=== PATIENT | female | born 1950 | race Hispanic/Latino ===

== ENCOUNTER 2016-05-30 16:15 | Inpatient (IN) | payer MEDICARE, OTHER, BC ==
[2016-05-30] MEDS ORDERED: Albuterol-Ipratrop 3 mg / 0.5 (3 ml) UD ONE (16:58)
[2016-05-30] MEDS: Albuterol-Ipratrop 3 mg / 0.5 (3 ml) UD INH SCH ×3 (17:15→17:49)
[2016-05-30 17:22] LABS: ABG ALLEN TEST YES; ARTERIAL BLOOD GAS HCO3 32.7 mmol/L (21-28); ARTERIAL BLOOD GAS O2 CAPACITY 17.5 mL/dL (16-24); ARTERIAL BLOOD GAS PH 7.32 (7.35-7.45); ARTERIAL BLOOD GAS PO2 57 mm/Hg (80-100); ARTERIAL BLOOD HGB O2 SAT 85.7 % (95.0-98.0); CARBOXYHEMOGLOBIN 3.5 % (0.5-1.5); METHEMOGLOBIN 2.8 % (0.0-3.0)
--- NOTE | 2016-05-30 17:22 | ED PDOC ---
HPI: SOB/CHF/COPD Time Seen by Provider: 05/30/16 16:35 Chief Complaint (Nursing): Shortness Of Breath Chief Complaint (Provider): SOB History Per: Patient, Family (father and son at bedside ) Additional Complaint(s): patient by ambulance with hx of COPD on home O2, presents for SOB. Duoneb x 1, albuterol x 1 and solumedrol 125mg in route to the hospital according to the patient has not wanted to use oxygen at home and son reports he does think she is taking her COPD medicines as prescribed. for the past week her cough has been getting worse and she has not been feeling well. patient can speak almost a full sentence, currently getting nebs tx. she denies chest pain, headaches or dizziness. Past Medical History Reviewed: Historical Data, Nursing Documentation, Vital Signs Vital Signs: Last Vital Signs Temp 99.8 F H 05/31/16 04:00 Pulse 97 H 05/31/16 10:07 Resp 18 05/31/16 06:00 BP 111/69 05/31/16 06:00 Pulse Ox 95 05/31/16 10:40 - Medical History PMH: Asthma, COPD, Emphysema, Hypothyroidism, Pneumonia (1991) Denies: Depression, Chronic Kidney Disease, Schizophrenia - Surgical History Other surgeries: thyroid removed- CA - Family History Family History: States: Unknown Family Hx - Living Arrangements Living Arrangements: With Family - Immunization History Hx Tetanus Toxoid Vaccination: No Hx Influenza Vaccination: No Hx Pneumococcal Vaccination: No - Home Medications Home Medications: Ambulatory Orders Medication Instructions Recorded Albuterol Sulfate [Proair Hfa] 1 puff INH BID #0 inh 01/11/15 Albuterol/Ipratropium [Duoneb 3 3 ml INH RQ4 #0 neb 01/11/15 mg/0.5 mg (3 ml) UD] Tiotropium [place] [Spiriva] 1 puff INH DAILY #0 cap 01/11/15 Fluticasone/Salmeterol 500/50 1 puff INH DAILY 05/30/16 [Advair Diskus 500/50] Levothyroxine [Synthroid] 88 mcg PO DAILY 05/30/16 - Allergies Allergies/Adverse Reactions: Allergies Allergy/AdvReac Type Severity Reaction Status Date / Time No Known Drug Allergies Allergy Verified 05/31/16 00:42 corn AdvReac CONGESTION Verified 05/30/16 21:48 beef AdvReac CONGESTION Uncoded 05/30/16 21:48 Review of Systems ROS Statement: Except As Marked, All Systems Reviewed And Found Negative Constitutional: Negative for: Fever Cardiovascular: Negative for: Chest Pain Gastrointestinal: Negative for: Abdominal Pain Musculoskeletal: Negative for: Neck Pain Neurological: Negative for: Headache, Dizziness Physical Exam - Reviewed Nursing Documentation Reviewed: Yes Vital Signs Reviewed: Yes - Physical Exam Appears: Positive for: In Acute Distress (moderate respiratory) Head Exam: Positive for: NORMAL INSPECTION Skin: Positive for: Normal Color, Warm, Dry Eye Exam: Positive for: Normal appearance, EOMI, PERRL ENT: Positive for: Normal ENT Inspection Neck: Positive for: Normal, Painless ROM Cardiovascular/Chest: Positive for: Tachycardia. Negative for: Murmur, Irregularly Irregular Respiratory: Positive for: Decreased Breath Sounds (at bases ), Accessory Muscle Use, Crackles, Rales, Rhonchi, Wheezing, Respiratory Distress (moderate ) Pulses-Dorsalis Pedis (L): 2+ Pulses-Dorsalis Pedis (R): 2+ Pulses-Radial (L): 2+ Pulses-Radial (R): 2+ Gastrointestinal/Abdominal: Positive for: Normal Exam, Soft. Negative for: Tenderness Back: Negative for: L CVA Tenderness, R CVA Tenderness Extremity: Positive for: Capillary Refill (normal ). Negative for: Pedal Edema , Calf Tenderness, Swelling Lymphatic: Positive for: Normal Exam Neurologic/Psych: Positive for: Alert, Oriented. Negative for: Motor/Sensory Deficits - Laboratory Results Result Diagrams: 05/31/16 04:45 05/31/16 04:45 - ECG ECG Rhythm: Positive for: Normal QRS, Normal ST Segment, Sinus Tachycardia (115) , Premature Ventricular Contraction, Nonspecific Changes O2 Sat by Pulse Oximetry: 95 Pulse Ox Interpretation: Normal - Radiology X-Ray: Interpreted by Me, Read By Radiologist X-Ray Interpretation: Infiltrates - Critical Care Total Time (In Min): 30 Medical Decision Making Medical Decision Makin66 y/o female with COPD, on home O2 with respiratory distress with rales/ rhonchi on exam - r/o pneumonia, chf - labs - CXR - EKG - nebs for now, consider Bipap after ABG Labs with elevated white count high BNP LA 2.4 CXR with bilateral pneumonia- Rocephin and Azithro started BIPAP ordered Patient meeting sepsis criteria (+) wbc count, tachy, source. given very high BNP fluids cautiously second LA ordered. Call placed to Dr. Ferreira; discussed case agrees with ICU. patient with no hx of heart failure Call placed to Dr. Guzman ICU- discussed case and accepts patient to the unit. Call placed to Dr. Vanegas hospitalist. accepts patient to his service and will be down for evaluation. She is tolerating BIPAP maintaining 90-92% O2; she is drowsy but alert and able to talk through the bipap mask. Chart completed after patient was admitted; aware of finding of hip fracture. at time of arrival patient was in respiratory distress, family and patient denied any falls or trauma, patient appeared in no painful distress, denied any pain and was moving around her bed. initial examination of the leg showed muscle wasting; no obvious deformities, pedal pulses to be normal and no pedal edema. Disposition - Clinical Impression Clinical Impression: Congestive heart failure, Sepsis, Fracture of hip, Obstructive chronic bronchitis with exacerbation, Pneumonia - Patient ED Disposition Is Patient to be Admitted: Yes - Disposition Disposition Time: 19:25 Condition: CRITICAL - POA Present On Arrival: None
[2016-05-30 18:21] LABS: BASO % 0.2 % (0.0-2.0); HEMATOCRIT 41.2 % (34.0-47.0); LYMPH # 0.5 K/uL (1.0-4.3); LYMPH % 2.1 % (20.0-40.0); MEAN CELL VOLUME 100.1 fl (81.0-99.0); MEAN CORPUSCULAR HEMOGLOBIN 31.7 pg (27.0-31.0); MEAN CORPUSCULAR HGB CONC 31.7 g/dL (33.0-37.0); MEAN PLATELET VOLUME 8.6 fl (7.2-11.7); MONO # 1.3 K/uL (0.0-0.8); NEUT # 23.3 K/uL (1.8-7.0); NEUT % 92.7 % (50.0-75.0); NRBC % 0.3 % (0.0-0.0); PLATELET COUNT 467 K/uL (130-400); RED CELL DISTRIBUTION WIDTH 14.5 % (11.5-14.5); WHITE BLOOD COUNT 25.1 K/uL (4.8-10.8)
--- NOTE | 2016-05-30 18:25 | RAD ---
HISTORY: cough, wheezing COMPARISON: 02/16/2016. TECHNIQUE: Chest PA and lateral FINDINGS: LUNGS: The lungs are hyperinflated. There is bilateral lower lobe airspace disease, more confluent on the right. PLEURA: No significant pleural effusion identified. No pneumothorax apparent. CARDIOVASCULAR: Normal. OSSEOUS STRUCTURES: There is diffuse bone demineralization and multilevel degenerative changes in the spine. VISUALIZED UPPER ABDOMEN: Normal. OTHER FINDINGS: Again seen are bilateral calcified breast implants. IMPRESSION: Findings are concerning for bilateral lower lobe pneumonia, worse on the right.
[2016-05-30 18:27] LABS: ALB/GLOB RATIO 0.9 (1.0-2.1); ALKALINE PHOSPHATASE 161 U/L (38-126); ALT/SGPT 36 U/L (9-52); AST/SGOT 45 U/L (14-36); BILIRUBIN,TOTAL 0.6 mg/dl (0.2-1.3); BLOOD UREA NITROGEN 60 mg/dl (7-17); CALCIUM 9.1 mg/dL (8.4-10.2); CARBON DIOXIDE 36 mmol/L (22-30); CHLORIDE 94 mmol/L (98-107); GFR AFRICAN-AMERICAN > 60; GLUCOSE,RANDOM 183 mg/dL (65-105); MAGNESIUM 2.9 MG/DL (1.6-2.3); POTASSIUM 4.3 MMOL/L (3.6-5.0); SODIUM 141 mmol/l (132-148); TOTAL PROTEIN 7.5 G/DL (6.3-8.2)
[2016-05-30] MEDS ORDERED: Azithromycin 500 MG in Sodium Chloride 0.9% 250 ML IVPB STA (18:35)
[2016-05-30] MEDS ORDERED: cefTRIAXone (Rocephin) 1 gm Inj ONE (19:00)
[2016-05-30 19:09] LABS: NEUTROPHIL 89 % (42-75); TOTAL CELLS COUNTED 100
[2016-05-30 19:16] LABS: VENOUS BLOOD GAS BASE EXCESS 9.6 mmol/L (0.0-2.0); VENOUS BLOOD GAS PCO2 90 mmHg (40-60); VENOUS BLOOD PH 7.26 (7.32-7.43)
--- NOTE | 2016-05-30 20:04 | CP.PCM.HP ---
History of Present Illness - History of Present Illness History of Present Illness: PCP: Not on Staff Pulmonogist: Dr Ferreira Chief complaint: SOB/Coughing HPI: The Hx is obtained from the patient's family and the medical records as patient is in severe SOB and on a BIPAP. She is a 66 years old female with hx of Hypothyroidism, pneumonia, Asthma with COPD on home Oxygen and, who smokes > than 10 cigarettes daily, is brought to the ED with 2 weeks of worsening SOB, Coughing , always feeling cold, poor memory , not eating nor drinking liquids, referring some dizziness on the day of admission. The referred that the patient was so sick that she has not smoked for 2 days. No fever, vomits, diarrhea nor complaints of chest pain. PMH: Asthma with COPD; Hypothyroid due to ThyroidCA s/p Iodine ablation with radiation in 2008, PMH: lap Cholecystectomy, Breast implant, Chin implant, cervical spine surgery at [facility], Thyroid Iodine ablation with radiation with LN involvement -2008 in [facility] SH: Tobacco - currently smokes 1ppd since she was 13 years old; Alcohol - denies; Drugs - denies FH: Mother - Heart Disease Father - Alzheimer's Dementia Allergies: NKDA: Allergic to [place]. Present on Admission - Present on Admission Any Indicators Present on Admission: No History of DVT/PE: No History of Uncontrolled Diabetes: No Urinary Catheter: No Decubitus Ulcer Present: No Review of Systems - Review of Systems Systems not reviewed;Unavailable: Respiratory Distress Review of Systems: Review of systems is limited because of the SOB and Patient on BIPAP - Constitutional Constitutional: Weakness - EENT Ears: absent: Decreased Hearing Nose/Mouth/Throat: absent: Epistaxis, Nasal Congestion, Nasal Discharge - Breasts Additional comments: bilateral Breast Implant - Respiratory Respiratory: Cough, Dyspnea - Gastrointestinal Gastrointestinal: absent: Diarrhea, Vomiting - Musculoskeletal Musculoskeletal: Back Pain Additional comments: Unsteady gait. - Hematologic/Lymphatic Hematologic: absent: Easy Bleeding, Easy Bruising Past Patient History - Tetanus Immunizations Tetanus Immunization: Unknown - Past Medical History & Family History Past Medical History?: Yes - Past Social History Smoking Status: Heavy Smoker > 10 Cigarettes Daily Chewing Tobacco Use: No Cigar Use: No Alcohol: None Drugs: Denies Home Situation {Lives}: With Family - CARDIAC Hx Cardiac Disorders: No - PULMONARY Hx Asthma: Yes Hx Chronic Obstructive Pulmonary Disease (COPD): Yes Hx Emphysema: Yes Hx Pneumonia: Yes (1991) - NEUROLOGICAL Hx Neurological Disorder: No - HEENT Hx HEENT Problems: No - RENAL Hx Chronic Kidney Disease: No - ENDOCRINE/METABOLIC Hx Hypothyroidism: Yes - HEMATOLOGICAL/ONCOLOGICAL Hx Blood Disorders: No - INTEGUMENTARY Hx Dermatological Problems: No - MUSCULOSKELETAL/RHEUMATOLOGICAL Hx Back Pain: Yes Hx Falls: No Hx Spinal Stenosis: Yes (cervical with radiculopathy) Hx Unsteady Gait: Yes - GASTROINTESTINAL Hx Gastrointestinal Disorders: No Other/Comment: hepatic cysts - GENITOURINARY/GYNECOLOGICAL Hx Genitourinary Disorders: No - PSYCHIATRIC Hx Depression: No Hx Schizophrenia: No Hx Substance Use: No - SURGICAL HISTORY Hx Surgeries: Yes Hx Orthopedic Surgery: Yes Hx Thyroidectomy: Yes (with ALANIZ) Other/Comment: Breast implants. Cervical spinal decompression/fusion. Laparoscopic hepatic cystectomy - ANESTHESIA Hx Anesthesia: Yes Hx Anesthesia Reactions: Yes (BP drops) Hx Malignant Hyperthermia: No Meds Allergies/Adverse Reactions: Allergies Allergy/AdvReac Type Severity Reaction Status Date / Time No Known Drug Allergies Allergy Verified 05/31/16 00:42 corn AdvReac CONGESTION Verified 05/30/16 21:48 beef AdvReac CONGESTION Uncoded 05/30/16 21:48 Physical Exam - Constitutional Appears: In Acute Distress, Cachectic - Head Exam Head Exam: ATRAUMATIC, NORMAL INSPECTION, NORMOCEPHALIC - Eye Exam Eye Exam: EOMI, Normal appearance Pupil Exam: NORMAL ACCOMODATION, PERRL - ENT Exam ENT Exam: Mucous Membranes Dry, Normal External Ear Exam, Normal Oropharynx - Neck Exam Neck exam: Positive for: Full Rom, Normal Inspection. Negative for: Lymphadenopathy, Tenderness - Respiratory Exam Respiratory Exam: Decreased Breath Sounds. absent: Rales, Rhonchi, Wheezes - Cardiovascular Exam Cardiovascular Exam: REGULAR RHYTHM, +S1, +S2. absent: Gallop, JVD - GI/Abdominal Exam GI & Abdominal Exam: Normal Bowel Sounds, Soft. absent: Distended, Organomegaly , Tenderness - Rectal Exam Rectal Exam: Deferred - Extremities Exam Extremities exam: Positive for: normal inspection. Negative for: pedal edema Additional comments: Pain to the left hip on flexion or rotation of the left hip. No edemas nor erythema. - Back Exam Back exam: NORMAL INSPECTION. absent: CVA tenderness (L), CVA tenderness (R) - Neurological Exam Neurological exam: CN II-XII Intact, Reflexes Normal Additional comments: Seepy but arousable. Shakes the head in answering to questioning. Moves both upper extremities. and the right lower extremity. - Psychiatric Exam Psychiatric exam: Flat Affect - Skin Skin Exam: Dry, Intact, Normal Color, Warm Results - Vital Signs Recent Vital Signs: Last Vital Signs Temp 98.1 F 05/30/16 16:19 Pulse 113 H 05/30/16 19:24 Resp 20 05/30/16 19:24 BP 123/66 05/30/16 19:24 Pulse Ox 88 L 05/30/16 19:24 - Labs Result Diagrams: 05/30/16 17:30 05/30/16 17:30 - Imaging and Cardiology Chest X Ray Status: Image reviewed by me, Report reviewed by me Additional comment: Bibasal interstitial infiltrate with bilateral breast implant. Left hip X ray Status: Image reviewed by me Additional comment: Closed Left femoral trochanteric fracture Assessment & Plan - Assessment and Plan (Free Text) Assessment: #. Respiratory Failure with Hypercarbia #. Bibasal Pneumonia #. COPD exacerbation #. Sepsis #. Left Femur trochanteric Fx #. Elevated Pro BNP #. Dehydration #. Hyperglycemia #. Nicotine Addiction Plan: 66 years old female with hx of Hypothyroidism, pneumonia, Asthma with COPD on home Oxygen and, who smokes > than 10 cigarettes daily, is brought to the ED with 2 weeks of worsening SOB, Coughing , always feeling cold, poor memory , not eating nor drinking liquids, referring some dizziness on the day of admission. #. Respiratory Failure with Hypercarbia - BIPAP was started 12/5 rate of 14 and fiO2 of 60%: This was changed to IPAP/ EPAP of 14/5 rate of 20 and FiO2 of 60% after no change in elevated PaCO2 - Follow ABG #. Bibasal Pneumonia - Consult Pulmonary Dr Gonzalez - Azithromycin 500mg IV daily - Rocephin 1gm IVPB daily #. COPD exacerbation - Pulmonary on consult - BIPAP with Oxygen/ Duoneb q 4hrs/ Advair q12/ Antibiotics #. Sepsis - consult Dr Mcmillan ID - Follow blood culture - follow urine culture - IV Fluids - follow lactic acid - Rocephin / Azithromycin #. Traumatic Left Femur trochanteric Fx - Consult Dr Boiardo orthopedic - IV fluid - Pain management with Toradol #. Elevated Pro BNP r/o CHF - Consult Dr Amaro cardiology - ECHO to evaluate wall motion and Ejection Fraction - lasix IV - Monitor Patient for Pulmonary congestion - Follow repeated CXR #. Dehydration secondary to poor intake - IV Fluid 0.9 NS 1 liter bolus given followed by 2 liters at 500ml/hr - follow renal labs #. Hyperglycemia - follow HbA1c #. Nicotine Addiction - Nicotine patch daily #.DVT Prophylaxis with SCD #. Code Status: Full - Date & Time Date: 05/30/16 Time: 20:04
[2016-05-30] MEDS: Sodium Chloride 0.9% 1,000 ML IV SCH ×2 (21:45→23:33)
[2016-05-30 21:46] VITALS: BMI 15.6
[2016-05-31] MEDS: Sodium Chloride 0.9% 1,000 ML IV SCH ×2 (00:14→02:07)
[2016-05-31] MEDS: Albuterol-Ipratrop 3 mg / 0.5 (3 ml) UD INH SCH ×6 (00:33→19:53)
[2016-05-31 00:52] LABS: RBC URINE 6 /hpf (0-3); URINE BACTERIA RARE (<OCC); URINE BILIRUBIN NEGATIVE (NEGATIVE); URINE BLOOD SMALL (NEGATIVE); URINE COLOR AMBER (YELLOW); URINE GLUCOSE (UA) NEG (Normal); URINE KETONE TRACE mg/dL (NEGATIVE); URINE LEUKOCYTE ESTERASE NEG Leu/uL (Negative); URINE PROTEIN 100 mg/dL (NEGATIVE); URINE UROBILINOGEN 0.2-1.0 mg/dL (0.2-1.0); WBC URINE 3 /hpf (0-5)
[2016-05-31 05:07] LABS: ABG ALLEN TEST YES; ABG MECHANICAL RATE 20; ARTERIAL BLOOD GAS HCO3 32.7 mmol/L (21-28); ARTERIAL BLOOD GAS MODE BiPAP; ARTERIAL BLOOD GAS O2 CAPACITY 14.9 mL/dL (16-24); ARTERIAL BLOOD GAS O2 CONTENT 14.1 ML/dL (15-23); ARTERIAL BLOOD GAS PH 7.32 (7.35-7.45); ARTERIAL BLOOD GAS PO2 66 mm/Hg (80-100); HHB 5.4 % (0.0-5.0); METHEMOGLOBIN 1.6 % (0.0-3.0)
--- NOTE | 2016-05-31 05:33 | RAD ---
EXAM: XR Left Hip With Pelvis When Performed, 2 or 3 Views. CLINICAL HISTORY: 66 years old, female; Injury or trauma; Fall; Initial encounter; Blunt trauma (contusions or hematomas); Left; Hip; Additional info: Painful left hip post fall TECHNIQUE: Two or three views of the left hip, with pelvis when performed. EXAM DATE/TIME: 05/30/2016 8:25 PM COMPARISON: No relevant prior studies available. FINDINGS: There is an intertrochanteric fracture of the left femur. There is approximately 2 cm of overlap with the femoral neck. The femoral head is well contained within the acetabulum and is not dislocated. The right hip is intact. Numerous pelvic phleboliths. IMPRESSION: Left intertrochanteric fracture.
--- NOTE | 2016-05-31 05:37 | RAD ---
EXAM: XR Left Hip With Pelvis When Performed, 2 or 3 Views. CLINICAL HISTORY: 66 years old, female; Injury or trauma; Fall; Initial encounter; Blunt trauma (contusions or hematomas); Left; Hip; Additional info: Post fall pain left femur/hip TECHNIQUE: Two or three views of the left hip, with pelvis when performed. EXAM DATE/TIME: 05/30/2016 8:27 PM COMPARISON: No relevant prior studies available. FINDINGS: There is an intertrochanteric fracture of the left femur. The femoral shaft is displaced superiorly with respect to its normal position. The femoral head is well contained within the acetabulum without dislocation. Pelvic phleboliths. IMPRESSION: Intertrochanteric fracture.
[2016-05-31 05:49] LABS: BASO # 0.1 K/uL (0.0-0.2); BASO % 0.4 % (0.0-2.0); HEMATOCRIT 34.5 % (34.0-47.0); LYMPH # 0.4 K/uL (1.0-4.3); LYMPH % 1.8 % (20.0-40.0); MEAN CELL VOLUME 99.8 fl (81.0-99.0); MEAN CORPUSCULAR HEMOGLOBIN 31.8 pg (27.0-31.0); MEAN CORPUSCULAR HGB CONC 31.8 g/dL (33.0-37.0); MEAN PLATELET VOLUME 8.3 fl (7.2-11.7); MONO # 1.1 K/uL (0.0-0.8); MONO % 4.6 % (0.0-10.0); NEUT # 22.4 K/uL (1.8-7.0); NEUT % 93.2 % (50.0-75.0); NRBC % 0.1 % (0.0-0.0); PLATELET COUNT 382 K/uL (130-400); RED CELL DISTRIBUTION WIDTH 14.6 % (11.5-14.5); WHITE BLOOD COUNT 24.1 K/uL (4.8-10.8)
[2016-05-31 05:51] LABS: BLOOD UREA NITROGEN 43 mg/dl (7-17); CALCIUM 7.4 mg/dL (8.4-10.2); CARBON DIOXIDE 34 mmol/L (22-30); CHLORIDE 103 mmol/L (98-107); GFR AFRICAN-AMERICAN > 60; GLUCOSE,RANDOM 158 mg/dL (65-105); POTASSIUM 3.9 MMOL/L (3.6-5.0); SODIUM 150 mmol/l (132-148)
--- NOTE | 2016-05-31 08:00 | CARD ---
APPROVED REPORT EKG Measurement Heart [id number] <Conclusion> Sinus tachycardia with short NE with occasional premature ventricular complexes Possible Left atrial enlargement T wave abnormality, consider anterolateral ischemia Abnormal ECG
--- NOTE | 2016-05-31 08:13 | CP.PCM.CON ---
History of Present Illness - History of Present Illness History of Present Illness: ID: 66 yo female CC> primary complant at this encounter SOB/ pt with pain and restricted L hip ROM HPI_ pt presents to ER with svere SOB. the pt has multiple comorbiciites includiong thyroid disease. the pt has signicant prior Ortho hx with hx of CVervbical spine fusion. Pt has been treated for thyroid ca. pt cannot recall what happened with her huip states that the event probably occurred "here". When asked, she stated she has been in hospital for lasrt several months. Pt currently maintaine on BIPAP, as managed by DR Ferreira Past Patient History - Tetanus Immunizations Tetanus Immunization: Unknown - Past Medical History & Family History Past Medical History?: Yes - Past Social History Smoking Status: Heavy Smoker > 10 Cigarettes Daily Chewing Tobacco Use: No Cigar Use: No Alcohol: None Drugs: Denies Home Situation {Lives}: With Family - CARDIAC Hx Cardiac Disorders: No - PULMONARY Hx Asthma: Yes Hx Chronic Obstructive Pulmonary Disease (COPD): Yes Hx Emphysema: Yes Hx Pneumonia: Yes (1991) - NEUROLOGICAL Hx Neurological Disorder: No - HEENT Hx HEENT Problems: No - RENAL Hx Chronic Kidney Disease: No - ENDOCRINE/METABOLIC Hx Hypothyroidism: Yes - HEMATOLOGICAL/ONCOLOGICAL Hx Blood Disorders: No - INTEGUMENTARY Hx Dermatological Problems: No - MUSCULOSKELETAL/RHEUMATOLOGICAL Hx Back Pain: Yes Hx Falls: No Hx Spinal Stenosis: Yes (cervical with radiculopathy) Hx Unsteady Gait: Yes - GASTROINTESTINAL Hx Gastrointestinal Disorders: No Other/Comment: hepatic cysts - GENITOURINARY/GYNECOLOGICAL Hx Genitourinary Disorders: No - PSYCHIATRIC Hx Depression: No Hx Schizophrenia: No Hx Substance Use: No - SURGICAL HISTORY Hx Surgeries: Yes Hx Orthopedic Surgery: Yes Hx Thyroidectomy: Yes (with ALANIZ) Other/Comment: Breast implants. Cervical spinal decompression/fusion. Laparoscopic hepatic cystectomy - ANESTHESIA Hx Anesthesia: Yes Hx Anesthesia Reactions: Yes (BP drops) Hx Malignant Hyperthermia: No Meds Allergies/Adverse Reactions: Allergies Allergy/AdvReac Type Severity Reaction Status Date / Time No Known Drug Allergies Allergy Verified 05/31/16 00:42 corn AdvReac CONGESTION Verified 05/30/16 21:48 beef AdvReac CONGESTION Uncoded 05/30/16 21:48 - Medications Medications: Current Medications Acetaminophen (Tylenol 325mg Tab) 650 mg PO Q6 PRN PRN Reason: Pain, Mild (1-3) Albuterol/Ipratropium (Duoneb 3 Mg/0.5 Mg (3 Ml) Ud) 3 ml INH RQ4 BLAYNE Last Admin: 05/31/16 07:16 Dose: 3 ml Ceftriaxone Sodium 1 gm/ (Sodium Chloride) 100 mls @ 100 mls/hr IVPB DAILY BLAYNE Azithromycin 500 mg/ Sodium (Chloride) 250 mls @ 250 mls/hr IVPB DAILY BLAYNE Influenza Virus Vaccine (Afluria (Pf)(5yr & Older)) 0.5 ml IM .ONCE ONE Stop: 05/31/16 09:01 Ketorolac Tromethamine (Toradol) 30 mg IVP Q6 PRN PRN Reason: Pain, severe (8-10) Ketorolac Tromethamine (Toradol) 15 mg IVP Q6 PRN PRN Reason: Pain, moderate (4-7) Nicotine (Nicoderm Cq) 1 patch TD DAILY BLAYNE Fluticasone/Salmeterol (Advair Diskus 500/50) 1 puff INH DAILY BLAYNE Physical Exam - Additional Findings Additional findings: Objective exAM pT IN SVERE DISCOMFORT AT time of encounter. Pt present swith marked discomfort and shortness og breath pt currentl maintained on bipap remaiknder of systemic exam- please refer to Dr Ferreira and hospitalist notes Musculoskekeltyal stance./ gait defrred pt with shortening and external roation L hip N/V intact no gross/progressive deficits Results - Vital Signs Recent Vital Signs: Last Vital Signs Temp 99.8 F H 05/31/16 04:00 Pulse 95 H 05/31/16 06:00 Resp 18 05/31/16 06:00 BP 111/69 05/31/16 06:00 Pulse Ox 93 L 05/31/16 06:00 - Labs Result Diagrams: 05/31/16 04:45 05/31/16 04:45 Labs: Laboratory Results - last 24 hr 05/30/16 05/31/16 05/31/16 20:40 00:30 04:45 WBC 24.1 H RBC 3.46 L Hgb 11.0 L D Hct 34.5 MCV 99.8 H MCH 31.8 H MCHC 31.8 L RDW 14.6 H Plt Count 382 MPV 8.3 Neut % (Auto) 93.2 H Lymph % (Auto) 1.8 L [place] % (Auto) 4.6 Eos % (Auto) 0.0 Baso % (Auto) 0.4 Neut # 22.4 H Lymph # 0.4 L [place] # 1.1 H Eos # 0.0 Baso # 0.1 pCO2 pO2 HCO3 ABG pH ABG Total CO2 ABG O2 Saturation ABG O2 Content ABG Base Excess ABG Hemoglobin ABG Carboxyhemoglobin POC ABG HHb (Measured) ABG Methemoglobin ABG O2 Capacity Lino Test A-a O2 Difference Hgb O2 Saturation Vent Mode Mechanical Rate FiO2 Inspiratory BiPAP Expiratory BiPAP Crit Value Called To Crit Value Called By Crit Value Read Back Blood Gas Notified Time Sodium 150 H Potassium 3.9 Chloride 103 Carbon Dioxide 34 H Anion Gap 17 BUN 43 H Creatinine 0.7 Est GFR ( Amer) > 60 Est GFR (Non-Af Amer) > 60 Random Glucose 158 H Lactic Acid 2.6 H 1.3 Calcium 7.4 L Urine Color Clarissa Urine Clarity Slighty-cloudy Urine pH 6.0 Ur Specific [place] 1.025 Urine Protein 100 Urine Glucose (UA) Neg Urine Ketones Trace Urine Blood Small Urine Nitrate Negative Urine Bilirubin Negative Urine Urobilinogen 0.2-1.0 Ur Leukocyte Esterase Neg Urine RBC (Auto) 6 H Urine Microscopic WBC 3 Ur Squamous Epith Cells < 1 Urine Bacteria Rare Hyaline Casts 0-2 05/31/16 04:51 WBC RBC Hgb Hct MCV MCH MCHC RDW Plt Count MPV Neut % (Auto) Lymph % (Auto) [place] % (Auto) Eos % (Auto) Baso % (Auto) Neut # Lymph # [place] # Eos # Baso # pCO2 75 H* pO2 66 L HCO3 32.7 H ABG pH 7.32 L ABG Total CO2 40.9 H ABG O2 Saturation 94.4 L ABG O2 Content 14.1 L ABG Base Excess 10.1 H ABG Hemoglobin 11.0 L ABG Carboxyhemoglobin 2.0 H POC ABG HHb (Measured) 5.4 H ABG Methemoglobin 1.6 ABG O2 Capacity 14.9 L Lino Test Yes A-a O2 Difference 268.0 Hgb O2 Saturation 91.0 L Vent Mode Bipap Mechanical Rate 20 FiO2 60.0 Inspiratory BiPAP 14 Expiratory BiPAP 5 Crit Value Called To Deisi igleisas Crit Value Called By [id number] Crit Value Read Back Y Blood Gas Notified Time 507 Sodium Potassium Chloride Carbon Dioxide Anion Gap BUN Creatinine Est GFR ( Amer) Est GFR (Non-Af Amer) Random Glucose Lactic Acid Calcium Urine Color Urine Clarity Urine pH Ur Specific [place] Urine Protein Urine Glucose (UA) Urine Ketones Urine Blood Urine Nitrate Urine Bilirubin Urine Urobilinogen Ur Leukocyte Esterase Urine RBC (Auto) Urine Microscopic WBC Ur Squamous Epith Cells Urine Bacteria Hyaline Casts - EKG Data Interpretation: Acute Conduction Defect Assessment & Plan - Assessment and Plan (Free Text) Assessment: A- basicervical/intertrochasnteric L hip fx(pathologic in the sense that the pt is markedly osteopenic) P- to OR for definitive fixation when pt is medically stable and stable from a pulmonary perspective
[2016-05-31] MEDS ORDERED: Fluticasone-Salmeterol 500-50mcg Diskus INH SCH (09:00)
[2016-05-31] MEDS ORDERED: Enoxaparin 40 mg Syringe SC SCH (09:00)
[2016-05-31] MEDS ORDERED: Influenza Vaccine(5yr & older) 0.5 ML/45 MCG IM ONE (09:00)
[2016-05-31 10:06] LABS: TOTAL CELLS COUNTED 100
[2016-05-31] MEDS: Azithromycin 500 MG in Sodium Chloride 0.9% 250 ML IVPB SCH (10:06)
[2016-05-31 10:08] LABS: NEUTROPHIL 86 % (42-75)
--- NOTE | 2016-05-31 10:18 | RAD ---
HISTORY: Evaluate for Congestion COMPARISON: Comparison chest 05/30/2016. FINDINGS: LUNGS: Lung bases are partially obscured by calcified breast implants. Hyperinflation. Mild bibasilar atelectasis and/or infiltrates. . PLEURA: No significant pleural effusion identified, no pneumothorax apparent. CARDIOVASCULAR: Normal. OSSEOUS STRUCTURES: Again noted is inferior margin ACDF plate overlying the lower cervical region. VISUALIZED UPPER ABDOMEN: Normal. OTHER FINDINGS: None. IMPRESSION: Bibasilar atelectasis and or infiltrates. Note that the lung bases are partially obscured by partially calcified breast implants.
--- NOTE | 2016-05-31 11:41 | CP.PCM.CON ---
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 She refused to come to the hospital initially and apparently had fallen when attempting to get up from the couch. She was brought to the emergency room and found to have bronchopneumonia with sepsis, ventilatory failure and a fracture of the left femur. She has had repeated episodes of pneumonia resulting in multiple hospitalizations over the last two years. As per her son she has also been more confused and forgetful at home over the past few months causing concern for dementia which was diagnosed in her father and ultimately was the cause of his demise. Despite the advanced state of her lung disease and the repeated episodes of pneumonia, she continues to smoke at least a pack of cigarettes daily. There was no complaint of chest pain or hemoptysis with the current illness. She is unable to say if she had been having fevers at home, but did deny chills. On presentation she had a white cell count of 25.1 with 3% immature forms, PaCO2 77 , PaO2 57, pH 7.32, BUN 60 and creatinine 0.9. Past Patient History - Tetanus Immunizations Tetanus Immunization: Unknown - Past Medical History & Family History Past Medical History?: Yes - Past Social History Smoking Status: Heavy Smoker > 10 Cigarettes Daily Chewing Tobacco Use: No Cigar Use: No Alcohol: None Drugs: Denies Home Situation {Lives}: With Family - CARDIAC Hx Cardiac Disorders: No - PULMONARY Hx Respiratory Disorders: Yes Hx Asthma: Yes Hx Chronic Obstructive Pulmonary Disease (COPD): Yes Hx Emphysema: Yes Hx Pneumonia: Yes (multiple episodes) - NEUROLOGICAL Hx Neurological Disorder: No - HEENT Hx HEENT Problems: No - RENAL Hx Chronic Kidney Disease: No - ENDOCRINE/METABOLIC Hx Endocrine Disorders: Yes Hx Hypothyroidism: Yes - HEMATOLOGICAL/ONCOLOGICAL Hx Blood Disorders: Yes Hx Cancer: Yes (thyroid) - INTEGUMENTARY Hx Dermatological Problems: No - MUSCULOSKELETAL/RHEUMATOLOGICAL Hx Musculoskeletal Disorders: Yes Hx Back Pain: Yes Hx Falls: No Hx Spinal Stenosis: Yes (cervical with radiculopathy) Hx Unsteady Gait: Yes - GASTROINTESTINAL Hx Gastrointestinal Disorders: Yes Other/Comment: hepatic cysts - GENITOURINARY/GYNECOLOGICAL Hx Genitourinary Disorders: No - PSYCHIATRIC Hx Psychophysiologic Disorder: No Hx Depression: No - SURGICAL HISTORY Hx Surgeries: Yes Hx Orthopedic Surgery: Yes (cervical fusion) Hx Thyroidectomy: Yes (with ALANIZ) Other/Comment: Breast implants. Cervical spinal decompression/fusion. Laparoscopic hepatic cystectomy - ANESTHESIA Hx Anesthesia: Yes Hx Anesthesia Reactions: Yes (BP drops) Hx Malignant Hyperthermia: No Meds Allergies/Adverse Reactions: Allergies Allergy/AdvReac Type Severity Reaction Status Date / Time No Known Drug Allergies Allergy Verified 05/31/16 00:42 corn AdvReac CONGESTION Verified 05/30/16 21:48 beef AdvReac CONGESTION Uncoded 05/30/16 21:48 - Medications Medications: Current Medications Acetaminophen (Tylenol 325mg Tab) 650 mg PO Q6 PRN PRN Reason: Pain, Mild (1-3) Albuterol/Ipratropium (Duoneb 3 Mg/0.5 Mg (3 Ml) Ud) 3 ml INH RQ4 [facility] Last Admin: 05/31/16 07:16 Dose: 3 ml Ceftriaxone Sodium 1 gm/ (Sodium Chloride) 100 mls @ 100 mls/hr IVPB DAILY [facility] Azithromycin 500 mg/ Sodium (Chloride) 250 mls @ 250 mls/hr IVPB DAILY [facility] Last Admin: 05/31/16 10:06 Dose: 250 mls/hr Ketorolac Tromethamine (Toradol) 30 mg IVP Q6 PRN PRN Reason: Pain, severe (8-10) Ketorolac Tromethamine (Toradol) 15 mg IVP Q6 PRN PRN Reason: Pain, moderate (4-7) Nicotine (Nicoderm Cq) 1 patch TD DAILY [facility] Fluticasone/Salmeterol (Advair Diskus 500/50) 1 puff INH DAILY [facility] Last Admin: 05/31/16 10:02 Dose: 1 puff Physical Exam - Additional Findings Additional findings: Thin female who is in no acute distress. Presently on oxygen via nasal canula. Appears confused at times during the exam. No dependant edema, no cyanosis. LLE externally rotated, painful hip area on motion. No ecchymosis or swelling, pulses intact. Pharynx is pink and MM are dry. Neck is supple and trachea midline. No JVD or carotid bruit. No dullness on percussion of anterior chest wall. Breast implants intact. Breath sounds are very diminished bilaterally with scattered sonorous rhonchi in lower lobes. Medium rales are heard in the lower lobes bilaterally. No bronchial breathing, but + egophony in bases bilaterally. Heart sounds are distant, mildly tachycardic, no murmur heard. Abdomen is soft and non-tender with + bowel sounds. Results - Vital Signs Recent Vital Signs: Last Vital Signs Temp 99.8 F H 05/31/16 04:00 Pulse 97 H 05/31/16 10:07 Resp 18 05/31/16 06:00 BP 111/69 05/31/16 06:00 Pulse Ox 95 05/31/16 10:42 - Labs Result Diagrams: 05/31/16 04:45 05/31/16 04:45 Labs: Laboratory Results - last 24 hr 05/30/16 05/31/16 05/31/16 20:40 00:30 04:45 WBC 24.1 H RBC 3.46 L Hgb 11.0 L D Hct 34.5 MCV 99.8 H MCH 31.8 H MCHC 31.8 L RDW 14.6 H Plt Count 382 MPV 8.3 Neut % (Auto) 93.2 H Lymph % (Auto) 1.8 L [place] % (Auto) 4.6 Eos % (Auto) 0.0 Baso % (Auto) 0.4 Neut # 22.4 H Lymph # 0.4 L [place] # 1.1 H Eos # 0.0 Baso # 0.1 Neutrophils % (Manual) 86 H Band Neutrophils % 6 H Lymphocytes % (Manual) 2 L Monocytes % (Manual) 6 Platelet Estimate Normal Anisocytosis (manual) Slight pCO2 pO2 HCO3 ABG pH ABG Total CO2 ABG O2 Saturation ABG O2 Content ABG Base Excess ABG Hemoglobin ABG Carboxyhemoglobin POC ABG HHb (Measured) ABG Methemoglobin ABG O2 Capacity Lino Test A-a O2 Difference Hgb O2 Saturation Vent Mode Mechanical Rate FiO2 Inspiratory BiPAP Expiratory BiPAP Crit Value Called To Crit Value Called By Crit Value Read Back Blood Gas Notified Time Sodium 150 H Potassium 3.9 Chloride 103 Carbon Dioxide 34 H Anion Gap 17 BUN 43 H Creatinine 0.7 Est GFR ( Amer) > 60 Est GFR (Non-Af Amer) > 60 Random Glucose 158 H Lactic Acid 2.6 H 1.3 Calcium 7.4 L Urine Color Clarissa Urine Clarity Slighty-cloudy Urine pH 6.0 Ur Specific [place] 1.025 Urine Protein 100 Urine Glucose (UA) Neg Urine Ketones Trace Urine Blood Small Urine Nitrate Negative Urine Bilirubin Negative Urine Urobilinogen 0.2-1.0 Ur Leukocyte Esterase Neg Urine RBC (Auto) 6 H Urine Microscopic WBC 3 Ur Squamous Epith Cells < 1 Urine Bacteria Rare Hyaline Casts 0-2 05/31/16 04:51 WBC RBC Hgb Hct MCV MCH MCHC RDW Plt Count MPV Neut % (Auto) Lymph % (Auto) [place] % (Auto) Eos % (Auto) Baso % (Auto) Neut # Lymph # [place] # Eos # Baso # Neutrophils % (Manual) Band Neutrophils % Lymphocytes % (Manual) Monocytes % (Manual) Platelet Estimate Anisocytosis (manual) pCO2 75 H* pO2 66 L HCO3 32.7 H ABG pH 7.32 L ABG Total CO2 40.9 H ABG O2 Saturation 94.4 L ABG O2 Content 14.1 L ABG Base Excess 10.1 H ABG Hemoglobin 11.0 L ABG Carboxyhemoglobin 2.0 H POC ABG HHb (Measured) 5.4 H ABG Methemoglobin 1.6 ABG O2 Capacity 14.9 L Lino Test Yes A-a O2 Difference 268.0 Hgb O2 Saturation 91.0 L Vent Mode Bipap Mechanical Rate 20 FiO2 60.0 Inspiratory BiPAP 14 Expiratory BiPAP 5 Crit Value Called To Deisi galvez r Crit Value Called By 6075 Crit Value Read Back Y Blood Gas Notified Time 507 Sodium Potassium Chloride Carbon Dioxide Anion Gap BUN Creatinine Est GFR ( Amer) Est GFR (Non-Af Amer) Random Glucose Lactic Acid Calcium Urine Color Urine Clarity Urine pH Ur Specific [place] Urine Protein Urine Glucose (UA) Urine Ketones Urine Blood Urine Nitrate Urine Bilirubin Urine Urobilinogen Ur Leukocyte Esterase Urine RBC (Auto) Urine Microscopic WBC Ur Squamous Epith Cells Urine Bacteria Hyaline Casts Assessment & Plan (1) Bronchopneumonia Status: Acute Priority: High (2) Decompensated chronic obstructive pulmonary disease Status: Acute Priority: High (3) Sepsis Status: Acute Priority: High (4) Dehydration Status: Acute Priority: High (5) Respiratory failure with hypercapnia Status: Acute Priority: High (6) Hip fracture Status: Acute Priority: High - Assessment and Plan (Free Text) Plan: Seen by orthopedics, will need surgical repair when medically improved. Cardiology eval pending for markedly increased BNP. Neurology eval requested for cognitive decline/?developing dementia/ encephalopathy. Continue present antibiotic regimen. Presentyly off NIPPV, will monitor. Nicotine replacement has been ordered, needs more counselling to DC tobacco. Continue aerosol therapies. Avoid corticosteroids (H/O hallucinations when given steroids in the past.). - Date & Time Date: 05/31/16 Time: 11:59
--- NOTE | 2016-05-31 11:53 | CP.PCM.PN ---
Subjective - Date & Time of Evaluation Date of Evaluation: 05/31/16 Time of Evaluation: 11:00 - Subjective Subjective: Patient was seen and evaluated bedside. At present on NC and tolerating well, Bipap discontinued . Denies any pain . Feeling better. Noticed patient to have poor memory with confusion at times. Does not remember any falls at home and states that her would know. She is chronically ill looking femlae , cachetic Bp 105/64 HR 105 o2 Sat 93 % ,Tmax 99.8 WBC 24 k Hgb 11 Na 150 BUN/ Cr 43/0.7 Lactic acid 1.3 EF 60-65 % Objective - Vital Signs/Intake and Output Vital Signs (last 24 hours): Temp Pulse Resp BP Pulse Ox 99.8 F H 97 H 18 111/69 95 05/31/16 04:00 05/31/16 10:07 05/31/16 06:00 05/31/16 06:00 05/31/16 10:42 Intake and Output: 05/31/16 05/31/16 06:59 18:59 Intake Total 3250 Output Total 1600 Balance 1650 - Medications Medications: Current Medications Acetaminophen (Tylenol 325mg Tab) 650 mg PO Q6 PRN PRN Reason: Pain, Mild (1-3) Albuterol/Ipratropium (Duoneb 3 Mg/0.5 Mg (3 Ml) Ud) 3 ml INH RQ4 [facility] Last Admin: 05/31/16 11:34 Dose: 3 ml Ceftriaxone Sodium 1 gm/ (Sodium Chloride) 100 mls @ 100 mls/hr IVPB DAILY [facility] Azithromycin 500 mg/ Sodium (Chloride) 250 mls @ 250 mls/hr IVPB DAILY [facility] Last Admin: 05/31/16 10:06 Dose: 250 mls/hr Ketorolac Tromethamine (Toradol) 30 mg IVP Q6 PRN PRN Reason: Pain, severe (8-10) Ketorolac Tromethamine (Toradol) 15 mg IVP Q6 PRN PRN Reason: Pain, moderate (4-7) Nicotine (Nicoderm Cq) 1 patch TD DAILY [facility] Fluticasone/Salmeterol (Advair Diskus 500/50) 1 puff INH DAILY [facility] Last Admin: 05/31/16 10:02 Dose: 1 puff - Labs Labs: 05/31/16 04:45 05/31/16 04:45 PT 10.2 SECONDS (9.6-11.2) 05/30/16 17:30 INR 0.98 (0.92-1.08) 05/30/16 17:30 APTT 29.0 SECONDS (23.3-32.5) 05/30/16 17:30 - Constitutional Appears: Non-toxic, No Acute Distress, Confused, Cachectic, Chronically Ill - Head Exam Head Exam: ATRAUMATIC, NORMOCEPHALIC - Eye Exam Eye Exam: EOMI, Normal appearance, PERRL Pupil Exam: NORMAL ACCOMODATION - ENT Exam ENT Exam: Mucous Membranes Moist, Normal Exam - Neck Exam Neck Exam: Full ROM, Normal Inspection - Respiratory Exam Respiratory Exam: Clear to Ausculation Bilateral, NORMAL BREATHING PATTERN. absent: Rales, Rhonchi, Wheezes - Cardiovascular Exam Cardiovascular Exam: Tachycardia, +S1, +S2. absent: JVD - GI/Abdominal Exam GI & Abdominal Exam: Soft, Normal Bowel Sounds. absent: Guarding, Tenderness, Rebound - Rectal Exam Rectal Exam: Deferred - Extremities Exam Extremities Exam: Normal Capillary Refill, Normal Inspection. absent: Calf Tenderness, Pedal Edema - Back Exam Back Exam: NORMAL INSPECTION - Neurological Exam Neurological Exam: Alert, Awake, CN II-XII Intact Additional comments: confused poor memory - Psychiatric Exam Psychiatric exam: Agitated - Skin Skin Exam: Dry, Pallor, Warm Assessment and Plan - Assessment and Plan (Free Text) Assessment: 66 years old female with hx of Hypothyroidism, pneumonia, Asthma with COPD on home Oxygen and, who smokes > than 10 cigarettes daily, is brought to the ED with 2 weeks of worsening SOB, Coughing , always feeling cold, poor memory , not eating nor drinking liquids, referring some dizziness on the day of admission. Patient admitted with diagnosis of acute hypercapnic respiratory failure and placed on Bipap and sepsis 1.Respiratory Failure with Hypercarbia Tolerated well Bipap and improving Switched to 3 L O2 via NC Pulmonary consulted Continue IV CClindamycin, Zosyn and Zithromax as per ID Duonebs and Advair 2. Bibasilar Pneumonia Consult Pulmonary Dr Gonzalez Continue Clinda, ZZosuyn and Zithroma Follow up cultures 3. COPD exacerbation Pulmonary on consult BIPAP with Oxygen/ Duoneb q 4hrs/ Advair q12/ Antibiotics Avoid steroids since patient has history of hallucinations 4. Sepsis- most likely secondary to pneumonia Follow up cx Continue IVF, IV antibiotics 5. Traumatic Left Femur trochanteric Fx Ortho consult with Dr Jim appreciated ORIF once medically stable will need pulmonary and cardiac clearance 6. Elevated Pro BNP- most likely Right sided heart failure Dr Amaro cardiology consulted ECHO showed EF 60-65 % with dilated RV 7. Cognitive impairment - most likely dementia with delirium vs metabolic encephalopathy Neuro eval F/u CT head TSH on the lower levels . Will check T3 and T4, Vitamin B12 8.Dehydration with hypernatremia secondary to poor intake Given IV Fluid 0.9 NS 3 liter 9.Nicotine Addiction Nicotine patch daily 10.DVT Prophylaxis with SCD
--- NOTE | 2016-05-31 12:34 | CP.CCUPN ---
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 SPo2 96% , RR 18, BP 11/70, HR 97, No fever spikes. 12H I/Os = 3250/1600ml. ROS: as above, no other obtainable pertinent negs or positives on 10 system review. PMFSH: all nursing and historical notes reviewed, no new pertinent data relevant to current problems. No other distress noted: EXAM- HEENT: no icterus, pupils equal and reactive, no nystagmus NECK: no visible JVD, supple, carotids equal upstroke bilat/no bruits CHEST: decreased BS bases, no wheezes audible, bilat breast implants intact HEART: regular, distant, S1S2, no murmur audible, no rubs. ABD: soft, no increased distention, no focal tenderness, no HSM. BS hypoactive , EXT: no increase in leg edema, no peripheral/ digital cyanosis, no calf tenderness or palpable cords, distal pulses intact and symmetrical NEURO: oriented x3, exhibits short term memory loss; no gross focal motor deficits SKIN: no rashes LABS: 7.47/57/95 WBC= 24.1 HGB= 11.0 PLTs= 382K Na= 150 K= 3.9 HCO3= 34 BUN/Cr= 43/0.7 BS= 158 Lactates: 2.4 2.6 1.3 CXR: b/l Breast implants noted, mild increase in RLL / basilar interstitial changes (my interp). Assessment: 1. Acute Hypoxemic and Hypercapneic Resp Failure, 2 Pneumonitis and CHF 2. Mild confusional state; r/o metabolic Encephalopathy versus Fat Emboli Syndrome. 3. Mild Hypernatremia post-diuresis 4. s/p left Hip fracture 5. Azotemia, r/o Dehydration versus CKD PLAN: 1. Stable off BiPAP, continue with nasal cannula oxygen for now. 2. Discussed with Pulm; Neuro eval for cognitive decline versus metab encephalopathy / medication effect? 3. Serial Lytes, watch for excessive diuresis. 4. Empiric abx coverage 5. Orthopedic eval reviewed.
--- NOTE | 2016-05-31 12:50 | CON ---
DATE: 05/31/2016 REASON FOR CONSULTATION: Elevated proBNP and shortness of breath and the possibility of congestive h eart failure. The patient is a 66-year-old female who is a heavy smoker and has advanced chronic obstructive lung d isease, on nasal O2 at home, required multiple admissions for exacerbation of chronic obstructive jackson g disease, was never intubated in the past, but was about to be intubated in 1 recent admission, acco rding to the son. The patient presented because of the shortness of breath as well as productive cou gh of blood stained mucus, according to the son. The patient also did have vomiting of blood stained vomitus, according to the son. There was no history of heart attack in the past. SOCIAL HISTORY: The patient is a heavy smoker. She is an occasional drinker. REVIEW OF SYSTEMS: According to the Emergency Room evaluation, there was no history of a fall or rec ent trauma. MEDICATIONS: Advair 1 puff inhalation daily, Zithromax 500 mg intravenously daily, Rocephin 1 gram i ntravenously daily, nicotine patch, Toradol 30 mg intravenously q. 6 hours. PHYSICAL EXAMINATION: GENERAL: The patient is an elderly female who is tachypneic and at times confused, does not appear t o be in acute distress. VITAL SIGNS: Blood pressure 111/69, heart rate 95, temperature 99.8, respirations 20. HEENT: Normocephalic. NECK: No JVD. CHEST: Diffuse bilateral wheezing. HEART: S1, S2 regular and distant. ABDOMEN: Soft. EXTREMITIES: No edema. LABORATORIES: CBC: WBC 24.1, hemoglobin 11, hematocrit 34.5, platelet count 382,000. SMA-7: Sodiu m 150, potassium 3.8, chloride 103, CO2 34, glucose 158, BUN 43, creatinine 0.7. PT, PTT are within normal limits. TSH level 0.3, below normal. ProBNP is 16,100. Chest x-ray was consistent with COPD. However, the picture is obscured by calcified bilateral breast implants. X-ray of the pelvis, hip and femur were consistent with left displaced intertrochanteric fracture. ASSESSMENT: 1. Exacerbation of chronic obstructive lung disease. 2. Rule out right-sided failure. 3. Left intertrochanteric fracture. 4. Hypernatremia and prerenal azotemia. 5. Consider hypothyroidism versus sick euthyroid syndrome. RECOMMENDATIONS: Continue current IV Zithromax and IV Rocephin. Obtain a bedside echocardiograph [facility]. Optimize intravenous hydration. The patient was on normal saline at 100 mL an hour. That was discontinued yesterday. Case was discussed at length with Dr. Ferreira as well as the patient's son at the bedside. Teofilo Amaro MD cc: [id number] TT: 05/31/2016 12:50:36 Confirmation # [id number] Dictation # [id number]
--- NOTE | 2016-05-31 13:29 | CARD ---
APPROVED REPORT EXAM: Two-dimensional and M-mode echocardiogram with Doppler and color Doppler. Other Information Quality : GoodRhythm : Tachycardia Technically limited study due to Breast Implants INDICATION Congestive Heart Failure CHF 2D DIMENSIONS IVSd0.63 (0.7-1.1cm)LVDd3.70 (3.9-5.9cm) PWd0.58 (0.7-1.1cm)IVSs0.83 (0.8-1.2cm) LVDs2.62 (2.5-4.0cm)FS (%) 29.1 % PWs0.84 (0.8-1.2cm) M-Mode DIMENSIONS Left Atrium (MM)2.56 (2.5-4.0cm)IVSd0.72 (0.7-1.1cm) Aortic Root3.11 (2.2-3.7cm)LVDd4.76 (4.0-5.6cm) Aortic Cusp Exc.1.86 (1.5-2.0cm)PWd0.65 (0.7-1.1cm) IVSs0.93 cmFS (%) 40 % LVDs2.87 (2.0-3.8cm)PWs0.84 cm Mitral Valve E/A ratio0.0 TDI E/Lateral E'0.0E/Medial E'0.0 Tricuspid Valve TR Peak [id number] Peak Gr.37mmHg [id number] LEFT VENTRICLE The left ventricle is normal size. There is normal left ventricular wall thickness. Left ventricle systolic function is normal. The Ejection Fraction is 60-65%. Septum is flattened due toRV overload Other segments contract normally Transmitral Doppler flow pattern is Grade I-abnormal relaxation pattern. RIGHT VENTRICLE The right ventricle is severely dilated. There is normal right ventricular wall thickness. Systolic function is severely reduced. Right Ventricular septal motion is flattened. ATRIA The left atrium size is normal. The right atrium is moderately dilated. AORTIC VALVE The aortic valve is normal in structure and function. No aortic regurgitation is present. There is no aortic valvular stenosis. MITRAL VALVE The mitral valve is normal in structure and function. There is no evidence of mitral valve prolapse. There is no mitral valve stenosis. There is no mitral valve regurgitation noted. TRICUSPID VALVE The tricuspid valve is normal in structure. There is moderate to severe tricuspid regurgitation. Right ventricular systolic pressure is estimated at 47 mmHg. There is moderate-severe pulmonary hypertension. PULMONIC VALVE The pulmonary valve is normal in structure and function. There is no pulmonic valvular regurgitation. GREAT VESSELS The aortic root is normal in size. The IVC is dilated. The IVC collapses <50% with inspiration. PERICARDIAL EFFUSION The pericardium appears normal. <Conclusion> The right ventricle is severely dilated. Systolic function is severely reduced. Septum is flattened due toRV overload Other segments contract normally Left ventricle systolic function is normal. The Ejection Fraction is 60-65%. Transmitral Doppler flow pattern is Grade I-abnormal relaxation pattern. The right atrium is moderately dilated. There is moderate to severe tricuspid regurgitation. There is moderate-severe pulmonary hypertension. The IVC is dilated. The IVC collapses <50% with inspiration.
--- NOTE | 2016-05-31 18:12 | CP.PCM.PN ---
Subjective - Date & Time of Evaluation Date of Evaluation: 05/31/16 Time of Evaluation: 18:09 - Subjective Subjective: ID NOTE PATIENT EXAMINED ,CHART REVIEWED HAS WBC OF 24.1 CREATININE0.8,GFR>60 HAVE DISCONTINUED ROCEPHEN,STARTED ZOSYN FULL CONSULT DICTATED Objective - Vital Signs/Intake and Output Vital Signs (last 24 hours): Temp Pulse Resp BP Pulse Ox 99.1 F 113 H 18 104/57 L 100 05/31/16 16:00 05/31/16 16:00 05/31/16 16:00 05/31/16 16:00 05/31/16 16:00 Intake and Output: 05/31/16 05/31/16 06:59 18:59 Intake Total 3250 640 Output Total 1600 Balance 1650 640 - Medications Medications: Current Medications Acetaminophen (Tylenol 325mg Tab) 650 mg PO Q6 PRN PRN Reason: Pain, Mild (1-3) Albuterol/Ipratropium (Duoneb 3 Mg/0.5 Mg (3 Ml) Ud) 3 ml INH RQ4 [facility] Last Admin: 05/31/16 16:26 Dose: 3 ml Azithromycin 500 mg/ Sodium (Chloride) 250 mls @ 250 mls/hr IVPB DAILY [facility] Last Admin: 05/31/16 10:06 Dose: 250 mls/hr Ketorolac Tromethamine (Toradol) 30 mg IVP Q6 PRN PRN Reason: Pain, severe (8-10) Ketorolac Tromethamine (Toradol) 15 mg IVP Q6 PRN PRN Reason: Pain, moderate (4-7) Nicotine (Nicoderm Cq) 1 patch TD DAILY [facility] Last Admin: 05/31/16 14:40 Dose: 1 patch Fluticasone/Salmeterol (Advair Diskus 500/50) 1 puff INH DAILY [facility] Last Admin: 05/31/16 10:02 Dose: 1 puff - Labs Labs: 05/31/16 04:45 05/31/16 04:45 PT 10.2 SECONDS (9.6-11.2) 05/30/16 17:30 INR 0.98 (0.92-1.08) 05/30/16 17:30 APTT 29.0 SECONDS (23.3-32.5) 05/30/16 17:30
--- NOTE | 2016-05-31 19:17 | CON ---
DATE: 05/31/2016 The patient is a 66-year-old female who has a long history of severe COPD and has been basically homebound, and recently she became more inactive, confused, and has been obtunded for the few days prior to admission. She apparently had taken a fall when moving from the couch, and found when she came to the ER, to have fractured her hip. She has also been diagnosed while in the ER with bilateral bronchopneumonia and sepsis. She had ventilatory failure also, and the noted fracture of the left . The patient had been hospitalized multiple times over the past few years. Discussed smoking with the patient. She states she is still smoking. That is taken from Dr. Ferreira's note, and noted that she smokes a pack of cigarettes daily. She denies any history of chest pain. She also denies any history of fevers, but told me that she did have chills. On physical exam, the patient is awake, but quite confused. HENT: Facial wasting. Tongue is also dry, and her pharynx is injected. NECK: Supple, no lymphadenopathy. The patient is quite asthenic, and her chest wall is significant for her breast implants. She has essentially very diminished breath sounds and some scattered rhonchi in the lower lobes. HEART: Regular sinus rhythm which is distant, but she is also tachycardic, heart rate being 120. ABDOMEN: Soft, nontender. EXTREMITIES: Has a fractured left hip which has also been seen by Dr. Jim, who will have to take her to the OR when she becomes more stable. There are no cultures at the moment. They are all pending. Her white count is 24.1, hemoglobin 11 with a marked left shift, creatinine is 0.7. GFR is greater than 60. Her lactic acid is 2.6, and now, today, was 1.3. Influenza type A and B are negative. Toxicology was all negative. Chest x-ray shows bibasilar atelectasis and/or infiltrates, and it was noted that the lung bases are partially obscured by breast implants. IMPRESSION: Bilateral bronchopneumonia with underlying, chronic, chronic obstructive pulmonary disease which has also decompensated; sepsis, dehydration , respiratory failure, and a hip fracture. At the present time, I have changed the antibiotic therapy to include Zosyn and clindamycin, have discontinued Rocephin. For the moment will keep her on Zithromax. Rodrigo Mcmillan MD cc: [id number] TT: 05/31/2016 19:16:46 Confirmation # [id number] Dictation # [id number] jn DIANDRA
--- NOTE | 2016-06-01 00:03 | CT ---
EXAM: CT Head Without Intravenous Contrast. CLINICAL HISTORY: 66 years old, female; Signs and symptoms; Other: AMS TECHNIQUE: Axial computed tomography images of the head/brain without intravenous contrast. This CT exam was performed using one or more of the following dose reduction techniques: automated exposure control, adjustment of the mA and/or kV according to patient size, and/or use of iterative reconstruction technique. Coronal and sagittal reformatted images were created and reviewed. COMPARISON: No relevant prior studies available. FINDINGS: Brain: No hemorrhage. No edema. Bilateral white matter hypoattenuation most likely representing chronic ischemic small vessel changes. Vascular calcification. Ventricles: No hydrocephalus. Evidence of bilateral choroid plexus xanthogranulomas. Bones: Skull is intact. Sinuses: No acute sinusitis. Mastoid air cells: No mastoid effusion. IMPRESSION: Chronic changes as above. Correlate clinically. Followup as warranted.
[2016-06-01] MEDS: Albuterol-Ipratrop 3 mg / 0.5 (3 ml) UD INH SCH ×6 (00:04→19:23)
[2016-06-01] MEDS: Clindamycin 600 MG in Sodium Chloride 0.9% 100 ML IVPB SCH ×3 (00:05→17:52)
[2016-06-01 06:43] LABS: BASO % 0.1 % (0.0-2.0); HEMATOCRIT 31.4 % (34.0-47.0); LYMPH # 0.5 K/uL (1.0-4.3); LYMPH % 2.3 % (20.0-40.0); MEAN CELL VOLUME 99.2 fl (81.0-99.0); MEAN CORPUSCULAR HEMOGLOBIN 31.6 pg (27.0-31.0); MEAN CORPUSCULAR HGB CONC 31.9 g/dL (33.0-37.0); MEAN PLATELET VOLUME 8.6 fl (7.2-11.7); MONO # 1.7 K/uL (0.0-0.8); NEUT # 19.4 K/uL (1.8-7.0); NEUT % 89.6 % (50.0-75.0); NRBC % 0.2 % (0.0-0.0); RED CELL DISTRIBUTION WIDTH 14.6 % (11.5-14.5); WHITE BLOOD COUNT 21.7 K/uL (4.8-10.8)
[2016-06-01 06:48] LABS: ALB/GLOB RATIO 0.8 (1.0-2.1); ALKALINE PHOSPHATASE 157 U/L (38-126); ALT/SGPT 50 U/L (9-52); AST/SGOT 94 U/L (14-36); BILIRUBIN,TOTAL 0.2 mg/dl (0.2-1.3); BLOOD UREA NITROGEN 43 mg/dl (7-17); CALCIUM 7.7 mg/dL (8.4-10.2); CARBON DIOXIDE 37 mmol/L (22-30); CHLORIDE 102 mmol/L (98-107); GFR AFRICAN-AMERICAN > 60; GLUCOSE,RANDOM 123 mg/dL (65-105); POTASSIUM 4.5 MMOL/L (3.6-5.0); SODIUM 151 mmol/l (132-148)
[2016-06-01 07:02] LABS: T4 5.88 ug/dl (5.5-11.0)
--- NOTE | 2016-06-01 09:19 | CP.PCM.PN ---
Subjective - Date & Time of Evaluation Date of Evaluation: 06/01/16 Time of Evaluation: 09:30 - Subjective Subjective: Patient seen and examined bedside. Currently sitting in bed on 3 L O2 via NC saturating 88-93 % .Appears comfortable, denies any SOB, CP, cough , sputum production . Mental status appears awake, alert and oriented , still with poor memory but no episodes of delirium. Placed on Bipap overnight but refused it, becoming agitated. Hemodynamically stable, afebrile, BP 100/63 , afebrile HR 90 WBC 21 K Hgb 10 plt 376 K NA 151 [address] with concentrated urine output I/O 1160/550 Objective - Vital Signs/Intake and Output Vital Signs (last 24 hours): Temp Pulse Resp BP Pulse Ox 97.8 F 90 20 100/63 100 06/01/16 08:00 06/01/16 08:00 06/01/16 08:00 06/01/16 08:00 06/01/16 08:00 Intake and Output: 06/01/16 06/01/16 06:59 18:59 Intake Total 400 Output Total 250 Balance 150 - Medications Medications: Current Medications Acetaminophen (Tylenol 325mg Tab) 650 mg PO Q6 PRN PRN Reason: Pain, Mild (1-3) Albuterol/Ipratropium (Duoneb 3 Mg/0.5 Mg (3 Ml) Ud) 3 ml INH RQ4 [facility] Last Admin: 06/01/16 07:39 Dose: 3 ml Azithromycin 500 mg/ Sodium (Chloride) 250 mls @ 250 mls/hr IVPB DAILY [facility] Last Admin: 05/31/16 10:06 Dose: 250 mls/hr Clindamycin Phosphate 600 mg/ (Sodium Chloride) 104 mls @ 104 mls/hr IVPB Q8 [facility] Last Admin: 06/01/16 00:05 Dose: 104 mls/hr Piperacillin Sod/Tazobactam (Sod 2.25 gm/ Sodium Chloride) 100 mls @ 100 mls/ hr IVPB Q6 [facility] Last Admin: 06/01/16 05:33 Dose: 100 mls/hr Ketorolac Tromethamine (Toradol) 30 mg IVP Q6 PRN PRN Reason: Pain, severe (8-10) Ketorolac Tromethamine (Toradol) 15 mg IVP Q6 PRN PRN Reason: Pain, moderate (4-7) Last Admin: 05/31/16 22:50 Dose: 15 mg Nicotine (Nicoderm Cq) 1 patch TD DAILY [facility] Last Admin: 05/31/16 14:40 Dose: 1 patch Fluticasone/Salmeterol (Advair Diskus 500/50) 1 puff INH DAILY [facility] Last Admin: 05/31/16 10:02 Dose: 1 puff - Labs Labs: 06/01/16 05:30 06/01/16 05:30 PT 10.2 SECONDS (9.6-11.2) 05/30/16 17:30 INR 0.98 (0.92-1.08) 05/30/16 17:30 APTT 29.0 SECONDS (23.3-32.5) 05/30/16 17:30 - Constitutional Appears: Non-toxic, No Acute Distress, Cachectic, Chronically Ill - Head Exam Head Exam: ATRAUMATIC, NORMAL INSPECTION, NORMOCEPHALIC - Eye Exam Eye Exam: EOMI, Normal appearance Pupil Exam: NORMAL ACCOMODATION - ENT Exam ENT Exam: Mucous Membranes Moist, Normal Exam - Neck Exam Neck Exam: Full ROM, Normal Inspection - Respiratory Exam Respiratory Exam: Decreased Breath Sounds (bibasilar ), Rhonchi (scattered ). absent: Accessory Muscle Use, Wheezes, Respiratory Distress - Cardiovascular Exam Cardiovascular Exam: REGULAR RHYTHM, RRR, +S1, +S2. absent: JVD - GI/Abdominal Exam GI & Abdominal Exam: Soft, Normal Bowel Sounds. absent: Distended, Guarding, Rebound - Rectal Exam Rectal Exam: Deferred - Extremities Exam Extremities Exam: Full ROM, Normal Capillary Refill, Normal Inspection. absent : Calf Tenderness, Pedal Edema - Back Exam Back Exam: NORMAL INSPECTION - Neurological Exam Neurological Exam: Alert, Awake, CN II-XII Intact Additional comments: with poor memory and some confusion - Psychiatric Exam Psychiatric exam: Normal Affect - Skin Skin Exam: Dry, Normal Color, Pallor, Warm Assessment and Plan - Assessment and Plan (Free Text) Assessment: 66 years old female with hx of Hypothyroidism, pneumonia, Asthma with COPD on home Oxygen and, who smokes > than 10 cigarettes daily, is brought to the ED with 2 weeks of worsening SOB, Coughing , always feeling cold, poor memory , not eating nor drinking liquids, referring some dizziness on the day of admission. Patient admitted with diagnosis of acute hypercapnic/ hypoxemic respiratory failure and sepsis At present on 3 L O2 via NC with o2Sat 88-90 % , refusing Bipap overnight 1.Respiratory Failure with Hypercarbia and hypoxemia refusing Bipap overnight At present on 3 l O2 via NC and o2Sat 88 -90 % Changed to high flow O2 Vi aNVc on 40 % FIo2 Pulmonary consult with Dr. Ferreira appreciated Continue IV Clindamycin, Zosyn and Zithromax as per ID Duonebs . mucinex and Advair Acapella therapy 2. Bibasilar Pneumonia Pulmonary consult with Dr Gonzalez appreciated Continue Clinda, Zosyn and Zithromax Follow up cultures CXR today showed bibasilar infiltrates R> L 3. COPD exacerbation Pulmonary on consult Place on High flow O2 on FIO2 40 % Continue Duoneb q 4hrs/ Advair q12/ Antibiotics Avoid steroids since patient has history of hallucinations in the past 4. Sepsis- most likely secondary to pneumonia-- improving CXR with bibasilar infiltrates Follow up cultures IV antibiotics 5. Traumatic Left Femur trochanteric Fx Ortho consult with Dr Jim appreciated ORIF once medically stable will need pulmonary and cardiac clearance 6.Right sided heart failure Dr Amaro cardiology consulted ECHO showed EF 60-65 % with dilated RV d/c lasix due to hypernatremia monitor I/O 7. Cognitive impairment - most likely dementia with delirium vs metabolic encephalopathy Neuro eval CT head showed generalized volume loss Vitamin C68--rad TSH and T3 low. increase dose of Synthroid Place on 1;1 for safety since patient getting confused and had episode of fall in the unit 8. Hypothyroidism uncontrolled Resume Synthroid and increase dose from 88 to 100 mcg 9.Dehydration with hypernatremia secondary to poor intake and lasix d/c lasix Monitor I/O 10.Nicotine Addiction Nicotine patch daily 11.Slip and Fall in unit place on 1:1 for safety Repeat pelvis and Hip xray stat 12.DVT Prophylaxis SCD and lovenox
[2016-06-01] MEDS ORDERED: Albuterol 0.083% Inhal Sol (2.5 mg/3 mL) UD INH PRN (09:59)
[2016-06-01] MEDS: Azithromycin 500 MG in Sodium Chloride 0.9% 250 ML IVPB SCH (10:00)
[2016-06-01] MEDS ORDERED: Sodium Chloride 3% for Inhalation 4 ML VIAL.NEB IH PRN (10:01)
--- NOTE | 2016-06-01 10:09 | CP.PCM.PN ---
Subjective - Date & Time of Evaluation Date of Evaluation: 06/01/16 Time of Evaluation: 10:04 - Subjective Subjective: Interim events reviewed. Became agitated last night requiring haloperidol. Was placed on NIPPV using BiPAP mask overnight. Presently back on regular nasal canula at 3LPM, but SpO2 only 86-88%. Awake, cooperative, fair orientation, but memory is still poor. CT brain done showing chronic ischemic small vessel changes. Seen by ID last evening. Leukocytosis slowly decreasing on current antibiotic regimen. Echocardiogram done showing pulmonary hypertension and reduced RV function/ enlargement. No cyanosis presently. No tremors. No dependant edema. Extremities are warm to touch. Neck is supple and trachea midline. No JVD. Dullness on percussion in the lung bases posteriorly. Markedly diminished breath sounds bilaterally. Sonorous rhonchi and egophony in bases, L>R. Heart sounds are very distant, rhythm is regular. Abdomen is soft with + BS. Today's CXR show bilateral lower lobe patchy densities, L>R. Continue inhalation therapy, add mucolytic. Place on nasal high flow canula at 40% and 30LPM. CPT using flutter valve. Continue present antibiotic regimen. Refrain from parenteral corticosteroids (ADR). Hopeful for orthopedic repair of left hip fracture early next week. Objective - Vital Signs/Intake and Output Vital Signs (last 24 hours): Temp Pulse Resp BP Pulse Ox 97.8 F 90 20 100/63 100 06/01/16 08:00 06/01/16 08:00 06/01/16 08:00 06/01/16 08:00 06/01/16 08:00 Intake and Output: 05/31/16 06/01/16 23:59 11:59 Intake Total 460 200 Output Total 300 250 Balance 160 -50 - Medications Medications: Current Medications Acetaminophen (Tylenol 325mg Tab) 650 mg PO Q6 PRN PRN Reason: Pain, Mild (1-3) Acetylcysteine (Mucomyst 10% 4ml) 2 ml IH RBID [facility] Albuterol Sulfate (Albuterol 0.083% Inhal Joi (2.5 Mg/3 Ml) Ud) 2.5 mg INH RQ4 PRN PRN Reason: Shortness of Breath Albuterol/Ipratropium (Duoneb 3 Mg/0.5 Mg (3 Ml) Ud) 3 ml INH RQID [facility] Azithromycin 500 mg/ Sodium (Chloride) 250 mls @ 250 mls/hr IVPB DAILY [facility] Last Admin: 05/31/16 10:06 Dose: 250 mls/hr Clindamycin Phosphate 600 mg/ (Sodium Chloride) 104 mls @ 104 mls/hr IVPB Q8 [facility] Last Admin: 06/01/16 00:05 Dose: 104 mls/hr Piperacillin Sod/Tazobactam (Sod 2.25 gm/ Sodium Chloride) 100 mls @ 100 mls/ hr IVPB Q6 [facility] Last Admin: 06/01/16 05:33 Dose: 100 mls/hr Ketorolac Tromethamine (Toradol) 30 mg IVP Q6 PRN PRN Reason: Pain, severe (8-10) Ketorolac Tromethamine (Toradol) 15 mg IVP Q6 PRN PRN Reason: Pain, moderate (4-7) Last Admin: 05/31/16 22:50 Dose: 15 mg Nicotine (Nicoderm Cq) 1 patch TD DAILY [facility] Last Admin: 05/31/16 14:40 Dose: 1 patch - Labs Labs: 06/01/16 05:30 06/01/16 05:30 PT 10.2 SECONDS (9.6-11.2) 05/30/16 17:30 INR 0.98 (0.92-1.08) 05/30/16 17:30 APTT 29.0 SECONDS (23.3-32.5) 05/30/16 17:30 Assessment and Plan (1) Bronchopneumonia Status: Acute (2) Decompensated chronic obstructive pulmonary disease Status: Acute (3) Sepsis Status: Acute (4) Dehydration Status: Acute (5) Respiratory failure with hypercapnia Status: Acute (6) Hip fracture Status: Acute (7) Cor pulmonale (chronic) Assessment & Plan: With acute decompensation/worsening. Status: Acute
--- NOTE | 2016-06-01 13:16 | CP.CCUPN ---
CCU Subjective - Physician Review Subjective (Free Text): ANIMATION PRODUCER PROGRESS NOTE Patient examined, interim events reviewed: Awake and alert, more appropriate today with responses to questions. No distress , comfortable on nasal caanula now, was placed intermittently on BiPAP overnight , but only tolerant for a few hours before becoming agitated and removing BiPAP mask. SPo2 99% on NC, RR 18, BP 110/65, HR 88, No fever spikes. Discrepant measurements of I/O's noted. ROS: as above, no other obtainable pertinent negs or positives on 10 system review. PMFSH: all nursing and historical notes reviewed, no new pertinent data relevant to current problems. No other distress noted: EXAM- HEENT: no icterus, pupils equal and reactive, no nystagmus NECK: no visible JVD, supple, carotids equal upstroke bilat/no bruits CHEST: decreased BS bases, no wheezes audible, bilat breast implants intact HEART: regular, distant, S1S2, no murmur audible, no rubs. ABD: soft, no increased distention, no focal tenderness, no HSM. BS hypoactive , EXT: no increase in leg edema, no peripheral/ digital cyanosis, no calf tenderness or palpable cords, distal pulses intact and symmetrical NEURO: oriented x3, exhibits short term memory loss; no gross focal motor deficits SKIN: no rashes LABS: WBC= 21.7 HGB= 10.0 PLTs= 376K Na= 151 K= 4.5 HCO3= 37 BUN/Cr= 43/0.9 BS= 123 CXR: b/l Breast implants noted, mild increase in RLL / basilar interstitial changes (my interp). Assessment: 1. Acute Hypoxemic and Hypercapneic Resp Failure, 2 Pneumonitis and CHF 2. Mild confusional state; r/o metabolic Encephalopathy versus Fat Emboli Syndrome. 3. Mild Hypernatremia post-diuresis 4. s/p left Hip fracture 5. Azotemia, r/o Dehydration versus CKD PLAN: 1. Try off BiPAP for 24H. 2. Serial Lytes, diuresis prn for now, does not look to be fluid overloaded this AM. 3. Empiric abx coverage as per ID: Zosyn / Clinda / Azithro 4. Repeat ABG if patient allows.
--- NOTE | 2016-06-01 13:17 | RAD ---
HISTORY: pneumonia COMPARISON: 05/31/2016 FINDINGS: LUNGS: Suggestion of slight worsening of bibasilar infiltrates, right greater than left. PLEURA: No significant pleural effusion identified, no pneumothorax apparent. CARDIOVASCULAR: Normal. OSSEOUS STRUCTURES: No significant abnormalities. VISUALIZED UPPER ABDOMEN: Normal. OTHER FINDINGS: None. IMPRESSION: Bibasilar infiltrates, right greater than left slightly worsened.
--- NOTE | 2016-06-01 13:22 | PN ---
DATE: 06/01/2016 The patient is confused at times. She denies any chest pain. PHYSICAL EXAMINATION: VITAL SIGNS: Blood pressure 109/66, heart rate 109, temperature 98.4, respirations 21. HEENT: Pale conjunctivae. CHEST: Bilateral rhonchi. HEART: S1, S2 regular. EXTREMITIES: No edema. LABORATORIES: Hemoglobin and hematocrit 10 and 31.4, white count is 21.7, platelet count 376,000. S MA-7: Sodium 151, potassium 4.5, chloride 102, CO2 37, glucose 123, BUN 43, creatinine 0.9. Urine d rug screen is negative. Head CT scan without contrast, chronic changes. Echocardiographic study rep orted ejection fraction in the range of 60%-65%. The right ventricle is severely dilated with severe ly reduced systolic function due to RV overload. Moderate to severe pulmonary hypertens ion. ASSESSMENT: 1. Advanced chronic obstructive lung disease. 2. Right-sided failure. 3. Left intratrochanteric fracture. 4. Hypernatremia. 5. Prerenal azotemia. RECOMMENDATIONS: Continue current IV Zithromax and IV Zosyn. Continue current bronchodilators. Con tinue p.r.n. IV Toradol. Consider subcutaneous Lovenox in a prophylactic regimen for DVT. Teofilo Amaro MD cc: [id number] TT: 06/01/2016 13:21:25 Confirmation # [id number] Dictation # [id number] ion
[2016-06-01] MEDS: Enoxaparin 40 mg Syringe SC SCH (14:00)
--- NOTE | 2016-06-01 14:24 | CP.PCM.PN ---
Subjective - Date & Time of Evaluation Date of Evaluation: 06/01/16 Time of Evaluation: 02:20 - Subjective Subjective: S- pt comfortable at bedrest/ admits pain on movement Objective - Vital Signs/Intake and Output Vital Signs (last 24 hours): Temp Pulse Resp BP Pulse Ox 98.4 F 109 H 21 109/66 100 06/01/16 12:00 06/01/16 12:00 06/01/16 12:00 06/01/16 12:00 06/01/16 12:00 Intake and Output: 06/01/16 06/01/16 06:59 18:59 Intake Total 400 750 Output Total 250 Balance 150 750 - Medications Medications: Current Medications Acetaminophen (Tylenol 325mg Tab) 650 mg PO Q6 PRN PRN Reason: Pain, Mild (1-3) Acetylcysteine (Mucomyst 10% 4ml) 2 ml IH RBID [facility] Albuterol Sulfate (Albuterol 0.083% Inhal Joi (2.5 Mg/3 Ml) Ud) 2.5 mg INH RQ4 PRN PRN Reason: Shortness of Breath Albuterol/Ipratropium (Duoneb 3 Mg/0.5 Mg (3 Ml) Ud) 3 ml INH RQID [facility] Last Admin: 06/01/16 11:06 Dose: 3 ml Enoxaparin Sodium (Lovenox) 40 mg SC DAILY [facility] PRN Reason: Protocol Azithromycin 500 mg/ Sodium (Chloride) 250 mls @ 250 mls/hr IVPB DAILY [facility] Last Admin: 06/01/16 10:00 Dose: 250 mls/hr Clindamycin Phosphate 600 mg/ (Sodium Chloride) 104 mls @ 104 mls/hr IVPB Q8 [facility] Last Admin: 06/01/16 09:30 Dose: 104 mls/hr Piperacillin Sod/Tazobactam (Sod 2.25 gm/ Sodium Chloride) 100 mls @ 100 mls/ hr IVPB Q6 [facility] Last Admin: 06/01/16 11:15 Dose: 100 mls/hr Ketorolac Tromethamine (Toradol) 30 mg IVP Q6 PRN PRN Reason: Pain, severe (8-10) Ketorolac Tromethamine (Toradol) 15 mg IVP Q6 PRN PRN Reason: Pain, moderate (4-7) Last Admin: 05/31/16 22:50 Dose: 15 mg Nicotine (Nicoderm Cq) 1 patch TD DAILY [facility] Last Admin: 06/01/16 09:30 Dose: 1 patch - Labs Labs: 06/01/16 05:30 06/01/16 05:30 PT 10.2 SECONDS (9.6-11.2) 05/30/16 17:30 INR 0.98 (0.92-1.08) 05/30/16 17:30 APTT 29.0 SECONDS (23.3-32.5) 05/30/16 17:30 - Additional Findings Additional findings: Objective stance/gait- defrredL lower extremity shortened and externally rotated N/V intact no gross/progressive deficits n/v intact 'xrays- reveal basicervical /intertrochanteric fx Assessment and Plan - Assessment and Plan (Free Text) Assessment: A- basicervical/intertrochanteric hip fx P- to OR when cleared from a pulmonary and critical care point of view. The highly complex nature of this situatioin is discussed with pt and her and son/because of comorbifdities, possibility of mechanical failure/infection/ thromboembolic disease, 2nd or tertiary surgery discussed Awaing medical / pulmonary clearance and will then again discuss options in surgical caRE
--- NOTE | 2016-06-01 16:42 | CP.CCUPN ---
CCU Subjective - Physician Review Subjective (Free Text): BUSINESS ASST PROGRESS NOTE Patient examined, interim events reviewed: Patient lying on floor after trying to get OOB herself, stating she wanted to walk to the counter to be sent home. Brought back to bed by 2 nurses, c/o pain over left side and unable now to self-rotate over to the Right side lateral position. No other distress noted, does not appear dyspneic, denies any head trauma, dizziness, nausea, palpitations, CP nor any SOB now at bed rest. Bed side rails were noted to up and in place bilaterally, especially over the left side of the bed. On exam, Left leg is externally rotated, R leg appears intact in normal position. No edema noted in lower extremities and no bruising noted nor apparent at this time. Distal pulses intact bilaterally and symmetrical, sensory is intact. IMP: 1. S/p Fall OOB to floor as patient trying to get OOB herself. 2. Recent Left hip Fracture after fall at Home 3. r/o new fracture R hip and any new fracture compounding previous L hip fracture. 4. COPD exacerbation with Hypercapnic Resp Insufficiency. 5. Bilateral pneumonitis PLAN: 1. Fall Protocol with bilateral hip and pelvis Xrays. Will notify Ortho if any new changes. 2. 1:1 Supervision.
[2016-06-01] MEDS: Levothyroxine 100 MCG TAB PO SCH (17:53)
[2016-06-01] MEDS: Acetylcysteine 10% 4 ML IH SCH (19:23)
[2016-06-01] MEDS ORDERED: Fluticasone-Salmeterol 500-50mcg Diskus IH SCH (21:00)
[2016-06-02] MEDS: Clindamycin 600 MG in Sodium Chloride 0.9% 100 ML IVPB SCH ×3 (00:03→17:45)
[2016-06-02 05:28] LABS: ABG ALLEN TEST YES; ARTERIAL BLOOD FLOW 30; ARTERIAL BLOOD GAS HCO3 36.2 mmol/L (21-28); ARTERIAL BLOOD GAS MODE HIGH FLOW LPM; ARTERIAL BLOOD GAS O2 CAPACITY 12.1 mL/dL (16-24); ARTERIAL BLOOD GAS O2 CONTENT 10.8 ML/dL (15-23); ARTERIAL BLOOD GAS PH 7.44 (7.35-7.45); ARTERIAL BLOOD GAS PO2 47 mm/Hg (80-100); ARTERIAL BLOOD HGB O2 SAT 86.5 % (95.0-98.0); CARBOXYHEMOGLOBIN 2.4 % (0.5-1.5); HHB 10.1 % (0.0-5.0)
--- NOTE | 2016-06-02 06:39 | RAD ---
HISTORY: r/o rib fracture post Fall OOB COMPARISON: 05/31/2016 FINDINGS: LUNGS: Stable bilateral infiltrates, right greater than left. PLEURA: No significant pleural effusion identified, no pneumothorax apparent. CARDIOVASCULAR: Normal. OSSEOUS STRUCTURES: No significant abnormalities. VISUALIZED UPPER ABDOMEN: Normal. OTHER FINDINGS: Status post bilateral breast augmentation. IMPRESSION: No interval change.
--- NOTE | 2016-06-02 06:40 | RAD ---
HISTORY: s/p fall COMPARISON: No prior FINDINGS: BONES: Normal. No fracture. JOINTS: Normal. No osteoarthritis. SOFT TISSUE: Normal. OTHER FINDINGS: None . IMPRESSION: Normal Bone Xray.
--- NOTE | 2016-06-02 07:10 | CT ---
PROCEDURE: CT Pelvis without contrast HISTORY: s/p Fall OOB COMPARISON: None. TECHNIQUE: Contiguous axial images of the pelvis . No intravenous or oral contrast given. Coronal and sagittal reformats generated. Radiation dose: Total exam DLP = mGy-cm. FINDINGS: BLADDER: Flor catheter in place. REPRODUCTIVE ORGANS: Unremarkable. VISUALIZED BOWEL: Unremarkable. PERITONEUM: Unremarkable, as visualized. No free fluid. No free air. LYMPH NODES: Unremarkable. No enlarged lymph nodes. BONES: Mildly displaced left intertrochanteric fracture. VASCULATURE: Unremarkable. OTHER FINDINGS: None. IMPRESSION: Mildly displaced left hip intertrochanteric fracture.
[2016-06-02 07:14] LABS: BASO % 0.2 % (0.0-2.0); BLOOD UREA NITROGEN 39 mg/dl (7-17); CALCIUM 7.3 mg/dL (8.4-10.2); CARBON DIOXIDE 36 mmol/L (22-30); CHLORIDE 102 mmol/L (98-107); EOS # 0.1 K/uL (0.0-0.7); EOS % 0.4 % (0.0-4.0); GFR AFRICAN-AMERICAN > 60; GLUCOSE,RANDOM 93 mg/dL (65-105); HEMATOCRIT 31.5 % (34.0-47.0); LYMPH # 0.7 K/uL (1.0-4.3); MEAN CELL VOLUME 97.9 fl (81.0-99.0); MEAN CORPUSCULAR HEMOGLOBIN 31.3 pg (27.0-31.0); MEAN CORPUSCULAR HGB CONC 31.9 g/dL (33.0-37.0); MEAN PLATELET VOLUME 8.7 fl (7.2-11.7); MONO % 6.5 % (0.0-10.0); NEUT # 13.5 K/uL (1.8-7.0); NEUT % 88.1 % (50.0-75.0); NRBC % 0.3 % (0.0-0.0); POTASSIUM 4.6 MMOL/L (3.6-5.0); RED CELL DISTRIBUTION WIDTH 14.6 % (11.5-14.5); SODIUM 147 mmol/l (132-148); WHITE BLOOD COUNT 15.3 K/uL (4.8-10.8)
[2016-06-02] MEDS: Acetylcysteine 10% 4 ML IH SCH ×2 (07:19→20:07)
[2016-06-02] MEDS: Albuterol-Ipratrop 3 mg / 0.5 (3 ml) UD INH SCH ×4 (07:20→20:09)
--- NOTE | 2016-06-02 07:48 | CP.PCM.PN ---
Subjective - Date & Time of Evaluation Date of Evaluation: 06/02/16 Time of Evaluation: 08:00 - Subjective Subjective: Patient was seen and evaluated bedside. Lying in bed in no apparent distress. On high flow O2 via NC 30 LPM FIO2 50 % and o2 sat 97 % . With hypoxemia PO2 76 on ABG this AM while on FIO2 40 %. Increased FIO2 to 50 %. complains of chest congestion and able to cough and expectorate yellowish sputum With episodes of confusion at times , memory problems , trying to get out of bed overnight. On 1:1 for safety With pain to left hip with movement Hemodynamically stable, afebrile BP 114/72 HR 87 WBC 15 K Hgb 10 plt 379 k Na 147 k 4.6 BNP 5920 I/O 1548/650 Objective - Vital Signs/Intake and Output Vital Signs (last 24 hours): Temp Pulse Resp BP Pulse Ox 98.4 F 87 19 114/72 97 06/02/16 04:00 06/02/16 06:00 06/02/16 06:00 06/02/16 06:00 06/02/16 06:00 Intake and Output: 06/02/16 06/02/16 06:59 18:59 Intake Total 498 Output Total 250 Balance 248 - Medications Medications: Current Medications Acetaminophen (Tylenol 325mg Tab) 650 mg PO Q6 PRN PRN Reason: Pain, Mild (1-3) Acetylcysteine (Mucomyst 10% 4ml) 2 ml IH RBID [facility] Last Admin: 06/02/16 07:19 Dose: 2 ml Albuterol Sulfate (Albuterol 0.083% Inhal Joi (2.5 Mg/3 Ml) Ud) 2.5 mg INH RQ4 PRN PRN Reason: Shortness of Breath Albuterol/Ipratropium (Duoneb 3 Mg/0.5 Mg (3 Ml) Ud) 3 ml INH RQID [facility] Last Admin: 06/02/16 07:20 Dose: 3 ml Enoxaparin Sodium (Lovenox) 40 mg SC DAILY [facility] PRN Reason: Protocol Last Admin: 06/01/16 14:00 Dose: 40 mg Azithromycin 500 mg/ Sodium (Chloride) 250 mls @ 250 mls/hr IVPB DAILY [facility] Last Admin: 06/01/16 10:00 Dose: 250 mls/hr Clindamycin Phosphate 600 mg/ (Sodium Chloride) 104 mls @ 104 mls/hr IVPB Q8 [facility] Last Admin: 06/02/16 00:03 Dose: 104 mls/hr Piperacillin Sod/Tazobactam (Sod 2.25 gm/ Sodium Chloride) 100 mls @ 100 mls/ hr IVPB Q6 [facility] Last Admin: 06/02/16 04:00 Dose: 100 mls/hr Ketorolac Tromethamine (Toradol) 30 mg IVP Q6 PRN PRN Reason: Pain, severe (8-10) Ketorolac Tromethamine (Toradol) 15 mg IVP Q6 PRN PRN Reason: Pain, moderate (4-7) Last Admin: 06/01/16 23:33 Dose: 15 mg Levothyroxine Sodium (Synthroid) 100 mcg PO DAILY [facility] Last Admin: 06/01/16 17:53 Dose: 100 mcg Nicotine (Nicoderm Cq) 1 patch TD DAILY [facility] Last Admin: 06/01/16 09:30 Dose: 1 patch - Labs Labs: 06/02/16 06:15 06/02/16 06:15 PT 10.2 SECONDS (9.6-11.2) 05/30/16 17:30 INR 0.98 (0.92-1.08) 05/30/16 17:30 APTT 29.0 SECONDS (23.3-32.5) 05/30/16 17:30 - Constitutional Appears: No Acute Distress, Confused (at times ), Cachectic, Chronically Ill - Head Exam Head Exam: ATRAUMATIC, NORMAL INSPECTION, NORMOCEPHALIC - Eye Exam Eye Exam: EOMI, Normal appearance, PERRL Pupil Exam: NORMAL ACCOMODATION - ENT Exam ENT Exam: Mucous Membranes Moist, Normal Exam - Neck Exam Neck Exam: Full ROM, Normal Inspection - Respiratory Exam Respiratory Exam: Prolonged Expiratory Phase, Rhonchi. absent: Accessory Muscle Use, Wheezes, Respiratory Distress - Cardiovascular Exam Cardiovascular Exam: REGULAR RHYTHM, RRR, +S1, +S2. absent: JVD - GI/Abdominal Exam GI & Abdominal Exam: Soft, Normal Bowel Sounds. absent: Distended, Guarding, Tenderness, Rebound - Rectal Exam Rectal Exam: Deferred - Extremities Exam Extremities Exam: Normal Capillary Refill, Normal Inspection. absent: Calf Tenderness, Pedal Edema - Back Exam Back Exam: NORMAL INSPECTION - Neurological Exam Neurological Exam: Alert, Awake, CN II-XII Intact Additional comments: with poor memory - Psychiatric Exam Psychiatric exam: Anxious - Skin Skin Exam: Dry, Pallor, Warm Assessment and Plan - Assessment and Plan (Free Text) Assessment: 66 years old female with hx of Hypothyroidism, pneumonia, Asthma with COPD on home Oxygen and, who smokes > than 10 cigarettes daily, is brought to the ED with 2 weeks of worsening SOB, Coughing , always feeling cold, poor memory , not eating nor drinking liquids, referring some dizziness on the day of admission. Patient admitted with diagnosis of acute hypercapnic/ hypoxemic respiratory failure and sepsis At present on high flow O2 via NC 30 LPM with FIo2 50 % and episode of hypoxemia whil fior FIo2 40 %. Still with episodes of confusion at times and memory problems. 1.Respiratory Failure with Hypercarbia and hypoxemia --multifactorial Secondary to pneumonia , COPD and CHF exacerbation with hypoxemia today while on high flow O2 with 30 LPM FIO2 40 %. Increased FIO2 to 50 % and able to maintain O2Sat 97 % Continue Clindamycin , Zosyn and Zithromax IV Able to expectorate more sputum today. Follow up cultures Continue mucinex , Duonebs Pulmonary consult with Dr. Ferreira appreciated Acapella therapy 2. Bibasilar Pneumonia Pulmonary consult with Dr Gonzalez appreciated Continue Clinda, Zosyn and Zithromax Follow up cultures CXR with bibasilar infiltrates R> L 3. COPD exacerbation Pulmonary on consult on High flow O2 30 LPM FIO2 50 % Continue Duoneb q 4hrs/ Advair q12/ Antibiotics Avoid steroids since patient has history of hallucinations in the past 4. Sepsis- most likely secondary to pneumonia-- improving CXR with bibasilar infiltrates Follow up cultures IV antibiotics 5. Traumatic Left Femur trochanteric Fx Ortho consult with Dr Jim appreciated ORIF once medically stable will need pulmonary and cardiac clearance 6.Right sided heart failure Dr Amaro cardiology consulted ECHO showed EF 60-65 % with dilated RV discontinued lasix due to hypernatremia monitor I/O 7. Cognitive impairment - most likely dementia with delirium vs metabolic encephalopathy Neuro eval CT head showed generalized volume loss Vitamin N84--iwa TSH and T3 low. Increased dose of Synthroid Continue 1:1 for safety since patient with episodes of confusion and had episode of fall in the unit Repeat XRay-s post fall showed no new fractures 8. Hypothyroidism uncontrolled Resumed Synthroid and increased dose from 88 to 100 mcg 9.Dehydration with hypernatremia secondary to poor intake and lasix discontinued lasix Monitor I/O 10.Nicotine Addiction Nicotine patch daily 11.Slip and Fall in unit placed on 1:1 for safety Repeat pelvis and Hip xray s showed no acute fracture 12.DVT Prophylaxis SCD and lovenox
[2016-06-02 08:42] LABS: ABG ALLEN TEST YES; ARTERIAL BLOOD FLOW 30; ARTERIAL BLOOD GAS HCO3 34.6 mmol/L (21-28); ARTERIAL BLOOD GAS MODE HFNC; ARTERIAL BLOOD GAS O2 CAPACITY 13.8 mL/dL (16-24); ARTERIAL BLOOD GAS O2 CONTENT 13.5 ML/dL (15-23); ARTERIAL BLOOD GAS PH 7.42 (7.35-7.45); ARTERIAL BLOOD GAS PO2 76 mm/Hg (80-100); ARTERIAL BLOOD HGB O2 SAT 94.2 % (95.0-98.0); HHB 2.3 % (0.0-5.0); METHEMOGLOBIN 1.5 % (0.0-3.0)
[2016-06-02] MEDS: Levothyroxine 100 MCG TAB PO SCH (08:50)
[2016-06-02] MEDS: Enoxaparin 40 mg Syringe SC SCH (08:50)
[2016-06-02] MEDS: Azithromycin 500 MG in Sodium Chloride 0.9% 250 ML IVPB SCH (11:00)
--- NOTE | 2016-06-02 12:01 | CP.CCUPN ---
CCU Subjective - Physician Review Subjective (Free Text): BELT [employer]KER PROGRESS NOTE Patient examined, interim events reviewed: Awake and alert, still tried to get OOB herself overnight; 1:1 supervision maintained; on HFNC 50% oxygen at 30 LPM flow, SPo2 97% , RR 18, BP 100/65, HR 88, No fever spikes. 24H I/O's= +0.89 L. ROS: as above, no other pertinent negs or positives on 10 system review. PMFSH: all nursing and historical notes reviewed, no new pertinent data relevant to current problems. No other distress noted: EXAM- HEENT: no icterus, pupils equal and reactive, no nystagmus NECK: no visible JVD, supple, carotids equal upstroke bilat/no bruits CHEST: decreased BS bases, no wheezes audible, bilat breast implants intact HEART: regular, distant, S1S2, no murmur audible, no rubs. ABD: soft, no increased distention, no focal tenderness, no HSM. BS hypoactive , EXT: no increase in leg edema, no peripheral/ digital cyanosis, no calf tenderness or palpable cords, distal pulses intact and symmetrical, SCDs on bilat. NEURO: oriented x3, exhibits short term memory loss; no gross focal motor deficits SKIN: no rashes LABS: 7.42/60/76 WBC= 15.3 HGB= 10.1 PLTs= 379K Na= 147 K= 4.6 HCO3= 26 BUN/Cr= 14/0.7 BS=93 Assessment: 1. Acute Hypoxemic and Hypercapneic Resp Failure, 2 Pneumonitis and CHF 2. r/o metabolic Encephalopathy vs. Dementia 3. Mild Hypernatremia post-diuresis 4. s/p left Hip fracture 5. Azotemia, r/o Dehydration versus CKD PLAN: 1. Stable on HFNC for now. 2. No new frx over left Hip. 3. Hypernatremia improved. 4. Empiric abx coverage as per ID: Zosyn / Clinda / Azithro 5. 1:1 supervision.
--- NOTE | 2016-06-02 12:29 | CP.PCM.PN ---
Subjective - Date & Time of Evaluation Date of Evaluation: 06/02/16 Time of Evaluation: 12:20 - Subjective Subjective: S- pt upset and crying at the time of encounter/pt had sustained fall yesterday evening Objective - Vital Signs/Intake and Output Vital Signs (last 24 hours): Temp Pulse Resp BP Pulse Ox 97.9 F 87 16 99/63 L 96 06/02/16 08:00 06/02/16 10:00 06/02/16 11:21 06/02/16 10:00 06/02/16 10:00 Intake and Output: 06/02/16 06/02/16 06:59 18:59 Intake Total 498 100 Output Total 250 100 Balance 248 0 - Medications Medications: Current Medications Acetaminophen (Tylenol 325mg Tab) 650 mg PO Q6 PRN PRN Reason: Pain, Mild (1-3) Acetylcysteine (Mucomyst 10% 4ml) 2 ml IH RBID [facility] Last Admin: 06/02/16 07:19 Dose: 2 ml Albuterol Sulfate (Albuterol 0.083% Inhal Joi (2.5 Mg/3 Ml) Ud) 2.5 mg INH RQ4 PRN PRN Reason: Shortness of Breath Albuterol/Ipratropium (Duoneb 3 Mg/0.5 Mg (3 Ml) Ud) 3 ml INH RQID [facility] Last Admin: 06/02/16 11:21 Dose: 3 ml Enoxaparin Sodium (Lovenox) 40 mg SC DAILY [facility] PRN Reason: Protocol Last Admin: 06/02/16 08:50 Dose: 40 mg Azithromycin 500 mg/ Sodium (Chloride) 250 mls @ 250 mls/hr IVPB DAILY [facility] Last Admin: 06/01/16 10:00 Dose: 250 mls/hr Clindamycin Phosphate 600 mg/ (Sodium Chloride) 104 mls @ 104 mls/hr IVPB Q8 [facility] Last Admin: 06/02/16 08:49 Dose: 104 mls/hr Piperacillin Sod/Tazobactam (Sod 2.25 gm/ Sodium Chloride) 100 mls @ 100 mls/ hr IVPB Q6 [facility] Last Admin: 06/02/16 10:00 Dose: 100 mls/hr Ketorolac Tromethamine (Toradol) 30 mg IVP Q6 PRN PRN Reason: Pain, severe (8-10) Ketorolac Tromethamine (Toradol) 15 mg IVP Q6 PRN PRN Reason: Pain, moderate (4-7) Last Admin: 06/01/16 23:33 Dose: 15 mg Levothyroxine Sodium (Synthroid) 100 mcg PO DAILY [facility] Last Admin: 06/02/16 08:50 Dose: 100 mcg Nicotine (Nicoderm Cq) 1 patch TD DAILY [facility] Last Admin: 06/02/16 08:50 Dose: 1 patch - Labs Labs: 06/02/16 06:15 06/02/16 06:15 PT 10.2 SECONDS (9.6-11.2) 05/30/16 17:30 INR 0.98 (0.92-1.08) 05/30/16 17:30 APTT 29.0 SECONDS (23.3-32.5) 05/30/16 17:30 - Additional Findings Additional findings: Obj systemic exam as per hospita;ist and DR Ferreira pt withO2 by nasal cannula/ pt still bringing up productive sputum Musculoskeltal stance/gait- defrred pt with shortening and external rotation R lower ext N/V unchanged Xrays- reveal ? normal hip(??) previous Xrays- reveAL BASICERVICAL/ INTERTROCHANTERIC l HIP FX/ APPARENTLY NO NEW FXS Assessment and Plan - Assessment and Plan (Free Text) Assessment: A- basicervical/intertrochanteric L hip fx P- to OR when cleared from a pulmonary point of view and from a medical point of view
[2016-06-02 13:46] LABS: LYMPH % 4.8 % (20.0-40.0)
--- NOTE | 2016-06-02 15:09 | PN ---
DATE: 06/02/2016 The patient denies any chest pain at this time. She is comfortable on nasal O2. PHYSICAL EXAMINATION: VITAL SIGNS: Blood pressure 97/61, heart rate 93, temperature 99.5, respirations 15. HEENT: Normocephalic. NECK: No JVD. CHEST: Bilateral rhonchi. HEART: S1, S2 regular. EXTREMITIES: No edema. LABORATORIES: Hemoglobin and hematocrit 10.1 and 31.5, white count 15.3, platelet count 379,000. SM A-7 today is within normal limits except for carbon dioxide 36 and BUN of 39. Calcium is 7.3. ProBN P is 5920. ASSESSMENT: 1. Advanced chronic obstructive lung disease. 2. Cor pulmonale with right-sided failure. 3. Minimally displaced left intertrochanteric fracture. The patient did sustain a fall in the ICU y esterday and repeat x-ray revealed no interval change. RECOMMENDATIONS: Continue current IV Zithromax, IV clindamycin and IV Zosyn. Continue Synthroid 100 mcg once a day, Lovenox at 40 mg subcutaneously once a day. The case was discussed with the patient 's at the bedside who admitted to me that his had fallen at home a few days prior to adm ission, but she did not recall the event. Surgical clearance for hip fracture surgery will be discus sed with Dr. Ferreira. Teofilo Amaro MD cc: [phone] TT: 06/02/2016 15:09:05 Confirmation # [id number] Dictation # [id number] mn
--- NOTE | 2016-06-02 18:33 | CP.PCM.PN ---
Subjective - Date & Time of Evaluation Date of Evaluation: 06/02/16 Time of Evaluation: 18:32 - Subjective Subjective: ID NOTE PATIENT HAD FALL BUT C NO NEW FRACTURES WBC IS NOW 15.3 NO CHANGE IN ANTIBIOTIC COVERAGE Objective - Vital Signs/Intake and Output Vital Signs (last 24 hours): Temp Pulse Resp BP Pulse Ox 98.4 F 104 H 17 96/57 L 93 L 06/02/16 16:00 06/02/16 18:00 06/02/16 18:00 06/02/16 18:00 06/02/16 18:00 Intake and Output: 06/02/16 06/02/16 06:59 18:59 Intake Total 498 1260 Output Total 250 100 Balance 248 1160 - Medications Medications: Current Medications Acetaminophen (Tylenol 325mg Tab) 650 mg PO Q6 PRN PRN Reason: Pain, Mild (1-3) Acetylcysteine (Mucomyst 10% 4ml) 2 ml IH RBID [facility] Last Admin: 06/02/16 07:19 Dose: 2 ml Albuterol Sulfate (Albuterol 0.083% Inhal Joi (2.5 Mg/3 Ml) Ud) 2.5 mg INH RQ4 PRN PRN Reason: Shortness of Breath Albuterol/Ipratropium (Duoneb 3 Mg/0.5 Mg (3 Ml) Ud) 3 ml INH RQID [facility] Last Admin: 06/02/16 16:13 Dose: 3 ml Enoxaparin Sodium (Lovenox) 40 mg SC DAILY [facility] PRN Reason: Protocol Last Admin: 06/02/16 08:50 Dose: 40 mg Azithromycin 500 mg/ Sodium (Chloride) 250 mls @ 250 mls/hr IVPB DAILY [facility] Last Admin: 06/02/16 11:00 Dose: 250 mls/hr Clindamycin Phosphate 600 mg/ (Sodium Chloride) 104 mls @ 104 mls/hr IVPB Q8 [facility] Last Admin: 06/02/16 17:45 Dose: 104 mls/hr Piperacillin Sod/Tazobactam (Sod 2.25 gm/ Sodium Chloride) 100 mls @ 100 mls/ hr IVPB Q6 [facility] Last Admin: 06/02/16 16:22 Dose: 100 mls/hr Ketorolac Tromethamine (Toradol) 30 mg IVP Q6 PRN PRN Reason: Pain, severe (8-10) Ketorolac Tromethamine (Toradol) 15 mg IVP Q6 PRN PRN Reason: Pain, moderate (4-7) Last Admin: 06/02/16 17:06 Dose: 15 mg Levothyroxine Sodium (Synthroid) 100 mcg PO DAILY [facility] Last Admin: 06/02/16 08:50 Dose: 100 mcg Nicotine (Nicoderm Cq) 1 patch TD DAILY [facility] Last Admin: 06/02/16 08:50 Dose: 1 patch - Labs Labs: 06/02/16 06:15 06/02/16 06:15 PT 10.2 SECONDS (9.6-11.2) 05/30/16 17:30 INR 0.98 (0.92-1.08) 05/30/16 17:30 APTT 29.0 SECONDS (23.3-32.5) 05/30/16 17:30
[2016-06-03] MEDS: Clindamycin 600 MG in Sodium Chloride 0.9% 100 ML IVPB SCH ×3 (00:06→16:16)
[2016-06-03 05:43] LABS: ABG ALLEN TEST YES; ARTERIAL BLOOD GAS HCO3 31.9 mmol/L (21-28); ARTERIAL BLOOD GAS O2 CAPACITY 13.9 mL/dL (16-24); ARTERIAL BLOOD GAS O2 CONTENT 13.6 ML/dL (15-23); ARTERIAL BLOOD GAS PH 7.35 (7.35-7.45); ARTERIAL BLOOD GAS PO2 81 mm/Hg (80-100); CARBOXYHEMOGLOBIN 1.8 % (0.5-1.5); METHEMOGLOBIN 1.2 % (0.0-3.0)
[2016-06-03 05:50] LABS: BASO % 0.1 % (0.0-2.0); EOS # 0.1 K/uL (0.0-0.7); EOS % 0.9 % (0.0-4.0); HEMATOCRIT 28.7 % (34.0-47.0); LYMPH # 0.8 K/uL (1.0-4.3); LYMPH % 6.1 % (20.0-40.0); MEAN CORPUSCULAR HEMOGLOBIN 31.6 pg (27.0-31.0); MEAN CORPUSCULAR HGB CONC 31.9 g/dL (33.0-37.0); MEAN PLATELET VOLUME 8.3 fl (7.2-11.7); MONO # 0.9 K/uL (0.0-0.8); MONO % 6.3 % (0.0-10.0); NEUT # 11.7 K/uL (1.8-7.0); NEUT % 86.6 % (50.0-75.0); NRBC % 0.1 % (0.0-0.0); PLATELET COUNT 392 K/uL (130-400); WHITE BLOOD COUNT 13.5 K/uL (4.8-10.8)
[2016-06-03 05:57] LABS: ALB/GLOB RATIO 0.8 (1.0-2.1); ALKALINE PHOSPHATASE 124 U/L (38-126); ALT/SGPT 58 U/L (9-52); AST/SGOT 58 U/L (14-36); BILIRUBIN,TOTAL 0.3 mg/dl (0.2-1.3); BLOOD UREA NITROGEN 33 mg/dl (7-17); CALCIUM 6.8 mg/dL (8.4-10.2); CARBON DIOXIDE 32 mmol/L (22-30); CHLORIDE 104 mmol/L (98-107); GFR AFRICAN-AMERICAN > 60; GLUCOSE,RANDOM 98 mg/dL (65-105); POTASSIUM 4.4 MMOL/L (3.6-5.0); SODIUM 148 mmol/l (132-148); TOTAL PROTEIN 5.3 G/DL (6.3-8.2)
[2016-06-03] MEDS: Albuterol-Ipratrop 3 mg / 0.5 (3 ml) UD INH SCH ×4 (08:53→19:10)
[2016-06-03] MEDS: Acetylcysteine 10% 4 ML IH SCH ×2 (08:54→19:10)
--- NOTE | 2016-06-03 09:00 | CP.PCM.PN ---
Subjective - Date & Time of Evaluation Date of Evaluation: 06/03/16 Time of Evaluation: 08:58 - Subjective Subjective: Interim events reviewed. Chest x-ray and labs reviewed. Has had oxygen increased to 50% via high flow canula. ABG shows corresponding increase in PaCO2. Sputum gram stain shows many yeast, culture is pending. Remains on empiric antibiotic coverage with three drugs. Minimal sputum expectoration despite use of flutter valve. CXR shows shadowing of left hemidiaphragm and medial aspect on the right. She has been afebrile, and the leukocytosis continues to decrease steadily. Awake, a little slow responding. She remains unclear as to pre-admission circumstances. Neck is supple and trachea midline. No visible JVD, no palpable adenopathy. Breath sounds are very diminished bilaterally with early, dry rales in the RLL. No wheezes are heard, no bronchial breath sounds appreciated. Few rhonchi heard with coughing. No cyanosis or dependant edema. No ecchymosis. Clinically improving with regards to the pneumonia. The COPD is advanced and the CO2 retension/hypoxemia will be the main problem with regards to her hip surgery. I will speak with the surgeon and ask anesthesia for a plan of analgesia post- op with lower impact on hypercapnia. Current medical regimen will continue, but supplemental O2 decreased to 45% and 25LPM flow. Objective - Vital Signs/Intake and Output Vital Signs (last 24 hours): Temp Pulse Resp BP Pulse Ox 97.9 F 69 22 94/60 L 100 06/03/16 06:00 06/03/16 06:00 06/03/16 08:31 06/03/16 06:00 06/03/16 06:00 Intake and Output: 06/02/16 06/03/16 23:59 11:59 Intake Total 1320 208 Output Total 200 200 Balance 1120 8 - Medications Medications: Current Medications Acetaminophen (Tylenol 325mg Tab) 650 mg PO Q6 PRN PRN Reason: Pain, Mild (1-3) Last Admin: 06/02/16 20:51 Dose: 650 mg Acetylcysteine (Mucomyst 10% 4ml) 2 ml IH RBID [facility] Last Admin: 06/03/16 08:54 Dose: 2 ml Albuterol Sulfate (Albuterol 0.083% Inhal Joi (2.5 Mg/3 Ml) Ud) 2.5 mg INH RQ4 PRN PRN Reason: Shortness of Breath Albuterol/Ipratropium (Duoneb 3 Mg/0.5 Mg (3 Ml) Ud) 3 ml INH RQID [facility] Last Admin: 06/03/16 08:53 Dose: 3 ml Enoxaparin Sodium (Lovenox) 40 mg SC DAILY [facility] PRN Reason: Protocol Last Admin: 06/02/16 08:50 Dose: 40 mg Azithromycin 500 mg/ Sodium (Chloride) 250 mls @ 250 mls/hr IVPB DAILY [facility] Last Admin: 06/02/16 11:00 Dose: 250 mls/hr Clindamycin Phosphate 600 mg/ (Sodium Chloride) 104 mls @ 104 mls/hr IVPB Q8 [facility] Last Admin: 06/03/16 00:06 Dose: 104 mls/hr Piperacillin Sod/Tazobactam (Sod 2.25 gm/ Sodium Chloride) 100 mls @ 100 mls/ hr IVPB Q6 [facility] Last Admin: 06/03/16 03:46 Dose: 100 mls/hr Ketorolac Tromethamine (Toradol) 30 mg IVP Q6 PRN PRN Reason: Pain, severe (8-10) Ketorolac Tromethamine (Toradol) 15 mg IVP Q6 PRN PRN Reason: Pain, moderate (4-7) Last Admin: 06/03/16 00:41 Dose: 15 mg Levothyroxine Sodium (Synthroid) 100 mcg PO DAILY [facility] Last Admin: 06/02/16 08:50 Dose: 100 mcg Nicotine (Nicoderm Cq) 1 patch TD DAILY [facility] Last Admin: 06/02/16 08:50 Dose: 1 patch Saccharomyces Boulardii (Florastor) 250 mg PO BID [facility] - Labs Labs: 06/03/16 05:05 06/03/16 05:05 PT 10.2 SECONDS (9.6-11.2) 05/30/16 17:30 INR 0.98 (0.92-1.08) 05/30/16 17:30 APTT 29.0 SECONDS (23.3-32.5) 05/30/16 17:30 Assessment and Plan (1) Bronchopneumonia Status: Acute (2) Decompensated chronic obstructive pulmonary disease (3) Respiratory failure with hypercapnia Status: Acute (4) Hip fracture Status: Acute (5) Cor pulmonale (chronic) Status: Acute
--- NOTE | 2016-06-03 09:41 | RAD ---
HISTORY: pneumonia COMPARISON: 06/01/2016 FINDINGS: LUNGS: Evaluation of the right hand is limited due to patient rotation to the left and overlying calcified breast implant. There is airspace disease in the right lower lobe. The left lung is clear. PLEURA: No significant pleural effusion identified, no pneumothorax apparent. CARDIOVASCULAR: Normal. OSSEOUS STRUCTURES: No significant abnormalities. VISUALIZED UPPER ABDOMEN: Normal. OTHER FINDINGS: Again seen are bilateral calcified breast implants. IMPRESSION: Evaluation of the right lower lobe is limited due to overlaying calcified breast implant, allowing for this persistent airspace disease concerning for pneumonia.
[2016-06-03] MEDS: Enoxaparin 40 mg Syringe SC SCH (09:50)
[2016-06-03] MEDS: Levothyroxine 100 MCG TAB PO SCH (09:51)
[2016-06-03] MEDS: Azithromycin 500 MG in Sodium Chloride 0.9% 250 ML IVPB SCH (09:51)
--- NOTE | 2016-06-03 12:18 | CP.PCM.PN ---
Subjective - Date & Time of Evaluation Date of Evaluation: 06/03/16 Time of Evaluation: 12:00 - Subjective Subjective: Hospitalist Progress Note (Patient seen and examined at 12 PM 06/03/16 425-1 with Son Luis Armando present) 66 year old female who was admitted on 05/30/16 for treatment of Respiratory Failure with Hypercarbia, COPD Exacerbation, Bibasilar Pneumonia, Sepsis, Traumatic Left Femur Fracture. Extensive conversation with Son Luis Armando [phone] and then with Shawn (who is the primary decision maker for patient and lives with) and [phone]. Both Son and explain that the patient for the past 1 to 2 years has been having increasing signs of dementia and that her father of complications of dementia in his 70s. Over this time period, patient has been having less and less activity, not consistently taking her medications for her chronic medical issues, having memory issues/tending to forget things, attention span when talking has been decreasing, eating less and less, episodes of change in personality at times being nasty towards / son. Son Luis Armando explained that patient's Shawn is the primary care provider but that Shawn is also dealing with multiple medical issues (heart disease) and finding it increasingly difficult to care for patient. I discussed with Son and the possibility of LTAC once patient is more stable from her multiple acute medical issues. Purse Maker consult was placed and Son and have given permission for Purse Maker to contact them via phone if they are not present at bedside. Currently upon FULL ROS patient states NO chest pain, NO palpitations, SOB/ Cough present but improved, NO dysphagia/odynophagia, NO abdominal pain, NO n/v/ d/c, NO burning/pain with urination, NO lightheadedness/dizziness, NO new changes with vision/eye pain, NO new change with hearing/ear pain, NO paresthesias. HEENT: NCA, PERRLA, EOMI, NO cervical lymphadenopathy, NO thyromegaly, Oral Mucosa and Nasal Turbinates are dry Cardiology: NS1 and NS2, NO M/R/G Respiratory: CTA B/L, NO R/R/W GI: BSx4, Soft, NT, ND, NO HSM, NO guarding/rebound tenderness Ext: NO edema, Puses are strong and equal, Capillary Refill is 2 seconds Neuro: CN II through XII are grossly intact Assessment and Plan: 1).Respiratory Failure with Hypercarbia and Hypoxemia --multifactorial Secondary to pneumonia , COPD and CHF exacerbation Clindamycin 600 mg IV Q8H Zosyn 2.25 gm IV Q6H Zithromax 500 mg IV Daily Pulmonary Dr. Ferreira 2). Bibasilar Pneumonia Continue Clindamycin, Zosyn and Zithromax as above Sputum Culture 06/02/16 preliminary shows normal chris CXR with bibasilar infiltrates R> L and repeat 06/03/16 shows RLL concerning for Pneumonia however limited secondary to bilateral breast implants. F/U Legionella and Mycoplasma 3). COPD exacerbation On High flow O2 30 LPM FIO2 50 % Continue Duoneb Q4H Avoid steroids since patient has history of hallucinations in the past 4). Sepsis- most likely secondary to Pneumonia-- improving CXR with bibasilar infiltrates WBC is trending down Blood Culture 05/30/16 is Negative To Date Urine Culture 05/31/16 shows NO Growth Sputum Culture 06/02/16 preliminary shows normal chris ID Dr. Haile Mcmillan 5). Traumatic Left Femur Trochanteric Fx Orthopedics Dr. Jim ORIBridgette once medically stable Will need to be cleared by Pulmonary and Cardiology 6).Right Sided Heart Failure Cardiology Dr Amaro ECHO showed EF 60-65 % with dilated RV Lasix was discontinued secondary due to hypernatremia Monitor I/O 7). Cognitive impairment - most likely Dementia (Father with a history of Dementia at this age) Neurology Dr. Rere Garrido CT Head 05/31/16 showed generalized volume loss Vitamin B12: WNL TSH and T3 were low therefore dose of Synthroid was increased Continue 1:1 for safety since patient has episodes of confusion and had episode of fall in the unit Repeat XRays post fall showed no new fractures 8). Hypothyroidism Uncontrolled likely secondary to history of not taking home medications Synthroid was increased from 88 to 100 mcg PO 1x/day 9) .Dehydration with Hypernatremia Secondary to poor PO intake and Lasix (which was discontinued) Encouraged Ensure + Shakes 3x/day and this was discussed with dietary Monitor I/O Na is back to normal and BUN/Cr improving 10). Nicotine Addiction Nicotine patch daily 11). Hx Slip and Fall in unit on 06/01/16 Placed on 1:1 for safety Repeat Pelvis and Hip Xrays 06/01/16 showed no acute fracture 12). Prophylactic Measures Tylenol 650 mg PO Q6H PRN Mild Pain Toradol 15 mg IV Q6H PRN Moderate Pain Toradol 30 mg IV Q6H PRN Severe Pain Lovenox 40 mg SQ 1x/day Protonix 40 mg PO 1x/day Florastor 250 mg PO 2x/day Objective - Vital Signs/Intake and Output Vital Signs (last 24 hours): Temp Pulse Resp BP Pulse Ox 97.8 F 90 18 114/70 97 06/03/16 08:00 06/03/16 10:00 06/03/16 11:18 06/03/16 10:00 06/03/16 10:00 Intake and Output: 06/03/16 06/03/16 06:59 18:59 Intake Total 368 900 Output Total 200 65 Balance 168 835 - Medications Medications: Current Medications Acetaminophen (Tylenol 325mg Tab) 650 mg PO Q6 PRN PRN Reason: Pain, Mild (1-3) Last Admin: 06/02/16 20:51 Dose: 650 mg Acetylcysteine (Mucomyst 10% 4ml) 2 ml IH RBID [facility] Last Admin: 06/03/16 08:54 Dose: 2 ml Albuterol Sulfate (Albuterol 0.083% Inhal Joi (2.5 Mg/3 Ml) Ud) 2.5 mg INH RQ4 PRN PRN Reason: Shortness of Breath Albuterol/Ipratropium (Duoneb 3 Mg/0.5 Mg (3 Ml) Ud) 3 ml INH RQID [facility] Last Admin: 06/03/16 11:53 Dose: 3 ml Enoxaparin Sodium (Lovenox) 40 mg SC DAILY [facility] PRN Reason: Protocol Last Admin: 06/03/16 09:50 Dose: 40 mg Azithromycin 500 mg/ Sodium (Chloride) 250 mls @ 250 mls/hr IVPB DAILY [facility] Last Admin: 06/03/16 09:51 Dose: 250 mls/hr Clindamycin Phosphate 600 mg/ (Sodium Chloride) 104 mls @ 104 mls/hr IVPB Q8 [facility] Last Admin: 06/03/16 09:49 Dose: 104 mls/hr Piperacillin Sod/Tazobactam (Sod 2.25 gm/ Sodium Chloride) 100 mls @ 100 mls/ hr IVPB Q6 [facility] Last Admin: 06/03/16 09:51 Dose: 100 mls/hr Ketorolac Tromethamine (Toradol) 30 mg IVP Q6 PRN PRN Reason: Pain, severe (8-10) Ketorolac Tromethamine (Toradol) 15 mg IVP Q6 PRN PRN Reason: Pain, moderate (4-7) Last Admin: 06/03/16 00:41 Dose: 15 mg Levothyroxine Sodium (Synthroid) 100 mcg PO DAILY [facility] Last Admin: 06/03/16 09:51 Dose: 100 mcg Nicotine (Nicoderm Cq) 1 patch TD DAILY [facility] Last Admin: 06/03/16 09:50 Dose: 1 patch Saccharomyces Boulardii (Florastor) 250 mg PO BID [facility] - Labs Labs: 06/03/16 05:05 06/03/16 05:05 PT 10.2 SECONDS (9.6-11.2) 05/30/16 17:30 INR 0.98 (0.92-1.08) 05/30/16 17:30 APTT 29.0 SECONDS (23.3-32.5) 05/30/16 17:30
--- NOTE | 2016-06-03 12:30 | PN ---
DATE: 06/03/2016 The patient denies any chest pain. Shortness of breath has improved. She is comfortable on nasal O2 . No reported arrhythmia. The patient is on 1:1 watch. PHYSICAL EXAMINATION: VITAL SIGNS: Blood pressure ____/70, heart rate 90, temperature 97.8, respirations 24. HEENT: Pale conjunctivae. CHEST: Bilateral rhonchi. HEART: S1, S2 regular. EXTREMITIES: No edema. LABORATORIES: Hemoglobin and hematocrit 9.1 and 28.7, white count 13.5, platelet count 392,000. Jamar martinez's SMA-7: Sodium 148, potassium 4.4, chloride 104, CO2 32, glucose 98, BUN 33, creatinine 0.7. ASSESSMENT: 1. Right-sided heart failure. 2. Advanced chronic obstructive lung disease. 3. Status post fall and left intertrochanteric fracture. 4. Improved prerenal azotemia and hypernatremia. RECOMMENDATIONS: Continue current Zithromax at 500 mg intravenously daily, clindamycin at 600 mg int ravenously q. 8 hours, subcutaneous Lovenox at 40 mg once a day, Zosyn at 2.25 grams intravenously q. 6 hours, Synthroid 100 mcg once a day. The patient is awaiting clearance for orthopedic surgery for her intertrochanteric fracture. Teofilo Amaro MD cc: [id number] TT: 06/03/2016 12:29:41 Confirmation # [id number] Dictation # [id number] en
[2016-06-03] MEDS: Saccharomyces Boulardi 250 mg Cap PO SCH ×2 (12:32→16:17)
[2016-06-03 13:59] LABS: METAMYELOCYTE 1 % (0-0); MYELOCYTE 1 % (0-0); NEUTROPHIL 88 % (42-75); NUCLEATED RED BLOOD CELL 2 % (0-0); TOTAL CELLS COUNTED 100
[2016-06-03 14:03] LABS: GIANT PLATELETS PRESENT; LARGE PLATELETS PRESENT
--- NOTE | 2016-06-03 14:32 | CON ---
DATE: 06/03/2016 CHIEF COMPLAINT: Evaluate for cognition/dementia. HISTORY OF PRESENTING ILLNESS: This is a 66-year-old woman with past medical history of asthma, COPD , hypothyroidism due to thyroid cancer status post iodine ablation with radiation in 2008, history of cervical spine surgery at a hospital for surgery, history of fusion of C4-C7 and mild spinal s tenosis extending from C4-C6, who presented to the hospital initially with severe shortness of breath and cough and is being treated for underlying COPD exacerbation and pneumonia. She smoked more than 10 cigarettes per day and she had 2 weeks of worsening shortness of breath. Her CT head showed watch crystal cutter xiang microvascular ischemic changes. No acute intracranial abnormality. She has a left femur intratr ochanteric fracture for which she is seen by orthopedics. She is alert, oriented to person and place , knows the month, but does not know the season well. She has poor attention span and slow thought p rocess. Her thoughts are disorganized. She has a family history of her father having Alzheimer's ty pe dementia. She is following simple commands, has some bibasilar pneumonia and COPD exacerbation. She is on antibiotics per ID. She also is on Mucomyst and DuoNeb and albuterol sulfate. REVIEW FO SYSTEMS: A 14-point is negative except for in the HPI. PAST MEDICAL HISTORY: History of COPD, hypothyroidism due to thyroid cancer, status post iodine abla tion with radiation in 2008. She has history of cervical spine surgery with posterior/anterior fusio n C4-C7, still with some mild spinal stenosis from C4-C6, with a recent cervical, intertrochant zane left hip fracture, has history of chin implant. SOCIAL HISTORY: Smokes 1 pack of cigarettes per day since age 13. Denies any ETOH abuse. FAMILY HISTORY: Mother had heart disease. Father had Alzheimer's type dementia. ALLERGIES: ALLERGIC TO CORNED BEEF. PHYSICAL EXAMINATION: VITAL SIGNS: Temperature 97.5, pulse rate of 87, blood pressure 109/69, respiratory rate 23, oxygen saturation % via high flow oxygen. GENERAL: The patient is sitting up in bed, no acute distress. HEENT: Atraumatic, normocephalic. PERRLA. Extraocular muscles intact. NECK: Supple, no JVD, no adenopathy noted. LUNGS: Breath sounds are diminished bilaterally with some dry rales in right lower lobe, few scatter ed rhonchi. HEART: S1, S2, normal rate and rhythm. No murmurs, rubs, or gallops. ABDOMEN: Soft, nontender, nondistended, positive bowel sounds are present. EXTREMITIES: No clubbing, no cyanosis. Peripheral pulses 2+ felt bilaterally. NEUROLOGIC: The patient is alert, oriented to person, place and year. Recall after 5 minutes is 0/3 . Poor attention span, slow thought process, disorganized thoughts, flat affect. Cranial nerves II- XII are intact. MOTOR: Slight increased tone throughout. Moves all extremities equally. Toes downgoing bilaterally . SENSORY: Light touch, pinprick, proprioception, vibration intact. DEEP TENDON REFLEXES: 2+ throughout and toes are downgoing bilaterally. COORDINATION: Xllgjf-ju-moop intact. GAIT: Deferred for now. LABORATORIES: Sodium is 148, potassium 4.4, chloride 104, carbon dioxide 32, BUN of 33, creatinine 0 .7, random glucose of 98. ASSESSMENT AND PLAN: This is a 66-year-old woman with history of hypothyroidism from thyroid cancer status post iodine ablation in 2008, history of chronic obstructive pulmonary disease on home oxygen who smokes more than 10 cigarettes per day, history of cervical spine posterior fusion from C4-C7, ch ronic neck pain, was called to evaluate for her poor memory. Based on my neurological exam, I feel l eliana she has underlying mild to moderate cognitive impairment. Given that she has a positive family h istory in terms of her father having Alzheimer's type dementia and given that she could be at increas ed risk, she does have chronic obstructive pulmonary disease advanced with carbon dioxide retention a nd hypoxemia, which is her main problem and she has had a recent left hip fracture, where she will pr obably need surgery, which all her medical problems along with low systolic blood pressure can also m gloria her more confused and have poorer memory than usual. At this time, will recommend: 1. Continue with antibiotics in regards to her pneumonia and her advanced chronic obstructive pulmon trudy disease management. 2. Follow up with orthopedics in regards to her left hip intertrochanteric fracture. 3. Keep her systolic blood pressure at least between 120-130. Keep her a bit more perfused with mor e perfusion to the brain. 4. Will likely need an aspirin 81 mg p.o. daily for more blood flow to the brain. 5. She will benefit as an outpatient being on Namenda XR 14 mg p.o. daily, alpha lipoic acid 600 mg p.o. daily and coenzyme Q10 400 mg p.o. daily, which will help her with her cognition in addition to attention and concentration exercises. 6. Will follow up as an outpatient in my office for further evaluation for her cognitive impairment. 7. At this time, continue with current present medical management and likely needs physical therapy. Thank you for this consult. Eren Garrido MD cc: [id number] TT: 06/03/2016 14:32:02 Confirmation # [id number] Dictation # [id number] en
--- NOTE | 2016-06-03 22:34 | PN ---
DATE: 06/03/2016 LOCATION: The patient in ICU, bed 425. TIME SPENT: A total of 35 minutes. HISTORY OF PRESENT ILLNESS: Seen and evaluated at the bedside. Events since admission reviewed. Admitted with left hip fracture. Noted to have metabolic septic encephalopathy, hypoxic respiratory failure associated with pneumonia on high flow oxygen. Remains alert, awake, follows commands, appropriate, mild to moderate respiratory distress noted, desaturating on removing oxygen supplement. Alert, awake, responds to simple commands. PHYSICAL EXAMINATION: VITAL SIGNS: Temperature 97.6, heart rate 85, respiratory rate 16-21, blood pressure 104/56, pulse oximetry 97% on high flow oxygen. FIO2 of 45%. Intake 1400, output 150, positive 1250, weight 89 pounds. HEENT: Pupils reactive. Conjunctivae pale. Sclerae white. NECK: Supple, Trachea midline. No visible jugular venous distention. No palpable adenopathy. CHEST: Bilateral breath sounds diminished. Fine crepitations at the bases, more on the right than left. No audible wheeze. HEART: Rhythm regular. S1, S2 normal. EXTREMITIES: Trace edema. NEUROLOGIC: Alert, awake, but confused. Follows simple commands. Moves both upper extremities. Diminished movement on the left leg. CURRENT MEDICATIONS: Tylenol 650 q. 6 p.r.n., albuterol/Atrovent inhalation 2.5 mL via nebulizer q. 4 p.r.n., Mucomyst 10% b.i.d., albuterol/Atrovent 3 mL q.i.d., Zithromax 500 mg daily, clindamycin 600 mg IV q. 8, Lovenox 40 subQ daily, Toradol 30 mg IV q. 6 p.r.n. for severe pain, Toradol 50 mg IV q. 6 p.r.n. for moderate pain, levothyroxine 100 mcg daily, nicotine patch 1 patch daily, Zosyn 2.25 grams IV q. 6, Florastor 250 mg b.i.d. LABORATORY DATA: WBC 13.5, hemoglobin 9.1, hematocrit 28.7, platelet count 392 , neutrophils 86.6, lymphocytes 6.1, monocytes 6.3. PT 10.2, INR 0.9, and PTT 29. ABG: pH 7.35, pCO2 of 66, pO2 of 81, saturation 97.9% on high flow 50%. SMA-7: Sodium 148, potassium 4.4, chloride 104, CO2 of 32, blood urea nitrogen , creatinine 0.7, random glucose 98, total bilirubin 0.3, AST 58, ALT 58, alkaline phosphatase 124, total protein 5.3, albumin 2.3. Procalcitonin 0.23. MICROBIOLOGY: Blood culture no growth reported. Urine culture no growth reported. MRSA nasal smear negative. Chest x-ray from this morning shows no significant pleural effusion, no pneumothorax. Evaluation of the right lower lobe is limited due to overlying calcified breast implant. ASSESSMENT AND PLAN: Acute hypoxic hypercapnic respiratory failure secondary to pneumonitis, superimposed congestive heart failure, mild hypernatremia post- diuresis, status post left hip fracture, azotemia, rule out dehydration versus chronic kidney disease. Continue high flow nasal oxygen supplement. Hypernatremia, improving. Continue antibiotic coverage for COPD/pneumonia, 1: 1observation. Appreciate neurology input. Sami Cavazos MD cc: [phone] TT: 06/03/2016 22:33:16 Confirmation # [id number] Dictation # [id number] charly JIM
[2016-06-04] MEDS: Clindamycin 600 MG in Sodium Chloride 0.9% 100 ML IVPB SCH ×3 (01:09→16:27)
[2016-06-04 06:11] LABS: ALKALINE PHOSPHATASE 112 U/L (38-126); ALT/SGPT 45 U/L (9-52); AST/SGOT 34 U/L (14-36); BILIRUBIN,TOTAL 0.4 mg/dl (0.2-1.3); BLOOD UREA NITROGEN 27 mg/dl (7-17); CALCIUM 6.8 mg/dL (8.4-10.2); CARBON DIOXIDE 33 mmol/L (22-30); CHLORIDE 105 mmol/L (98-107); GFR AFRICAN-AMERICAN > 60; GLUCOSE,RANDOM 93 mg/dL (65-105); POTASSIUM 4.6 MMOL/L (3.6-5.0); SODIUM 145 mmol/l (132-148); TOTAL PROTEIN 5.5 G/DL (6.3-8.2)
[2016-06-04 06:21] LABS: ALB/GLOB RATIO 0.8 (1.0-2.1)
[2016-06-04 06:43] LABS: BASO % 0.1 % (0.0-2.0); EOS # 0.2 K/uL (0.0-0.7); EOS % 1.7 % (0.0-4.0); HEMATOCRIT 30.7 % (34.0-47.0); LYMPH # 0.9 K/uL (1.0-4.3); LYMPH % 6.4 % (20.0-40.0); MEAN CELL VOLUME 99.3 fl (81.0-99.0); MEAN CORPUSCULAR HEMOGLOBIN 32.5 pg (27.0-31.0); MEAN CORPUSCULAR HGB CONC 32.7 g/dL (33.0-37.0); MEAN PLATELET VOLUME 8.3 fl (7.2-11.7); MONO # 0.8 K/uL (0.0-0.8); MONO % 5.4 % (0.0-10.0); NEUT # 12.5 K/uL (1.8-7.0); NEUT % 86.4 % (50.0-75.0); WHITE BLOOD COUNT 14.5 K/uL (4.8-10.8)
[2016-06-04] MEDS: Albuterol-Ipratrop 3 mg / 0.5 (3 ml) UD INH SCH ×4 (07:46→20:00)
[2016-06-04] MEDS: Acetylcysteine 10% 4 ML IH SCH (07:46)
--- NOTE | 2016-06-04 09:04 | CP.PCM.PN ---
Subjective - Date & Time of Evaluation Date of Evaluation: 06/04/16 Time of Evaluation: 09:01 - Subjective Subjective: Interim events reviewed in EMR. Discussed with patient's nurse this morning. Discussed possible surgical intervention with orthopedics. No CXR done this morning. Procalcitonin reported as negative. Still with leukocytosis 14.5 and Hgb of 10. Myelocytes are likely part of the leukemoid reaction. Remains on 1:1 observation for safety. Remains on high flow nasal O2 @ 25L and 45% O2. SpO2 has been around 97% consistently. Cough seems more congested, but not expectorating. One sputum was cultured and reported as normal chris. She is awake and cooperative, a little more quick to respond. No dullness on percussion of the anterior chest. Egophony is heard at the right base posteriorly. Sonorous rhonchi are heard in the lower lobes bilaterally. No audible wheezes are present, but the breath sounds are very diminished. BP and pulse are okay. No dependant edema or cyanosis. Will request a plain CT chest today. Tentative for surgery tomorrow to repair the fractured hip. Above may change depending on the CT chest today. Medications will continue unchanged for now. Continue aerosol and chest PT with flutter valve. May be transferred to telemetry. Objective - Vital Signs/Intake and Output Vital Signs (last 24 hours): Temp Pulse Resp BP Pulse Ox 98.8 F 93 H 27 H 114/74 97 06/04/16 08:00 06/04/16 08:00 06/04/16 08:00 06/04/16 08:00 06/04/16 08:00 Intake and Output: 06/03/16 06/04/16 23:59 11:59 Intake Total 1534 200 Output Total 110 250 Balance 1424 -50 - Medications Medications: Current Medications Acetaminophen (Tylenol 325mg Tab) 650 mg PO Q6 PRN PRN Reason: Pain, Mild (1-3) Last Admin: 06/02/16 20:51 Dose: 650 mg Acetylcysteine (Mucomyst 10% 4ml) 2 ml IH RBID [facility] Last Admin: 06/04/16 07:46 Dose: 2 ml Albuterol Sulfate (Albuterol 0.083% Inhal Joi (2.5 Mg/3 Ml) Ud) 2.5 mg INH RQ4 PRN PRN Reason: Shortness of Breath Albuterol/Ipratropium (Duoneb 3 Mg/0.5 Mg (3 Ml) Ud) 3 ml INH RQID [facility] Last Admin: 06/04/16 07:46 Dose: 3 ml Enoxaparin Sodium (Lovenox) 40 mg SC DAILY [facility] PRN Reason: Protocol Last Admin: 06/03/16 09:50 Dose: 40 mg Azithromycin 500 mg/ Sodium (Chloride) 250 mls @ 250 mls/hr IVPB DAILY [facility] Last Admin: 06/03/16 09:51 Dose: 250 mls/hr Clindamycin Phosphate 600 mg/ (Sodium Chloride) 104 mls @ 104 mls/hr IVPB Q8 [facility] Last Admin: 06/04/16 01:09 Dose: 104 mls/hr Piperacillin Sod/Tazobactam (Sod 2.25 gm/ Sodium Chloride) 100 mls @ 100 mls/ hr IVPB Q6 [facility] Last Admin: 06/04/16 03:24 Dose: 100 mls/hr Ketorolac Tromethamine (Toradol) 15 mg IVP Q6 PRN PRN Reason: Pain, moderate (4-7) Last Admin: 06/03/16 00:41 Dose: 15 mg Levothyroxine Sodium (Synthroid) 100 mcg PO DAILY [facility] Last Admin: 06/03/16 09:51 Dose: 100 mcg Nicotine (Nicoderm Cq) 1 patch TD DAILY [facility] Last Admin: 06/03/16 09:50 Dose: 1 patch Pantoprazole Sodium (Protonix Ec Tab) 40 mg PO DAILY [facility] Saccharomyces Boulardii (Florastor) 250 mg PO BID [facility] Last Admin: 06/03/16 16:17 Dose: 250 mg - Labs Labs: 06/04/16 05:15 06/04/16 05:15 PT 10.2 SECONDS (9.6-11.2) 05/30/16 17:30 INR 0.98 (0.92-1.08) 05/30/16 17:30 APTT 29.0 SECONDS (23.3-32.5) 05/30/16 17:30 Assessment and Plan (1) Bronchopneumonia Status: Acute (2) Decompensated chronic obstructive pulmonary disease (3) Respiratory failure with hypercapnia Status: Acute (4) Hip fracture Status: Acute (5) Cor pulmonale (chronic) Status: Acute
[2016-06-04] MEDS: Enoxaparin 40 mg Syringe SC SCH (10:01)
[2016-06-04] MEDS: Saccharomyces Boulardi 250 mg Cap PO SCH ×2 (10:01→16:29)
[2016-06-04] MEDS: Pantoprazole 40 mg EC Tab PO SCH (10:02)
[2016-06-04] MEDS: Levothyroxine 100 MCG TAB PO SCH (10:02)
[2016-06-04] MEDS: Azithromycin 500 MG in Sodium Chloride 0.9% 250 ML IVPB SCH (10:03)
--- NOTE | 2016-06-04 13:08 | CT ---
PROCEDURE: CT Chest without contrast HISTORY: pneumonia COMPARISON: Comparison is made to the previous study dated 01/06/2015 TECHNIQUE: Contiguous axial images were obtained through the chest without intravenous contrast enhancement. Sagittal and coronal reconstructions were performed. Radiation dose (DLP): 173.52 mGy-cm. FINDINGS: LUNGS: Foci of airspace consolidation at the lower lobes and right middle lobe likely representing combination of atelectasis and multifocal pneumonia. Mild bronchiectasis seen at the right middle lobe. Re- demonstration of moderate de la cruz lobar emphysema predominant in the upper lobe. MEDIASTINUM: Unremarkable thoracic aorta. No aneurysm. The heart is mildly enlarged. Main pulmonary artery is mildly enlarged. No lymphadenopathy. PLEURA: Small to moderate bilateral pleural effusions are seen. BONES: No significant interval change in the osseous structures compared to the previous exam. UPPER ABDOMEN: Trace ascites noted in the upper abdomen. Hepatomegaly is also seen. OTHER FINDINGS: Peripherally calcified bilateral breast implants are again seen. IMPRESSION: Moderate to large foci of airspace consolidation seen at the lower lobes and right middle lobe likely representing combination of atelectasis due to pleural effusions and multifocal pneumonia. Follow-up reassessment after treatment is recommended. Moderate emphysematous changes predominant in the upper lobes. Mild cardiomegaly. Mildly enlarged main pulmonary artery.
--- NOTE | 2016-06-04 13:17 | PN ---
DATE: 06/04/2016 SUBJECTIVE: The patient is oriented to place. She is comfortable. She denies any chest pain. PHYSICAL EXAMINATION: VITAL SIGNS: Blood pressure 121/77, heart rate 87, temperature 98.6, respirations 13. HEENT: Pale conjunctivae. CHEST: Bilateral rhonchi. HEART: S1, S2 regular. ABDOMEN: Soft. EXTREMITIES: No edema. LABORATORIES: Hemoglobin and hematocrit 10.1 and 30.7, white count and platelet count of 14.5 and 42 6, respectively. SMA-7: Sodium 145, potassium 4.6, chloride 105, CO2 33, glucose 93, BUN 27, creati nine 0.6. Chest CT scan was performed and the report is still pending. ASSESSMENT: 1. Advanced chronic obstructive lung disease. 2. Right-sided failure. 3. Left intertrochanteric fracture. RECOMMENDATIONS: Continue current IV Zithromax at 500 mg daily, IV clindamycin 600 mg q. 8 hours, valente bcutaneous Lovenox at 40 mg daily, Protonix 40 mg orally daily, Zosyn at 2.25 grams intravenous q. 6 hours, awaiting chest CT scan results. Teofilo Amaro MD cc: [id number] TT: 06/04/2016 13:17:14 Confirmation # [id number] Dictation # [id number]
--- NOTE | 2016-06-04 14:14 | PN ---
DATE: 06/04/2016 LOCATION: The patient in ICU, bed 425. TIME SPENT: 35 minutes. HISTORY OF PRESENT ILLNESS: The patient is seen and evaluated at the bedside. He is discussed with pulmonary field service consultant. Events since admission reviewed. Admitted with left hip fracture. Noted to have septic encephalopat hy superimposed on hypoxic respiratory failure associated with bilateral pneumonia/chronic obstructiv e pulmonary disease, currently on high flow oxygen 25 L with 45%. Remains alert, awake, follows comm ands, appropriate, no respiratory distress noted. Not complaining of chest congestion, cough moist, but not productive. No chest pain, palpitation, abdominal pain, diarrhea. No dysuria. PHYSICAL EXAMINATION: VITAL SIGNS: Temperature 98.6, heart rate 87, respiratory rate 13, blood pressure 121/77, oxygen sat uration 97-100% on high flow 25 liters through 45%. Intake 2634, output , positive 2209. HEAD, EARS, NOSE AND THROAT: Pupils are reactive. Conjunctivae pink. Sclerae white. NECK: Supple. Trachea central. CHEST: Bilateral breath sounds, crepitations on both bases, more on the left than right. No audible wheeze. HEART: Rhythm regular. S1, S2 normal. No audible rub or murmur. ABDOMEN: Bowel sounds present, soft. EXTREMITIES: Trace edema. NEUROLOGIC: Nonfocal. CURRENT MEDICATIONS: Tylenol 650 q. 6 p.r.n., DuoNeb 3 mL via nebulizer q. 6 hours, Mucomyst 10% ___ __ mL twice daily, Zithromax 250 mg daily, clindamycin 600 mg q. 8, Lovenox 40 subQ daily, Toradol 15 mg IV push q. 6 p.r.n. for pain, Synthroid 100 mcg p.o. daily, nicotine patch daily, Protonix 40 naomi ly, Zosyn 2.25 grams IV q. 6, Florastor 250 mg twice daily. LABORATORY DATA: WBC 14.5, hemoglobin 10.1, hematocrit 30.7, platelet count of 426, neutrophils 86.4 , lymphocytes 6.4, monocytes 5.4. ABG: pH 7.35, pCO2 66, pO2 81, saturation 97.9%. SMA-7: Sodium 140, potassium 4.6, chloride 105, CO2 33, blood urea nitrogen 27, creatinine 0.6, calcium 6.8, biliru bin 0.4, AST 34, ALT 45, alkaline phosphatase 112, albumin of 5.5, albumin 2.4. B12 425. Thyroxine of 5.8. Urinalysis: Leukocyte esterase negative, WBC 3. Toxicology negative. Serology: Influenza A and B are negative. IMPRESSION: 1. Acute hypoxic hypercapnic respiratory failure. 2. Chronic obstructive pulmonary disease exacerbation. 3. CT scan of the chest suggesting chronic lung disease with bibasilar consolidation with air bronchogram suggesting pneumonia. 4. Anemia of chronic disease. 5. Encephalopathy related to hypoxemia and due to sepsis. Continue 1:1 observation. Appreciate car diology followup. 6. Fracture, left hip. Awaiting for repair, may be at a high risk for general anesthesia, consider spinal or nerve block if feasible as high risk for respiratory failure. Will continue current antibi otics. Deep venous thrombosis and gastrointestinal prophylaxis. Sami Cavazos MD cc: [phone] TT: 06/04/2016 14:14:00 Confirmation # [id number] Dictation # [id number] michael
--- NOTE | 2016-06-04 14:19 | CP.PCM.PN ---
Subjective - Date & Time of Evaluation Date of Evaluation: 06/04/16 Time of Evaluation: 13:45 - Subjective Subjective: Hospitalist Progress Note (Patient was seen and examined 1:45 PM 06/04/16 425-1) 66 year old female who was admitted on 05/30/16 for treatment of Respiratory Failure with Hypercarbia, COPD Exacerbation, Bibasilar Pneumonia, Sepsis, Traumatic Left Femur Fracture. Currently upon FULL ROS patient states NO chest pain, NO palpitations, SOB/ Cough present but improved (states that she coughs everyday for a long time now with occasional productions of small amounts of yellow material), NO dysphagia/ odynophagia, NO abdominal pain, NO n/v/d/c, NO burning/pain with urination, NO lightheadedness/dizziness, NO new changes with vision/eye pain, NO new change with hearing/ear pain, NO paresthesias. HEENT: NCA, PERRLA, EOMI, NO cervical lymphadenopathy, NO thyromegaly, Oral Mucosa and Nasal Turbinates are dry Cardiology: NS1 and NS2, NO M/R/G Respiratory: Faint Bibasilar Inspiratory Crackles GI: BSx4, Soft, NT, ND, NO HSM, NO guarding/rebound tenderness Ext: NO edema, Puses are strong and equal, Capillary Refill is 2 seconds Neuro: CN II through XII are grossly intact Assessment and Plan: 1).Respiratory Failure with Hypercarbia and Hypoxemia --multifactorial Secondary to pneumonia , COPD and CHF exacerbation Clindamycin 600 mg IV Q8H (06/01/16) Zosyn 2.25 gm IV Q6H (05/31/16) Zithromax 500 mg IV Daily (05/31/16) Pulmonary Dr. Ferreira 2). Bibasilar Pneumonia Continue Clindamycin, Zosyn and Zithromax as above Sputum Culture 06/02/16 shows Yeast but this is likely oral contaminent (please note patient is not complaining of dysphagia/odynophagia and there is is NO exudate in the Pharynx on exam) CXR with bibasilar infiltrates R> L and repeat 06/03/16 shows RLL concerning for Pneumonia however limited secondary to bilateral breast implants. CT Chest 06/04/16 showed moderate to large foci of airspace consolidation in the bilateral lower lobes and right middle lobe likely secondary to atelectasis due to pleural effusion and multifocal pneumonia, emphysematous changes in the bilateral upper lobes. F/U Legionella and Mycoplasma 3). COPD exacerbation On High flow O2 30 LPM FIO2 50 % Continue Duoneb Q4H Avoid steroids since patient has history of hallucinations in the past 4). Sepsis- most likely secondary to Pneumonia-- improving CXR with bibasilar infiltrates (see assessment and plan #2) CT Chest showing likely multifocal pneumonia (see assessment and plan #2) WBC is trended back up to 14.4 06/04/16 Blood Culture 05/30/16 is Negative To Date Urine Culture 05/31/16 shows NO Growth Sputum Culture 06/02/16 shows Yeast which is likely oral contaminant (see assessment and plan #2) ID Dr. Haile Mcmillan 5). Traumatic Left Femur Trochanteric Fx Orthopedics Dr. Diandra AKERS once medically stable Will need to be cleared by Pulmonary and Cardiology Considering the CT Chest 06/04/16 findings (which I discussed with Import/Export Clerk Dr. Ferreira and Bakery Associate Dr. Amaro) surgery currently not recommended. Plan for Surgery with Nerve Block for Friday06/10/16. 6).Right Sided Heart Failure Cardiology Dr Amaro ECHO showed EF 60-65 % with dilated RV Lasix was discontinued secondary due to hypernatremia Monitor I/O 7). Cognitive impairment - most likely Dementia (Father with a history of Dementia at this age) Neurology Dr. Rere Garrido: Namenda R 14 mg PO 1x/day, Alpha Lipoic Acid 600 mg PO 1x/day, and Coenzyme Q10 400 mg PO 1x/day as outpatient. CT Head 05/31/16 showed generalized volume loss Vitamin B12: WNL TSH and T3 were low therefore dose of Synthroid was increased Continue 1:1 for safety since patient has episodes of confusion and had episode of fall in the unit Repeat XRays post fall showed no new fractures 8). Hypothyroidism Uncontrolled likely secondary to history of not taking home medications Synthroid was increased from 88 to 100 mcg PO 1x/day 9) .Dehydration with Hypernatremia Secondary to poor PO intake and Lasix (which was discontinued) Encouraged Ensure + Shakes 3x/day and this was discussed with dietary on 06/03/16 Monitor I/O Na is back to normal and BUN/Cr improving 10). Nicotine Addiction Nicotine patch daily 11). Hx Slip and Fall in unit on 06/01/16 Placed on 1:1 for safety Repeat Pelvis and Hip Xrays 06/01/16 showed no acute fracture 12). Prophylactic Measures Tylenol 650 mg PO Q6H PRN Mild Pain Toradol 15 mg IV Q6H PRN Moderate Pain Toradol 30 mg IV Q6H PRN Severe Pain Lovenox 40 mg SQ 1x/day Protonix 40 mg PO 1x/day Florastor 250 mg PO 2x/day Plan concerning for Surgery for the Left Trochanteric Fracture, results of CT Chest 06/04/16 were discussed with Son Luis Armando [phone] and Shawn [phone] and [phone], both of whom were at bedside. 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 Objective - Vital Signs/Intake and Output Vital Signs (last 24 hours): Temp Pulse Resp BP Pulse Ox 98.6 F 87 13 121/77 100 06/04/16 12:38 06/04/16 12:38 06/04/16 12:38 06/04/16 12:38 06/04/16 12:38 Intake and Output: 06/04/16 06/04/16 06:59 18:59 Intake Total 784 Output Total 250 Balance 534 - Medications Medications: Current Medications Acetaminophen (Tylenol 325mg Tab) 650 mg PO Q6 PRN PRN Reason: Pain, Mild (1-3) Last Admin: 06/02/16 20:51 Dose: 650 mg Acetylcysteine (Mucomyst 10% 4ml) 2 ml IH RBID [facility] Last Admin: 06/04/16 07:46 Dose: 2 ml Albuterol Sulfate (Albuterol 0.083% Inhal Joi (2.5 Mg/3 Ml) Ud) 2.5 mg INH RQ4 PRN PRN Reason: Shortness of Breath Albuterol/Ipratropium (Duoneb 3 Mg/0.5 Mg (3 Ml) Ud) 3 ml INH RQID [facility] Last Admin: 06/04/16 11:21 Dose: 3 ml Azithromycin 500 mg/ Sodium (Chloride) 250 mls @ 250 mls/hr IVPB DAILY [facility] Last Admin: 06/04/16 10:03 Dose: 250 mls/hr Clindamycin Phosphate 600 mg/ (Sodium Chloride) 104 mls @ 104 mls/hr IVPB Q8 [facility] Last Admin: 06/04/16 10:00 Dose: 104 mls/hr Piperacillin Sod/Tazobactam (Sod 2.25 gm/ Sodium Chloride) 100 mls @ 100 mls/ hr IVPB Q6 [facility] Last Admin: 06/04/16 10:03 Dose: 100 mls/hr Ketorolac Tromethamine (Toradol) 15 mg IVP Q6 PRN PRN Reason: Pain, moderate (4-7) Last Admin: 06/03/16 00:41 Dose: 15 mg Levothyroxine Sodium (Synthroid) 100 mcg PO DAILY [facility] Last Admin: 06/04/16 10:02 Dose: 100 mcg Nicotine (Nicoderm Cq) 1 patch TD DAILY [facility] Last Admin: 06/04/16 10:02 Dose: 1 patch Pantoprazole Sodium (Protonix Ec Tab) 40 mg PO DAILY [facility] Last Admin: 06/04/16 10:02 Dose: 40 mg Saccharomyces Boulardii (Florastor) 250 mg PO BID [facility] Last Admin: 06/04/16 10:01 Dose: 250 mg - Labs Labs: 06/04/16 05:15 06/04/16 05:15 PT 10.2 SECONDS (9.6-11.2) 05/30/16 17:30 INR 0.98 (0.92-1.08) 05/30/16 17:30 APTT 29.0 SECONDS (23.3-32.5) 05/30/16 17:30
[2016-06-05] MEDS: Clindamycin 600 MG in Sodium Chloride 0.9% 100 ML IVPB SCH ×3 (00:10→16:16)
[2016-06-05 05:58] LABS: BASO % 0.2 % (0.0-2.0); EOS # 0.3 K/uL (0.0-0.7); HEMATOCRIT 29.1 % (34.0-47.0); LYMPH # 1.1 K/uL (1.0-4.3); LYMPH % 8.4 % (20.0-40.0); MEAN CELL VOLUME 97.9 fl (81.0-99.0); MEAN CORPUSCULAR HEMOGLOBIN 31.1 pg (27.0-31.0); MEAN CORPUSCULAR HGB CONC 31.8 g/dL (33.0-37.0); MEAN PLATELET VOLUME 7.9 fl (7.2-11.7); MONO # 0.8 K/uL (0.0-0.8); MONO % 5.6 % (0.0-10.0); NEUT # 11.3 K/uL (1.8-7.0); NEUT % 83.8 % (50.0-75.0); NRBC % 0.1 % (0.0-0.0); RED CELL DISTRIBUTION WIDTH 15.2 % (11.5-14.5); WHITE BLOOD COUNT 13.5 K/uL (4.8-10.8)
[2016-06-05 06:03] LABS: BLOOD UREA NITROGEN 21 mg/dl (7-17); CALCIUM 6.9 mg/dL (8.4-10.2); CARBON DIOXIDE 30 mmol/L (22-30); CHLORIDE 103 mmol/L (98-107); GFR AFRICAN-AMERICAN > 60; GLUCOSE,RANDOM 84 mg/dL (65-105); POTASSIUM 4.5 MMOL/L (3.6-5.0); SODIUM 142 mmol/l (132-148)
[2016-06-05] MEDS: Acetylcysteine 10% 4 ML IH SCH ×3 (08:33→20:26)
[2016-06-05] MEDS: Albuterol-Ipratrop 3 mg / 0.5 (3 ml) UD INH SCH ×4 (08:33→20:24)
--- NOTE | 2016-06-05 09:38 | CP.PCM.PN ---
Subjective - Date & Time of Evaluation Date of Evaluation: 06/05/16 Time of Evaluation: 09:34 - Subjective Subjective: Interim events reviewed. Case discussed at interdisciplinary rounds. Remains on nasal high flow O2. Satisfactory oxygenation. WBC continues to decline, electrolytes and renal function are good. CT chest shows bilateral lower lobe consolidation with effusions. RML consolidation also noted. Has some confusion that occurs intermittently, becomes agitated. Remains afebrile, procalcitonin noted to be normal. Still has a congested cough when coached which is non-productive. Breath sounds are very diminished bilaterally, no audible wheezing. Scattered sonorous rhonchi bilaterally. Egophony in RLL posteriorly and almost absent BS in LLL posteriorly. No cyanosis or dependant edema. Plan for continued antibiotics despite normal procalcitonin considering extent of consolidations and effusions. Continue CPT and reinforce need for repeated use of flutter device. Encourage deep breathing and coughing. Continue aerosol therapies. Corrective surgery likely best postponed until Friday. Would not treat the yeast reported on sputum culture (will discuss with ID). Awaiting transfer out of ICU. Still needs 1:1 observation. Objective - Vital Signs/Intake and Output Vital Signs (last 24 hours): Temp Pulse Resp BP Pulse Ox 97.9 F 73 21 95/59 L 96 06/05/16 08:00 06/05/16 08:00 06/05/16 08:36 06/05/16 08:00 06/05/16 08:00 Intake and Output: 06/04/16 06/05/16 23:59 11:59 Intake Total 10 420 Output Total 300 Balance 10 120 - Medications Medications: Current Medications Acetaminophen (Tylenol 325mg Tab) 650 mg PO Q6 PRN PRN Reason: Pain, Mild (1-3) Last Admin: 06/02/16 20:51 Dose: 650 mg Acetylcysteine (Mucomyst 10% 4ml) 2 ml IH RBID [facility] Last Admin: 06/05/16 08:33 Dose: 2 ml Albuterol Sulfate (Albuterol 0.083% Inhal Joi (2.5 Mg/3 Ml) Ud) 2.5 mg INH RQ4 PRN PRN Reason: Shortness of Breath Albuterol/Ipratropium (Duoneb 3 Mg/0.5 Mg (3 Ml) Ud) 3 ml INH RQID [facility] Last Admin: 06/05/16 08:33 Dose: 3 ml Azithromycin 500 mg/ Sodium (Chloride) 250 mls @ 250 mls/hr IVPB DAILY [facility] Last Admin: 06/04/16 10:03 Dose: 250 mls/hr Clindamycin Phosphate 600 mg/ (Sodium Chloride) 104 mls @ 104 mls/hr IVPB Q8 [facility] Last Admin: 06/05/16 00:10 Dose: 104 mls/hr Piperacillin Sod/Tazobactam (Sod 2.25 gm/ Sodium Chloride) 100 mls @ 100 mls/ hr IVPB Q6 [facility] Last Admin: 06/05/16 04:47 Dose: 100 mls/hr Ketorolac Tromethamine (Toradol) 15 mg IVP Q6 PRN PRN Reason: Pain, moderate (4-7) Last Admin: 06/04/16 21:23 Dose: 15 mg Levothyroxine Sodium (Synthroid) 100 mcg PO DAILY [facility] Last Admin: 06/04/16 10:02 Dose: 100 mcg Multivitamins/Minerals (Therapeutic-M Tab) 1 tab PO DAILY [facility] Nicotine (Nicoderm Cq) 1 patch TD DAILY [facility] Last Admin: 06/04/16 10:02 Dose: 1 patch Pantoprazole Sodium (Protonix Ec Tab) 40 mg PO DAILY [facility] Last Admin: 06/04/16 10:02 Dose: 40 mg Saccharomyces Boulardii (Florastor) 250 mg PO BID [facility] Last Admin: 06/04/16 16:29 Dose: 250 mg - Labs Labs: 06/05/16 04:30 06/05/16 04:30 PT 10.2 SECONDS (9.6-11.2) 05/30/16 17:30 INR 0.98 (0.92-1.08) 05/30/16 17:30 APTT 29.0 SECONDS (23.3-32.5) 05/30/16 17:30 Assessment and Plan (1) Bronchopneumonia Status: Acute (2) Decompensated chronic obstructive pulmonary disease (3) Respiratory failure with hypercapnia Status: Acute (4) Hip fracture Status: Acute (5) Cor pulmonale (chronic) Status: Acute
[2016-06-05] MEDS: Saccharomyces Boulardi 250 mg Cap PO SCH (09:54)
[2016-06-05] MEDS: Pantoprazole 40 mg EC Tab PO SCH (09:54)
[2016-06-05] MEDS: Azithromycin 500 MG in Sodium Chloride 0.9% 250 ML IVPB SCH (09:55)
[2016-06-05] MEDS: Levothyroxine 100 MCG TAB PO SCH (09:55)
--- NOTE | 2016-06-05 14:11 | CP.PCM.PN ---
Subjective - Date & Time of Evaluation Date of Evaluation: 06/05/16 Time of Evaluation: 02:10 - Subjective Subjective: S- pt comfortable at bedrest/[place] tx not applied at pts request Objective - Vital Signs/Intake and Output Vital Signs (last 24 hours): Temp Pulse Resp BP Pulse Ox 98.4 F 78 23 97/56 L 98 06/05/16 12:00 06/05/16 12:00 06/05/16 12:03 06/05/16 12:00 06/05/16 12:00 Intake and Output: 06/05/16 06/05/16 06:59 18:59 Intake Total 430 Output Total 300 Balance 130 - Medications Medications: Current Medications Acetaminophen (Tylenol 325mg Tab) 650 mg PO Q6 PRN PRN Reason: Pain, Mild (1-3) Last Admin: 06/02/16 20:51 Dose: 650 mg Acetylcysteine (Mucomyst 10% 4ml) 2 ml IH RBID [facility] Last Admin: 06/05/16 08:33 Dose: 2 ml Albuterol Sulfate (Albuterol 0.083% Inhal Joi (2.5 Mg/3 Ml) Ud) 2.5 mg INH RQ4 PRN PRN Reason: Shortness of Breath Albuterol/Ipratropium (Duoneb 3 Mg/0.5 Mg (3 Ml) Ud) 3 ml INH RQID [facility] Last Admin: 06/05/16 12:20 Dose: 3 ml Enoxaparin Sodium (Lovenox) 40 mg SC DAILY [facility] PRN Reason: Protocol Azithromycin 500 mg/ Sodium (Chloride) 250 mls @ 250 mls/hr IVPB DAILY [facility] Last Admin: 06/05/16 09:55 Dose: 250 mls/hr Clindamycin Phosphate 600 mg/ (Sodium Chloride) 104 mls @ 104 mls/hr IVPB Q8 [facility] Last Admin: 06/05/16 09:53 Dose: 104 mls/hr Piperacillin Sod/Tazobactam (Sod 2.25 gm/ Sodium Chloride) 100 mls @ 100 mls/ hr IVPB Q6 [facility] Last Admin: 06/05/16 09:55 Dose: 100 mls/hr Ketorolac Tromethamine (Toradol) 15 mg IVP Q6 PRN PRN Reason: Pain, moderate (4-7) Last Admin: 06/04/16 21:23 Dose: 15 mg Levothyroxine Sodium (Synthroid) 100 mcg PO DAILY [facility] Last Admin: 06/05/16 09:55 Dose: 100 mcg Multivitamins/Minerals (Therapeutic-M Tab) 1 tab PO DAILY [facility] Nicotine (Nicoderm Cq) 1 patch TD DAILY [facility] Last Admin: 06/05/16 09:54 Dose: 1 patch Pantoprazole Sodium (Protonix Ec Tab) 40 mg PO DAILY [facility] Last Admin: 06/05/16 09:54 Dose: 40 mg Saccharomyces Boulardii (Florastor) 250 mg PO BID [facility] Last Admin: 06/05/16 09:54 Dose: 250 mg - Labs Labs: 06/05/16 04:30 06/05/16 04:30 PT 10.2 SECONDS (9.6-11.2) 05/30/16 17:30 INR 0.98 (0.92-1.08) 05/30/16 17:30 APTT 29.0 SECONDS (23.3-32.5) 05/30/16 17:30 - Additional Findings Additional findings: Objective Musculoskekltal stance/gait- bdefrred pt with shortening/ext roation zL lower ext n/v intact no gross defcxiits Assessment and Plan - Assessment and Plan (Free Text) Assessment: A- s/p L basicervical/intertorchanteric fx P to OR when clear from a pulmonary point of view case discussed with DR Angelito Ferreira P- TO OR when medically/stable froma pulmonary point of view
--- NOTE | 2016-06-05 16:08 | CP.PCM.PN ---
Subjective - Date & Time of Evaluation Date of Evaluation: 06/05/16 Time of Evaluation: 14:45 - Subjective Subjective: Hospitalist Progress Note (Patient was seen and examined 2:45 PM 06/05/16 425-1 with Shawn present) 66 year old female who was admitted on 05/30/16 for treatment of Respiratory Failure with Hypercarbia, COPD Exacerbation, Bibasilar Pneumonia, Sepsis, Traumatic Left Femur Fracture. Currently upon FULL ROS patient states NO chest pain, NO palpitations, NO SOB but (+) Cough (states that she coughs everyday for a long time now with occasional productions of small amounts of yellow material), NO dysphagia/ odynophagia, NO abdominal pain, NO n/v/d/c, NO burning/pain with urination, NO lightheadedness/dizziness, NO new changes with vision/eye pain, NO new change with hearing/ear pain, NO paresthesias. (+) Cervical and Thoracic Spine pain ( has history of spinal arthritis as per ) HEENT: NCA, PERRLA, EOMI, NO cervical lymphadenopathy, NO thyromegaly, Oral Mucosa and Nasal Turbinates are dry Cardiology: NS1 and NS2, NO M/R/G Respiratory: Faint Bibasilar Inspiratory Crackles GI: BSx4, Soft, NT, ND, NO HSM, NO guarding/rebound tenderness Ext: NO edema, Puses are strong and equal, Capillary Refill is 2 seconds Neuro: CN II through XII are grossly intact Assessment and Plan: 1).Respiratory Failure with Hypercarbia and Hypoxemia --multifactorial Secondary to pneumonia , COPD and CHF exacerbation Clindamycin 600 mg IV Q8H (06/01/16) Zosyn 2.25 gm IV Q6H (05/31/16) Zithromax 500 mg IV Daily (05/31/16) Pulmonary Dr. Ferreira 2). Bibasilar Pneumonia Continue Clindamycin, Zosyn and Zithromax as above Sputum Culture 06/02/16 shows Yeast but this is likely oral contaminent (please note patient not experiencing dysphagia/odynophagia and there is is NO exudate in the Pharynx on exam) CXR with bibasilar infiltrates R> L and repeat 06/03/16 shows RLL concerning for Pneumonia however limited secondary to bilateral breast implants. CT Chest 06/04/16 showed moderate to large foci of airspace consolidation in the bilateral lower lobes and right middle lobe likely secondary to atelectasis due to pleural effusion and multifocal pneumonia, emphysematous changes in the bilateral upper lobes. F/U Legionella and Mycoplasma 3). COPD exacerbation On High flow O2 30 LPM FIO2 50 % Continue Duoneb Q4H Avoid steroids since patient has history of hallucinations in the past 4). Sepsis- most likely secondary to Pneumonia-- improving CXR with bibasilar infiltrates (see assessment and plan #2) CT Chest showing likely multifocal pneumonia (see assessment and plan #2) WBC is trended is trending back down to 13.5 06/05/16 Blood Culture 05/30/16 is Negative To Date Urine Culture 05/31/16 shows NO Growth Sputum Culture 06/02/16 shows Yeast which is likely oral contaminant (see assessment and plan #2) ID Dr. Haile Mcmillan 5). Traumatic Left Femur Trochanteric Fx Orthopedics Dr. Diandra AKERS once medically stable Will need to be cleared by Pulmonary and Cardiology Considering the CT Chest 06/04/16 findings (which I discussed with Experimental Mechanic Outboard Motors Dr. Ferreira and Quality Assurance Technician Dr. Amaro on 06/04/16) surgery currently not recommended. Plan for Surgery with Nerve Block for Friday06/10/16. 6).Right Sided Heart Failure Cardiology Dr Amaro ECHO showed EF 60-65 % with dilated RV Lasix was discontinued secondary due to hypernatremia present earlier in the admission Monitor I/O 7). Cognitive impairment - most likely Dementia (Father with a history of Dementia at this age) Neurology Dr. Rere Garrido: Namenda R 14 mg PO 1x/day, Alpha Lipoic Acid 600 mg PO 1x/day, and Coenzyme Q10 400 mg PO 1x/day as outpatient. CT Head 05/31/16 showed generalized volume loss Vitamin B12: WNL TSH and T3 were low therefore dose of Synthroid was increased Continue 1:1 for safety since patient has episodes of confusion and had episode of fall in the unit Repeat XRays post fall showed no new fractures 8). Hypothyroidism Uncontrolled likely secondary to history of not taking home medications Synthroid was increased from 88 to 100 mcg PO 1x/day 9) .Dehydration with Hypernatremia Secondary to poor PO intake and Lasix (which was discontinued) Encouraged Ensure + Shakes 3x/day and this was discussed with dietary on 06/03/16 Monitor I/O Na is back to normal and BUN/Cr improving 10). Nicotine Addiction Nicotine patch daily 11). Hx Slip and Fall in unit on 06/01/16 Placed on 1:1 for safety Repeat Pelvis and Hip Xrays 06/01/16 showed no acute fracture 12). Prophylactic Measures Tylenol 650 mg PO Q6H PRN Mild Pain Toradol 15 mg IV Q6H PRN Moderate Pain Lovenox 40 mg SQ 1x/day Protonix 40 mg PO 1x/day Florastor 250 mg PO 2x/day Plan concerning for Surgery for the Left Trochanteric Fracture, results of CT Chest 06/04/16 were discussed with Son Luis Armando [phone] and Shawn and [phone] on 06/04/16. 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 Objective - Vital Signs/Intake and Output Vital Signs (last 24 hours): Temp Pulse Resp BP Pulse Ox 98.4 F 78 19 97/56 L 98 06/05/16 12:00 06/05/16 12:00 06/05/16 14:56 06/05/16 12:00 06/05/16 12:00 Intake and Output: 06/05/16 06/05/16 06:59 18:59 Intake Total 430 Output Total 300 Balance 130 - Medications Medications: Current Medications Acetaminophen (Tylenol 325mg Tab) 650 mg PO Q6 PRN PRN Reason: Pain, Mild (1-3) Last Admin: 06/02/16 20:51 Dose: 650 mg Acetylcysteine (Mucomyst 10% 4ml) 2 ml IH RBID [facility] Last Admin: 06/05/16 08:33 Dose: 2 ml Albuterol Sulfate (Albuterol 0.083% Inhal Oji (2.5 Mg/3 Ml) Ud) 2.5 mg INH RQ4 PRN PRN Reason: Shortness of Breath Albuterol/Ipratropium (Duoneb 3 Mg/0.5 Mg (3 Ml) Ud) 3 ml INH RQID [facility] Last Admin: 06/05/16 12:20 Dose: 3 ml Enoxaparin Sodium (Lovenox) 40 mg SC DAILY [facility] PRN Reason: Protocol Azithromycin 500 mg/ Sodium (Chloride) 250 mls @ 250 mls/hr IVPB DAILY [facility] Last Admin: 06/05/16 09:55 Dose: 250 mls/hr Clindamycin Phosphate 600 mg/ (Sodium Chloride) 104 mls @ 104 mls/hr IVPB Q8 [facility] Last Admin: 06/05/16 09:53 Dose: 104 mls/hr Piperacillin Sod/Tazobactam (Sod 2.25 gm/ Sodium Chloride) 100 mls @ 100 mls/ hr IVPB Q6 [facility] Last Admin: 06/05/16 09:55 Dose: 100 mls/hr Ketorolac Tromethamine (Toradol) 15 mg IVP Q6 PRN PRN Reason: Pain, moderate (4-7) Last Admin: 06/04/16 21:23 Dose: 15 mg Levothyroxine Sodium (Synthroid) 100 mcg PO DAILY [facility] Last Admin: 06/05/16 09:55 Dose: 100 mcg Multivitamins/Minerals (Therapeutic-M Tab) 1 tab PO DAILY [facility] Nicotine (Nicoderm Cq) 1 patch TD DAILY [facility] Last Admin: 06/05/16 09:54 Dose: 1 patch Pantoprazole Sodium (Protonix Ec Tab) 40 mg PO DAILY [facility] Last Admin: 06/05/16 09:54 Dose: 40 mg Saccharomyces Boulardii (Florastor) 250 mg PO BID [facility] Last Admin: 06/05/16 09:54 Dose: 250 mg - Labs Labs: 06/05/16 04:30 06/05/16 04:30 PT 10.2 SECONDS (9.6-11.2) 05/30/16 17:30 INR 0.98 (0.92-1.08) 05/30/16 17:30 APTT 29.0 SECONDS (23.3-32.5) 05/30/16 17:30
[2016-06-05] MEDS: Enoxaparin 40 mg Syringe SC SCH (16:18)
[2016-06-05] MEDS: Multivitamin With Minerals Tab PO SCH (16:19)
[2016-06-06] MEDS: Clindamycin 600 MG in Sodium Chloride 0.9% 100 ML IVPB SCH ×3 (01:23→16:34)
[2016-06-06 07:33] LABS: ALB/GLOB RATIO 0.8 (1.0-2.1); ALKALINE PHOSPHATASE 90 U/L (38-126); ALT/SGPT 38 U/L (9-52); AST/SGOT 35 U/L (14-36); BILIRUBIN,TOTAL 0.2 mg/dl (0.2-1.3); BLOOD UREA NITROGEN 12 mg/dl (7-17); CALCIUM 7.2 mg/dL (8.4-10.2); CARBON DIOXIDE 33 mmol/L (22-30); CHLORIDE 102 mmol/L (98-107); GFR AFRICAN-AMERICAN > 60; GLUCOSE,RANDOM 91 mg/dL (65-105); POTASSIUM 4.4 MMOL/L (3.6-5.0); SODIUM 141 mmol/l (132-148); TOTAL PROTEIN 5.2 G/DL (6.3-8.2)
[2016-06-06] MEDS: Albuterol-Ipratrop 3 mg / 0.5 (3 ml) UD INH SCH ×4 (07:45→19:40)
[2016-06-06] MEDS: Acetylcysteine 10% 4 ML IH SCH ×2 (07:45→19:40)
[2016-06-06 07:49] LABS: BASO % 0.1 % (0.0-2.0); EOS # 0.3 K/uL (0.0-0.7); EOS % 2.8 % (0.0-4.0); HEMATOCRIT 31.6 % (34.0-47.0); LYMPH # 1.1 K/uL (1.0-4.3); LYMPH % 9.5 % (20.0-40.0); MEAN CELL VOLUME 97.9 fl (81.0-99.0); MEAN CORPUSCULAR HEMOGLOBIN 31.5 pg (27.0-31.0); MEAN CORPUSCULAR HGB CONC 32.1 g/dL (33.0-37.0); MEAN PLATELET VOLUME 8.1 fl (7.2-11.7); MONO # 0.9 K/uL (0.0-0.8); MONO % 7.6 % (0.0-10.0); NEUT # 9.2 K/uL (1.8-7.0); RED CELL DISTRIBUTION WIDTH 15.2 % (11.5-14.5); WHITE BLOOD COUNT 11.5 K/uL (4.8-10.8)
--- NOTE | 2016-06-06 08:01 | CP.PCM.PN ---
Subjective - Date & Time of Evaluation Date of Evaluation: 06/06/16 Time of Evaluation: 07:55 - Subjective Subjective: S- pt comfrotable with shortening and external rotation of L lower ext Objective - Vital Signs/Intake and Output Vital Signs (last 24 hours): Temp Pulse Resp BP Pulse Ox 98.6 F 83 16 117/70 98 06/06/16 04:14 06/06/16 04:14 06/06/16 05:06 06/06/16 04:14 06/06/16 04:14 Intake and Output: 06/06/16 06/06/16 06:59 18:59 Intake Total 160 250 Output Total 450 300 Balance -290 -50 - Medications Medications: Current Medications Acetaminophen (Tylenol 325mg Tab) 650 mg PO Q6 PRN PRN Reason: Pain, Mild (1-3) Last Admin: 06/02/16 20:51 Dose: 650 mg Acetylcysteine (Mucomyst 10% 4ml) 2 ml IH RBID [facility] Last Admin: 06/06/16 07:45 Dose: 2 ml Albuterol Sulfate (Albuterol 0.083% Inhal Joi (2.5 Mg/3 Ml) Ud) 2.5 mg INH RQ4 PRN PRN Reason: Shortness of Breath Albuterol/Ipratropium (Duoneb 3 Mg/0.5 Mg (3 Ml) Ud) 3 ml INH RQID [facility] Last Admin: 06/06/16 07:45 Dose: 3 ml Enoxaparin Sodium (Lovenox) 40 mg SC DAILY [facility] PRN Reason: Protocol Last Admin: 06/05/16 16:18 Dose: 40 mg Azithromycin 500 mg/ Sodium (Chloride) 250 mls @ 250 mls/hr IVPB DAILY [facility] Last Admin: 06/05/16 09:55 Dose: 250 mls/hr Clindamycin Phosphate 600 mg/ (Sodium Chloride) 104 mls @ 104 mls/hr IVPB Q8 [facility] Last Admin: 06/06/16 01:23 Dose: 104 mls/hr Ketorolac Tromethamine (Toradol) 15 mg IVP Q6 PRN PRN Reason: Pain, moderate (4-7) Last Admin: 06/05/16 22:46 Dose: 15 mg Levothyroxine Sodium (Synthroid) 100 mcg PO DAILY [facility] Last Admin: 06/05/16 09:55 Dose: 100 mcg Multivitamins/Minerals (Therapeutic-M Tab) 1 tab PO DAILY [facility] Last Admin: 06/05/16 16:19 Dose: 1 tab Nicotine (Nicoderm Cq) 1 patch TD DAILY [facility] Last Admin: 06/05/16 09:54 Dose: 1 patch Pantoprazole Sodium (Protonix Ec Tab) 40 mg PO DAILY [facility] Last Admin: 06/05/16 09:54 Dose: 40 mg Saccharomyces Boulardii (Florastor) 250 mg PO BID [facility] Last Admin: 06/05/16 09:54 Dose: 250 mg - Labs Labs: 06/06/16 06:30 06/06/16 06:30 PT 10.2 SECONDS (9.6-11.2) 05/30/16 17:30 INR 0.98 (0.92-1.08) 05/30/16 17:30 APTT 29.0 SECONDS (23.3-32.5) 05/30/16 17:30 - Additional Findings Additional findings: Objective stance/gait- defrred pt with shortening and ext rotation L lower ext N/V intact no gross progressive defcitis orthopedically stable- pending pulmonary clearance for ORIF vs prosthetic replacemnt L lower ext Assessment and Plan - Assessment and Plan (Free Text) Assessment: A- s/p L basicerviocal/intertrochanteric L femur fx P- orthopedically stable
--- NOTE | 2016-06-06 08:23 | PN ---
DATE: 06/05/2016 SUBJECTIVE: The patient denies any chest pain. Shortness of breath is controlled with nasal O2. No reported arrhythmia. PHYSICAL EXAMINATION: VITAL SIGNS: Blood pressure 97/56, heart rate 78, temperature 98.4, respiration 18. HEENT: Pale conjunctivae. CHEST: Bilateral rhonchi. HEART: S1, S2 regular. ABDOMEN: Soft. EXTREMITIES: No edema. LABORATORIES: Hemoglobin and hematocrit 9.2 and 29.1, white count ____.5, platelet count 484,000. T kentrell's SMA-7 is within normal limits except for BUN of 21 and creatinine 0.5. Calcium is below mary l at 6.9. Official chest CT scan report revealed moderate to large foci of airspace consolidation in the lower lobes and the right middle lobe, likely representing culmination of atelectasis due to pleural effusi on and multifocal pneumonia. Moderate emphysematous changes, prominent in the upper lobes. Mild car diomegaly. Mildly enlarged pulmonary artery. ASSESSMENT: 1. Right-sided heart failure secondary to advanced chronic obstructive lung disease. 2. Pneumonia. 3. Displaced left intertrochanteric fracture. 4. Anemia. 5. Hypothyroidism. RECOMMENDATIONS: Continue current bronchodilators. Continue IV Zithromax and IV Zosyn. Continue Sy nthroid ____ mcg once a day, subcutaneous Lovenox at 40 mg once a day, IV clindamycin 600 mg once a d ay. The case was discussed with Dr. Joo Carbajal. The patient is not cleared medically or pulmonary -llamas for general anesthesia yet. Surgery will probably be postponed for next week and it will proba anselmo be done under nerve block instead of general anesthesia. Teofilo Amaro MD cc: [id number] TT: 06/05/2016 15:28:47 Confirmation # [id number] Dictation # [id number]
[2016-06-06] MEDS: Levothyroxine 100 MCG TAB PO SCH (09:38)
[2016-06-06] MEDS: Enoxaparin 40 mg Syringe SC SCH (09:39)
[2016-06-06] MEDS: Pantoprazole 40 mg EC Tab PO SCH (09:39)
[2016-06-06] MEDS: Multivitamin With Minerals Tab PO SCH (09:39)
[2016-06-06] MEDS: Saccharomyces Boulardi 250 mg Cap PO SCH ×2 (09:40→16:27)
[2016-06-06] MEDS: Azithromycin 500 MG in Sodium Chloride 0.9% 250 ML IVPB SCH (09:41)
--- NOTE | 2016-06-06 10:30 | CP.PCM.PN ---
Subjective - Date & Time of Evaluation Date of Evaluation: 06/06/16 Time of Evaluation: 09:45 - Subjective Subjective: No fever episodes of confusion on 1:1 Left hip pain controlle Remains on High Flow Oxygen - looks comfortable denies CP occ SOB no abd pain Objective - Vital Signs/Intake and Output Vital Signs (last 24 hours): Temp Pulse Resp BP Pulse Ox 98.5 F 88 16 117/71 95 06/06/16 08:00 06/06/16 08:00 06/06/16 08:21 06/06/16 08:00 06/06/16 08:00 Intake and Output: 06/06/16 06/06/16 06:59 18:59 Intake Total 160 250 Output Total 450 300 Balance -290 -50 - Medications Medications: Current Medications Acetaminophen (Tylenol 325mg Tab) 650 mg PO Q6 PRN PRN Reason: Pain, Mild (1-3) Last Admin: 06/02/16 20:51 Dose: 650 mg Acetylcysteine (Mucomyst 10% 4ml) 2 ml IH RBID [facility] Last Admin: 06/06/16 07:45 Dose: 2 ml Albuterol Sulfate (Albuterol 0.083% Inhal Joi (2.5 Mg/3 Ml) Ud) 2.5 mg INH RQ4 PRN PRN Reason: Shortness of Breath Albuterol/Ipratropium (Duoneb 3 Mg/0.5 Mg (3 Ml) Ud) 3 ml INH RQID [facility] Last Admin: 06/06/16 07:45 Dose: 3 ml Enoxaparin Sodium (Lovenox) 40 mg SC DAILY [facility] PRN Reason: Protocol Last Admin: 06/06/16 09:39 Dose: 40 mg Azithromycin 500 mg/ Sodium (Chloride) 250 mls @ 250 mls/hr IVPB DAILY [facility] Last Admin: 06/06/16 09:41 Dose: 250 mls/hr Clindamycin Phosphate 600 mg/ (Sodium Chloride) 104 mls @ 104 mls/hr IVPB Q8 [facility] Last Admin: 06/06/16 09:40 Dose: 104 mls/hr Ketorolac Tromethamine (Toradol) 15 mg IVP Q6 PRN PRN Reason: Pain, moderate (4-7) Last Admin: 06/05/16 22:46 Dose: 15 mg Levothyroxine Sodium (Synthroid) 100 mcg PO DAILY [facility] Last Admin: 06/06/16 09:38 Dose: 100 mcg Multivitamins/Minerals (Therapeutic-M Tab) 1 tab PO DAILY [facility] Last Admin: 06/06/16 09:39 Dose: 1 tab Nicotine (Nicoderm Cq) 1 patch TD DAILY [facility] Last Admin: 06/06/16 09:39 Dose: 1 patch Pantoprazole Sodium (Protonix Ec Tab) 40 mg PO DAILY [facility] Last Admin: 06/06/16 09:39 Dose: 40 mg Saccharomyces Boulardii (Florastor) 250 mg PO BID [facility] Last Admin: 06/06/16 09:40 Dose: 250 mg - Labs Labs: 06/06/16 06:30 06/06/16 06:30 PT 10.2 SECONDS (9.6-11.2) 05/30/16 17:30 INR 0.98 (0.92-1.08) 05/30/16 17:30 APTT 29.0 SECONDS (23.3-32.5) 05/30/16 17:30 - Constitutional Appears: Chronically Ill, Other (On High Flow Oxygen) - Head Exam Head Exam: NORMAL INSPECTION, NORMOCEPHALIC - Eye Exam Eye Exam: EOMI, Normal appearance Pupil Exam: NORMAL ACCOMODATION - ENT Exam ENT Exam: Mucous Membranes Moist, Normal External Ear Exam - Neck Exam Neck Exam: Full ROM. absent: Meningismus - Respiratory Exam Respiratory Exam: Decreased Breath Sounds, Rales, Rhonchi. absent: Wheezes - Cardiovascular Exam Cardiovascular Exam: REGULAR RHYTHM, +S1, +S2 - GI/Abdominal Exam GI & Abdominal Exam: Soft, Normal Bowel Sounds. absent: Tenderness - Extremities Exam Extremities Exam: Normal Capillary Refill. absent: Calf Tenderness - Back Exam Back Exam: absent: CVA tenderness (L), CVA tenderness (R) - Neurological Exam Neurological Exam: Alert, Awake, CN II-XII Intact Additional comments: oriented to person and place - Psychiatric Exam Psychiatric exam: Normal Affect, Normal Mood - Skin Skin Exam: Dry, Normal Color Assessment and Plan - Assessment and Plan (Free Text) Assessment: 66 year old female who was admitted on 05/30/16 for treatment of Respiratory Failure with Hypercarbia, COPD Exacerbation, Bibasilar Pneumonia, Sepsis, Traumatic Left Femur Fracture. 1).Respiratory Failure with Hypercarbia and Hypoxemia improving Secondary to pneumonia , COPD and CHF exacerbation Clindamycin 600 mg IV Q8H (06/01/16) Zosyn 2.25 gm IV Q6H (05/31/16) Zithromax 500 mg IV Daily (05/31/16) Pulmonary Dr. Ferreira 2). Bibasilar Pneumonia Continue Clindamycin, Zosyn and Zithromax as above Sputum Culture 06/02/16 shows Yeast but this is likely oral contaminent (please note patient not experiencing dysphagia/odynophagia and there is is NO exudate in the Pharynx on exam) CXR with bibasilar infiltrates R> L and repeat 06/03/16 shows RLL concerning for Pneumonia however limited secondary to bilateral breast implants. CT Chest 06/04/16 showed moderate to large foci of airspace consolidation in the bilateral lower lobes and right middle lobe likely secondary to atelectasis due to pleural effusion and multifocal pneumonia, emphysematous changes in the bilateral upper lobes. Legionella: negative and Mycoplasma: pending 3). COPD exacerbation On High flow O2 30 LPM FIO2 40 % Continue Duoneb Q4H Avoid steroids since patient has history of hallucinations in the past 4). Sepsis ( POA)- most likely secondary to Pneumonia-- improving CXR with bibasilar infiltrates (see assessment and plan #2) CT Chest showing likely multifocal pneumonia (see assessment and plan #2) WBC is trended is trending down Blood Culture 05/30/16 is Negative Urine Culture 05/31/16 shows NO Growth Sputum Culture 06/02/16 shows Yeast which is likely oral contaminant (see assessment and plan #2) ID Dr. Haile Mcmillan 5). Traumatic Left Femur Trochanteric Fx Orthopedics Dr. Diandra AKERS once medically stable Will need to be cleared by Pulmonary and Cardiology Plan for Surgery with Nerve Block for Friday06/10/16. 6).Right Sided Heart Failure Cardiology Dr Amaro ECHO showed EF 60-65 % with dilated RV Lasix was discontinued secondary due to hypernatremia present earlier in the admission Monitor I/O 7). Cognitive impairment - most likely Dementia Neurology Dr. Rere Garrido: Namenda R 14 mg PO 1x/day, Alpha Lipoic Acid 600 mg PO 1x/day, and Coenzyme Q10 400 mg PO 1x/day as outpatient. CT Head 05/31/16 showed generalized volume loss Vitamin B12: WNL TSH and T3 were low therefore dose of Synthroid was increased Continue 1:1 for safety since patient has episodes of confusion and had episode of fall in the unit Repeat XRays post fall showed no new fractures 8). Hypothyroidism Uncontrolled likely secondary to history of not taking home medications Synthroid was increased from 88 to 100 mcg PO 1x/day 9) .Dehydration with Hypernatremia Secondary to poor PO intake and Lasix (which was discontinued) Encouraged Ensure + Shakes 3x/day and this was discussed with dietary on 06/03/16 Monitor I/O Na is back to normal and BUN/Cr improving 10). Nicotine Addiction Nicotine patch daily 11). Hx Slip and Fall in unit on 06/01/16 Placed on 1:1 for safety Repeat Pelvis and Hip Xrays 06/01/16 showed no acute fracture 12). Prophylactic Measures Tylenol 650 mg PO Q6H PRN Mild Pain Toradol 15 mg IV Q6H PRN Moderate Pain Lovenox 40 mg SQ 1x/day Protonix 40 mg PO 1x/day Florastor 250 mg PO 2x/day
--- NOTE | 2016-06-06 10:59 | CP.PCM.PN ---
Subjective - Date & Time of Evaluation Date of Evaluation: 06/06/16 Time of Evaluation: 10:53 - Subjective Subjective: Interim events reviewed. Remains afebrile. Leukocytosis continues to decrease. Congested, but non-productive cough when coached. Reviewed proper use of flutter valve for CPT. Exam continues to show markedly diminished breath sounds bilaterally. Bronchial breathing with egophony is still present in the right posterior chest. Medium rales are still heard in both lower lobes. Heart sounds are distant and rhythm is regular. No cyanosis or dependant edema. LLE externally rotated and shortened. Zosyn re-ordered. Continue clindamycin and florastor. Discontinue azithromycin. Tentative surgery for Friday. Reinforce CPT for the interim. Continue aerosol therapies. Objective - Vital Signs/Intake and Output Vital Signs (last 24 hours): Temp Pulse Resp BP Pulse Ox 98.5 F 88 16 117/71 95 06/06/16 08:00 06/06/16 08:00 06/06/16 08:21 06/06/16 08:00 06/06/16 08:00 Intake and Output: 06/05/16 06/06/16 23:59 11:59 Intake Total 160 250 Output Total 450 300 Balance -290 -50 - Medications Medications: Current Medications Acetaminophen (Tylenol 325mg Tab) 650 mg PO Q6 PRN PRN Reason: Pain, Mild (1-3) Last Admin: 06/02/16 20:51 Dose: 650 mg Acetylcysteine (Mucomyst 10% 4ml) 2 ml IH RBID [facility] Last Admin: 06/06/16 07:45 Dose: 2 ml Albuterol Sulfate (Albuterol 0.083% Inhal Joi (2.5 Mg/3 Ml) Ud) 2.5 mg INH RQ4 PRN PRN Reason: Shortness of Breath Albuterol/Ipratropium (Duoneb 3 Mg/0.5 Mg (3 Ml) Ud) 3 ml INH RQID [facility] Last Admin: 06/06/16 07:45 Dose: 3 ml Enoxaparin Sodium (Lovenox) 40 mg SC DAILY [facility] PRN Reason: Protocol Last Admin: 06/06/16 09:39 Dose: 40 mg Guaifenesin (Mucinex La) 600 mg PO Q12 [facility] Clindamycin Phosphate 600 mg/ (Sodium Chloride) 104 mls @ 104 mls/hr IVPB Q8 [facility] Last Admin: 06/06/16 09:40 Dose: 104 mls/hr Piperacillin Sod/Tazobactam (Sod 2.25 gm/ Sodium Chloride) 100 mls @ 100 mls/ hr IVPB Q6 [facility] Ketorolac Tromethamine (Toradol) 15 mg IVP Q6 PRN PRN Reason: Pain, moderate (4-7) Last Admin: 06/05/16 22:46 Dose: 15 mg Levothyroxine Sodium (Synthroid) 100 mcg PO DAILY [facility] Last Admin: 06/06/16 09:38 Dose: 100 mcg Multivitamins/Minerals (Therapeutic-M Tab) 1 tab PO DAILY [facility] Last Admin: 06/06/16 09:39 Dose: 1 tab Nicotine (Nicoderm Cq) 1 patch TD DAILY [facility] Last Admin: 06/06/16 09:39 Dose: 1 patch Pantoprazole Sodium (Protonix Ec Tab) 40 mg PO DAILY [facility] Last Admin: 06/06/16 09:39 Dose: 40 mg Saccharomyces Boulardii (Florastor) 250 mg PO BID [facility] Last Admin: 06/06/16 09:40 Dose: 250 mg - Labs Labs: 06/06/16 06:30 06/06/16 06:30 PT 10.2 SECONDS (9.6-11.2) 05/30/16 17:30 INR 0.98 (0.92-1.08) 05/30/16 17:30 APTT 29.0 SECONDS (23.3-32.5) 05/30/16 17:30 Assessment and Plan (1) Bronchopneumonia Status: Acute (2) Decompensated chronic obstructive pulmonary disease (3) Respiratory failure with hypercapnia Status: Acute (4) Hip fracture Status: Acute (5) Cor pulmonale (chronic) Status: Acute
--- NOTE | 2016-06-06 18:29 | PN ---
DATE: 06/06/2016 The patient denies any chest pain. She is experiencing a productive cough. No reported ventricular arrhythmia. PHYSICAL EXAMINATION: VITAL SIGNS: Blood pressure 97/60, heart rate 96, temperature 98.4, respirations 20. HEENT: Pale conjunctivae. CHEST: Bilateral rhonchi. HEART: S1, S2 regular. EXTREMITIES: No pedal edema. LABORATORIES: Hemoglobin and hematocrit 10.1 and 31.6, white count and platelet count are 11.5 and 5 33. SMA-7 is within normal limits except for a carbon dioxide of 33 and creatinine of 0.5. Calcium is below normal at 7.2. ASSESSMENT: 1. Advanced chronic obstructive lung disease and right-sided heart failure. 2. Bronchopneumonia. 3. Displaced left intratrochanteric fracture. 4. Anemia. RECOMMENDATIONS: Continue current IV clindamycin 600 mg q.8 hours, IV Zosyn 2.25 mg q.6 hours. Cont inue Synthroid at 100 mcg once a day, Protonix at 40 mg p.o. once a day, subcutaneous Lovenox at 40 m g once a day, Mucinex LA at 600 mg twice a day. No specific therapy for the right-sided failure othe r than controlling the primary event, which is the bronchopneumonia and exacerbation of chronic obstr uctive lung disease. Teofilo Amaro MD cc: [id number] TT: 06/06/2016 18:28:47 Confirmation # [id number] Dictation # [id number] dn
[2016-06-06] MEDS: guaiFENesin 600 mg ER Tab PO SCH (22:38)
[2016-06-07] MEDS: Clindamycin 600 MG in Sodium Chloride 0.9% 100 ML IVPB SCH ×2 (02:00→09:00)
[2016-06-07] MEDS: Acetylcysteine 10% 4 ML IH SCH ×2 (07:57→19:15)
[2016-06-07] MEDS: Albuterol-Ipratrop 3 mg / 0.5 (3 ml) UD INH SCH ×4 (07:57→19:15)
[2016-06-07] MEDS: Saccharomyces Boulardi 250 mg Cap PO SCH ×2 (09:00→17:03)
[2016-06-07] MEDS: Enoxaparin 40 mg Syringe SC SCH (09:00)
[2016-06-07] MEDS ORDERED: Azithromycin 500 MG in Sodium Chloride 0.9% 250 ML IVPB SCH (09:00)
[2016-06-07] MEDS: guaiFENesin 600 mg ER Tab PO SCH ×2 (09:01→21:46)
[2016-06-07] MEDS: Levothyroxine 100 MCG TAB PO SCH (09:02)
[2016-06-07] MEDS: Pantoprazole 40 mg EC Tab PO SCH (09:02)
[2016-06-07] MEDS: Multivitamin With Minerals Tab PO SCH (09:02)
[2016-06-07] MEDS: Azithromycin 500 MG in Sodium Chloride 0.9% 250 ML IVPB SCH (10:30)
--- NOTE | 2016-06-07 11:08 | PN ---
DATE: 06/07/2016 The patient, at times is confused. She is on 1:1 watch. She denies chest pain. She is experiencing productive cough, according to the 1:1 watcher. No reported ventricular arrhythmia. VITAL SIGNS: Blood pressure 119/68, heart rate 74, temperature 98, respiration 18. HENT: Normocephalic. NECK: No JVD. CHEST: Bilateral rhonchi. HEART: S1, S2 regular. ABDOMEN: Soft. EXTREMITIES: Has significant muscle wasting. ASSESSMENT: 1. Cor pulmonale and right-sided failure. 2. Advanced chronic obstructive lung disease. 3. Status post fall and left intratrochanteric fracture. 4. Anemia. 5. Pneumonia. 6. Hypothyroidism. RECOMMENDATIONS: Continue current subcutaneous Lovenox as 40 mg once a day, Mucinex LA as 600 mg ___ __ a day, Zosyn at 2.25 mg intravenously q. 6 hours, Zithromax 500 mg intravenously daily, Synthroid at 100 mcg once a day, Protonix as 40 mg orally daily. Teofilo Amaro MD cc: [id number] TT: 06/07/2016 11:08:23 Confirmation # [id number] Dictation # [id number] jn
--- NOTE | 2016-06-07 11:13 | CP.PCM.PN ---
Subjective - Date & Time of Evaluation Date of Evaluation: 06/07/16 Time of Evaluation: 10:30 - Subjective Subjective: Poor memory - would ask the same question several times on 1:1 Obs for safety - she forgets that she has a fractured hip and wants to walk to the bathroom No fever stable on High Flow Oxygen 25 L /40% denies CP occ cough no abd pain Objective - Vital Signs/Intake and Output Vital Signs (last 24 hours): Temp Pulse Resp BP Pulse Ox 98 F 74 18 119/68 95 06/07/16 08:00 06/07/16 09:00 06/07/16 08:00 06/07/16 08:00 06/07/16 08:00 Intake and Output: 06/07/16 06/07/16 06:59 18:59 Intake Total 480 Output Total 320 Balance 160 - Medications Medications: Current Medications Acetaminophen (Tylenol 325mg Tab) 650 mg PO Q6 PRN PRN Reason: Pain, Mild (1-3) Last Admin: 06/02/16 20:51 Dose: 650 mg Acetylcysteine (Mucomyst 10% 4ml) 2 ml IH RBID [facility] Last Admin: 06/07/16 07:57 Dose: Not Given Albuterol Sulfate (Albuterol 0.083% Inhal Joi (2.5 Mg/3 Ml) Ud) 2.5 mg INH RQ4 PRN PRN Reason: Shortness of Breath Albuterol/Ipratropium (Duoneb 3 Mg/0.5 Mg (3 Ml) Ud) 3 ml INH RQID [facility] Last Admin: 06/07/16 07:57 Dose: Not Given Enoxaparin Sodium (Lovenox) 40 mg SC DAILY [facility] PRN Reason: Protocol Last Admin: 06/07/16 09:00 Dose: 40 mg Guaifenesin (Mucinex La) 600 mg PO Q12 [facility] Last Admin: 06/07/16 09:01 Dose: 600 mg Piperacillin Sod/Tazobactam (Sod 2.25 gm/ Sodium Chloride) 100 mls @ 100 mls/ hr IVPB Q6 [facility] Last Admin: 06/07/16 09:02 Dose: 100 mls/hr Azithromycin 500 mg/ Sodium (Chloride) 250 mls @ 250 mls/hr IVPB DAILY [facility] Last Admin: 06/07/16 10:30 Dose: 250 mls/hr Ketorolac Tromethamine (Toradol) 15 mg IVP Q6 PRN PRN Reason: Pain, moderate (4-7) Last Admin: 06/07/16 05:08 Dose: 15 mg Levothyroxine Sodium (Synthroid) 100 mcg PO DAILY [facility] Last Admin: 06/07/16 09:02 Dose: 100 mcg Multivitamins/Minerals (Therapeutic-M Tab) 1 tab PO DAILY [facility] Last Admin: 06/07/16 09:02 Dose: 1 tab Nicotine (Nicoderm Cq) 1 patch TD DAILY [facility] Last Admin: 06/07/16 09:01 Dose: 1 patch Pantoprazole Sodium (Protonix Ec Tab) 40 mg PO DAILY [facility] Last Admin: 06/07/16 09:02 Dose: 40 mg Saccharomyces Boulardii (Florastor) 250 mg PO BID [facility] Last Admin: 06/07/16 09:00 Dose: 250 mg Tramadol HCl (Ultram) 50 mg PO Q6 PRN PRN Reason: Pain, moderate (4-7) Last Admin: 06/07/16 11:07 Dose: 50 mg - Labs Labs: 06/06/16 06:30 06/06/16 06:30 PT 10.2 SECONDS (9.6-11.2) 05/30/16 17:30 INR 0.98 (0.92-1.08) 05/30/16 17:30 APTT 29.0 SECONDS (23.3-32.5) 05/30/16 17:30 - Constitutional Appears: Chronically Ill, Other (On High Flow Oxygen) - Head Exam Head Exam: NORMAL INSPECTION, NORMOCEPHALIC - Eye Exam Eye Exam: EOMI, Normal appearance Pupil Exam: NORMAL ACCOMODATION - ENT Exam ENT Exam: Mucous Membranes Moist, Normal External Ear Exam - Neck Exam Neck Exam: Full ROM. absent: Meningismus - Respiratory Exam Respiratory Exam: Decreased Breath Sounds, Rales, Rhonchi. absent: Wheezes bilat breast implants - Cardiovascular Exam Cardiovascular Exam: REGULAR RHYTHM, +S1, +S2 - GI/Abdominal Exam GI & Abdominal Exam: Soft, Normal Bowel Sounds. absent: Tenderness - Extremities Exam Extremities Exam: Normal Capillary Refill. absent: Calf Tenderness - Back Exam Back Exam: absent: CVA tenderness (L), CVA tenderness (R) - Neurological Exam Neurological Exam: Alert, Awake, CN II-XII Intact Additional comments: oriented to person and place - Psychiatric Exam Psychiatric exam: Normal Affect, Normal Mood - Skin Skin Exam: Dry, Normal Color Assessment and Plan - Assessment and Plan (Free Text) Assessment: 66 year old female who was admitted on 05/30/16 for treatment of Respiratory Failure with Hypercarbia, COPD Exacerbation, Bibasilar Pneumonia, Sepsis, Traumatic Left Femur Fracture. 1).Respiratory Failure with Hypercarbia and Hypoxemia improving Secondary to pneumonia , COPD and CHF exacerbation On High Flow Oxygen 25 liters at 40% FiO2 on Zosyn , Clinda and Azithro- will d/c Clinda Pulmonary Dr. Ferreira 2). Bibasilar Pneumonia Mycoplasma IgM + Continue Zosyn and Zithromax d/c Clindamycin Sputum Culture 06/02/16 shows Yeast but this is likely oral contaminent (please note patient not experiencing dysphagia/odynophagia and there is is NO exudate in the Pharynx on exam) CXR with bibasilar infiltrates R> L and repeat 06/03/16 shows RLL concerning for Pneumonia however limited secondary to bilateral breast implants. CT Chest 06/04/16 showed moderate to large foci of airspace consolidation in the bilateral lower lobes and right middle lobe likely secondary to atelectasis due to pleural effusion and multifocal pneumonia, emphysematous changes in the bilateral upper lobes. Legionella: negative 3). COPD exacerbation On High flow O2 30 LPM FIO2 40 % Continue Duoneb Q4H Avoid steroids since patient has history of hallucinations in the past 4). Sepsis ( POA)- most likely secondary to Pneumonia-- improving CT Chest showing likely multifocal pneumonia WBC is trended is trending down Blood Culture 05/30/16 is Negative Urine Culture 05/31/16 shows NO Growth Sputum Culture 06/02/16 shows Yeast which is likely oral contaminant ID Dr. Haile Mcmillan 5). Traumatic Left Femur Trochanteric Fx Orthopedics Dr. Jim Plan for Surgery with Nerve Block for Friday06/10/16. 6).Right Sided Heart Failure Cardiology Dr Amaro ECHO showed EF 60-65 % with dilated RV Lasix was discontinued secondary due to hypernatremia present earlier in the admission Monitor I/O 7). Cognitive impairment - most likely Dementia Neurology Dr. Rere Garrido: Namenda R 14 mg PO 1x/day, Alpha Lipoic Acid 600 mg PO 1x/day, and Coenzyme Q10 400 mg PO 1x/day as outpatient. CT Head 05/31/16 showed generalized volume loss Vitamin B12: WNL TSH and T3 were low therefore dose of Synthroid was increased Continue 1:1 for safety since patient has episodes of confusion and had episode of fall in the unit Repeat XRays post fall showed no new fractures 8). Hypothyroidism Uncontrolled likely secondary to history of not taking home medications Synthroid was increased from 88 to 100 mcg PO 1x/day 9) .Dehydration with Hypernatremia Secondary to poor PO intake and Lasix (which was discontinued) Encouraged Ensure + Shakes 3x/day and this was discussed with dietary on 06/03/16 Monitor I/O Na is back to normal and BUN/Cr improving 10). Nicotine Addiction Nicotine patch daily 11). Hx Slip and Fall in unit on 06/01/16 Placed on 1:1 for safety Repeat Pelvis and Hip Xrays 06/01/16 showed no acute fracture 12). Prophylactic Measures Tylenol 650 mg PO Q6H PRN Mild Pain Toradol 15 mg IV Q6H PRN Moderate Pain Lovenox 40 mg SQ 1x/day Protonix 40 mg PO 1x/day Florastor 250 mg PO 2x/day
--- NOTE | 2016-06-07 11:48 | CP.PCM.PN ---
Subjective - Date & Time of Evaluation Date of Evaluation: 06/07/16 Time of Evaluation: 11:41 - Subjective Subjective: Interim events reviewed. Labs and CXR not done today. SpO2 remains good on high flow nasal @25L/40% Mycoplasma IgM positive. Remains on zosyn, azithromycin resumed this AM also. Appears comfortable, more alert and appropriate. No shortness of breath. No cyanosis. Neck is supple, trachea midline. No JVD or carotid bruit. Pharynx pink and moist. No dullness on percussion of the anterior chest. Breath sounds are diminished bilaterally. No audible wheezing or bronchial breathing. Few sonorous rhonchi and medium rales in LL's. Progressing well on current regimen. Plan for surgical repair of hip fracture early next week. Medical regimen will remain the same. Encouraged to increase oral intake. Objective - Vital Signs/Intake and Output Vital Signs (last 24 hours): Temp Pulse Resp BP Pulse Ox 98 F 74 19 119/68 95 06/07/16 08:00 06/07/16 09:00 06/07/16 11:21 06/07/16 08:00 06/07/16 08:00 Intake and Output: 06/06/16 06/07/16 23:59 11:59 Intake Total 480 Output Total 320 Balance 160 - Medications Medications: Current Medications Acetaminophen (Tylenol 325mg Tab) 650 mg PO Q6 PRN PRN Reason: Pain, Mild (1-3) Last Admin: 06/02/16 20:51 Dose: 650 mg Acetylcysteine (Mucomyst 10% 4ml) 2 ml IH RBID [facility] Last Admin: 06/07/16 07:57 Dose: Not Given Albuterol Sulfate (Albuterol 0.083% Inhal Joi (2.5 Mg/3 Ml) Ud) 2.5 mg INH RQ4 PRN PRN Reason: Shortness of Breath Albuterol/Ipratropium (Duoneb 3 Mg/0.5 Mg (3 Ml) Ud) 3 ml INH RQID [facility] Last Admin: 06/07/16 11:34 Dose: 3 ml Enoxaparin Sodium (Lovenox) 40 mg SC DAILY [facility] PRN Reason: Protocol Last Admin: 06/07/16 09:00 Dose: 40 mg Guaifenesin (Mucinex La) 600 mg PO Q12 [facility] Last Admin: 06/07/16 09:01 Dose: 600 mg Piperacillin Sod/Tazobactam (Sod 2.25 gm/ Sodium Chloride) 100 mls @ 100 mls/ hr IVPB Q6 [facility] Last Admin: 06/07/16 09:02 Dose: 100 mls/hr Azithromycin 500 mg/ Sodium (Chloride) 250 mls @ 250 mls/hr IVPB DAILY [facility] Last Admin: 06/07/16 10:30 Dose: 250 mls/hr Ketorolac Tromethamine (Toradol) 15 mg IVP Q6 PRN PRN Reason: Pain, moderate (4-7) Last Admin: 06/07/16 05:08 Dose: 15 mg Levothyroxine Sodium (Synthroid) 100 mcg PO DAILY [facility] Last Admin: 06/07/16 09:02 Dose: 100 mcg Multivitamins/Minerals (Therapeutic-M Tab) 1 tab PO DAILY [facility] Last Admin: 06/07/16 09:02 Dose: 1 tab Nicotine (Nicoderm Cq) 1 patch TD DAILY [facility] Last Admin: 06/07/16 09:01 Dose: 1 patch Pantoprazole Sodium (Protonix Ec Tab) 40 mg PO DAILY [facility] Last Admin: 06/07/16 09:02 Dose: 40 mg Saccharomyces Boulardii (Florastor) 250 mg PO BID [facility] Last Admin: 06/07/16 09:00 Dose: 250 mg Tramadol HCl (Ultram) 50 mg PO Q6 PRN PRN Reason: Pain, moderate (4-7) Last Admin: 06/07/16 11:07 Dose: 50 mg - Labs Labs: 06/06/16 06:30 06/06/16 06:30 PT 10.2 SECONDS (9.6-11.2) 05/30/16 17:30 INR 0.98 (0.92-1.08) 05/30/16 17:30 APTT 29.0 SECONDS (23.3-32.5) 05/30/16 17:30 Assessment and Plan (1) Bronchopneumonia Status: Acute (2) Decompensated chronic obstructive pulmonary disease (3) Respiratory failure with hypercapnia Status: Acute (4) Hip fracture Status: Acute (5) Cor pulmonale (chronic) Status: Acute
[2016-06-08 06:46] LABS: HEMATOCRIT 30.8 % (34.0-47.0); MEAN CELL VOLUME 96.8 fl (81.0-99.0); MEAN CORPUSCULAR HEMOGLOBIN 31.9 pg (27.0-31.0); MEAN CORPUSCULAR HGB CONC 32.9 g/dL (33.0-37.0); RED CELL DISTRIBUTION WIDTH 15.1 % (11.5-14.5); WHITE BLOOD COUNT 9.3 K/uL (4.8-10.8)
[2016-06-08 06:59] LABS: BLOOD UREA NITROGEN 10 mg/dl (7-17); CALCIUM 7.7 mg/dL (8.4-10.2); CARBON DIOXIDE 31 mmol/L (22-30); CHLORIDE 101 mmol/L (98-107); GFR AFRICAN-AMERICAN > 60; GLUCOSE,RANDOM 82 mg/dL (65-105); POTASSIUM 4.5 MMOL/L (3.6-5.0); SODIUM 137 mmol/l (132-148)
[2016-06-08] MEDS: Acetylcysteine 10% 4 ML IH SCH ×2 (08:08→20:00)
[2016-06-08] MEDS: Albuterol-Ipratrop 3 mg / 0.5 (3 ml) UD INH SCH ×4 (08:10→20:00)
--- NOTE | 2016-06-08 08:35 | RAD ---
HISTORY: pneumonia COMPARISON: 06/03/2016 FINDINGS: LUNGS: Bibasilar hazy opacities. PLEURA: Bilateral pleural effusions left greater than right. CARDIOVASCULAR: Stable. OSSEOUS STRUCTURES: The osseous structures demonstrate degenerative changes. Cervical spinal hardware. VISUALIZED UPPER ABDOMEN: Upper abdomen is suboptimally evaluated. OTHER FINDINGS: Bilateral breast prosthesis. IMPRESSION: Bilateral pleural effusions with associated compressive atelectasis and/or pneumonia.
[2016-06-08] MEDS: Saccharomyces Boulardi 250 mg Cap PO SCH ×2 (09:44→17:32)
[2016-06-08] MEDS: Enoxaparin 40 mg Syringe SC SCH (09:44)
[2016-06-08] MEDS: guaiFENesin 600 mg ER Tab PO SCH ×2 (09:44→22:28)
[2016-06-08] MEDS: Pantoprazole 40 mg EC Tab PO SCH (09:44)
[2016-06-08] MEDS: Multivitamin With Minerals Tab PO SCH (09:46)
[2016-06-08] MEDS: Azithromycin 500 MG in Sodium Chloride 0.9% 250 ML IVPB SCH (09:47)
[2016-06-08] MEDS: Levothyroxine 100 MCG TAB PO SCH (09:49)
--- NOTE | 2016-06-08 10:32 | CP.PCM.PN ---
Subjective - Date & Time of Evaluation Date of Evaluation: 06/08/16 Time of Evaluation: 10:30 - Subjective Subjective: S- pt with pain and deformity L Hip Objective - Vital Signs/Intake and Output Vital Signs (last 24 hours): Temp Pulse Resp BP Pulse Ox 98.1 F 74 22 119/71 93 L 06/08/16 08:00 06/08/16 08:00 06/08/16 08:10 06/08/16 08:00 06/08/16 08:00 Intake and Output: 06/08/16 06/08/16 06:59 18:59 Intake Total 300 Output Total 450 Balance -150 - Medications Medications: Current Medications Acetaminophen (Tylenol 325mg Tab) 650 mg PO Q6 PRN PRN Reason: Pain, Mild (1-3) Last Admin: 06/02/16 20:51 Dose: 650 mg Acetylcysteine (Mucomyst 10% 4ml) 2 ml IH RBID [facility] Last Admin: 06/08/16 08:08 Dose: 2 ml Albuterol Sulfate (Albuterol 0.083% Inhal Joi (2.5 Mg/3 Ml) Ud) 2.5 mg INH RQ4 PRN PRN Reason: Shortness of Breath Albuterol/Ipratropium (Duoneb 3 Mg/0.5 Mg (3 Ml) Ud) 3 ml INH RQID [facility] Last Admin: 06/08/16 08:10 Dose: 3 ml Enoxaparin Sodium (Lovenox) 40 mg SC DAILY [facility] PRN Reason: Protocol Last Admin: 06/08/16 09:44 Dose: 40 mg Guaifenesin (Mucinex La) 600 mg PO Q12 [facility] Last Admin: 06/08/16 09:44 Dose: 600 mg Piperacillin Sod/Tazobactam (Sod 2.25 gm/ Sodium Chloride) 100 mls @ 100 mls/ hr IVPB Q6 [facility] Last Admin: 06/08/16 09:46 Dose: 100 mls/hr Azithromycin 500 mg/ Sodium (Chloride) 250 mls @ 250 mls/hr IVPB DAILY [facility] Last Admin: 06/08/16 09:47 Dose: 250 mls/hr Ketorolac Tromethamine (Toradol) 15 mg IVP Q6 PRN PRN Reason: Pain, moderate (4-7) Last Admin: 06/07/16 05:08 Dose: 15 mg Levothyroxine Sodium (Synthroid) 100 mcg PO DAILY [facility] Last Admin: 06/08/16 09:49 Dose: 100 mcg Multivitamins/Minerals (Therapeutic-M Tab) 1 tab PO DAILY [facility] Last Admin: 06/08/16 09:46 Dose: 1 tab Nicotine (Nicoderm Cq) 1 patch TD DAILY [facility] Last Admin: 06/08/16 09:45 Dose: 1 patch Pantoprazole Sodium (Protonix Ec Tab) 40 mg PO DAILY [facility] Last Admin: 06/08/16 09:44 Dose: 40 mg Saccharomyces Boulardii (Florastor) 250 mg PO BID [facility] Last Admin: 06/08/16 09:44 Dose: 250 mg Tramadol HCl (Ultram) 50 mg PO Q6 PRN PRN Reason: Pain, moderate (4-7) Last Admin: 06/07/16 17:09 Dose: 50 mg - Labs Labs: 06/08/16 04:30 06/08/16 04:30 PT 10.2 SECONDS (9.6-11.2) 05/30/16 17:30 INR 0.98 (0.92-1.08) 05/30/16 17:30 APTT 29.0 SECONDS (23.3-32.5) 05/30/16 17:30 - Skin Additional comments: Objectivegait-stance defrred pt with shortening and ext rotation L lower ext MSK exam otherwise unchanged Assessment and Plan - Assessment and Plan (Free Text) Assessment: A- Basicervical/intertrchanetric L hip fx P- to OR when medically cleared by Dr Ferreira, and when OR milieu is acceptable
--- NOTE | 2016-06-08 11:46 | CP.PCM.PN ---
Subjective - Date & Time of Evaluation Date of Evaluation: 06/08/16 Time of Evaluation: 11:30 - Subjective Subjective: Patient seen and examined bedside. Appears comfortable in NAD, hemodynamically stable, afebrile. On high Flow o2 via Nc 20 LPM FIO2 40 % No acute issues overnight on 1:1 for safety Objective - Vital Signs/Intake and Output Vital Signs (last 24 hours): Temp Pulse Resp BP Pulse Ox 98.1 F 74 20 119/71 93 L 06/08/16 08:00 06/08/16 08:00 06/08/16 11:15 06/08/16 08:00 06/08/16 08:00 Intake and Output: 06/08/16 06/08/16 06:59 18:59 Intake Total 300 Output Total 450 Balance -150 - Medications Medications: Current Medications Acetaminophen (Tylenol 325mg Tab) 650 mg PO Q6 PRN PRN Reason: Pain, Mild (1-3) Last Admin: 06/02/16 20:51 Dose: 650 mg Acetylcysteine (Mucomyst 10% 4ml) 2 ml IH RBID [facility] Last Admin: 06/08/16 08:08 Dose: 2 ml Albuterol Sulfate (Albuterol 0.083% Inhal Joi (2.5 Mg/3 Ml) Ud) 2.5 mg INH RQ4 PRN PRN Reason: Shortness of Breath Albuterol/Ipratropium (Duoneb 3 Mg/0.5 Mg (3 Ml) Ud) 3 ml INH RQID [facility] Last Admin: 06/08/16 11:13 Dose: 3 ml Enoxaparin Sodium (Lovenox) 40 mg SC DAILY [facility] PRN Reason: Protocol Last Admin: 06/08/16 09:44 Dose: 40 mg Guaifenesin (Mucinex La) 600 mg PO Q12 [facility] Last Admin: 06/08/16 09:44 Dose: 600 mg Piperacillin Sod/Tazobactam (Sod 2.25 gm/ Sodium Chloride) 100 mls @ 100 mls/ hr IVPB Q6 [facility] Last Admin: 06/08/16 09:46 Dose: 100 mls/hr Azithromycin 500 mg/ Sodium (Chloride) 250 mls @ 250 mls/hr IVPB DAILY [facility] Last Admin: 06/08/16 09:47 Dose: 250 mls/hr Ketorolac Tromethamine (Toradol) 15 mg IVP Q6 PRN PRN Reason: Pain, moderate (4-7) Last Admin: 06/07/16 05:08 Dose: 15 mg Levothyroxine Sodium (Synthroid) 100 mcg PO DAILY [facility] Last Admin: 06/08/16 09:49 Dose: 100 mcg Multivitamins/Minerals (Therapeutic-M Tab) 1 tab PO DAILY [facility] Last Admin: 06/08/16 09:46 Dose: 1 tab Nicotine (Nicoderm Cq) 1 patch TD DAILY [facility] Last Admin: 06/08/16 09:45 Dose: 1 patch Pantoprazole Sodium (Protonix Ec Tab) 40 mg PO DAILY [facility] Last Admin: 06/08/16 09:44 Dose: 40 mg Saccharomyces Boulardii (Florastor) 250 mg PO BID [facility] Last Admin: 06/08/16 09:44 Dose: 250 mg Tramadol HCl (Ultram) 50 mg PO Q6 PRN PRN Reason: Pain, moderate (4-7) Last Admin: 06/07/16 17:09 Dose: 50 mg - Labs Labs: 06/08/16 04:30 06/08/16 04:30 PT 10.2 SECONDS (9.6-11.2) 05/30/16 17:30 INR 0.98 (0.92-1.08) 05/30/16 17:30 APTT 29.0 SECONDS (23.3-32.5) 05/30/16 17:30 - Constitutional Appears: No Acute Distress, Cachectic, Chronically Ill - Head Exam Head Exam: ATRAUMATIC, NORMAL INSPECTION, NORMOCEPHALIC - Eye Exam Eye Exam: Normal appearance, PERRL Pupil Exam: NORMAL ACCOMODATION - ENT Exam ENT Exam: Mucous Membranes Moist, Normal Exam - Neck Exam Neck Exam: Full ROM, Normal Inspection - Respiratory Exam Respiratory Exam: Prolonged Expiratory Phase, NORMAL BREATHING PATTERN. absent : Rhonchi, Wheezes, Respiratory Distress - Cardiovascular Exam Cardiovascular Exam: REGULAR RHYTHM, RRR, +S1, +S2. absent: JVD - GI/Abdominal Exam GI & Abdominal Exam: Soft, Normal Bowel Sounds. absent: Distended, Guarding, Tenderness, Rebound - Rectal Exam Rectal Exam: Deferred - Extremities Exam Extremities Exam: Full ROM, Normal Inspection. absent: Calf Tenderness, Pedal Edema Additional comments: Left leg externally rotated, pulses present, sensation intact, able to move pain with movement - Back Exam Back Exam: NORMAL INSPECTION - Neurological Exam Neurological Exam: Alert, Awake, CN II-XII Intact Additional comments: memory problems, forgetfull - Psychiatric Exam Psychiatric exam: Normal Affect - Skin Skin Exam: Dry, Pallor, Warm Assessment and Plan - Assessment and Plan (Free Text) Assessment: 66 years old female with hx of Hypothyroidism, pneumonia, Asthma ,COPD on home Oxygen and, who smokes > than 10 cigarettes daily, was brought to the ED with 2 weeks of worsening SOB, Coughing , always feeling cold, poor memory , not eating nor drinking liquids, referring some dizziness on the day of admission. Patient admitted with diagnosis of acute hypercapnic/ hypoxemic respiratory failure and sepsis . further work up showed left femur intertrocanteric fracture At present on high flow O2 via NC 20 LPM with FIo2 40 % and doing well.Still with episodes of confusion at times and memory problems so on 1:1 for safety 1.Respiratory Failure with Hypercarbia and Hypoxemia improving Secondary to pneumonia , COPD and CHF exacerbation On High Flow Oxygen 20 LPM at 40% FiO2 on Zosyn and Zithro Pulmonary Dr. Ferreira consulted and following closely 2. Bibasilar Pneumonia CXR showed bibasilar infiltrates R> L CT Chest 06/04/16 showed moderate to large foci of airspace consolidation in the bilateral lower lobes and right middle lobe likely secondary to atelectasis due to pleural effusion and multifocal pneumonia, emphysematous changes in the bilateral upper lobes. Legionella: negative Mycoplasma IgM + Continue Zosyn and Zithromax Sputum Culture showed Yeast but this is likely oral contaminant Continue high flow O2 via NC 3. COPD exacerbation On High flow O2 20 LPM FIO2 40 % and saturating well Continue Duoneb Q4H, mucomyst Avoid steroids since patient has history of hallucinations in the past 4. Sepsis ( POA)- most likely secondary to Pneumonia-- improved CT Chest showed likely multifocal pneumonia WBCtrended is trending down Blood , urine Cultures with no growth Sputum Culture showed Yeast which is likely oral contaminant ID Dr. Haile Mcmillan consulted 5. Traumatic Left Femur Trochanteric Fx Orthopedics Dr. Jim Plan for Surgery with Nerve Block for Friday06/10/16. 6.Right Sided Heart Failure Cardiology Dr Amaro ECHO showed EF 60-65 % with dilated RV Lasix was discontinued secondary due to hypernatremia present earlier in the admission 7. Cognitive impairment - most likely Dementia Neurology Dr. Rere Garrido recommended Namenda R 14 mg PO 1x/day, Alpha Lipoic Acid 600 mg PO 1x/day, and Coenzyme Q10 400 mg PO 1x/day as outpatient. CT Head 05/31/16 showed generalized volume loss Vitamin B12: WNL TSH and T3 were low therefore dose of Synthroid was increased Continue 1:1 for safety since patient has episodes of confusion and had episode of fall in the unit Repeat XRays post fall showed no new fractures 8. Hypothyroidism Uncontrolled likely secondary to history of not taking home medications Synthroid was increased from 88 to 100 mcg PO 1x/day 9 .Dehydration with Hypernatremia Secondary to poor PO intake and Lasix (which was discontinued) Encouraged Ensure + Shakes 3x/day and this was discussed with dietary on 06/03/16 Na is back to normal and BUN/Cr improving 10. Nicotine Addiction Nicotine patch daily 11. Hx Slip and Fall in unit on 06/01/16 Continue 1:1 for safety Repeat Pelvis and Hip Xrays 06/01/16 showed no acute fracture 12. DVt prophylaxis Lovenox 13. Anemia hgb 10 Most likely anemia of chronic disease Continue monitoring
--- NOTE | 2016-06-08 12:46 | CP.PCM.PN ---
Subjective - Date & Time of Evaluation Date of Evaluation: 06/08/16 Time of Evaluation: 12:40 - Subjective Subjective: Appears comfortable at rest. More awake and less confused. Appetite seems to be improving. SpO2 93% with high flow @ 20L and 35%. WBC is finally in normal range, plateletes are high. Neck is supple and trachea midline. Cough is stronger, more congested, more effective. Minimal dullness at lung bases posteriorly. Breath sounds are diminished bilaterally w/o wheeze. Sonorous rhonchi in lower lobes bilaterally. No bronchial breathing or egophony. Continue present medical and antibiotic regimen. High flow decreased. Encourage cough and deep breathing. Orthopedic surgery early next week. Objective - Vital Signs/Intake and Output Vital Signs (last 24 hours): Temp Pulse Resp BP Pulse Ox 98.2 F 71 20 99/60 L 94 L 06/08/16 12:34 06/08/16 12:34 06/08/16 12:34 06/08/16 12:34 06/08/16 12:34 Intake and Output: 06/08/16 06/08/16 11:59 23:59 Intake Total 300 Output Total 450 Balance -150 - Medications Medications: Current Medications Acetaminophen (Tylenol 325mg Tab) 650 mg PO Q6 PRN PRN Reason: Pain, Mild (1-3) Last Admin: 06/02/16 20:51 Dose: 650 mg Acetylcysteine (Mucomyst 10% 4ml) 2 ml IH RBID [facility] Last Admin: 06/08/16 08:08 Dose: 2 ml Albuterol Sulfate (Albuterol 0.083% Inhal Joi (2.5 Mg/3 Ml) Ud) 2.5 mg INH RQ4 PRN PRN Reason: Shortness of Breath Albuterol/Ipratropium (Duoneb 3 Mg/0.5 Mg (3 Ml) Ud) 3 ml INH RQID [facility] Last Admin: 06/08/16 11:13 Dose: 3 ml Enoxaparin Sodium (Lovenox) 40 mg SC DAILY [facility] PRN Reason: Protocol Last Admin: 06/08/16 09:44 Dose: 40 mg Guaifenesin (Mucinex La) 600 mg PO Q12 [facility] Last Admin: 06/08/16 09:44 Dose: 600 mg Piperacillin Sod/Tazobactam (Sod 2.25 gm/ Sodium Chloride) 100 mls @ 100 mls/ hr IVPB Q6 [facility] Last Admin: 06/08/16 09:46 Dose: 100 mls/hr Azithromycin 500 mg/ Sodium (Chloride) 250 mls @ 250 mls/hr IVPB DAILY [facility] Last Admin: 06/08/16 09:47 Dose: 250 mls/hr Ketorolac Tromethamine (Toradol) 15 mg IVP Q6 PRN PRN Reason: Pain, moderate (4-7) Last Admin: 06/07/16 05:08 Dose: 15 mg Levothyroxine Sodium (Synthroid) 100 mcg PO DAILY [facility] Last Admin: 06/08/16 09:49 Dose: 100 mcg Multivitamins/Minerals (Therapeutic-M Tab) 1 tab PO DAILY [facility] Last Admin: 06/08/16 09:46 Dose: 1 tab Nicotine (Nicoderm Cq) 1 patch TD DAILY [facility] Last Admin: 06/08/16 09:45 Dose: 1 patch Pantoprazole Sodium (Protonix Ec Tab) 40 mg PO DAILY [facility] Last Admin: 06/08/16 09:44 Dose: 40 mg Saccharomyces Boulardii (Florastor) 250 mg PO BID [facility] Last Admin: 06/08/16 09:44 Dose: 250 mg Tramadol HCl (Ultram) 50 mg PO Q6 PRN PRN Reason: Pain, moderate (4-7) Last Admin: 06/07/16 17:09 Dose: 50 mg - Labs Labs: 06/08/16 04:30 06/08/16 04:30 PT 10.2 SECONDS (9.6-11.2) 05/30/16 17:30 INR 0.98 (0.92-1.08) 05/30/16 17:30 APTT 29.0 SECONDS (23.3-32.5) 05/30/16 17:30 Assessment and Plan (1) Bronchopneumonia Status: Acute (2) Decompensated chronic obstructive pulmonary disease (3) Respiratory failure with hypercapnia Status: Acute (4) Hip fracture Status: Acute (5) Cor pulmonale (chronic) Status: Acute
--- NOTE | 2016-06-08 16:28 | PN ---
DATE: 06/08/2016 SUBJECTIVE: The patient appears comfortable in the presence of her . She does complain of ch est pain while coughing. She denies expectoration today. No hemoptysis. PHYSICAL EXAMINATION: VITAL SIGNS: Blood pressure 99/60, heart rate 71, temperature 98.2, respirations 20. HEENT: Pale conjunctivae. CHEST: Bilateral rhonchi. HEART: S1, S2 regular. ABDOMEN: Soft. EXTREMITIES: No edema. LABORATORIES: SMA-7: Sodium 137, potassium 4.5, chloride 101, CO2 30, glucose 82, BUN 10, creatinin e 0.5. Hemoglobin and hematocrit 10.1 and 30.8, white count, 9.3, platelet count 606. Today's chest x-ray report was consistent with bilateral pleural effusion associated with compressive atelectasis and/or pneumonia. ASSESSMENT: 1. Right-sided heart failure. 2. Advanced chronic obstructive lung disease. 3. Rule out bilateral pneumonia. 4. Status post fall and displaced left intertrochanteric fracture. 5. Anemia. 6. Hypocalcemia. RECOMMENDATIONS: Continue current IV Zithromax and IV Zosyn. Continue Synthroid 100 mcg once a day, Protonix 40 mg orally once a day, subcutaneous Lovenox at 40 mg daily. Pulmonary as well as orthope dic followup were reviewed. Medical clearance for surgery has not been finalized yet. Teofilo Amaro MD cc: [id number] TT: 06/08/2016 16:27:45 Confirmation # [id number] Dictation # [id number] ion
[2016-06-09] MEDS: Albuterol-Ipratrop 3 mg / 0.5 (3 ml) UD INH SCH ×4 (07:35→19:50)
[2016-06-09] MEDS: Acetylcysteine 10% 4 ML IH SCH ×2 (07:35→19:50)
[2016-06-09 08:08] LABS: HEMATOCRIT 28.4 % (34.0-47.0); MEAN CELL VOLUME 95.8 fl (81.0-99.0); MEAN CORPUSCULAR HEMOGLOBIN 31.9 pg (27.0-31.0); MEAN CORPUSCULAR HGB CONC 33.3 g/dL (33.0-37.0); RED CELL DISTRIBUTION WIDTH 14.9 % (11.5-14.5); WHITE BLOOD COUNT 8.1 K/uL (4.8-10.8)
[2016-06-09 08:25] LABS: BLOOD UREA NITROGEN 10 mg/dl (7-17); CARBON DIOXIDE 35 mmol/L (22-30); CHLORIDE 100 mmol/L (98-107); GFR AFRICAN-AMERICAN > 60; GLUCOSE,RANDOM 78 mg/dL (65-105); POTASSIUM 4.3 MMOL/L (3.6-5.0); SODIUM 140 mmol/l (132-148)
[2016-06-09] MEDS: guaiFENesin 600 mg ER Tab PO SCH ×2 (09:05→20:52)
[2016-06-09] MEDS: Enoxaparin 40 mg Syringe SC SCH (09:05)
[2016-06-09] MEDS: Saccharomyces Boulardi 250 mg Cap PO SCH ×2 (09:05→17:05)
[2016-06-09] MEDS: Levothyroxine 100 MCG TAB PO SCH (09:06)
[2016-06-09] MEDS: Pantoprazole 40 mg EC Tab PO SCH (09:06)
[2016-06-09] MEDS: Multivitamin With Minerals Tab PO SCH (09:06)
--- NOTE | 2016-06-09 09:34 | CP.PCM.PN ---
Subjective - Date & Time of Evaluation Date of Evaluation: 06/09/16 Time of Evaluation: 09:25 - Subjective Subjective: S- pt stable/ still with some difficulty breathing Objective - Vital Signs/Intake and Output Vital Signs (last 24 hours): Temp Pulse Resp BP Pulse Ox 98.1 F 70 20 118/67 93 L 06/09/16 08:00 06/09/16 08:00 06/09/16 08:00 06/09/16 08:00 06/09/16 08:00 Intake and Output: 06/09/16 06/09/16 06:59 18:59 Intake Total 1300 Output Total 1999 Balance -700 - Medications Medications: Current Medications Acetaminophen (Tylenol 325mg Tab) 650 mg PO Q6 PRN PRN Reason: Pain, Mild (1-3) Last Admin: 06/02/16 20:51 Dose: 650 mg Acetylcysteine (Mucomyst 10% 4ml) 2 ml IH RBID [facility] Last Admin: 06/09/16 07:35 Dose: 2 ml Albuterol Sulfate (Albuterol 0.083% Inhal Joi (2.5 Mg/3 Ml) Ud) 2.5 mg INH RQ4 PRN PRN Reason: Shortness of Breath Albuterol/Ipratropium (Duoneb 3 Mg/0.5 Mg (3 Ml) Ud) 3 ml INH RQID [facility] Last Admin: 06/09/16 07:35 Dose: 3 ml Enoxaparin Sodium (Lovenox) 40 mg SC DAILY [facility] PRN Reason: Protocol Last Admin: 06/09/16 09:05 Dose: 40 mg Guaifenesin (Mucinex La) 600 mg PO Q12 [facility] Last Admin: 06/09/16 09:05 Dose: 600 mg Piperacillin Sod/Tazobactam (Sod 2.25 gm/ Sodium Chloride) 100 mls @ 100 mls/ hr IVPB Q6 [facility] Last Admin: 06/09/16 04:00 Dose: 100 mls/hr Azithromycin 500 mg/ Sodium (Chloride) 250 mls @ 250 mls/hr IVPB DAILY [facility] Last Admin: 06/08/16 09:47 Dose: 250 mls/hr Ketorolac Tromethamine (Toradol) 15 mg IVP Q6 PRN PRN Reason: Pain, moderate (4-7) Last Admin: 06/08/16 22:38 Dose: 15 mg Levothyroxine Sodium (Synthroid) 100 mcg PO DAILY [facility] Last Admin: 06/09/16 09:06 Dose: 100 mcg Multivitamins/Minerals (Therapeutic-M Tab) 1 tab PO DAILY [facility] Last Admin: 06/09/16 09:06 Dose: 1 tab Nicotine (Nicoderm Cq) 1 patch TD DAILY [facility] Last Admin: 06/09/16 09:05 Dose: 1 patch Pantoprazole Sodium (Protonix Ec Tab) 40 mg PO DAILY [facility] Last Admin: 06/09/16 09:06 Dose: 40 mg Saccharomyces Boulardii (Florastor) 250 mg PO BID [facility] Last Admin: 06/09/16 09:05 Dose: 250 mg Tramadol HCl (Ultram) 50 mg PO Q6 PRN PRN Reason: Pain, moderate (4-7) Last Admin: 06/07/16 17:09 Dose: 50 mg - Labs Labs: 06/09/16 06:00 06/09/16 06:00 PT 10.2 SECONDS (9.6-11.2) 05/30/16 17:30 INR 0.98 (0.92-1.08) 05/30/16 17:30 APTT 29.0 SECONDS (23.3-32.5) 05/30/16 17:30 - Additional Findings Additional findings: Objective stance/ gait- defrred pt with shortening ext rotation R hip N/V intact pt still refusing [facility]ell tx Systemic- still with respiratory difficulty please refer to Dr Holcomb/DR Ferreira notes Assessment and Plan - Assessment and Plan (Free Text) Assessment: A- Basicervical/intertrochanteric L hip fx pleural effusin/resolving pneum,onia P- CXR yesterday still indicated pleural effusion risk still fell this pt is extremel;y high risk- this is discussed with pt and her
--- NOTE | 2016-06-09 09:50 | CP.PCM.PN ---
Subjective - Date & Time of Evaluation Date of Evaluation: 06/09/16 Time of Evaluation: 09:00 - Subjective Subjective: No fever still on High Flow now down to 25L/35% episodes of confusion was trying to get out of bed- wants to go home - forgets that she has a Hip fracture On 1:1 Observation for safety denies CP no SOB no abd pain Objective - Vital Signs/Intake and Output Vital Signs (last 24 hours): Temp Pulse Resp BP Pulse Ox 98.1 F 70 20 118/67 93 L 06/09/16 08:00 06/09/16 08:00 06/09/16 08:00 06/09/16 08:00 06/09/16 08:00 Intake and Output: 06/09/16 06/09/16 06:59 18:59 Intake Total 1300 Output Total 2000 Balance -700 - Medications Medications: Current Medications Acetaminophen (Tylenol 325mg Tab) 650 mg PO Q6 PRN PRN Reason: Pain, Mild (1-3) Last Admin: 06/02/16 20:51 Dose: 650 mg Acetylcysteine (Mucomyst 10% 4ml) 2 ml IH RBID [facility] Last Admin: 06/09/16 07:35 Dose: 2 ml Albuterol Sulfate (Albuterol 0.083% Inhal Joi (2.5 Mg/3 Ml) Ud) 2.5 mg INH RQ4 PRN PRN Reason: Shortness of Breath Albuterol/Ipratropium (Duoneb 3 Mg/0.5 Mg (3 Ml) Ud) 3 ml INH RQID [facility] Last Admin: 06/09/16 07:35 Dose: 3 ml Enoxaparin Sodium (Lovenox) 40 mg SC DAILY [facility] PRN Reason: Protocol Last Admin: 06/09/16 09:05 Dose: 40 mg Guaifenesin (Mucinex La) 600 mg PO Q12 [facility] Last Admin: 06/09/16 09:05 Dose: 600 mg Piperacillin Sod/Tazobactam (Sod 2.25 gm/ Sodium Chloride) 100 mls @ 100 mls/ hr IVPB Q6 [facility] Last Admin: 06/09/16 04:00 Dose: 100 mls/hr Azithromycin 500 mg/ Sodium (Chloride) 250 mls @ 250 mls/hr IVPB DAILY [facility] Last Admin: 06/08/16 09:47 Dose: 250 mls/hr Ketorolac Tromethamine (Toradol) 15 mg IVP Q6 PRN PRN Reason: Pain, moderate (4-7) Last Admin: 06/08/16 22:38 Dose: 15 mg Levothyroxine Sodium (Synthroid) 100 mcg PO DAILY [facility] Last Admin: 06/09/16 09:06 Dose: 100 mcg Multivitamins/Minerals (Therapeutic-M Tab) 1 tab PO DAILY [facility] Last Admin: 06/09/16 09:06 Dose: 1 tab Nicotine (Nicoderm Cq) 1 patch TD DAILY [facility] Last Admin: 06/09/16 09:05 Dose: 1 patch Pantoprazole Sodium (Protonix Ec Tab) 40 mg PO DAILY [facility] Last Admin: 06/09/16 09:06 Dose: 40 mg Saccharomyces Boulardii (Florastor) 250 mg PO BID [facility] Last Admin: 06/09/16 09:05 Dose: 250 mg Tramadol HCl (Ultram) 50 mg PO Q6 PRN PRN Reason: Pain, moderate (4-7) Last Admin: 06/07/16 17:09 Dose: 50 mg - Labs Labs: 06/09/16 06:00 06/09/16 06:00 PT 10.2 SECONDS (9.6-11.2) 05/30/16 17:30 INR 0.98 (0.92-1.08) 05/30/16 17:30 APTT 29.0 SECONDS (23.3-32.5) 05/30/16 17:30 - Constitutional Appears: Chronically Ill, Other (On High Flow Oxygen) - Head Exam Head Exam: NORMAL INSPECTION, NORMOCEPHALIC - Eye Exam Eye Exam: EOMI, Normal appearance Pupil Exam: NORMAL ACCOMODATION - ENT Exam ENT Exam: Mucous Membranes Moist, Normal External Ear Exam - Neck Exam Neck Exam: Full ROM. absent: Meningismus - Respiratory Exam Respiratory Exam: Decreased Breath Sounds, Rales, Rhonchi. absent: Wheezes bilat breast implants - Cardiovascular Exam Cardiovascular Exam: REGULAR RHYTHM, +S1, +S2 - GI/Abdominal Exam GI & Abdominal Exam: Soft, Normal Bowel Sounds. absent: Tenderness - Extremities Exam Extremities Exam: Normal Capillary Refill. absent: Calf Tenderness - Back Exam Back Exam: absent: CVA tenderness (L), CVA tenderness (R) - Neurological Exam Neurological Exam: Alert, Awake, CN II-XII Intact Additional comments: oriented to person and place - Psychiatric Exam Psychiatric exam: Normal Affect, Normal Mood - Skin Skin Exam: Dry, Normal Color Assessment and Plan - Assessment and Plan (Free Text) Assessment: 66 years old female with hx of Hypothyroidism, pneumonia, Asthma ,COPD on home Oxygen and, who smokes > than 10 cigarettes daily, was brought to the ED with 2 weeks of worsening SOB, Coughing , always feeling cold, poor memory , not eating nor drinking liquids, referring some dizziness on the day of admission. Patient admitted with diagnosis of acute hypercapnic/ hypoxemic respiratory failure and sepsis . further work up showed left femur intertrocanteric fracture At present on high flow O2 via NC 20 LPM with FIo2 35 % and doing well. Still with episodes of confusion at times and memory problems so on 1:1 for safety 1.Respiratory Failure with Hypercarbia and Hypoxemia improving Secondary to pneumonia , COPD and CHF exacerbation On High Flow Oxygen 20 LPM at 35% FiO2 on Zosyn and Azithro Pulmonary Dr. Ferreira consulted and following closely 2. Bibasilar Pneumonia CXR showed bibasilar infiltrates R> L CT Chest 06/04/16 showed moderate to large foci of airspace consolidation in the bilateral lower lobes and right middle lobe likely secondary to atelectasis due to pleural effusion and multifocal pneumonia, emphysematous changes in the bilateral upper lobes. Legionella: negative Mycoplasma IgM + Continue Zosyn and Zithromax Sputum Culture showed Yeast but this is likely oral contaminant Continue high flow O2 via NC 3. COPD exacerbation On High flow O2 and saturating well Continue Duoneb Q4H, mucomyst Avoid steroids since patient has history of hallucinations in the past 4. Sepsis ( POA)- most likely secondary to Pneumonia-- improved CT Chest showed likely multifocal pneumonia WBCtrended is trending down Blood , urine Cultures with no growth Sputum Culture showed Yeast which is likely oral contaminant ID Dr. Haile Mcmillan consulted 5. Traumatic Left Femur Trochanteric Fx Orthopedics Dr. Jim Plan for Surgery with Nerve Block , plan for Friday 6.Right Sided Heart Failure Cardiology Dr Amaro ECHO showed EF 60-65 % with dilated RV Lasix was discontinued secondary due to hypernatremia present earlier in the admission 7. Cognitive impairment - most likely Dementia Neurology Dr. Rere Garrido recommended Namenda R 14 mg PO 1x/day, Alpha Lipoic Acid 600 mg PO 1x/day, and Coenzyme Q10 400 mg PO 1x/day as outpatient. CT Head 05/31/16 showed generalized volume loss Vitamin B12: WNL TSH and T3 were low therefore dose of Synthroid was increased Continue 1:1 for safety since patient has episodes of confusion and had episode of fall in the unit Repeat XRays post fall showed no new fractures 8. Hypothyroidism Uncontrolled likely secondary to history of not taking home medications Synthroid was increased from 88 to 100 mcg PO 1x/day 9 .Dehydration with Hypernatremia Secondary to poor PO intake and Lasix (which was discontinued) Encouraged Ensure + Shakes 3x/day and this was discussed with dietary on 06/03/16 Na is back to normal and BUN/Cr improving 10. Nicotine Addiction Nicotine patch daily 11. Hx Slip and Fall in unit on 06/01/16 Continue 1:1 for safety Repeat Pelvis and Hip Xrays 06/01/16 showed no new acute fracture 12. DVt prophylaxis Lovenox 13. Anemia Most likely anemia of chronic disease Continue monitoring Type and Cross in prep for surgery
[2016-06-09] MEDS: Azithromycin 500 MG in Sodium Chloride 0.9% 250 ML IVPB SCH (11:40)
[2016-06-10 07:26] LABS: HEMATOCRIT 32.4 % (34.0-47.0); MEAN CELL VOLUME 96.5 fl (81.0-99.0); MEAN CORPUSCULAR HEMOGLOBIN 32.5 pg (27.0-31.0); MEAN CORPUSCULAR HGB CONC 33.7 g/dL (33.0-37.0); RED CELL DISTRIBUTION WIDTH 15.2 % (11.5-14.5); WHITE BLOOD COUNT 9.6 K/uL (4.8-10.8)
[2016-06-10 07:44] LABS: BLOOD UREA NITROGEN 11 mg/dl (7-17); CALCIUM 8.2 mg/dL (8.4-10.2); CARBON DIOXIDE 34 mmol/L (22-30); CHLORIDE 99 mmol/L (98-107); GFR AFRICAN-AMERICAN > 60; GLUCOSE,RANDOM 78 mg/dL (65-105); POTASSIUM 4.2 MMOL/L (3.6-5.0); SODIUM 140 mmol/l (132-148)
[2016-06-10] MEDS: Albuterol-Ipratrop 3 mg / 0.5 (3 ml) UD INH SCH ×4 (08:13→19:00)
[2016-06-10] MEDS: Acetylcysteine 10% 4 ML IH SCH ×2 (08:14→19:00)
[2016-06-10] MEDS: guaiFENesin 600 mg ER Tab PO SCH ×2 (09:40→20:37)
[2016-06-10] MEDS: Saccharomyces Boulardi 250 mg Cap PO SCH ×3 (09:40→18:01)
[2016-06-10] MEDS: Enoxaparin 40 mg Syringe SC SCH (09:40)
[2016-06-10] MEDS: Multivitamin With Minerals Tab PO SCH (09:41)
[2016-06-10] MEDS: Pantoprazole 40 mg EC Tab PO SCH ×2 (09:41→10:17)
[2016-06-10] MEDS: Levothyroxine 100 MCG TAB PO SCH (09:41)
--- NOTE | 2016-06-10 10:12 | CP.PCM.PN ---
Subjective - Date & Time of Evaluation Date of Evaluation: 06/10/16 Time of Evaluation: 10:07 - Subjective Subjective: Interim events reviewed. Patient is seated up in bed, appears comfortable. Becomes mildly confused at times, but less than before. Placed on standard nasal canula at 4 LPM with SpO2 subsequently 91%. She remains afebrile and normotensive. Labs are stable with a TCO2 34 today. Dullness to percussion is present in the left base posteriorly. Breath sounds are diminished significantly in both lungs. Bronchial breathing is present in the left base posteiorly. No audible wheezes. Few rhonchi in LL's. Rare basal rales. Heart sounds are distant, rhythm is regular. Will obtain followup CT chest this morning to evaluate extent of pneumonia and effusion. Significant improvement has been achieved with regards to the above. Compensated hypercapnic ventilatory failure (chronic). Final surgical clearance pending CT findings. Objective - Vital Signs/Intake and Output Vital Signs (last 24 hours): Temp Pulse Resp BP Pulse Ox 97.7 F 68 18 120/67 93 L 06/10/16 08:35 06/10/16 08:35 06/10/16 08:49 06/10/16 08:35 06/10/16 08:35 - Medications Medications: Current Medications Acetaminophen (Tylenol 325mg Tab) 650 mg PO Q6 PRN PRN Reason: Pain, Mild (1-3) Last Admin: 06/02/16 20:51 Dose: 650 mg Acetylcysteine (Mucomyst 10% 4ml) 2 ml IH RBID [facility] Last Admin: 06/10/16 08:14 Dose: 2 ml Albuterol Sulfate (Albuterol 0.083% Inhal Joi (2.5 Mg/3 Ml) Ud) 2.5 mg INH RQ4 PRN PRN Reason: Shortness of Breath Albuterol/Ipratropium (Duoneb 3 Mg/0.5 Mg (3 Ml) Ud) 3 ml INH RQID [facility] Last Admin: 06/10/16 08:13 Dose: 3 ml Azithromycin (Zithromax) 500 mg PO DAILY [facility] Enoxaparin Sodium (Lovenox) 40 mg SC DAILY [facility] PRN Reason: Protocol Last Admin: 06/09/16 09:05 Dose: 40 mg Guaifenesin (Mucinex La) 600 mg PO Q12 [facility] Last Admin: 06/09/16 20:52 Dose: 600 mg Ketorolac Tromethamine (Toradol) 15 mg IVP Q6 PRN PRN Reason: Pain, moderate (4-7) Last Admin: 06/08/16 22:38 Dose: 15 mg Levothyroxine Sodium (Synthroid) 100 mcg PO DAILY [facility] Last Admin: 06/09/16 09:06 Dose: 100 mcg Memantine (Namenda) 10 mg PO DAILY [facility] Multivitamins/Minerals (Therapeutic-M Tab) 1 tab PO DAILY [facility] Last Admin: 06/09/16 09:06 Dose: 1 tab Nicotine (Nicoderm Cq) 1 patch TD DAILY [facility] Last Admin: 06/09/16 09:05 Dose: 1 patch Pantoprazole Sodium (Protonix Ec Tab) 40 mg PO DAILY [facility] Last Admin: 06/09/16 09:06 Dose: 40 mg Saccharomyces Boulardii (Florastor) 250 mg PO BID [facility] Last Admin: 06/09/16 17:05 Dose: 250 mg Tramadol HCl (Ultram) 50 mg PO Q6 PRN PRN Reason: Pain, moderate (4-7) Last Admin: 06/09/16 20:51 Dose: 50 mg - Labs Labs: 06/10/16 06:50 06/10/16 06:50 PT 10.2 SECONDS (9.6-11.2) 05/30/16 17:30 INR 0.98 (0.92-1.08) 05/30/16 17:30 APTT 29.0 SECONDS (23.3-32.5) 05/30/16 17:30 Assessment and Plan (1) Bronchopneumonia Status: Acute (2) Decompensated chronic obstructive pulmonary disease (3) Respiratory failure with hypercapnia Status: Acute (4) Hip fracture Status: Acute (5) Cor pulmonale (chronic) Status: Acute
--- NOTE | 2016-06-10 11:43 | CP.PCM.PN ---
Subjective - Date & Time of Evaluation Date of Evaluation: 06/10/16 Time of Evaluation: 11:00 - Subjective Subjective: No fever Off High Flow Oxygen- now on 4 liters NC- saturating 94% Episodes of confusion- attempts to get out of bed at times forgetting that she has hip fracture denies CP no SOB occ cough no abd pain Objective - Vital Signs/Intake and Output Vital Signs (last 24 hours): Temp Pulse Resp BP Pulse Ox 97.7 F 68 18 120/67 93 L 06/10/16 08:35 06/10/16 08:35 06/10/16 08:49 06/10/16 08:35 06/10/16 08:35 - Medications Medications: Current Medications Acetaminophen (Tylenol 325mg Tab) 650 mg PO Q6 PRN PRN Reason: Pain, Mild (1-3) Last Admin: 06/02/16 20:51 Dose: 650 mg Acetylcysteine (Mucomyst 10% 4ml) 2 ml IH RBID [facility] Last Admin: 06/10/16 08:14 Dose: 2 ml Albuterol Sulfate (Albuterol 0.083% Inhal Joi (2.5 Mg/3 Ml) Ud) 2.5 mg INH RQ4 PRN PRN Reason: Shortness of Breath Albuterol/Ipratropium (Duoneb 3 Mg/0.5 Mg (3 Ml) Ud) 3 ml INH RQID [facility] Last Admin: 06/10/16 11:20 Dose: 3 ml Azithromycin (Zithromax) 500 mg PO DAILY [facility] Last Admin: 06/10/16 09:42 Dose: 500 mg Enoxaparin Sodium (Lovenox) 40 mg SC DAILY [facility] PRN Reason: Protocol Last Admin: 06/10/16 09:40 Dose: 40 mg Guaifenesin (Mucinex La) 600 mg PO Q12 [facility] Last Admin: 06/10/16 09:40 Dose: 600 mg Ketorolac Tromethamine (Toradol) 15 mg IVP Q6 PRN PRN Reason: Pain, moderate (4-7) Last Admin: 06/08/16 22:38 Dose: 15 mg Levothyroxine Sodium (Synthroid) 100 mcg PO DAILY [facility] Last Admin: 06/10/16 09:41 Dose: 100 mcg Memantine (Namenda) 10 mg PO DAILY [facility] Last Admin: 06/10/16 09:40 Dose: 10 mg Multivitamins/Minerals (Therapeutic-M Tab) 1 tab PO DAILY [facility] Last Admin: 06/10/16 09:41 Dose: 1 tab Nicotine (Nicoderm Cq) 1 patch TD DAILY [facility] Last Admin: 06/10/16 09:40 Dose: 1 patch Pantoprazole Sodium (Protonix Ec Tab) 40 mg PO DAILY [facility] Last Admin: 06/10/16 10:17 Dose: 40 mg Saccharomyces Boulardii (Florastor) 250 mg PO BID [facility] Last Admin: 06/10/16 09:40 Dose: 250 mg Tramadol HCl (Ultram) 50 mg PO Q6 PRN PRN Reason: Pain, moderate (4-7) Last Admin: 06/09/16 20:51 Dose: 50 mg - Labs Labs: 06/10/16 06:50 06/10/16 06:50 PT 10.2 SECONDS (9.6-11.2) 05/30/16 17:30 INR 0.98 (0.92-1.08) 05/30/16 17:30 APTT 29.0 SECONDS (23.3-32.5) 05/30/16 17:30 - Constitutional Appears: Chronically Ill, Other (On High Flow Oxygen) - Head Exam Head Exam: NORMAL INSPECTION, NORMOCEPHALIC - Eye Exam Eye Exam: EOMI, Normal appearance Pupil Exam: NORMAL ACCOMODATION - ENT Exam ENT Exam: Mucous Membranes Moist, Normal External Ear Exam - Neck Exam Neck Exam: Full ROM. absent: Meningismus - Respiratory Exam Respiratory Exam: Decreased Breath Sounds, Rales, Rhonchi. absent: Wheezes bilat breast implants - Cardiovascular Exam Cardiovascular Exam: REGULAR RHYTHM, +S1, +S2 - GI/Abdominal Exam GI & Abdominal Exam: Soft, Normal Bowel Sounds. absent: Tenderness - Extremities Exam Extremities Exam: Normal Capillary Refill. absent: Calf Tenderness - Back Exam Back Exam: absent: CVA tenderness (L), CVA tenderness (R) - Neurological Exam Neurological Exam: Alert, Awake, CN II-XII Intact Additional comments: oriented to person and place - Psychiatric Exam Psychiatric exam: Normal Affect, Normal Mood - Skin Skin Exam: Dry, Normal Color Assessment and Plan - Assessment and Plan (Free Text) Assessment: 66 years old female with hx of Hypothyroidism, pneumonia, Asthma ,COPD on home Oxygen and, who smokes > than 10 cigarettes daily, was brought to the ED with 2 weeks of worsening SOB, Coughing , always feeling cold, poor memory , not eating nor drinking liquids, referring some dizziness on the day of admission. Patient admitted with diagnosis of acute hypercapnic/ hypoxemic respiratory failure and sepsis . further work up showed left femur intertrocanteric fracture At present OFF high flow O2 and doing well. Still with episodes of confusion at times and memory problems so on 1:1 for safety 1.Respiratory Failure with Hypercarbia and Hypoxemia improving Secondary to pneumonia , COPD and CHF exacerbation Off High Flow Oxygen now on 4 liters NC and saturating at 94% on Zosyn and Azithro Pulmonary Dr. Ferreira consulted and following closely 2. Bibasilar Pneumonia CXR showed bibasilar infiltrates R> L CT Chest 06/04/16 showed moderate to large foci of airspace consolidation in the bilateral lower lobes and right middle lobe likely secondary to atelectasis due to pleural effusion and multifocal pneumonia, emphysematous changes in the bilateral upper lobes. rpt CT scan today to further eval PNA and effusion WBC ct normal Legionella: negative Mycoplasma IgM + Continue Zosyn and Zithromax Sputum Culture showed Yeast but this is likely oral contaminant Off High Flow O2 3. COPD exacerbation Continue Duoneb Q4H, mucomyst Avoid steroids since patient has history of hallucinations in the past 4. Sepsis ( POA)- most likely secondary to Pneumonia-- improved CT Chest showed likely multifocal pneumonia WBC trended down to normal Blood , urine Cultures with no growth Sputum Culture showed Yeast which is likely oral contaminant ID Dr. Haile Mcmillan consulted 5. Traumatic Left Femur Trochanteric Fx Orthopedics Dr. Jim Plan for Surgery with Nerve Block , plan for Friday 6.Right Sided Heart Failure Cardiology Dr Amaro ECHO showed EF 60-65 % with dilated RV Lasix was discontinued secondary to hypernatremia present earlier in the admission 7. Cognitive impairment - most likely Dementia Neurology Dr. Rere Garrido recommended Namenda R 14 mg PO 1x/day, Alpha Lipoic Acid 600 mg PO 1x/day, and Coenzyme Q10 400 mg PO 1x/day as outpatient. CT Head 05/31/16 showed generalized volume loss Vitamin B12: WNL TSH and T3 were low therefore dose of Synthroid was increased Continue 1:1 for safety since patient has episodes of confusion and had episode of fall in the unit Repeat XRays post fall showed no new fractures 8. Hypothyroidism Uncontrolled likely secondary to history of not taking home medications Synthroid was increased from 88 to 100 mcg PO 1x/day 9 .Dehydration with Hypernatremia Secondary to poor PO intake and Lasix (which was discontinued) Encouraged Ensure + Shakes 3x/day Na is back to normal and BUN/Cr improving 10. Nicotine Addiction Nicotine patch daily 11. Hx Slip and Fall in unit on 06/01/16 Continue 1:1 for safety Repeat Pelvis and Hip Xrays 06/01/16 showed no new acute fracture 12. DVt prophylaxis Lovenox 13. Anemia Most likely anemia of chronic disease Continue monitoring Type and Cross in prep for surgery
--- NOTE | 2016-06-10 13:21 | CT ---
CT chest without IV contrast Indication: Pneumonia/pleural effusion Technique: Contiguous axial images were obtained through the chest without intravenous contrast enhancement. Sagittal and coronal reconstructions were generated and reviewed. This CT exam was performed using 1 or more of the falling dose reduction techniques: Automated exposure control, adjustment of the MAA and/or kV according to patient size, and/or use of iterative reconstruction technique Radiation dose (DLP): 196.98 MGy-cm. Comparison: Chest x-ray performed 06/08/16, CT chest without contrast performed 06/04/16 Findings: The unenhanced mediastinal and hilar vascular structures appear grossly unremarkable. Question mild enlargement of the main pulmonary artery. The heart appears within normal limits of size. No significant pericardial effusion. Small to moderate bilateral pleural effusions and bilateral lower lobe consolidations. No pneumothorax. Emphysematous changes. Mild bronchiectasis, right middle lobe. Limited visualization of the upper abdomen too small to characterize 6 mm hepatic hypodensity. Peripherally calcified bilateral breast prostheses with discontinuous contour of the left prosthesis. Anasarca. Mild kyphosis. Multilevel degenerative changes. Impression: Small to moderate bilateral pleural effusions and bilateral lower lobe consolidations. Emphysematous changes. Additional findings as above.
--- NOTE | 2016-06-10 16:30 | PN ---
DATE: 06/10/2016 The patient is currently comfortable on nasal O2. She denies chest pain. PHYSICAL EXAMINATION: VITAL SIGNS: Blood pressure 109/65, heart rate 84, temperature 97.8, respirations 18. HEENT: Slightly pale conjunctivae. CHEST: Bilateral rhonchi. HEART: S1, S2 regular. EXTREMITIES: Significant muscle wasting. LABORATORIES: Hemoglobin and hematocrit 10.9 and 32.4. White count and platelet count are 9.6 and 7 27 respectively. Today's SMA-7 is within normal limits except for carbon dioxide of 34 and creatinin e 0.6. Calcium is below normal at 8.2. Repeat chest CT scan done today revealed small to moderate b ilateral pleural effusion and bilateral lower lobe consolidations and emphysematous changes. ASSESSMENT: 1. Advanced chronic obstructive lung disease and significant right-sided failure. 2. Pulmonary hypertension. 3. Bilateral pneumonia. 4. Minimally displaced left intertrochanteric fracture. RECOMMENDATIONS: Continue current bronchodilators, subcutaneous Lovenox 40 mg once a day, Mucinex or ally at 600 mg twice a day, Synthroid 100 mcg once a day, Zithromax 500 mg orally daily. Awaiting me dical as well as pulmonary clearance for the orthopedic surgery. The case was discussed with the zulema leon's at the bedside. Cardiac-llamas, the patient can undergo the surgery. Teofilo Amaro MD cc: [id number] TT: 06/10/2016 16:30:35 Confirmation # [id number] Dictation # [id number] mn
[2016-06-11] MEDS: Albuterol-Ipratrop 3 mg / 0.5 (3 ml) UD INH SCH ×4 (07:47→19:15)
[2016-06-11] MEDS: Acetylcysteine 10% 4 ML IH SCH ×2 (07:47→19:15)
--- NOTE | 2016-06-11 08:24 | CP.PCM.PN ---
Subjective - Date & Time of Evaluation Date of Evaluation: 06/11/16 Time of Evaluation: 08:20 - Subjective Subjective: Pt comfortable at bedrest/ still with difficulty breathing Objective - Vital Signs/Intake and Output Vital Signs (last 24 hours): Temp Pulse Resp BP Pulse Ox 98.2 F 83 18 135/65 94 L 06/11/16 07:52 06/11/16 07:52 06/11/16 07:52 06/11/16 07:52 06/11/16 07:52 - Medications Medications: Current Medications Acetaminophen (Tylenol 325mg Tab) 650 mg PO Q6 PRN PRN Reason: Pain, Mild (1-3) Last Admin: 06/02/16 20:51 Dose: 650 mg Acetylcysteine (Mucomyst 10% 4ml) 2 ml IH RBID [facility] Last Admin: 06/11/16 07:47 Dose: 2 ml Albuterol Sulfate (Albuterol 0.083% Inhal Joi (2.5 Mg/3 Ml) Ud) 2.5 mg INH RQ4 PRN PRN Reason: Shortness of Breath Albuterol/Ipratropium (Duoneb 3 Mg/0.5 Mg (3 Ml) Ud) 3 ml INH RQID [facility] Last Admin: 06/11/16 07:47 Dose: 3 ml Azithromycin (Zithromax) 500 mg PO DAILY [facility] Last Admin: 06/10/16 09:42 Dose: 500 mg Enoxaparin Sodium (Lovenox) 40 mg SC DAILY [facility] PRN Reason: Protocol Last Admin: 06/10/16 09:40 Dose: 40 mg Guaifenesin (Mucinex La) 600 mg PO Q12 [facility] Last Admin: 06/10/16 20:37 Dose: 600 mg Piperacillin Sod/Tazobactam (Sod 2.25 gm/ Sodium Chloride) 100 mls @ 100 mls/ hr IVPB Q6 [facility] Last Admin: 06/11/16 03:23 Dose: 100 mls/hr Ketorolac Tromethamine (Toradol) 15 mg IVP Q6 PRN PRN Reason: Pain, moderate (4-7) Last Admin: 06/08/16 22:38 Dose: 15 mg Levothyroxine Sodium (Synthroid) 100 mcg PO DAILY [facility] Last Admin: 06/10/16 09:41 Dose: 100 mcg Memantine (Namenda) 10 mg PO DAILY [facility] Last Admin: 06/10/16 09:40 Dose: 10 mg Multivitamins/Minerals (Therapeutic-M Tab) 1 tab PO DAILY [facility] Last Admin: 06/10/16 09:41 Dose: 1 tab Nicotine (Nicoderm Cq) 1 patch TD DAILY [facility] Last Admin: 06/10/16 09:40 Dose: 1 patch Pantoprazole Sodium (Protonix Ec Tab) 40 mg PO DAILY [facility] Last Admin: 06/10/16 10:17 Dose: 40 mg Saccharomyces Boulardii (Florastor) 250 mg PO BID [facility] Last Admin: 06/10/16 18:01 Dose: 250 mg Tramadol HCl (Ultram) 50 mg PO Q6 PRN PRN Reason: Pain, moderate (4-7) Last Admin: 06/10/16 20:37 Dose: 50 mg - Labs Labs: 06/10/16 06:50 06/10/16 06:50 PT 10.2 SECONDS (9.6-11.2) 05/30/16 17:30 INR 0.98 (0.92-1.08) 05/30/16 17:30 APTT 29.0 SECONDS (23.3-32.5) 05/30/16 17:30 - Skin Additional comments: Objective ' systemic/pulmonary- pt stil with difficulty breathing please refer to Dr Ferreira exam and opinion pt still with pulmonary effusion Musculoskeletal stance/gait- deferred pt with shortening/ext rotation L lower ext N/V intact no calf tenderness/antonietta Dave's Assessment and Plan - Assessment and Plan (Free Text) Assessment: A- basicervical/intertrochanteric fx L hip P- to OR when cleared by Dr Ferreira
[2016-06-11] MEDS: Pantoprazole 40 mg EC Tab PO SCH (08:41)
[2016-06-11] MEDS: Saccharomyces Boulardi 250 mg Cap PO SCH ×2 (08:41→16:24)
[2016-06-11] MEDS: Multivitamin With Minerals Tab PO SCH (08:41)
[2016-06-11] MEDS: guaiFENesin 600 mg ER Tab PO SCH ×2 (08:42→21:37)
[2016-06-11] MEDS: Levothyroxine 100 MCG TAB PO SCH (08:42)
[2016-06-11] MEDS: Enoxaparin 40 mg Syringe SC SCH (08:42)
--- NOTE | 2016-06-11 10:26 | CP.PCM.PN ---
Subjective - Date & Time of Evaluation Date of Evaluation: 06/11/16 Time of Evaluation: 10:00 - Subjective Subjective: No fever less confused however still forgetful Saturating well on 4 liters NC denies CP occ cough no SOB no abd pain Spoke with poss plan for surgery in am Objective - Vital Signs/Intake and Output Vital Signs (last 24 hours): Temp Pulse Resp BP Pulse Ox 98.2 F 83 18 135/65 94 L 06/11/16 07:52 06/11/16 07:52 06/11/16 07:52 06/11/16 07:52 06/11/16 07:52 - Medications Medications: Current Medications Acetaminophen (Tylenol 325mg Tab) 650 mg PO Q6 PRN PRN Reason: Pain, Mild (1-3) Last Admin: 06/02/16 20:51 Dose: 650 mg Acetylcysteine (Mucomyst 10% 4ml) 2 ml IH RBID [facility] Last Admin: 06/11/16 07:47 Dose: 2 ml Albuterol Sulfate (Albuterol 0.083% Inhal Joi (2.5 Mg/3 Ml) Ud) 2.5 mg INH RQ4 PRN PRN Reason: Shortness of Breath Albuterol/Ipratropium (Duoneb 3 Mg/0.5 Mg (3 Ml) Ud) 3 ml INH RQID [facility] Last Admin: 06/11/16 07:47 Dose: 3 ml Azithromycin (Zithromax) 500 mg PO DAILY [facility] Last Admin: 06/11/16 08:43 Dose: 500 mg Guaifenesin (Mucinex La) 600 mg PO Q12 [facility] Last Admin: 06/11/16 08:42 Dose: 600 mg Piperacillin Sod/Tazobactam (Sod 2.25 gm/ Sodium Chloride) 100 mls @ 100 mls/ hr IVPB Q6 [facility] Last Admin: 06/11/16 03:23 Dose: 100 mls/hr Ketorolac Tromethamine (Toradol) 15 mg IVP Q6 PRN PRN Reason: Pain, moderate (4-7) Last Admin: 06/08/16 22:38 Dose: 15 mg Levothyroxine Sodium (Synthroid) 100 mcg PO DAILY [facility] Last Admin: 06/11/16 08:42 Dose: 100 mcg Memantine (Namenda) 10 mg PO DAILY [facility] Last Admin: 06/11/16 08:42 Dose: 10 mg Multivitamins/Minerals (Therapeutic-M Tab) 1 tab PO DAILY [facility] Last Admin: 06/11/16 08:41 Dose: 1 tab Nicotine (Nicoderm Cq) 1 patch TD DAILY [facility] Last Admin: 06/11/16 08:43 Dose: 1 patch Pantoprazole Sodium (Protonix Ec Tab) 40 mg PO DAILY [facility] Last Admin: 06/11/16 08:41 Dose: 40 mg Saccharomyces Boulardii (Florastor) 250 mg PO BID [facility] Last Admin: 06/11/16 08:41 Dose: 250 mg Tramadol HCl (Ultram) 50 mg PO Q6 PRN PRN Reason: Pain, moderate (4-7) Last Admin: 06/10/16 20:37 Dose: 50 mg - Labs Labs: 06/10/16 06:50 06/10/16 06:50 PT 10.2 SECONDS (9.6-11.2) 05/30/16 17:30 INR 0.98 (0.92-1.08) 05/30/16 17:30 APTT 29.0 SECONDS (23.3-32.5) 05/30/16 17:30 - Constitutional Appears: Chronically Ill, Other (On High Flow Oxygen) - Head Exam Head Exam: NORMAL INSPECTION, NORMOCEPHALIC - Eye Exam Eye Exam: EOMI, Normal appearance Pupil Exam: NORMAL ACCOMODATION - ENT Exam ENT Exam: Mucous Membranes Moist, Normal External Ear Exam - Neck Exam Neck Exam: Full ROM. absent: Meningismus - Respiratory Exam Respiratory Exam: Decreased Breath Sounds, Rales, Rhonchi. absent: Wheezes bilat breast implants - Cardiovascular Exam Cardiovascular Exam: REGULAR RHYTHM, +S1, +S2 - GI/Abdominal Exam GI & Abdominal Exam: Soft, Normal Bowel Sounds. absent: Tenderness - Extremities Exam Extremities Exam: Normal Capillary Refill. absent: Calf Tenderness - Back Exam Back Exam: absent: CVA tenderness (L), CVA tenderness (R) - Neurological Exam Neurological Exam: Alert, Awake, CN II-XII Intact Additional comments: oriented to person and place - Psychiatric Exam Psychiatric exam: Normal Affect, Normal Mood - Skin Skin Exam: Dry, Normal Color Assessment and Plan - Assessment and Plan (Free Text) Assessment: 66 years old female with hx of Hypothyroidism, pneumonia, Asthma ,COPD on home Oxygen and, who smokes > than 10 cigarettes daily, was brought to the ED with 2 weeks of worsening SOB, Coughing , always feeling cold, poor memory , not eating nor drinking liquids, referring some dizziness on the day of admission. Patient admitted with diagnosis of acute hypercapnic/ hypoxemic respiratory failure and sepsis . further work up showed left femur intertrocanteric fracture At present OFF high flow O2 and doing well on 4 liters NC. Still with episodes of confusion at times so on 1:1 for safety 1.Respiratory Failure with Hypercarbia and Hypoxemia improving Secondary to pneumonia , COPD and CHF exacerbation Off High Flow Oxygen now on 4 liters NC and saturating at 94% on Zosyn and Azithro Pulmonary Dr. Ferreira consulted and following closely 2. Bibasilar Pneumonia , Mycoplasma Pneumoniae CXR showed bibasilar infiltrates R> L CT Chest 06/04/16 showed moderate to large foci of airspace consolidation in the bilateral lower lobes and right middle lobe likely secondary to atelectasis due to pleural effusion and multifocal pneumonia, emphysematous changes in the bilateral upper lobes. rpt CT scan of [place]: mild to mod effusion WBC ct normal Legionella: negative Mycoplasma IgM + Continue Zosyn and Zithromax Sputum Culture showed Yeast but this is likely oral contaminant Off High Flow O2 3. COPD exacerbation Continue Duoneb Q4H, mucomyst Avoid steroids since patient has history of hallucinations in the past 4. Sepsis ( POA)- most likely secondary to Pneumonia-- improved CT Chest showed likely multifocal pneumonia WBC trended down to normal Blood , urine Cultures with no growth Sputum Culture showed Yeast which is likely oral contaminant ID Dr. Haile Mcmillan consulted 5. Traumatic Left Femur Trochanteric Fx Orthopedics Dr. Jim Plan for Surgery with Nerve Block , plan for tomorrow NPO 6.Right Sided Heart Failure Cardiology Dr Amaro ECHO showed EF 60-65 % with dilated RV Lasix was discontinued secondary to hypernatremia present earlier in the admission 7. Cognitive impairment - most likely Dementia Neurology Dr. Rere Garrido recommended Namenda R 14 mg PO 1x/day, Alpha Lipoic Acid 600 mg PO 1x/day, and Coenzyme Q10 400 mg PO 1x/day as outpatient. CT Head 05/31/16 showed generalized volume loss Vitamin B12: WNL TSH and T3 were low therefore dose of Synthroid was increased Continue 1:1 for safety since patient has episodes of confusion and had episode of fall in the unit Repeat XRays post fall showed no new fractures 8. Hypothyroidism Uncontrolled likely secondary to history of not taking home medications Synthroid was increased from 88 to 100 mcg PO 1x/day 9 .Dehydration with Hypernatremia Secondary to poor PO intake and Lasix (which was discontinued) Encouraged Ensure + Shakes 3x/day Na is back to normal and BUN/Cr improving 10. Nicotine Addiction Nicotine patch daily 11. Hx Slip and Fall in unit on 06/01/16 Continue 1:1 for safety Repeat Pelvis and Hip Xrays 06/01/16 showed no new acute fracture 12. DVt prophylaxis Lovenox 13. Anemia Most likely anemia of chronic disease Continue monitoring Type and Cross in prep for surgery
--- NOTE | 2016-06-11 10:34 | CP.PCM.PN ---
Subjective - Date & Time of Evaluation Date of Evaluation: 06/11/16 Time of Evaluation: 10:31 - Subjective Subjective: Plan is for OR tomorrow. CT yesterday did show small to moderate effusions and passive atelectasis/ consolidation in the lung bases. Remains afebrile, SpO2 91% on 2 LPM nasal oxygen (increased to 4 L as ordered). Remains clinically stable, awake and less confused. Breath sounds are diminished bilaterally, essentially unchanged. Started incentive spirometry, continue aerosol therapy, continue zosyn/ azithromycin. Objective - Vital Signs/Intake and Output Vital Signs (last 24 hours): Temp Pulse Resp BP Pulse Ox 98.2 F 83 18 135/65 94 L 06/11/16 07:52 06/11/16 07:52 06/11/16 07:52 06/11/16 07:52 06/11/16 07:52 - Medications Medications: Current Medications Acetaminophen (Tylenol 325mg Tab) 650 mg PO Q6 PRN PRN Reason: Pain, Mild (1-3) Last Admin: 06/02/16 20:51 Dose: 650 mg Acetylcysteine (Mucomyst 10% 4ml) 2 ml IH RBID [facility] Last Admin: 06/11/16 07:47 Dose: 2 ml Albuterol Sulfate (Albuterol 0.083% Inhal Joi (2.5 Mg/3 Ml) Ud) 2.5 mg INH RQ4 PRN PRN Reason: Shortness of Breath Albuterol/Ipratropium (Duoneb 3 Mg/0.5 Mg (3 Ml) Ud) 3 ml INH RQID [facility] Last Admin: 06/11/16 07:47 Dose: 3 ml Azithromycin (Zithromax) 500 mg PO DAILY [facility] Last Admin: 06/11/16 08:43 Dose: 500 mg Guaifenesin (Mucinex La) 600 mg PO Q12 [facility] Last Admin: 06/11/16 08:42 Dose: 600 mg Piperacillin Sod/Tazobactam (Sod 2.25 gm/ Sodium Chloride) 100 mls @ 100 mls/ hr IVPB Q6 [facility] Last Admin: 06/11/16 03:23 Dose: 100 mls/hr Ketorolac Tromethamine (Toradol) 15 mg IVP Q6 PRN PRN Reason: Pain, moderate (4-7) Last Admin: 06/08/16 22:38 Dose: 15 mg Levothyroxine Sodium (Synthroid) 100 mcg PO DAILY [facility] Last Admin: 06/11/16 08:42 Dose: 100 mcg Memantine (Namenda) 10 mg PO DAILY [facility] Last Admin: 06/11/16 08:42 Dose: 10 mg Multivitamins/Minerals (Therapeutic-M Tab) 1 tab PO DAILY [facility] Last Admin: 06/11/16 08:41 Dose: 1 tab Nicotine (Nicoderm Cq) 1 patch TD DAILY [facility] Last Admin: 06/11/16 08:43 Dose: 1 patch Pantoprazole Sodium (Protonix Ec Tab) 40 mg PO DAILY [facility] Last Admin: 06/11/16 08:41 Dose: 40 mg Saccharomyces Boulardii (Florastor) 250 mg PO BID [facility] Last Admin: 06/11/16 08:41 Dose: 250 mg Tramadol HCl (Ultram) 50 mg PO Q6 PRN PRN Reason: Pain, moderate (4-7) Last Admin: 06/10/16 20:37 Dose: 50 mg - Labs Labs: 06/10/16 06:50 06/10/16 06:50 PT 10.2 SECONDS (9.6-11.2) 05/30/16 17:30 INR 0.98 (0.92-1.08) 05/30/16 17:30 APTT 29.0 SECONDS (23.3-32.5) 05/30/16 17:30 Assessment and Plan (1) Bronchopneumonia Status: Acute (2) Decompensated chronic obstructive pulmonary disease (3) Respiratory failure with hypercapnia Status: Acute (4) Hip fracture Status: Acute (5) Cor pulmonale (chronic) Status: Acute
[2016-06-12 06:47] LABS: HEMATOCRIT 29.2 % (34.0-47.0); MEAN CELL VOLUME 97.1 fl (81.0-99.0); MEAN CORPUSCULAR HEMOGLOBIN 31.9 pg (27.0-31.0); MEAN CORPUSCULAR HGB CONC 32.9 g/dL (33.0-37.0); RED CELL DISTRIBUTION WIDTH 15.5 % (11.5-14.5)
[2016-06-12 06:55] LABS: BLOOD UREA NITROGEN 10 mg/dl (7-17); CALCIUM 7.6 mg/dL (8.4-10.2); CARBON DIOXIDE 31 mmol/L (22-30); CHLORIDE 99 mmol/L (98-107); GFR AFRICAN-AMERICAN > 60; GLUCOSE,RANDOM 82 mg/dL (65-105); POTASSIUM 4.1 MMOL/L (3.6-5.0); SODIUM 139 mmol/l (132-148)
[2016-06-12 06:56] LABS: PARTIAL THROMBOPLASTIN TIME 27.7 SECONDS (23.3-32.5)
[2016-06-12] MEDS: Acetylcysteine 10% 4 ML IH SCH ×2 (07:52→19:14)
[2016-06-12] MEDS: Albuterol-Ipratrop 3 mg / 0.5 (3 ml) UD INH SCH ×4 (07:53→19:14)
--- NOTE | 2016-06-12 09:02 | CP.PCM.PN ---
Subjective - Date & Time of Evaluation Date of Evaluation: 06/12/16 Time of Evaluation: 08:47 - Subjective Subjective: Asleep when seen, but easily awakened. A little transient disorientation when initially awakened. She has been afebrile and normotensive. Her leukocytosis has resolved, although there is some increased platelet count. Her repeat CT did show residual atelectasis and consolidation, but this does not reflect ongoing pneumonia. She has remained on antibiotic therapy despite normalized WBC and negative procalcitonin. Her oxygenation has improved nicely and she had an SpO2 of 96% on nasal canula at 4 LPM. Her breathing pattern is relatively normal for her degree of COPD. There is no SOB at rest. Breath sounds are diminished bilaterally w/o audible wheezing or bronchial breathing. Occasional rhonchi are present with coughing. Heart sounds are distant and the rhythm regular. Neck is supple and trachea midline, no JVD or lymphadenopathy. No dependant edema or cyanosis. No calf tenderness or palpable venous cords. She is medically cleared for orthopedic surgery from a pulmonary standpoint with acknowledged increased risk of complications because of her underlying chronic lung disease and present elevated platelet count. Objective - Vital Signs/Intake and Output Vital Signs (last 24 hours): Temp Pulse Resp BP Pulse Ox 98.2 F 84 18 109/64 95 06/12/16 08:03 06/12/16 08:03 06/12/16 08:03 06/12/16 08:03 06/12/16 08:03 Intake and Output: 06/11/16 06/12/16 23:59 11:59 Intake Total 250 100 Output Total 250 Balance 250 -150 - Medications Medications: Current Medications Acetaminophen (Tylenol 325mg Tab) 650 mg PO Q6 PRN PRN Reason: Pain, Mild (1-3) Last Admin: 06/02/16 20:51 Dose: 650 mg Acetylcysteine (Mucomyst 10% 4ml) 2 ml IH RBID [facility] Last Admin: 06/12/16 07:52 Dose: 2 ml Albuterol Sulfate (Albuterol 0.083% Inhal Joi (2.5 Mg/3 Ml) Ud) 2.5 mg INH RQ4 PRN PRN Reason: Shortness of Breath Albuterol/Ipratropium (Duoneb 3 Mg/0.5 Mg (3 Ml) Ud) 3 ml INH RQID [facility] Last Admin: 06/12/16 07:53 Dose: 3 ml Azithromycin (Zithromax) 500 mg PO DAILY [facility] Last Admin: 06/11/16 08:43 Dose: 500 mg Guaifenesin (Mucinex La) 600 mg PO Q12 [facility] Last Admin: 06/11/16 21:37 Dose: 600 mg Piperacillin Sod/Tazobactam (Sod 2.25 gm/ Sodium Chloride) 100 mls @ 100 mls/ hr IVPB Q6 [facility] Last Admin: 06/12/16 05:04 Dose: 100 mls/hr Ketorolac Tromethamine (Toradol) 15 mg IVP Q6 PRN PRN Reason: Pain, moderate (4-7) Last Admin: 06/08/16 22:38 Dose: 15 mg Levothyroxine Sodium (Synthroid) 100 mcg PO DAILY@0630 [facility] Memantine (Namenda) 10 mg PO DAILY [facility] Last Admin: 06/11/16 08:42 Dose: 10 mg Multivitamins/Minerals (Therapeutic-M Tab) 1 tab PO DAILY [facility] Last Admin: 06/11/16 08:41 Dose: 1 tab Nicotine (Nicoderm Cq) 1 patch TD DAILY [facility] Last Admin: 06/11/16 08:43 Dose: 1 patch Pantoprazole Sodium (Protonix Ec Tab) 40 mg PO DAILY [facility] Last Admin: 06/11/16 08:41 Dose: 40 mg Saccharomyces Boulardii (Florastor) 250 mg PO BID [facility] Last Admin: 06/11/16 16:24 Dose: 250 mg Tramadol HCl (Ultram) 50 mg PO Q6 PRN PRN Reason: Pain, moderate (4-7) Last Admin: 06/11/16 21:35 Dose: 50 mg - Labs Labs: 06/12/16 05:05 06/12/16 05:05 PT 10.3 SECONDS (9.6-11.2) 06/12/16 05:05 INR 0.99 (0.92-1.08) 06/12/16 05:05 APTT 27.7 SECONDS (23.3-32.5) 06/12/16 05:05 Assessment and Plan (1) Bronchopneumonia Status: Acute (2) Decompensated chronic obstructive pulmonary disease (3) Respiratory failure with hypercapnia Status: Acute (4) Hip fracture Status: Acute (5) Cor pulmonale (chronic) Status: Acute
[2016-06-12] MEDS: Pantoprazole 40 mg EC Tab PO SCH (09:39)
[2016-06-12] MEDS: guaiFENesin 600 mg ER Tab PO SCH ×2 (09:39→21:36)
[2016-06-12] MEDS: Levothyroxine 100 MCG TAB PO SCH (09:39)
[2016-06-12] MEDS: Saccharomyces Boulardi 250 mg Cap PO SCH ×2 (09:39→17:45)
[2016-06-12] MEDS: Multivitamin With Minerals Tab PO SCH (09:39)
--- NOTE | 2016-06-12 10:01 | CP.PCM.PN ---
Subjective - Date & Time of Evaluation Date of Evaluation: 06/12/16 Time of Evaluation: 10:00 - Subjective Subjective: Patient seen and examined bedside.Hemodynamically stable, afebrile.On 3 L 02 via Nc saturating at 97 %. No acute issues overnight. A little anxious and agitated at times today. Unable to remember what happened to her, how long she has been in the hospital . Objective - Vital Signs/Intake and Output Vital Signs (last 24 hours): Temp Pulse Resp BP Pulse Ox 98.2 F 84 18 109/64 95 06/12/16 08:03 06/12/16 08:03 06/12/16 08:03 06/12/16 08:03 06/12/16 08:03 Intake and Output: 06/12/16 06/12/16 06:59 18:59 Intake Total 350 Output Total 250 Balance 100 - Medications Medications: Current Medications Acetaminophen (Tylenol 325mg Tab) 650 mg PO Q6 PRN PRN Reason: Pain, Mild (1-3) Last Admin: 06/02/16 20:51 Dose: 650 mg Acetylcysteine (Mucomyst 10% 4ml) 2 ml IH RBID [facility] Last Admin: 06/12/16 07:52 Dose: 2 ml Albuterol Sulfate (Albuterol 0.083% Inhal Joi (2.5 Mg/3 Ml) Ud) 2.5 mg INH RQ4 PRN PRN Reason: Shortness of Breath Albuterol/Ipratropium (Duoneb 3 Mg/0.5 Mg (3 Ml) Ud) 3 ml INH RQID [facility] Last Admin: 06/12/16 07:53 Dose: 3 ml Azithromycin (Zithromax) 500 mg PO DAILY [facility] Last Admin: 06/12/16 09:38 Dose: Not Given Guaifenesin (Mucinex La) 600 mg PO Q12 [facility] Last Admin: 06/12/16 09:39 Dose: Not Given Piperacillin Sod/Tazobactam (Sod 2.25 gm/ Sodium Chloride) 100 mls @ 100 mls/ hr IVPB Q6 [facility] Last Admin: 06/12/16 05:04 Dose: 100 mls/hr Ketorolac Tromethamine (Toradol) 15 mg IVP Q6 PRN PRN Reason: Pain, moderate (4-7) Last Admin: 06/08/16 22:38 Dose: 15 mg Levothyroxine Sodium (Synthroid) 100 mcg PO DAILY@0630 [facility] Last Admin: 06/12/16 09:39 Dose: Not Given Memantine (Namenda) 10 mg PO DAILY [facility] Last Admin: 06/12/16 09:39 Dose: Not Given Multivitamins/Minerals (Therapeutic-M Tab) 1 tab PO DAILY [facility] Last Admin: 06/12/16 09:39 Dose: Not Given Nicotine (Nicoderm Cq) 1 patch TD DAILY [facility] Last Admin: 06/11/16 08:43 Dose: 1 patch Pantoprazole Sodium (Protonix Ec Tab) 40 mg PO DAILY [facility] Last Admin: 06/12/16 09:39 Dose: Not Given Saccharomyces Boulardii (Florastor) 250 mg PO BID [facility] Last Admin: 06/12/16 09:39 Dose: Not Given Tramadol HCl (Ultram) 50 mg PO Q6 PRN PRN Reason: Pain, moderate (4-7) Last Admin: 06/12/16 09:33 Dose: 50 mg - Labs Labs: 06/12/16 05:05 06/12/16 05:05 PT 10.3 SECONDS (9.6-11.2) 06/12/16 05:05 INR 0.99 (0.92-1.08) 06/12/16 05:05 APTT 27.7 SECONDS (23.3-32.5) 06/12/16 05:05 - Constitutional Appears: No Acute Distress, Confused, Cachectic, Chronically Ill - Head Exam Head Exam: ATRAUMATIC, NORMAL INSPECTION, NORMOCEPHALIC - Eye Exam Eye Exam: EOMI, Normal appearance, PERRL Pupil Exam: NORMAL ACCOMODATION - ENT Exam ENT Exam: Mucous Membranes Dry, Normal Exam - Neck Exam Neck Exam: Full ROM, Normal Inspection - Respiratory Exam Respiratory Exam: Decreased Breath Sounds (bibasilar ). absent: Accessory Muscle Use, Prolonged Expiratory Phase, Wheezes, Respiratory Distress - Cardiovascular Exam Cardiovascular Exam: REGULAR RHYTHM, RRR, +S1, +S2. absent: JVD - GI/Abdominal Exam GI & Abdominal Exam: Soft, Normal Bowel Sounds. absent: Distended, Guarding, Tenderness, Rebound - Rectal Exam Rectal Exam: Deferred - Extremities Exam Extremities Exam: Full ROM, Normal Capillary Refill, Normal Inspection. absent : Calf Tenderness, Pedal Edema - Back Exam Back Exam: NORMAL INSPECTION - Neurological Exam Neurological Exam: Alert, Awake, Oriented x3 Additional comments: confused with poor memory - Psychiatric Exam Psychiatric exam: Agitated, Anxious, Flat Affect - Skin Skin Exam: Dry, Pallor, Warm Assessment and Plan - Assessment and Plan (Free Text) Assessment: 66 years old female with hx of Hypothyroidism, pneumonia, Asthma ,COPD on home Oxygen and, who smokes > than 10 cigarettes daily, was brought to the ED with 2 weeks of worsening SOB, Coughing , always feeling cold, poor memory , not eating nor drinking liquids, referring some dizziness on the day of admission. Patient admitted with diagnosis of acute hypercapnic/ hypoxemic respiratory failure and sepsis . Further work up showed left femur intertrocanteric fracture At present off high flow O2 and doing well on 3 liters via NC. Still with episodes of confusion at times so on 1:1 for safety 1.Respiratory Failure with Hypercarbia and Hypoxemia improving Secondary to pneumonia , COPD and CHF exacerbation Off High Flow Oxygen now on 3 liters NC and saturating at 97% on Zosyn and Azithro Pulmonary Dr. Ferreira consulted and following closely 2. Bibasilar Pneumonia , Mycoplasma Pneumoniae CXR showed bibasilar infiltrates R> L CT Chest 06/04/16 showed moderate to large foci of airspace consolidation in the bilateral lower lobes and right middle lobe likely secondary to atelectasis due to pleural effusion and multifocal pneumonia, emphysematous changes in the bilateral upper lobes. rpt CT scan of [place]: mild to mod effusion WBC normal , afebrile Legionella: negative Mycoplasma IgM + Continue Zosyn and Zithromax Sputum Culture showed Yeast but this is likely oral contaminant Off High Flow O2 3. COPD exacerbation Continue Duoneb Q4H, mucomyst Avoid steroids since patient has history of hallucinations in the past 4. Sepsis ( POA)- most likely secondary to Pneumonia-- improved CT Chest showed likely multifocal pneumonia WBC trended down to normal Blood , urine Cultures with no growth Sputum Culture showed Yeast which is likely oral contaminant ID Dr. Haile Mcmillan consulted 5. Traumatic Left Femur Trochanteric Fx Orthopedics Dr. Jim Plan for Surgery with Nerve Block in AM keep NPO past midnight 6.Right Sided Heart Failure Cardiology Dr Amaro ECHO showed EF 60-65 % with dilated RV Lasix was discontinued secondary to hypernatremia present earlier in the admission 7. Cognitive impairment - most likely Dementia Neurology Dr. Rere Garrido recommended Namenda R 14 mg PO 1x/day, Alpha Lipoic Acid 600 mg PO 1x/day, and Coenzyme Q10 400 mg PO 1x/day as outpatient. CT Head 05/31/16 showed generalized volume loss Vitamin B12: WNL TSH and T3 were low therefore dose of Synthroid was increased Continue 1:1 for safety since patient has episodes of confusion and had episode of fall in the unit Repeat XRays post fall showed no new fractures 8. Hypothyroidism Uncontrolled likely secondary to history of not taking home medications Synthroid was increased from 88 to 100 mcg PO 1x/day 9 .Dehydration with Hypernatremia Secondary to poor PO intake and Lasix (which was discontinued) Encouraged Ensure + Shakes 3x/day Na is back to normal and BUN/Cr improving 10. Nicotine Addiction Nicotine patch daily 11. Hx Slip and Fall in unit on 06/01/16 Continue 1:1 for safety Repeat Pelvis and Hip Xrays 06/01/16 showed no new acute fracture 12. DVt prophylaxis Lovenox 13. Anemia Most likely anemia of chronic disease Continue monitoring Type and Cross in prep for surgery
[2016-06-13 06:42] LABS: HEMATOCRIT 34.1 % (34.0-47.0); MEAN CELL VOLUME 94.1 fl (81.0-99.0); MEAN CORPUSCULAR HEMOGLOBIN 31.1 pg (27.0-31.0); RED CELL DISTRIBUTION WIDTH 17.8 % (11.5-14.5); WHITE BLOOD COUNT 9.6 K/uL (4.8-10.8)
[2016-06-13] MEDS: Levothyroxine 100 MCG TAB PO SCH (07:00)
[2016-06-13] MEDS ORDERED: Bupivacaine 0.5% Inj(30mL) ONE (07:22)
[2016-06-13] MEDS ORDERED: Lidocaine 1% Inj (20ml) ONE (07:22)
[2016-06-13] MEDS ORDERED: MethylPREDNISolone Depo 40 mg/ml Inj ONE (07:22)
[2016-06-13] MEDS ORDERED: Absorbable Gelatin Sponge Size 100 ONE (07:23)
[2016-06-13 07:31] LABS: CHLORIDE 98 mmol/L (98-107); SODIUM 137 mmol/l (132-148)
[2016-06-13 07:32] LABS: POTASSIUM 4.2 MMOL/L (3.6-5.0)
[2016-06-13 07:34] LABS: GFR AFRICAN-AMERICAN > 60
[2016-06-13 07:35] LABS: BLOOD UREA NITROGEN 11 mg/dl (7-17); CALCIUM 8.2 mg/dL (8.4-10.2); CARBON DIOXIDE 30 mmol/L (22-30); GLUCOSE,RANDOM 87 mg/dL (65-105)
[2016-06-13] MEDS ORDERED: Propofol 10 mg/ml Inj (20 ML) ONE (07:37)
[2016-06-13] MEDS ORDERED: ePHEDrine 50 mg/ml Inj ONE (07:37)
[2016-06-13] MEDS ORDERED: Sevoflurane - Inhalation Anesthetic Liq (250 ml) ONE (07:38)
[2016-06-13] MEDS ORDERED: Succinylcholine 200 mg/10 ml Inj IV ONE (07:38)
[2016-06-13] MEDS ORDERED: Etomidate 20 mg/10ml Inj IV ONE (07:39)
[2016-06-13] MEDS: Acetylcysteine 10% 4 ML IH SCH ×2 (07:41→19:26)
[2016-06-13] MEDS: Albuterol-Ipratrop 3 mg / 0.5 (3 ml) UD INH SCH ×4 (07:41→19:26)
[2016-06-13] MEDS: guaiFENesin 600 mg ER Tab PO SCH ×2 (09:00→22:00)
[2016-06-13] MEDS: Pantoprazole 40 mg EC Tab PO SCH (09:00)
[2016-06-13] MEDS: Multivitamin With Minerals Tab PO SCH (09:00)
[2016-06-13] MEDS: Saccharomyces Boulardi 250 mg Cap PO SCH ×2 (09:00→17:00)
[2016-06-13] MEDS ORDERED: Lactated Ringer's 1,000 ML IV ONE (09:25)
--- NOTE | 2016-06-13 09:59 | CP.PCM.PN ---
Subjective - Date & Time of Evaluation Date of Evaluation: 06/13/16 Time of Evaluation: 14:00 - Subjective Subjective: Patient seen and examined bedside. Status post left hip ORIF. Awake , alert but confused. Hemodynamically stable, afebrile. Suregery was successful with no complications. Objective - Vital Signs/Intake and Output Vital Signs (last 24 hours): Temp Pulse Resp BP Pulse Ox 97.5 F L 80 18 111/69 97 06/13/16 08:00 06/13/16 08:00 06/13/16 08:00 06/13/16 08:00 06/13/16 08:00 Intake and Output: 06/13/16 06/13/16 06:59 18:59 Intake Total 820 Balance 820 - Medications Medications: Current Medications Acetaminophen (Tylenol 325mg Tab) 650 mg PO Q6 PRN PRN Reason: Pain, Mild (1-3) Last Admin: 06/02/16 20:51 Dose: 650 mg Acetylcysteine (Mucomyst 10% 4ml) 2 ml IH RBID [facility] Last Admin: 06/13/16 07:41 Dose: 2 ml Albuterol Sulfate (Albuterol 0.083% Inhal Joi (2.5 Mg/3 Ml) Ud) 2.5 mg INH RQ4 PRN PRN Reason: Shortness of Breath Albuterol/Ipratropium (Duoneb 3 Mg/0.5 Mg (3 Ml) Ud) 3 ml INH RQID [facility] Last Admin: 06/13/16 07:41 Dose: 3 ml Azithromycin (Zithromax) 500 mg PO DAILY [facility] Last Admin: 06/12/16 09:38 Dose: Not Given Guaifenesin (Mucinex La) 600 mg PO Q12 [facility] Last Admin: 06/12/16 21:36 Dose: 600 mg Piperacillin Sod/Tazobactam (Sod 2.25 gm/ Sodium Chloride) 100 mls @ 100 mls/ hr IVPB Q6 [facility] Last Admin: 06/13/16 03:55 Dose: 100 mls/hr Ketorolac Tromethamine (Toradol) 15 mg IVP Q6 PRN PRN Reason: Pain, moderate (4-7) Last Admin: 06/08/16 22:38 Dose: 15 mg Levothyroxine Sodium (Synthroid) 100 mcg PO DAILY@0630 [facility] Last Admin: 06/12/16 09:39 Dose: Not Given Memantine (Namenda) 10 mg PO DAILY [facility] Last Admin: 06/12/16 18:05 Dose: 10 mg Multivitamins/Minerals (Therapeutic-M Tab) 1 tab PO DAILY [facility] Last Admin: 06/12/16 09:39 Dose: Not Given Nicotine (Nicoderm Cq) 1 patch TD DAILY [facility] Last Admin: 06/12/16 09:30 Dose: 1 patch Pantoprazole Sodium (Protonix Ec Tab) 40 mg PO DAILY [facility] Last Admin: 06/12/16 09:39 Dose: Not Given Saccharomyces Boulardii (Florastor) 250 mg PO BID [facility] Last Admin: 06/12/16 17:45 Dose: 250 mg Tramadol HCl (Ultram) 50 mg PO Q6 PRN PRN Reason: Pain, moderate (4-7) Last Admin: 06/12/16 09:33 Dose: 50 mg - Labs Labs: 06/13/16 05:15 06/13/16 05:15 PT 10.3 SECONDS (9.6-11.2) 06/12/16 05:05 INR 0.99 (0.92-1.08) 06/12/16 05:05 APTT 27.7 SECONDS (23.3-32.5) 06/12/16 05:05 - Constitutional Appears: Non-toxic, No Acute Distress, Confused, Cachectic, Chronically Ill - Head Exam Head Exam: ATRAUMATIC, NORMAL INSPECTION, NORMOCEPHALIC - Eye Exam Eye Exam: EOMI, Normal appearance, PERRL Pupil Exam: NORMAL ACCOMODATION - ENT Exam ENT Exam: Mucous Membranes Moist, Normal Exam - Neck Exam Neck Exam: Full ROM, Normal Inspection - Respiratory Exam Respiratory Exam: Decreased Breath Sounds (bibasilar ), Clear to Ausculation Bilateral. absent: Accessory Muscle Use, Rales, Rhonchi, Wheezes, Respiratory Distress - Cardiovascular Exam Cardiovascular Exam: REGULAR RHYTHM, RRR, +S1, +S2. absent: JVD - GI/Abdominal Exam GI & Abdominal Exam: Soft, Normal Bowel Sounds. absent: Distended, Guarding, Tenderness, Rebound - Rectal Exam Rectal Exam: Deferred - Extremities Exam Extremities Exam: Normal Capillary Refill, Normal Inspection. absent: Calf Tenderness, Pedal Edema Additional comments: left hip dressing in place - Neurological Exam Neurological Exam: Alert, Awake Additional comments: confused - Psychiatric Exam Psychiatric exam: Anxious, Flat Affect - Skin Skin Exam: Dry, Pallor, Warm Assessment and Plan - Assessment and Plan (Free Text) Assessment: 66 years old female with hx of Hypothyroidism, pneumonia, Asthma ,COPD on home Oxygen and, who smokes > than 10 cigarettes daily, was brought to the ED with 2 weeks of worsening SOB, Coughing , always feeling cold, poor memory , not eating nor drinking liquids, referring some dizziness on the day of admission. Patient admitted with diagnosis of acute hypercapnic/ hypoxemic respiratory failure and sepsis . Further work up showed left femur intertrocanteric fracture Today s/p left ORIF and doing well.Still with episodes of confusion at times so on 1:1 for safety 1.Respiratory Failure with Hypercarbia and Hypoxemia improving Secondary to pneumonia , COPD and CHF exacerbation Off High Flow Oxygen now on 3 liters NC and saturating at 97% on Zosyn and Azithro Pulmonary Dr. Ferreira consulted and following closely Will monitor in telempetry post ORIF and place on 4 L O2 via [place] 2. Bibasilar Pneumonia , Mycoplasma Pneumoniae CXR showed bibasilar infiltrates R> L CT Chest 06/04/16 showed moderate to large foci of airspace consolidation in the bilateral lower lobes and right middle lobe likely secondary to atelectasis due to pleural effusion and multifocal pneumonia, emphysematous changes in the bilateral upper lobes. rpt CT scan of [place]: mild to mod effusion WBC normal , afebrile Legionella: negative Mycoplasma IgM + Continue Zosyn and Zithromax Sputum Culture showed Yeast but this is likely oral contaminant Off High Flow O2 and on 4 L O2 vi aNc post op 3. COPD exacerbation Continue Duoneb Q4H, mucomyst Avoid steroids since patient has history of hallucinations in the past 4. Sepsis ( POA)- most likely secondary to Pneumonia-- improved CT Chest showed likely multifocal pneumonia WBC trended down to normal Blood , urine Cultures with no growth Sputum Culture showed Yeast which is likely oral contaminant ID Dr. Haile Mcmillan consulted 5. Traumatic Left Femur Trochanteric Fx Orthopedics Dr. Jim consulted s/p left ORIF today Continue monitoring in telemetry Discussed with case management and about discharge planning. Due to her cognition impairment and requiring 1:1 for safety discharge to [facility] or acute rehab will be very difficult. Plan for discharge home with family and services 6.Right Sided Heart Failure Cardiology Dr Amaro ECHO showed EF 60-65 % with dilated RV Lasix was discontinued secondary to hypernatremia present earlier in the admission 7. Cognitive impairment - most likely Dementia Neurology Dr. Rere Garrido recommended Namenda R 14 mg PO 1x/day, Alpha Lipoic Acid 600 mg PO 1x/day, and Coenzyme Q10 400 mg PO 1x/day as outpatient. CT Head 05/31/16 showed generalized volume loss Vitamin B12: WNL TSH and T3 were low therefore dose of Synthroid was increased Continue 1:1 for safety since patient has episodes of confusion and had episode of fall in the unit Repeat XRays post fall showed no new fractures Discussed with son and . Patient ill require a lot of supervison for safety 8. Hypothyroidism Uncontrolled likely secondary to history of not taking home medications Synthroid was increased from 88 to 100 mcg PO 1x/day 9 .Dehydration with Hypernatremia Secondary to poor PO intake and Lasix (which was discontinued) Encouraged Ensure + Shakes 3x/day Na is back to normal and BUN/Cr improving 10. Nicotine Addiction Nicotine patch daily 11. Hx Slip and Fall in unit on 06/01/16 Continue 1:1 for safety Repeat Pelvis and Hip Xrays 06/01/16 showed no new acute fracture 12. DVt prophylaxis Lovenox on hold today due to surgery Will resume in AM 13. Anemia Most likely anemia of chronic disease Transfused 1 unit PRBC preop Will repeat CBC in AM
--- NOTE | 2016-06-13 10:55 | PCM.SURG1 ---
Surgeon's Initial Post Op Note - Surgeon's Notes Surgeon: Diandra Ratoprinter: MODESTA Cuellar Type of Anesthesia: General Endo Anesthesia Administered By: DR Rodriguez Pre-Operative Diagnosis: displaced L intertrochanteric hip fx Operative Findings: as above Post-Operative Diagnosis: as above Operation Performed: ORIF displaced L intertrochanteric L femur fx. positioning of fluoro/interpreattion of video images Specimen/Specimens Removed: N/A Estimated Blood Loss: EBL {In ML}: 35 Blood Products Given: N/A Drains Used: No Drains Post-Op Condition: Good Date of Surgery/Procedure: 06/13/16 Time of Surgery/Procedure: 09:35 (anaesthesia indcution time/ time in room:0734)
[2016-06-13] MEDS ORDERED: Lactated Ringer's 1,000 ML IV SCH (11:00)
--- NOTE | 2016-06-13 11:08 | CP.PCM.PN ---
Subjective - Date & Time of Evaluation Date of Evaluation: 06/13/16 Time of Evaluation: 11:05 - Subjective Subjective: Seen in PACU post-op. Appears to have done well w/o complication. Awake but still has some residual effect from anesthesia. LLE dressing intact, clean and dry. Breathing comfortably, well oxygenated. To return to telemetry with continuous SpO2 and EtCO2 monitoring. Medications renewed. Objective - Vital Signs/Intake and Output Vital Signs (last 24 hours): Temp Pulse Resp BP Pulse Ox 97.5 F L 80 18 111/69 97 06/13/16 08:00 06/13/16 08:00 06/13/16 08:00 06/13/16 08:00 06/13/16 08:00 Intake and Output: 06/12/16 06/13/16 23:59 11:59 Intake Total 720 800 Output Total 275 Balance 720 525 - Medications Medications: Current Medications Acetaminophen (Tylenol 325mg Tab) 650 mg PO Q6 PRN PRN Reason: Pain, Mild (1-3) Last Admin: 06/02/16 20:51 Dose: 650 mg Acetylcysteine (Mucomyst 10% 4ml) 2 ml IH RBID [facility] Last Admin: 06/13/16 07:41 Dose: 2 ml Albuterol Sulfate (Albuterol 0.083% Inhal Joi (2.5 Mg/3 Ml) Ud) 2.5 mg INH RQ4 PRN PRN Reason: Shortness of Breath Albuterol/Ipratropium (Duoneb 3 Mg/0.5 Mg (3 Ml) Ud) 3 ml INH RQID [facility] Last Admin: 06/13/16 07:41 Dose: 3 ml Azithromycin (Zithromax) 500 mg PO DAILY [facility] Last Admin: 06/13/16 09:00 Dose: Not Given Guaifenesin (Mucinex La) 600 mg PO Q12 [facility] Last Admin: 06/13/16 09:00 Dose: Not Given Piperacillin Sod/Tazobactam (Sod 2.25 gm/ Sodium Chloride) 100 mls @ 100 mls/ hr IVPB Q6 [facility] Last Admin: 06/13/16 03:55 Dose: 100 mls/hr Lactated Ringer's (Lactated Ringer's) 1,000 mls @ 75 mls/hr IV .[id number] [facility] Ketorolac Tromethamine (Toradol) 15 mg IVP Q6 PRN PRN Reason: Pain, moderate (4-7) Last Admin: 06/08/16 22:38 Dose: 15 mg Levothyroxine Sodium (Synthroid) 100 mcg PO DAILY@0630 [facility] Last Admin: 06/13/16 07:00 Dose: Not Given Memantine (Namenda) 10 mg PO DAILY [facility] Last Admin: 06/13/16 09:00 Dose: Not Given Morphine Sulfate (Morphine) 1 mg IVP Q10M PRN PRN Reason: Pain, moderate (4-7) Stop: 06/13/16 12:53 Multivitamins/Minerals (Therapeutic-M Tab) 1 tab PO DAILY [facility] Last Admin: 06/13/16 09:00 Dose: Not Given Nicotine (Nicoderm Cq) 1 patch TD DAILY [facility] Last Admin: 06/13/16 09:00 Dose: Not Given Pantoprazole Sodium (Protonix Ec Tab) 40 mg PO DAILY [facility] Last Admin: 06/13/16 09:00 Dose: Not Given Saccharomyces Boulardii (Florastor) 250 mg PO BID [facility] Last Admin: 06/13/16 09:00 Dose: Not Given - Labs Labs: 06/13/16 05:15 06/13/16 05:15 PT 10.3 SECONDS (9.6-11.2) 06/12/16 05:05 INR 0.99 (0.92-1.08) 06/12/16 05:05 APTT 27.7 SECONDS (23.3-32.5) 06/12/16 05:05 Assessment and Plan (1) Bronchopneumonia Status: Acute (2) Decompensated chronic obstructive pulmonary disease (3) Respiratory failure with hypercapnia Status: Acute (4) Hip fracture Status: Acute (5) Cor pulmonale (chronic) Status: Acute
--- NOTE | 2016-06-13 13:46 | RAD ---
PROCEDURE: Left Hip X-ray Radiographs. HISTORY: s/p left hip ORIF COMPARISON: 06/01/2016 FINDINGS: BONES: Status post open reduction and internal fixation of left intertrochanteric fracture with intramedullary codey and dynamic screw. There is near normal bone alignment. There is no bone destruction. There is diffuse bone demineralization. JOINTS: The left hip joint space is preserved. SOFT TISSUES: There are postsurgical changes in the left periarticular soft tissues and lateral skin fatuma. OTHER FINDINGS: None. IMPRESSION: Status post open reduction and internal fixation of left intertrochanteric fracture. Near normal bone alignment. Postoperative changes in the lateral periarticular soft tissues.
--- NOTE | 2016-06-13 14:13 | OP ---
PROCEDURE DATE: 06/13/2016 PREOPERATIVE DIAGNOSIS: Displaced left intertrochanteric hip fracture. POSTOPERATIVE DIAGNOSIS: Displaced left intertrochanteric hip fracture. PROCEDURES: 1. Open reduction internal fixation displaced left interlocking intramedullary nail. 2. Positioning of fluoroscope, interpretation of video images. SURGEON: Ervin Jim MD APPLICATION SECURITY ARCHITECT: Shona Castro, Certified Registered Nursing [employer] Teacher. ANESTHESIA: General endotracheal anesthesia. ANESTHESIOLOGIST: Dr. Rodriguez. COMPLICATIONS: None. DRAINS: None. OPERATIVE INDICATION: The patient is a 66-year-old woman with multiple medical comorbidities who pre sents with pulmonary problems, pleural effusion, who presents with an intratrochanteric hip fracture after a fall. The patient was cleared medically by Dr. Moses Ferreira, litigation legal secretary. Pros, cons, ris ks and benefits of open reduction internal fixation were discussed at length with the patient and the possibility of mechanical failure, infection, thromboembolic disease, secondary or tertiary surgery is discussed. The patient can no longer stand the discomfort. OPERATIVE PROCEDURE: After having obtained informed consent, after having identified side, site and procedure in a critical pause/timeout, after the satisfactory induction of the anesthetic, patient id entified as the patient, in the supine position with all bony prominences well padded, the left lower extremity was placed in the traction. Fracture was reduced with traction and rotation. Under the s urgeon's direction, the fluoroscope is positioned, video images are generated, therapeutic decisions are made therefrom. This having been accomplished, after the satisfactory induction of the anestheti c, after having identified side, site and procedure in a critical pause/timeout, the patient identifi ed as the patient, in the supine position with all bony prominences well padded, the left hip is prep ped and free draped in the usual fashion for hip fracture surgery. An incision is described and cent ered on the greater trochanter approximately 10 cm in extent. Skin incision is carried down through the skin and subcutaneous tissue. The gluteal musculature is identified and it is carefully divided. The trochanteric entry point is identified and using the awl ____ after the Steinmann pin had been placed in the trochanter, the awl is used to open the canal. The ____ wire is used to navigate the c anal. Verification of position is offered on AP and lateral image intensification views. This havin g been accomplished, the nail is introduced. After the pin is removed, the guidewire is removed, the nail is positioned. This having been accomplished, the nail having been introduced, attention is tu rned to the proximal interlocking screw. The guide is placed and incision is placed on the lateral a spect of the thigh. The guide is placed, drilling is accomplished and sounded with the depth gauge a nd the appropriate size screw is placed, 80 mm. Position is found to be acceptable on AP and lateral image intensification views. The distal targeting hole is identified as well. The distal hole is f ound and incision is accomplished. Drilling is accomplished. Thirty mm distal screw is introduced a nd found to be in acceptable position. This having been accomplished, verification of position is of fered on AP and oblique image intensification views and is found to be acceptable. The acceptability is constrained by the fact that the patient has to be taken off the table quickly because of her ple ural effusion and comorbidities. The wound is thoroughly irrigated. The fascia is closed after irri gation and hemostasis controlled with Aquamantys. The fascia is closed with #2 Quill, 0 Vicryl, stap les for skin. Closure of the skin stabs with interrupted Vicryl and fatuma. Compression dressing i s applied. Ervin Jim MD cc: [id number] TT: 06/13/2016 14:05:03
--- NOTE | 2016-06-13 14:55 | RAD ---
PROCEDURE: Fluoroscopy over 1 hour HISTORY: LEFT HIP COMPARISON: TECHNIQUE: Fluoroscopy was provided in the operating room. 64.8 seconds of fluoroscopy time were used. Six images were submitted FINDINGS: There is a compression screw and codey in the left hip. Anatomic alignment IMPRESSION: As above
[2016-06-13] MEDS: Sodium Chloride 0.9% 1,000 ML IV SCH (15:00)
[2016-06-14] MEDS: Levothyroxine 100 MCG TAB PO SCH ×2 (07:07→07:11)
[2016-06-14 07:19] LABS: HEMATOCRIT 30.7 % (34.0-47.0); MEAN CELL VOLUME 94.8 fl (81.0-99.0); MEAN CORPUSCULAR HEMOGLOBIN 30.4 pg (27.0-31.0); MEAN CORPUSCULAR HGB CONC 32.1 g/dL (33.0-37.0); RED CELL DISTRIBUTION WIDTH 16.9 % (11.5-14.5); WHITE BLOOD COUNT 13.1 K/uL (4.8-10.8)
[2016-06-14 07:25] LABS: BLOOD UREA NITROGEN 14 mg/dl (7-17); CALCIUM 7.4 mg/dL (8.4-10.2); CARBON DIOXIDE 30 mmol/L (22-30); CHLORIDE 100 mmol/L (98-107); GFR AFRICAN-AMERICAN > 60; GLUCOSE,RANDOM 103 mg/dL (65-105); POTASSIUM 3.7 MMOL/L (3.6-5.0); SODIUM 138 mmol/l (132-148)
[2016-06-14] MEDS: Albuterol-Ipratrop 3 mg / 0.5 (3 ml) UD INH SCH ×4 (08:03→19:11)
[2016-06-14] MEDS: Acetylcysteine 10% 4 ML IH SCH ×2 (08:03→19:11)
[2016-06-14] MEDS: guaiFENesin 600 mg ER Tab PO SCH ×2 (09:00→22:00)
[2016-06-14] MEDS: Saccharomyces Boulardi 250 mg Cap PO SCH ×2 (09:00→16:58)
[2016-06-14] MEDS: Multivitamin With Minerals Tab PO SCH (09:00)
[2016-06-14] MEDS: Pantoprazole 40 mg EC Tab PO SCH (09:00)
--- NOTE | 2016-06-14 10:35 | CP.PCM.PN ---
Subjective - Date & Time of Evaluation Date of Evaluation: 06/14/16 Time of Evaluation: 10:25 - Subjective Subjective: Interim events reviewed. She has remained afebrile post-op. Leukocytosis of 13 noted this morning. Has adequate pain management with ketorolac 15MG. SpO2 noted in the high 90's and EtCO2 low to mid 30's. Instructed on incentive spirometry use, able to do 600mls. Used flutter valve CPT appropriately with congested, but non-productive cough afterwards. Appears comfortable, alert and cooperative, but still becomes confused as before. Neck is supple and trachea midline, no visible JVD. No dullness over the anterior chest wall. Bronchial breathing with egophony in thge LLL posteriorly. Diminished breath sounds in both lungs (baseline). No audible wheezing. Few rhonchi, rare dry rales posteriorly. Need early mobilization to the chair. Continued monitoring of SpO2 and EtCO2. Continued antibiotic for today at least. Repeat CBC in AM tomorrow and decide on antibiotics. Frequent use of incentive spirometer and CPT device are crucial. All maintenance medications and treatments will be continued. Objective - Vital Signs/Intake and Output Vital Signs (last 24 hours): Temp Pulse Resp BP Pulse Ox 98.8 F 92 H 18 102/58 L 96 06/14/16 08:29 06/14/16 09:00 06/14/16 08:29 06/14/16 08:29 06/14/16 08:29 Intake and Output: 06/13/16 06/14/16 23:59 11:59 Intake Total 1230 Output Total 850 Balance 380 - Medications Medications: Current Medications Acetaminophen (Tylenol 325mg Tab) 650 mg PO Q6 PRN PRN Reason: Pain, Mild (1-3) Last Admin: 06/02/16 20:51 Dose: 650 mg Acetylcysteine (Mucomyst 10% 4ml) 2 ml IH RBID [facility] Last Admin: 06/14/16 08:03 Dose: 2 ml Albuterol Sulfate (Albuterol 0.083% Inhal Joi (2.5 Mg/3 Ml) Ud) 2.5 mg INH RQ4 PRN PRN Reason: Shortness of Breath Albuterol/Ipratropium (Duoneb 3 Mg/0.5 Mg (3 Ml) Ud) 3 ml INH RQID [facility] Last Admin: 06/14/16 08:03 Dose: 3 ml Azithromycin (Zithromax) 500 mg PO DAILY [facility] Last Admin: 06/14/16 09:00 Dose: 500 mg Guaifenesin (Mucinex La) 600 mg PO Q12 [facility] Last Admin: 06/14/16 09:00 Dose: 600 mg Piperacillin Sod/Tazobactam (Sod 2.25 gm/ Sodium Chloride) 100 mls @ 100 mls/ hr IVPB Q6 [facility] Last Admin: 06/14/16 09:01 Dose: 100 mls/hr Sodium Chloride (Sodium Chloride 0.9%) 1,000 mls @ 80 mls/hr IV .[id number] [facility] Stop: 06/14/16 15:01 Last Admin: 06/13/16 15:00 Dose: 80 mls/hr Ketorolac Tromethamine (Toradol) 15 mg IVP Q6 PRN PRN Reason: Pain, moderate (4-7) Last Admin: 06/14/16 09:09 Dose: 15 mg Levothyroxine Sodium (Synthroid) 100 mcg PO DAILY@0630 [facility] Last Admin: 06/14/16 07:11 Dose: Not Given Memantine (Namenda) 10 mg PO DAILY [facility] Last Admin: 06/14/16 09:01 Dose: 10 mg Multivitamins/Minerals (Therapeutic-M Tab) 1 tab PO DAILY [facility] Last Admin: 06/14/16 09:00 Dose: 1 tab Nicotine (Nicoderm Cq) 1 patch TD DAILY [facility] Last Admin: 06/14/16 09:01 Dose: 1 patch Pantoprazole Sodium (Protonix Ec Tab) 40 mg PO DAILY [facility] Last Admin: 06/14/16 09:00 Dose: 40 mg Saccharomyces Boulardii (Florastor) 250 mg PO BID [facility] Last Admin: 06/14/16 09:00 Dose: 250 mg - Labs Labs: 06/14/16 06:00 06/14/16 06:00 PT 10.3 SECONDS (9.6-11.2) 06/12/16 05:05 INR 0.99 (0.92-1.08) 06/12/16 05:05 APTT 27.7 SECONDS (23.3-32.5) 06/12/16 05:05 Assessment and Plan (1) Bronchopneumonia Assessment & Plan: Residual. (2) Decompensated chronic obstructive pulmonary disease Assessment & Plan: Improved. (3) Respiratory failure with hypercapnia Assessment & Plan: Chronic. (4) Hip fracture Assessment & Plan: Surgically repaired. (5) Cor pulmonale (chronic) Assessment & Plan: Chronic.
--- NOTE | 2016-06-14 13:55 | PN ---
DATE: 06/14/2016 The patient underwent open reduction internal fixation of a left intertrochanteric fracture yesterday . She denies any chest pain. No reported ventricular arrhythmia. PHYSICAL EXAMINATION: VITAL SIGNS: Blood pressure 102/58, heart rate 92, temperature 98.8, respiration 18. HEENT: Pale conjunctivae. CHEST: Bilateral rhonchi. HEART: S1, S2 regular. EXTREMITIES: No edema. LABORATORIES: Hemoglobin and hematocrit 9.8 and 30.7, white count 13.1, platelet count 633,000. Jamar martinez's SMA-7 is within normal limits except for creatinine of 0.6. Calcium is below normal at 7.4. ASSESSMENT: 1. Right-sided heart failure. 2. Advanced chronic obstructive lung disease. 3. Status post open reduction internal fixation of left intertrochanteric fracture. 4. Hypothyroidism. RECOMMENDATIONS: Continue current oral Zithromax, IV Zosyn and albuterol inhaler. Continue Synthroi d at 100 mcg once a day. Obtain postoperative 12-lead EKG. Teofilo Amaro MD cc: [id number] TT: 06/14/2016 13:54:50 Confirmation # [id number] Dictation # [id number]
[2016-06-14] MEDS: Sodium Chloride 0.9% 1,000 ML IV SCH (16:51)
--- NOTE | 2016-06-14 16:55 | CP.PCM.PN ---
Subjective - Date & Time of Evaluation Date of Evaluation: 06/14/16 Time of Evaluation: 10:00 - Subjective Subjective: Patient seen and examined bedside. In good spirits, pain is controlled. No acute issues overnight. Post op day 1, ORIF of left hip. Hemodynamically stable, afebrile, maintaining O2 sat in the lower 90 % Stil with confusion and memory problems Objective - Vital Signs/Intake and Output Vital Signs (last 24 hours): Temp Pulse Resp BP Pulse Ox 99.1 F 109 H 18 108/64 96 06/14/16 16:00 06/14/16 16:00 06/14/16 16:00 06/14/16 16:00 06/14/16 16:00 Intake and Output: 06/14/16 06/14/16 06:59 18:59 Intake Total 1080 Output Total 500 Balance 580 - Medications Medications: Current Medications Acetaminophen (Tylenol 325mg Tab) 650 mg PO Q6 PRN PRN Reason: Pain, Mild (1-3) Last Admin: 06/02/16 20:51 Dose: 650 mg Acetylcysteine (Mucomyst 10% 4ml) 2 ml IH RBID [facility] Last Admin: 06/14/16 08:03 Dose: 2 ml Albuterol Sulfate (Albuterol 0.083% Inhal Joi (2.5 Mg/3 Ml) Ud) 2.5 mg INH RQ4 PRN PRN Reason: Shortness of Breath Albuterol/Ipratropium (Duoneb 3 Mg/0.5 Mg (3 Ml) Ud) 3 ml INH RQID [facility] Last Admin: 06/14/16 15:31 Dose: 3 ml Azithromycin (Zithromax) 500 mg PO DAILY [facility] Last Admin: 06/14/16 09:00 Dose: 500 mg Guaifenesin (Mucinex La) 600 mg PO Q12 [facility] Last Admin: 06/14/16 09:00 Dose: 600 mg Piperacillin Sod/Tazobactam (Sod 2.25 gm/ Sodium Chloride) 100 mls @ 100 mls/ hr IVPB Q6 [facility] Last Admin: 06/14/16 09:01 Dose: 100 mls/hr Ketorolac Tromethamine (Toradol) 15 mg IVP Q6 PRN PRN Reason: Pain, moderate (4-7) Last Admin: 06/14/16 09:09 Dose: 15 mg Levothyroxine Sodium (Synthroid) 100 mcg PO DAILY@0630 [facility] Last Admin: 06/14/16 07:11 Dose: Not Given Memantine (Namenda) 10 mg PO DAILY [facility] Last Admin: 06/14/16 09:01 Dose: 10 mg Multivitamins/Minerals (Therapeutic-M Tab) 1 tab PO DAILY [facility] Last Admin: 06/14/16 09:00 Dose: 1 tab Nicotine (Nicoderm Cq) 1 patch TD DAILY [facility] Last Admin: 06/14/16 09:01 Dose: 1 patch Pantoprazole Sodium (Protonix Ec Tab) 40 mg PO DAILY [facility] Last Admin: 06/14/16 09:00 Dose: 40 mg Saccharomyces Boulardii (Florastor) 250 mg PO BID [facility] Last Admin: 06/14/16 09:00 Dose: 250 mg - Labs Labs: 06/14/16 06:00 06/14/16 06:00 PT 10.3 SECONDS (9.6-11.2) 06/12/16 05:05 INR 0.99 (0.92-1.08) 06/12/16 05:05 APTT 27.7 SECONDS (23.3-32.5) 06/12/16 05:05 - Constitutional Appears: No Acute Distress, Confused, Cachectic, Chronically Ill - Head Exam Head Exam: ATRAUMATIC, NORMAL INSPECTION, NORMOCEPHALIC - Eye Exam Eye Exam: EOMI, Normal appearance, PERRL Pupil Exam: NORMAL ACCOMODATION - ENT Exam ENT Exam: Mucous Membranes Moist, Normal Exam - Neck Exam Neck Exam: Full ROM, Normal Inspection - Respiratory Exam Respiratory Exam: Decreased Breath Sounds (bibasilar ), Prolonged Expiratory Phase. absent: Accessory Muscle Use, Rales, Rhonchi, Wheezes, Respiratory Distress - Cardiovascular Exam Cardiovascular Exam: REGULAR RHYTHM, RRR, +S1, +S2. absent: JVD - GI/Abdominal Exam GI & Abdominal Exam: Soft, Normal Bowel Sounds. absent: Distended, Guarding, Tenderness, Rebound - Rectal Exam Rectal Exam: Deferred - Extremities Exam Extremities Exam: Normal Inspection. absent: Pedal Edema Additional comments: left hip surgical incision with dressing in place dry and intact - Back Exam Back Exam: NORMAL INSPECTION - Neurological Exam Neurological Exam: Alert, Awake Additional comments: confused - Psychiatric Exam Psychiatric exam: Anxious, Flat Affect - Skin Skin Exam: Dry, Pallor, Warm Assessment and Plan - Assessment and Plan (Free Text) Assessment: 66 years old female with hx of Hypothyroidism, pneumonia, Asthma ,COPD on home Oxygen and, who smokes > than 10 cigarettes daily, was brought to the ED with 2 weeks of worsening SOB, Coughing , always feeling cold, poor memory , not eating nor drinking liquids, referring some dizziness on the day of admission. Patient admitted with diagnosis of acute hypercapnic/ hypoxemic respiratory failure and sepsis . Further work up showed left femur intertrocanteric fracture s/p left ORIF dsay 1 and doing well.Still with episodes of confusion at times so on 1:1 for safety 1. Traumatic Left Femur inter Trochanteric Fracture s/p ORIF day [address] Jim consulted s/p left ORI06/13/16 Doing well, pain controlled , afebrile Continue monitoring in telemetry Discussed with case management and about discharge planning. Due to her cognition impairment,requiring 1:1 for safety discharge to [facility] or acute rehab will be very difficult.Started Physical therapy with partial weight bearing to LLE Will try to place patient closer to nursing station with bed alarms in place during the day Continue incentive spirometry ,CPT flutter, end tidal CO2 monitoring , Duonebs, O2 via NC DVT prophylaxis with lovenox 2.Respiratory Failure with Hypercarbia and Hypoxemia improving Secondary to pneumonia , COPD and CHF exacerbation Off High Flow Oxygen Continue O2 via NC with continuous O2Sat and end tidal CO2 monitoring on Zosyn and Azithro Pulmonary Dr. Ferreira following closely Will monitor in telemetry for now 3. Bibasilar Pneumonia , Mycoplasma Pneumoniae CXR showed bibasilar infiltrates R> L CT Chest 06/04/16 showed moderate to large foci of airspace consolidation in the bilateral lower lobes and right middle lobe likely secondary to atelectasis due to pleural effusion and multifocal pneumonia, emphysematous changes in the bilateral upper lobes. rpt CT scan of [place]: mild to mod effusion WBC normal , afebrile Legionella: negative Mycoplasma IgM + Continue Zosyn and Zithromax Sputum Culture showed Yeast but this is likely oral contaminant Off High Flow O2 and on 4 L O2 via Nc post op 4. COPD exacerbation Continue Duoneb Q4H, mucomyst Avoid steroids since patient has history of hallucinations in the past 5. Sepsis ( POA)- most likely secondary to Pneumonia-- improved CT Chest showed likely multifocal pneumonia WBC trended down to normal Blood , urine Cultures with no growth Sputum Culture showed Yeast which is likely oral contaminant ID Dr. Haile Mcmillan consulted 6.Right Sided Heart Failure Cardiology Dr Amaro ECHO showed EF 60-65 % with dilated RV Lasix was discontinued secondary to hypernatremia present earlier in the admission 7. Cognitive impairment - most likely Dementia Neurology Dr. Rere Garrido recommended Namenda R 14 mg PO 1x/day, Alpha Lipoic Acid 600 mg PO 1x/day, and Coenzyme Q10 400 mg PO 1x/day as outpatient. CT Head 05/31/16 showed generalized volume loss Vitamin B12: WNL TSH and T3 were low therefore dose of Synthroid was increased Continue 1:1 for safety since patient has episodes of confusion and had episode of fall in the unit Repeat XRays post fall showed no new fractures Discussed with son and . Patient will require a lot of supervision for safety upon discharge 8. Hypothyroidism Uncontrolled likely secondary to history of not taking home medications Synthroid was increased from 88 to 100 mcg PO 1x/day 9 .Dehydration with Hypernatremia Secondary to poor PO intake and Lasix (which was discontinued) Encouraged Ensure + Shakes 3x/day Na is back to normal and BUN/Cr improving 10. Nicotine Addiction Nicotine patch daily 11. Hx Slip and Fall in unit on 06/01/16 Continue 1:1 for safety Repeat Pelvis and Hip Xrays 06/01/16 showed no new acute fracture 12. DVt prophylaxis Lovenox 13. Anemia Most likely anemia of chronic disease Transfused 1 unit PRBC preop
[2016-06-15] MEDS: Levothyroxine 100 MCG TAB PO SCH (05:44)
[2016-06-15] MEDS: Albuterol-Ipratrop 3 mg / 0.5 (3 ml) UD INH SCH ×4 (07:20→19:15)
[2016-06-15] MEDS: Acetylcysteine 10% 4 ML IH SCH ×2 (07:20→19:15)
[2016-06-15] MEDS: Saccharomyces Boulardi 250 mg Cap PO SCH ×2 (08:46→17:19)
[2016-06-15] MEDS: guaiFENesin 600 mg ER Tab PO SCH ×2 (08:46→21:15)
[2016-06-15] MEDS: Multivitamin With Minerals Tab PO SCH (08:56)
[2016-06-15] MEDS: Pantoprazole 40 mg EC Tab PO SCH (08:56)
--- NOTE | 2016-06-15 10:00 | CP.PCM.PN ---
Subjective - Date & Time of Evaluation Date of Evaluation: 06/15/16 Time of Evaluation: 10:00 - Subjective Subjective: S-pt with minimal post op discomfort L hip Objective - Vital Signs/Intake and Output Vital Signs (last 24 hours): Temp Pulse Resp BP Pulse Ox 99.1 F 98 H 22 107/61 92 L 06/15/16 08:00 06/15/16 08:00 06/15/16 08:00 06/15/16 08:00 06/15/16 08:00 Intake and Output: 06/15/16 06/15/16 06:59 18:59 Intake Total 200 Output Total 100 Balance 100 - Medications Medications: Current Medications Acetaminophen (Tylenol 325mg Tab) 650 mg PO Q6 PRN PRN Reason: Pain, Mild (1-3) Last Admin: 06/02/16 20:51 Dose: 650 mg Acetylcysteine (Mucomyst 10% 4ml) 2 ml IH RBID [facility] Last Admin: 06/15/16 07:20 Dose: 2 ml Albuterol Sulfate (Albuterol 0.083% Inhal Joi (2.5 Mg/3 Ml) Ud) 2.5 mg INH RQ4 PRN PRN Reason: Shortness of Breath Albuterol/Ipratropium (Duoneb 3 Mg/0.5 Mg (3 Ml) Ud) 3 ml INH RQID [facility] Last Admin: 06/15/16 07:20 Dose: 3 ml Azithromycin (Zithromax) 500 mg PO DAILY [facility] Last Admin: 06/15/16 08:56 Dose: 500 mg Guaifenesin (Mucinex La) 600 mg PO Q12 [facility] Last Admin: 06/15/16 08:46 Dose: 600 mg Piperacillin Sod/Tazobactam (Sod 2.25 gm/ Sodium Chloride) 100 mls @ 100 mls/ hr IVPB Q6 [facility] Last Admin: 06/15/16 09:18 Dose: 100 mls/hr Ketorolac Tromethamine (Toradol) 15 mg IVP Q6 PRN PRN Reason: Pain, moderate (4-7) Last Admin: 06/15/16 03:42 Dose: 15 mg Levothyroxine Sodium (Synthroid) 100 mcg PO DAILY@0630 [facility] Last Admin: 06/15/16 05:44 Dose: 100 mcg Memantine (Namenda) 10 mg PO DAILY [facility] Last Admin: 06/15/16 08:47 Dose: 10 mg Multivitamins/Minerals (Therapeutic-M Tab) 1 tab PO DAILY [facility] Last Admin: 06/15/16 08:56 Dose: 1 tab Nicotine (Nicoderm Cq) 1 patch TD DAILY [facility] Last Admin: 06/15/16 08:54 Dose: 1 patch Pantoprazole Sodium (Protonix Ec Tab) 40 mg PO DAILY [facility] Last Admin: 06/15/16 08:56 Dose: 40 mg Saccharomyces Boulardii (Florastor) 250 mg PO BID [facility] Last Admin: 06/15/16 08:46 Dose: 250 mg - Labs Labs: 06/14/16 06:00 06/14/16 06:00 PT 10.3 SECONDS (9.6-11.2) 06/12/16 05:05 INR 0.99 (0.92-1.08) 06/12/16 05:05 APTT 27.7 SECONDS (23.3-32.5) 06/12/16 05:05 - Additional Findings Additional findings: obj Musculoskekltal stance/gait- defrred N/V intact orthopedically stable'' post op Xrasy- reveal excellent position of constriuct Assessment and Plan - Assessment and Plan (Free Text) Assessment: A- s/p ORTIF L intertrochanteric hip fx P orthopedically stable physaion to continue
[2016-06-15 10:18] LABS: HEMATOCRIT 30.4 % (34.0-47.0); MEAN CORPUSCULAR HEMOGLOBIN 30.7 pg (27.0-31.0); MEAN CORPUSCULAR HGB CONC 32.3 g/dL (33.0-37.0); WHITE BLOOD COUNT 15.2 K/uL (4.8-10.8)
--- NOTE | 2016-06-15 12:17 | CP.PCM.PN ---
Subjective - Date & Time of Evaluation Date of Evaluation: 06/15/16 Time of Evaluation: 11:30 - Subjective Subjective: Pt is sitted on a chair and looks comfortable Pain controlled denies CP no abd pain Per 1:1 staff at bedside , still confused and still needs 1:1 for safety as she tries to get up on her own Objective - Vital Signs/Intake and Output Vital Signs (last 24 hours): Temp Pulse Resp BP Pulse Ox 99.1 F 76 22 107/61 95 06/15/16 08:00 06/15/16 11:20 06/15/16 08:00 06/15/16 08:00 06/15/16 11:20 Intake and Output: 06/15/16 06/15/16 06:59 18:59 Intake Total 200 Output Total 100 Balance 100 - Medications Medications: Current Medications Acetaminophen (Tylenol 325mg Tab) 650 mg PO Q6 PRN PRN Reason: Pain, Mild (1-3) Last Admin: 06/02/16 20:51 Dose: 650 mg Acetylcysteine (Mucomyst 10% 4ml) 2 ml IH RBID [facility] Last Admin: 06/15/16 07:20 Dose: 2 ml Albuterol Sulfate (Albuterol 0.083% Inhal Joi (2.5 Mg/3 Ml) Ud) 2.5 mg INH RQ4 PRN PRN Reason: Shortness of Breath Albuterol/Ipratropium (Duoneb 3 Mg/0.5 Mg (3 Ml) Ud) 3 ml INH RQID [facility] Last Admin: 06/15/16 11:15 Dose: 3 ml Azithromycin (Zithromax) 500 mg PO DAILY [facility] Last Admin: 06/15/16 08:56 Dose: 500 mg Guaifenesin (Mucinex La) 600 mg PO Q12 [facility] Last Admin: 06/15/16 08:46 Dose: 600 mg Piperacillin Sod/Tazobactam (Sod 2.25 gm/ Sodium Chloride) 100 mls @ 100 mls/ hr IVPB Q6 [facility] Last Admin: 06/15/16 09:18 Dose: 100 mls/hr Ketorolac Tromethamine (Toradol) 15 mg IVP Q6 PRN PRN Reason: Pain, moderate (4-7) Last Admin: 06/15/16 03:42 Dose: 15 mg Levothyroxine Sodium (Synthroid) 100 mcg PO DAILY@0630 [facility] Last Admin: 06/15/16 05:44 Dose: 100 mcg Memantine (Namenda) 10 mg PO DAILY [facility] Last Admin: 06/15/16 08:47 Dose: 10 mg Multivitamins/Minerals (Therapeutic-M Tab) 1 tab PO DAILY [facility] Last Admin: 06/15/16 08:56 Dose: 1 tab Nicotine (Nicoderm Cq) 1 patch TD DAILY [facility] Last Admin: 06/15/16 08:54 Dose: 1 patch Pantoprazole Sodium (Protonix Ec Tab) 40 mg PO DAILY [facility] Last Admin: 06/15/16 08:56 Dose: 40 mg Saccharomyces Boulardii (Florastor) 250 mg PO BID [facility] Last Admin: 06/15/16 08:46 Dose: 250 mg - Labs Labs: 06/15/16 07:00 06/14/16 06:00 PT 10.3 SECONDS (9.6-11.2) 06/12/16 05:05 INR 0.99 (0.92-1.08) 06/12/16 05:05 APTT 27.7 SECONDS (23.3-32.5) 06/12/16 05:05 - Constitutional Appears: Chronically Ill - Head Exam Head Exam: NORMAL INSPECTION, NORMOCEPHALIC - Eye Exam Eye Exam: EOMI, Normal appearance Pupil Exam: NORMAL ACCOMODATION - ENT Exam ENT Exam: Mucous Membranes Moist, Normal External Ear Exam - Neck Exam Neck Exam: Full ROM. absent: Meningismus - Respiratory Exam Respiratory Exam: Decreased Breath Sounds, Rales, Rhonchi. absent: Wheezes bilat breast implants - Cardiovascular Exam Cardiovascular Exam: REGULAR RHYTHM, +S1, +S2 - GI/Abdominal Exam GI & Abdominal Exam: Soft, Normal Bowel Sounds. absent: Tenderness - Extremities Exam Extremities Exam: Normal Capillary Refill. absent: Calf Tenderness - Back Exam Back Exam: absent: CVA tenderness (L), CVA tenderness (R) - Neurological Exam Neurological Exam: Alert, Awake, CN II-XII Intact Additional comments: oriented to person and place - Psychiatric Exam Psychiatric exam: Normal Affect, Normal Mood - Skin Skin Exam: Dry, Normal Color Assessment and Plan - Assessment and Plan (Free Text) Assessment: 66 years old female with hx of Hypothyroidism, pneumonia, Asthma ,COPD on home Oxygen and, who smokes > than 10 cigarettes daily, was brought to the ED with 2 weeks of worsening SOB, Coughing , always feeling cold, poor memory , not eating nor drinking liquids, referring some dizziness on the day of admission. Patient admitted with diagnosis of acute hypercapnic/ hypoxemic respiratory failure and sepsis . Further work up showed left femur intertrocanteric fracture s/p left ORIF 06/13 and doing well. Still with episodes of confusion and on 1:1 for safety 1. Traumatic Left Femur inter Trochanteric Fracture s/p ORIF day [address] Jim consulted s/p left ORIF 06/13/16 Doing well, pain controlled , afebrile Continue monitoring in telemetry Discussed with case management and about discharge planning. Due to her cognitive impairment,requiring 1:1 for safety discharge to [facility] or acute rehab will be very difficult. Started Physical therapy with partial weight bearing to LLE Will try to place patient closer to nursing station with bed alarms in place during the day Continue incentive spirometry ,CPT flutter, end tidal CO2 monitoring , Duonebs, O2 via NC DVT prophylaxis with lovenox 2.Respiratory Failure with Hypercarbia and Hypoxemia improving Secondary to pneumonia , COPD and CHF exacerbation Off High Flow Oxygen Continue O2 via NC with continuous O2Sat and end tidal CO2 monitoring on Zosyn and Azithro Pulmonary Dr. Ferreira following closely Will monitor in telemetry for now 3. Bibasilar Pneumonia , Mycoplasma Pneumoniae CXR showed bibasilar infiltrates R> L CT Chest 06/04/16 showed moderate to large foci of airspace consolidation in the bilateral lower lobes and right middle lobe likely secondary to atelectasis due to pleural effusion and multifocal pneumonia, emphysematous changes in the bilateral upper lobes. rpt CT scan of [place]: mild to mod effusion WBC normal , afebrile Legionella: negative Mycoplasma IgM + Continue Zosyn and Zithromax PO Sputum Culture showed Yeast but this is likely oral contaminant Off High Flow O2 and on 4 L O2 via Nc post op 4. COPD exacerbation Continue Duoneb Q4H, mucomyst Avoid steroids since patient has history of hallucinations in the past 5. Sepsis ( POA)- most likely secondary to Pneumonia-- improved CT Chest showed likely multifocal pneumonia WBC trended down to normal Blood , urine Cultures with no growth Sputum Culture showed Yeast which is likely oral contaminant ID Dr. Haile Mcmillan consulted on Zosyn and Azithro 6.Right Sided Heart Failure Cardiology Dr Amaro ECHO showed EF 60-65 % with dilated RV Lasix was discontinued secondary to hypernatremia present earlier in the admission 7. Cognitive impairment - most likely Dementia Neurology Dr. Rere Garrido recommended Namenda R 14 mg PO 1x/day, Alpha Lipoic Acid 600 mg PO 1x/day, and Coenzyme Q10 400 mg PO 1x/day as outpatient. CT Head 05/31/16 showed generalized volume loss Vitamin B12: WNL TSH and T3 were low therefore dose of Synthroid was increased Continue 1:1 for safety since patient has episodes of confusion and had episode of fall in the unit Repeat XRays post fall showed no new fractures Discussed with son and . Patient will require a lot of supervision for safety upon discharge 8. Hypothyroidism Uncontrolled likely secondary to history of not taking home medications Synthroid was increased from 88 to 100 mcg PO 1x/day 9 .Dehydration with Hypernatremia Secondary to poor PO intake and Lasix (which was discontinued) Encouraged Ensure + Shakes 3x/day Na is back to normal and BUN/Cr improving 10. Nicotine Addiction Nicotine patch daily 11. Hx Slip and Fall in unit on 06/01/16 Continue 1:1 for safety Repeat Pelvis and Hip Xrays 06/01/16 showed no new acute fracture 12. DVt prophylaxis ASA 81 mg bid 13. Anemia Most likely anemia of chronic disease Transfused 1 unit PRBC preop
--- NOTE | 2016-06-15 16:45 | PN ---
DATE: 06/15/2016 The patient denies chest pain. She is currently undergoing nebulizer therapy, sitting on a chair. PHYSICAL EXAMINATION: VITAL SIGNS: Blood pressure 97/48, heart rate 72, temperature 98.5, respirations 18. HEENT: Pale conjunctivae. CHEST: Minimal rhonchi. HEART: S1, S2 regular. EXTREMITIES: No edema. LABORATORIES: Hemoglobin and hematocrit 9.8 and 30.4. White count and platelet count are 15.2 and 5 73. ASSESSMENT: 1. Status post open reduction internal fixation of left intratrochanteric fracture. 2. Chronic obstructive lung disease. 3. Right-sided heart failure. 4. Bilateral pneumonia. RECOMMENDATIONS: Continue current bronchodilators. Continue IV Zosyn 2.25 mg q.6 hours, Synthroid 1 00 mcg once a day and Zithromax 500 mg orally once a day. I did reorder an EKG as a postoperative EK G as the one that was ordered yesterday has not been performed yet. The case was discussed with the patient's at the bedside. Teofilo Amaro MD cc: [id number] TT: 06/15/2016 16:45:14 Confirmation # [id number] Dictation # [id number] dn
[2016-06-16] MEDS: Levothyroxine 100 MCG TAB PO SCH (05:49)
[2016-06-16] MEDS: Acetylcysteine 10% 4 ML IH SCH ×2 (07:38→19:26)
[2016-06-16] MEDS: Albuterol-Ipratrop 3 mg / 0.5 (3 ml) UD INH SCH ×4 (07:39→19:26)
[2016-06-16 07:48] LABS: BASO # 0.1 K/uL (0.0-0.2); BASO % 0.9 % (0.0-2.0); EOS # 0.1 K/uL (0.0-0.7); EOS % 1.4 % (0.0-4.0); HEMATOCRIT 28.3 % (34.0-47.0); LYMPH # 0.9 K/uL (1.0-4.3); LYMPH % 10.1 % (20.0-40.0); MEAN CELL VOLUME 95.1 fl (81.0-99.0); MEAN CORPUSCULAR HEMOGLOBIN 31.1 pg (27.0-31.0); MEAN CORPUSCULAR HGB CONC 32.7 g/dL (33.0-37.0); MEAN PLATELET VOLUME 7.2 fl (7.2-11.7); MONO # 0.9 K/uL (0.0-0.8); MONO % 9.5 % (0.0-10.0); NEUT # 7.1 K/uL (1.8-7.0); NEUT % 78.1 % (50.0-75.0); RED CELL DISTRIBUTION WIDTH 16.3 % (11.5-14.5)
--- NOTE | 2016-06-16 08:27 | CP.PCM.PN ---
Subjective - Date & Time of Evaluation Date of Evaluation: 06/16/16 Time of Evaluation: 08:25 - Subjective Subjective: Patient seen and evaluated bedside. Lying in bed , comfortably in NAD.Minimal discomfort from left hip as per patient. Hemodynamically stable. On 4 L Via NC maintaining O2 Sat between 92-97 %. Afebrile. No acute issues overnight Still with poor memory Objective - Vital Signs/Intake and Output Vital Signs (last 24 hours): Temp Pulse Resp BP Pulse Ox 97.6 F 54 L 20 91/56 L 97 06/16/16 00:04 06/16/16 00:04 06/16/16 00:04 06/16/16 00:04 06/16/16 00:04 Intake and Output: 06/16/16 06/16/16 06:59 18:59 Intake Total 1060 Output Total 600 Balance 460 - Medications Medications: Current Medications Acetaminophen (Tylenol 325mg Tab) 650 mg PO Q6 PRN PRN Reason: Pain, Mild (1-3) Last Admin: 06/02/16 20:51 Dose: 650 mg Acetylcysteine (Mucomyst 10% 4ml) 2 ml IH RBID [facility] Last Admin: 06/16/16 07:38 Dose: 2 ml Albuterol Sulfate (Albuterol 0.083% Inhal Joi (2.5 Mg/3 Ml) Ud) 2.5 mg INH RQ4 PRN PRN Reason: Shortness of Breath Albuterol/Ipratropium (Duoneb 3 Mg/0.5 Mg (3 Ml) Ud) 3 ml INH RQID [facility] Last Admin: 06/16/16 07:39 Dose: 3 ml Aspirin (Ecotrin) 81 mg PO BID [facility] Last Admin: 06/15/16 19:13 Dose: 81 mg Azithromycin (Zithromax) 500 mg PO DAILY [facility] Last Admin: 06/15/16 08:56 Dose: 500 mg Guaifenesin (Mucinex La) 600 mg PO Q12 [facility] Last Admin: 06/15/16 21:15 Dose: Not Given Piperacillin Sod/Tazobactam (Sod 2.25 gm/ Sodium Chloride) 100 mls @ 100 mls/ hr IVPB Q6 [facility] Last Admin: 06/16/16 03:24 Dose: 100 mls/hr Ketorolac Tromethamine (Toradol) 15 mg IVP Q6 PRN PRN Reason: Pain, moderate (4-7) Last Admin: 06/15/16 17:53 Dose: 15 mg Levothyroxine Sodium (Synthroid) 100 mcg PO DAILY@0630 [facility] Last Admin: 06/16/16 05:49 Dose: 100 mcg Memantine (Namenda) 10 mg PO DAILY [facility] Last Admin: 06/15/16 08:47 Dose: 10 mg Multivitamins/Minerals (Therapeutic-M Tab) 1 tab PO DAILY [facility] Last Admin: 06/15/16 08:56 Dose: 1 tab Nicotine (Nicoderm Cq) 1 patch TD DAILY [facility] Last Admin: 06/15/16 08:54 Dose: 1 patch Pantoprazole Sodium (Protonix Ec Tab) 40 mg PO DAILY [facility] Last Admin: 06/15/16 08:56 Dose: 40 mg Saccharomyces Boulardii (Florastor) 250 mg PO BID [facility] Last Admin: 06/15/16 17:19 Dose: 250 mg - Labs Labs: 06/16/16 06:10 06/14/16 06:00 PT 10.3 SECONDS (9.6-11.2) 06/12/16 05:05 INR 0.99 (0.92-1.08) 06/12/16 05:05 APTT 27.7 SECONDS (23.3-32.5) 06/12/16 05:05 - Constitutional Appears: Non-toxic, Older Than Stated Age, Cachectic - Head Exam Head Exam: ATRAUMATIC, NORMAL INSPECTION, NORMOCEPHALIC - Eye Exam Eye Exam: EOMI, Normal appearance, PERRL Pupil Exam: NORMAL ACCOMODATION - ENT Exam ENT Exam: Mucous Membranes Moist, Normal Exam - Neck Exam Neck Exam: Full ROM, Normal Inspection - Respiratory Exam Respiratory Exam: Decreased Breath Sounds (bibasilar ), Clear to Ausculation Bilateral. absent: Rhonchi, Wheezes - Cardiovascular Exam Cardiovascular Exam: REGULAR RHYTHM, RRR, +S1, +S2. absent: JVD - GI/Abdominal Exam GI & Abdominal Exam: Soft, Normal Bowel Sounds. absent: Distended, Guarding, Rebound - Rectal Exam Rectal Exam: Deferred - Extremities Exam Extremities Exam: absent: Calf Tenderness, Pedal Edema Additional comments: Left hip surgica incision with dressing in place, clean and dry - Back Exam Back Exam: NORMAL INSPECTION - Neurological Exam Neurological Exam: Alert, Awake, CN II-XII Intact - Psychiatric Exam Psychiatric exam: Normal Affect - Skin Skin Exam: Dry, Pallor, Warm Assessment and Plan - Assessment and Plan (Free Text) Assessment: 66 years old female with hx of Hypothyroidism, pneumonia, Asthma ,COPD on home Oxygen and, who smokes > than 10 cigarettes daily, was brought to the ED with 2 weeks of worsening SOB, Coughing , always feeling cold, poor memory , not eating nor drinking liquids, referring some dizziness on the day of admission. Patient admitted with diagnosis of acute hypercapnic/ hypoxemic respiratory failure and sepsis . Further work up showed left femur intertrocanteric fracture Has been treated with IV antibiortics, duonebs for pneumonia Underwent left ORIF 06/13 and doing well. Still with episodes of confusion, poor memory and on 1:1 for safety 1. Traumatic Left Femur inter Trochanteric Fracture s/p ORIF day [address] Jim consulted s/p left ORIF 06/13/16 Doing well, pain controlled , afebrile Continue monitoring in telemetry Discussed with case management and about discharge planning. Due to her cognitive impairment,requiring 1:1 for safety discharge to [facility] or acute rehab will be very difficult. Started Physical therapy with partial weight bearing to LLE and will continue everyday Will try to place patient closer to nursing station with bed alarms in place during the day Continue incentive spirometry ,CPT flutter, end tidal CO2 monitoring , Duonebs, O2 via NC DVT prophylaxis with ASA 81 BID 2.Respiratory Failure with Hypercarbia and Hypoxemia improving Secondary to pneumonia , COPD and CHF exacerbation Off High Flow Oxygen Continue O2 via NC with continuous O2Sat and end tidal CO2 monitoring on Zosyn and Azithro Pulmonary Dr. Ferreira following closely Will monitor in telemetry for now 3. Bibasilar Pneumonia , Mycoplasma Pneumoniae CXR showed bibasilar infiltrates R> L CT Chest 06/04/16 showed moderate to large foci of airspace consolidation in the bilateral lower lobes and right middle lobe likely secondary to atelectasis due to pleural effusion and multifocal pneumonia, emphysematous changes in the bilateral upper lobes. rpt CT scan of [place]: mild to mod effusion WBC normal , afebrile Legionella: negative Mycoplasma IgM + Continue Zosyn and Zithromax PO Sputum Culture showed Yeast but this is likely oral contaminant Off High Flow O2 and on 4 L O2 via Nc post op 4. COPD exacerbation Continue Duoneb Q4H, mucomyst Avoid steroids since patient has history of hallucinations in the past 5. Sepsis ( POA)- most likely secondary to Pneumonia-- improved CT Chest showed likely multifocal pneumonia WBC trended down to normal Blood , urine Cultures with no growth Sputum Culture showed Yeast which is likely oral contaminant ID Dr. Haile Mcmillan consulted on Zosyn and Azithro 6.Right Sided Heart Failure Cardiology Dr Amaro ECHO showed EF 60-65 % with dilated RV Lasix was discontinued secondary to hypernatremia present earlier in the admission 7. Cognitive impairment - most likely Dementia Neurology Dr. Rere Garrido recommended Namenda R 14 mg PO 1x/day, Alpha Lipoic Acid 600 mg PO 1x/day, and Coenzyme Q10 400 mg PO 1x/day as outpatient. CT Head 05/31/16 showed generalized volume loss Vitamin B12: WNL TSH and T3 were low therefore dose of Synthroid was increased Continue 1:1 for safety since patient has episodes of confusion and had episode of fall in the unit Repeat XRays post fall showed no new fractures Discussed with son and . Patient will require a lot of supervision for safety upon discharge 8. Hypothyroidism Uncontrolled likely secondary to history of not taking home medications Synthroid was increased from 88 to 100 mcg PO 1x/day 9 .Dehydration with Hypernatremia Secondary to poor PO intake and Lasix (which was discontinued) Encouraged Ensure + Shakes 3x/day Na is back to normal and BUN/Cr improving 10. Nicotine Addiction Nicotine patch daily 11. Hx Slip and Fall in unit on 06/01/16 Continue 1:1 for safety Repeat Pelvis and Hip Xrays 06/01/16 showed no new acute fracture 12. DVt prophylaxis ASA 81 mg bid 13. Anemia Most likely anemia of chronic disease Transfused 1 unit PRBC preop
[2016-06-16] MEDS: Pantoprazole 40 mg EC Tab PO SCH (08:59)
[2016-06-16] MEDS: guaiFENesin 600 mg ER Tab PO SCH ×2 (08:59→21:58)
[2016-06-16] MEDS: Multivitamin With Minerals Tab PO SCH (09:00)
[2016-06-16] MEDS: Saccharomyces Boulardi 250 mg Cap PO SCH ×2 (09:00→16:41)
--- NOTE | 2016-06-16 09:04 | CARD ---
APPROVED REPORT EKG Measurement Heart [id number] <Conclusion> Sinus rhythm with premature supraventricular complexes Low voltage QRS Borderline ECG
--- NOTE | 2016-06-16 15:11 | PN ---
DATE: 06/16/2016 The patient denies any chest pain. She is mildly short of breath and coughing. One-to-one watch was discontinued. No reported ventricular arrhythmia. PHYSICAL EXAMINATION: VITAL SIGNS: Blood pressure 107/62, heart rate 101, temperature 98.8, respiration 18. HEENT: Pale conjunctivae. CHEST: Minimal rhonchi. HEART: S1, S2 regular. EXTREMITIES: No edema. LABORATORIES: Today's hemoglobin and hematocrit 9.2 and 28.3, platelet count 496, white count is 9.0 . EKG done yesterday revealed normal sinus rhythm, occasional APCs. ASSESSMENT: 1. Status post open reduction internal fixation of left intratrochanteric fracture. 2. Chronic obstructive lung disease and right-sided heart failure. 3. Anemia. RECOMMENDATIONS: Continue current aspirin 81 mg twice a day, Mucinex LA 600 mg twice a day, albutero l inhaler, Synthroid 100 mcg once a day. May discontinue telemetry. Teofilo Amaro MD cc: [id number] TT: 06/16/2016 14:51:36 Confirmation # [id number] Dictation # [id number]
[2016-06-17] MEDS: Levothyroxine 100 MCG TAB PO SCH (06:10)
[2016-06-17] MEDS: Albuterol-Ipratrop 3 mg / 0.5 (3 ml) UD INH SCH ×2 (08:13→11:18)
[2016-06-17] MEDS: Acetylcysteine 10% 4 ML IH SCH (08:14)
--- NOTE | 2016-06-17 08:54 | CP.PCM.PN ---
Subjective - Date & Time of Evaluation Date of Evaluation: 06/17/16 Time of Evaluation: 08:50 - Subjective Subjective: Interim events reviewed. She has done quite well thus far. 1:1 observation has been discontinued. Vital signs remain stable, adequate oxygenation. She continues to be afebrile. Very forgetful, but easily redirected. Parenteral antibiotics have been discontinued. Oxygen decreased to 3LPM nasal canula. Repeat labs requested. PCXR performed just now. No tobacco for the last 2.5 weeks using 21MG nicotine patch . Appears ready for discharge to rehab. Objective - Vital Signs/Intake and Output Vital Signs (last 24 hours): Temp Pulse Resp BP Pulse Ox 98.3 F 89 20 121/69 92 L 06/17/16 08:00 06/17/16 08:00 06/17/16 08:00 06/17/16 08:00 06/17/16 08:00 - Medications Medications: Current Medications Acetaminophen (Tylenol 325mg Tab) 975 mg PO QID PRN PRN Reason: Pain, moderate (4-7) Albuterol Sulfate (Albuterol 0.083% Inhal Joi (2.5 Mg/3 Ml) Ud) 2.5 mg INH RQ4 PRN PRN Reason: Shortness of Breath Albuterol/Ipratropium (Duoneb 3 Mg/0.5 Mg (3 Ml) Ud) 3 ml INH RQID [facility] Last Admin: 06/17/16 08:13 Dose: 3 ml Aspirin (Ecotrin) 81 mg PO BID [facility] Last Admin: 06/16/16 16:41 Dose: 81 mg Azithromycin (Zithromax) 250 mg PO DAILY [facility] Stop: 06/20/16 09:01 Guaifenesin (Mucinex La) 600 mg PO Q12 [facility] Last Admin: 06/16/16 21:58 Dose: 600 mg Levothyroxine Sodium (Synthroid) 100 mcg PO DAILY@0630 [facility] Last Admin: 06/17/16 06:10 Dose: 100 mcg Memantine (Namenda) 10 mg PO DAILY [facility] Last Admin: 06/16/16 09:00 Dose: 10 mg Multivitamins/Minerals (Therapeutic-M Tab) 1 tab PO DAILY [facility] Last Admin: 06/16/16 09:00 Dose: 1 tab Nicotine (Nicoderm Cq) 1 patch TD DAILY [facility] Last Admin: 06/16/16 09:00 Dose: 1 patch Pantoprazole Sodium (Protonix Ec Tab) 40 mg PO DAILY [facility] Last Admin: 06/16/16 08:59 Dose: 40 mg Saccharomyces Boulardii (Florastor) 250 mg PO BID [facility] Last Admin: 06/16/16 16:41 Dose: 250 mg - Labs Labs: 06/16/16 06:10 06/14/16 06:00 PT 10.3 SECONDS (9.6-11.2) 06/12/16 05:05 INR 0.99 (0.92-1.08) 06/12/16 05:05 APTT 27.7 SECONDS (23.3-32.5) 06/12/16 05:05 Assessment and Plan (1) Bronchopneumonia (2) Decompensated chronic obstructive pulmonary disease (3) Respiratory failure with hypercapnia (4) Hip fracture (5) Cor pulmonale (chronic)
[2016-06-17] MEDS: guaiFENesin 600 mg ER Tab PO SCH (09:19)
[2016-06-17] MEDS: Pantoprazole 40 mg EC Tab PO SCH (09:20)
[2016-06-17] MEDS: Saccharomyces Boulardi 250 mg Cap PO SCH (09:20)
[2016-06-17] MEDS: Multivitamin With Minerals Tab PO SCH (09:20)
--- NOTE | 2016-06-17 10:24 | RAD ---
HISTORY: pneumonia COMPARISON: No prior. FINDINGS: LUNGS: Bibasilar atelectasis/infiltrates and bilateral effusions left larger than right. Note that partially calcified bilateral breast implants partially obscure detailed in the mid to lower lung tapia. PLEURA: No pneumothorax apparent. CARDIOVASCULAR: . Heart is mildly enlarged. OSSEOUS STRUCTURES: Note again made of inferior margin of an ACDF plate overlying the lower cervical spine VISUALIZED UPPER ABDOMEN: Normal. OTHER FINDINGS: None. IMPRESSION: Bibasilar atelectasis/infiltrates and bilateral effusions left larger than right. Note that partially calcified bilateral breast implants partially obscure detailed in the mid to lower lung tapia.
[2016-06-17 12:23] VITALS: RESP 18
--- NOTE | 2016-06-17 14:50 | CP.PCM.DIS ---
Provider - Provider Date of Admission: 05/30/16 19:25 Attending physician: Rik Vanegas Primary care physician: Moses Ferreira MD Consults: pulmonary consult Id consult ortho consult PT/Ot consult cardiology consult neurology consult Time Spent in preparation of Discharge (in minutes): 20 Hospital Course - Lab Results Lab Results: Micro Results 06/05/16 07:11 Naris MRSA Culture (Admit) - Final MRSA NOT DETECTED 06/02/16 15:30 Sputum Gram Stain - Final 06/02/16 15:30 Sputum Sputum Culture - Final Yeast Species 05/31/16 00:30 Urine,Catheterized Urine Culture - Final No Growth (<1,000 CFU/ML) Most Recent Lab Values WBC 9.0 K/uL (4.8-10.8) 06/16/16 06:10 RBC 2.97 Mil/uL (3.80-5.20) L 06/16/16 06:10 Hgb 9.2 g/dL (12.0-16.0) L 06/16/16 06:10 Hct 28.3 % (34.0-47.0) L 06/16/16 06:10 MCV 95.1 fl (81.0-99.0) 06/16/16 06:10 MCH 31.1 pg (27.0-31.0) H 06/16/16 06:10 MCHC 32.7 g/dL (33.0-37.0) L 06/16/16 06:10 RDW 16.3 % (11.5-14.5) H 06/16/16 06:10 Plt Count 496 K/uL (130-400) H 06/16/16 06:10 MPV 7.2 fl (7.2-11.7) 06/16/16 06:10 Neut % (Auto) 78.1 % (50.0-75.0) H 06/16/16 06:10 Lymph % (Auto) 10.1 % (20.0-40.0) L 06/16/16 06:10 [place] % (Auto) 9.5 % (0.0-10.0) 06/16/16 06:10 Eos % (Auto) 1.4 % (0.0-4.0) 06/16/16 06:10 Baso % (Auto) 0.9 % (0.0-2.0) 06/16/16 06:10 Neut # 7.1 K/uL (1.8-7.0) H 06/16/16 06:10 Lymph # 0.9 K/uL (1.0-4.3) L 06/16/16 06:10 [place] # 0.9 K/uL (0.0-0.8) H 06/16/16 06:10 Eos # 0.1 K/uL (0.0-0.7) 06/16/16 06:10 Baso # 0.1 K/uL (0.0-0.2) 06/16/16 06:10 Total Counted Cancelled 06/06/16 06:30 Neutrophils % (Manual) 88 % (42-75) H 06/03/16 05:05 Band Neutrophils % 6 % (0-2) H 05/31/16 04:45 Lymphocytes % (Manual) 5 % (20-50) L 06/03/16 05:05 Reactive Lymphs % Cancelled 06/06/16 06:30 Monocytes % (Manual) 4 % (0-10) 06/03/16 05:05 Eosinophils % (Manual) Cancelled 06/06/16 06:30 Basophils % (Manual) Cancelled 06/06/16 06:30 Metamyelocytes % 1 % (0-0) H 06/03/16 05:05 Myelocytes % 1 % (0-0) H 06/03/16 05:05 Promyelocytes % Cancelled 06/06/16 06:30 Blast Cells % Cancelled 06/06/16 06:30 Plasma Cell % (Manual) 1 (0-0) H 06/03/16 05:05 Nucleated RBC % 2 % (0-0) H 06/03/16 05:05 Hypersegmented Polys Cancelled 06/06/16 06:30 Smudge Cells Cancelled 06/06/16 06:30 Toxic Granulation Present 06/03/16 05:05 Dohle Bodies Cancelled 06/06/16 06:30 Lillie Rods Cancelled 06/06/16 06:30 Platelet Estimate Normal (NORMAL) 06/03/16 05:05 Plt Clumps, EDTA Cancelled 06/06/16 06:30 Large Platelets Present 06/03/16 05:05 Giant Platelets Present 06/03/16 05:05 RBC Morphology Cancelled 06/06/16 06:30 Polychromasia Cancelled 06/06/16 06:30 Hypochromasia (manual) Moderate 06/03/16 05:05 Poikilocytosis (manual Cancelled 06/06/16 06:30 Basophilic Stippling Cancelled 06/06/16 06:30 Anisocytosis (manual) Slight 06/03/16 05:05 Microcytosis (manual) Cancelled 06/06/16 06:30 Macrocytosis (manual) Slight 05/30/16 17:30 Spherocytes Cancelled 06/06/16 06:30 Sickle Cells Cancelled 06/06/16 06:30 Target Cells Slight 06/03/16 05:05 Tear Drop Cells Cancelled 06/06/16 06:30 Ovalocytes Cancelled 06/06/16 06:30 Stomatocytes Cancelled 06/06/16 06:30 Helmet Cells Cancelled 06/06/16 06:30 Morris-Summer Set Bodies Cancelled 06/06/16 06:30 Narayan Cells Cancelled 06/06/16 06:30 Acanthocytes (Spur) Cancelled 06/06/16 06:30 Rouleaux Cancelled 06/06/16 06:30 Schistocytes Cancelled 06/06/16 06:30 PT 10.3 SECONDS (9.6-11.2) 06/12/16 05:05 INR 0.99 (0.92-1.08) 06/12/16 05:05 APTT 27.7 SECONDS (23.3-32.5) 06/12/16 05:05 pCO2 66 mm/Hg (35-45) H 06/03/16 05:36 pO2 81 mm/Hg (80-100) 06/03/16 05:36 HCO3 31.9 mmol/L (21-28) H 06/03/16 05:36 ABG pH 7.35 (7.35-7.45) 06/03/16 05:36 ABG Total CO2 38.4 mmol/L (22-28) H 06/03/16 05:36 ABG O2 Saturation 97.9 % (95-98) 06/03/16 05:36 ABG O2 Content 13.6 ML/dL (15-23) L 06/03/16 05:36 ABG Base Excess 9.0 mmol/L (-2.0-3.0) H 06/03/16 05:36 ABG Hemoglobin 10.1 g/dL (11.7-17.4) L 06/03/16 05:36 ABG Carboxyhemoglobin 1.8 % (0.5-1.5) H 06/03/16 05:36 POC ABG HHb (Measured) 2.0 % (0.0-5.0) 06/03/16 05:36 ABG Methemoglobin 1.2 % (0.0-3.0) 06/03/16 05:36 ABG O2 Capacity 13.9 mL/dL (16-24) L 06/03/16 05:36 Lino Test Yes 06/03/16 05:36 VBG pH 7.26 (7.32-7.43) L 05/30/16 19:00 VBG pCO2 90 mmHg (40-60) H* 05/30/16 19:00 VBG HCO3 31.2 mmol/L 05/30/16 19:00 VBG Total CO2 43.2 mmol/L (22-28) H 05/30/16 19:00 VBG O2 Sat (Calc) 64.2 % (40-65) 05/30/16 19:00 VBG Base Excess 9.6 mmol/L (0.0-2.0) H 05/30/16 19:00 VBG Potassium 4.1 mmol/L (3.6-5.2) 05/30/16 19:00 A-a O2 Difference 193.0 mm/Hg 06/03/16 05:36 Hgb O2 Saturation 95.0 % (95.0-98.0) 06/03/16 05:36 Sodium 140.0 mmol/L (132-148) 05/30/16 19:00 Chloride 103.0 mmol/L (98-107) 05/30/16 19:00 Glucose 194 mg/dL (65-105) H 05/30/16 19:00 Lactate 2.5 mmol/L (0.7-2.1) H 05/30/16 19:00 Liter Flow 30 06/02/16 08:35 Vent Mode Hfnc 06/02/16 08:35 Mechanical Rate 20 05/31/16 04:51 FiO2 50.0 % 06/03/16 05:36 Inspiratory BiPAP 14 05/31/16 04:51 Expiratory BiPAP 5 05/31/16 04:51 Blood Gas Comments Vbg 05/30/16 19:00 Crit Value Called To Deisi iglesias 05/31/16 04:51 Crit Value Called By [id number] 05/31/16 04:51 Crit Value Read Back Y 05/31/16 04:51 Blood Gas Notified Time 507 05/31/16 04:51 Sodium 138 mmol/l (132-148) 06/14/16 06:00 Potassium 3.7 MMOL/L (3.6-5.0) 06/14/16 06:00 Chloride 100 mmol/L (98-107) 06/14/16 06:00 Carbon Dioxide 30 mmol/L (22-30) 06/14/16 06:00 Anion Gap 12 (10-20) 06/14/16 06:00 BUN 14 mg/dl (7-17) 06/14/16 06:00 Creatinine 0.6 mg/dL (0.7-1.2) L 06/14/16 06:00 Est GFR ( Amer) > 60 06/14/16 06:00 Est GFR (Non-Af Amer) > 60 06/14/16 06:00 POC Glucose (mg/dL) 143 mg/dL (65-110) H 06/10/16 21:34 Random Glucose 103 mg/dL (65-105) 06/14/16 06:00 Hemoglobin A1c 5.5 % (4.2-6.5) 05/31/16 04:45 Lactic Acid 1.3 MMOL/L (0.7-2.1) 05/31/16 04:45 Calcium 7.4 mg/dL (8.4-10.2) L 06/14/16 06:00 Magnesium 2.9 MG/DL (1.6-2.3) H 05/30/16 17:30 Total Bilirubin 0.2 mg/dl (0.2-1.3) 06/06/16 06:30 AST 35 U/L (14-36) 06/06/16 06:30 ALT 38 U/L (9-52) 06/06/16 06:30 Alkaline Phosphatase 90 U/L (38-126) 06/06/16 06:30 Troponin I 0.1020 ng/mL (0.00-0.120) 05/30/16 17:30 NT-Pro-B Natriuret Pep 5920 pg/ml (0-900) H 06/02/16 06:15 Total Protein 5.2 G/DL (6.3-8.2) L 06/06/16 06:30 Albumin 2.3 g/dL (3.5-5.0) L 06/06/16 06:30 Globulin 2.9 gm/dL (2.2-3.9) 06/06/16 06:30 Albumin/Globulin Ratio 0.8 (1.0-2.1) L 06/06/16 06:30 Vitamin B12 425 pg/mL (239-931) 06/01/16 05:30 Procalcitonin 0.23 NG/ML (0.19-0.49) 06/03/16 09:10 Thyroxine (T4) 5.88 ug/dl (5.5-11.0) 06/01/16 05:30 Total T3 0.499 nmol/L (1.49-2.60) L 06/01/16 05:30 TSH 3rd Generation 0.30 mIU/ML (0.46-4.68) L 05/30/16 17:30 Venous Blood Potassium 4.1 mmol/L (3.6-5.2) 05/30/16 19:00 Urine Color Clarissa (YELLOW) 05/31/16 00:30 Urine Clarity Slighty-cloudy (Clear) 05/31/16 00:30 Urine pH 6.0 (5.0-8.0) 05/31/16 00:30 Ur Specific [place] 1.025 (1.003-1.030) 05/31/16 00:30 Urine Protein 100 mg/dL (NEGATIVE) 05/31/16 00:30 Urine Glucose (UA) Neg mg/dL (Normal) 05/31/16 00:30 Urine Ketones Trace mg/dL (NEGATIVE) 05/31/16 00:30 Urine Blood Small (NEGATIVE) 05/31/16 00:30 Urine Nitrate Negative (NEGATIVE) 05/31/16 00:30 Urine Bilirubin Negative (NEGATIVE) 05/31/16 00:30 Urine Urobilinogen 0.2-1.0 mg/dL (0.2-1.0) 05/31/16 00:30 Ur Leukocyte Esterase Neg Gerardo/uL (Negative) 05/31/16 00:30 Urine RBC (Auto) 6 /hpf (0-3) H 05/31/16 00:30 Urine Microscopic WBC 3 /hpf (0-5) 05/31/16 00:30 Ur Squamous Epith Cells < 1 /hpf (0-5) 05/31/16 00:30 Urine Bacteria Rare (<OCC) 05/31/16 00:30 Hyaline Casts 0-2 /hpf (0-2) 05/31/16 00:30 Urine Opiates Screen Negative (NEGATIVE) 05/31/16 14:00 Urine Methadone Screen Negative (NEGATIVE) 05/31/16 14:00 Ur Barbiturates Screen Negative (NEGATIVE) 05/31/16 14:00 Ur Phencyclidine Scrn Negative (NEGATIVE) 05/31/16 14:00 Ur Amphetamines Screen Negative (NEGATIVE) 05/31/16 14:00 U Benzodiazepines Scrn Negative (NEGATIVE) 05/31/16 14:00 U Oth Cocaine Metabols Negative (NEGATIVE) 05/31/16 14:00 U Cannabinoids Screen Negative (NEGATIVE) 05/31/16 14:00 Influenza Typ A,B (EIA) Negative for flu a/b (NEGATIVE) 05/30/16 19:15 Urine Legionella Ag Not detected (Not Detected) 06/03/16 08:16 Mycoplasma pneumon IgG 3.55 (<=0.90) H 06/07/16 13:23 Mycoplasma pneumon IgM 990 U/mL (<770) H 06/07/16 13:23 Blood Type A POSITIVE 06/13/16 05:15 Blood Type Confirm A POSITIVE 06/10/16 15:00 Antibody Screen Negative 06/13/16 05:15 Crossmatch See Detail 06/13/16 05:15 BBK History Checked Patient has bt 06/13/16 05:15 - Hospital Course Hospital Course: 66 years old female with hx of Hypothyroidism, pneumonia, Asthma ,COPD on home Oxygen and, who smokes > than 10 cigarettes daily, was brought to the ED with 2 weeks of worsening SOB, Coughing , always feeling cold, poor memory , not eating nor drinking liquids, referring some dizziness on the day of admission. Patient admitted with diagnosis of acute hypercapnic/ hypoxemic respiratory failure and sepsis . Further work up showed left femur intertrocanteric fracture Has been treated with IV antibiortics, duonebs for pneumonia Underwent left ORIF 06/13 and doing well. Still with episodes of confusion, poor memory.Will discharge patient to [facility] for continuation of physical therapy. will need close observation for safety. 1. Traumatic Left Femur inter Trochanteric Fracture s/p ORIF day [address] Jim consulted s/p left ORIF 06/13/16 Doing well, pain controlled , afebrile Cleared by pulmonary and ortho for discharge to [facility] Due to her cognitive impairment will need close monitoring for high risk of fall ,upon discharge to [facility] Partial weight bearing to LLE DVT prophylaxis with ASA 81 BID 2.Respiratory Failure with Hypercarbia and Hypoxemia improving Secondary to pneumonia , COPD and CHF exacerbation Off High Flow Oxygen Continue 3 L O2 via [place] Continue Azithro 250 mg po QD for [address] Ferreira consulted and managed patient from pulmonary point of view Continue mucinex, duonebs, advair 3. Bibasilar Pneumonia , Mycoplasma Pneumoniae CXR showed bibasilar infiltrates R> L CT Chest 06/04/16 showed moderate to large foci of airspace consolidation in the bilateral lower lobes and right middle lobe likely secondary to atelectasis due to pleural effusion and multifocal pneumonia, emphysematous changes in the bilateral upper lobes. rpt CT scan of [place]: mild to mod effusion WBC normal , afebrile Legionella: negative Mycoplasma IgM + Received Zosyn and Zithromaxfor 2 weeks. Continue Zithromax for 4 more days Sputum Culture showed Yeast but this is likely oral contaminant Off High Flow O2 and on 3 L O2 via [place] at present 4. COPD exacerbation Continue Duoneb Q4H, mucomyst Avoid steroids since patient has history of hallucinations in the past 5. Sepsis ( POA)- most likely secondary to Pneumonia-- improved CT Chest showed likely multifocal pneumonia WBC trended down to normal Blood , urine Cultures with no growth Sputum Culture showed Yeast which is likely oral contaminant ID Dr. Haile Mcmillan consulted received Zosyn and Azithro 6.Right Sided Heart Failure Cardiology Dr Amaro ECHO showed EF 60-65 % with dilated RV Lasix was discontinued secondary to hypernatremia present earlier in the admission 7. Cognitive impairment - most likely Dementia Neurology Dr. A. Radhika recommended Namenda R 14 mg PO 1x/day, Alpha Lipoic Acid 600 mg PO 1x/day, and Coenzyme Q10 400 mg PO 1x/day as outpatient. CT Head 05/31/16 showed generalized volume loss Vitamin B12: WNL TSH and T3 were low therefore dose of Synthroid was increased to 100 mcg PO QD Repeat XRays post fall showed no new fractures Discussed with son and . Patient will require a lot of supervision for safety upon discharge 8. Hypothyroidism Uncontrolled likely secondary to history of not taking home medications Synthroid was increased from 88 to 100 mcg PO 1x/day 9 .Dehydration with Hypernatremia Secondary to poor PO intake and Lasix (which was discontinued) Encouraged Ensure + Shakes 3x/day Na is back to normal and BUN/Cr improving 10. Nicotine Addiction Nicotine patch daily 11. Hx Slip and Fall in unit on 06/01/16 Repeat Pelvis and Hip Xrays 06/01/16 showed no new acute fracture 12. DVt prophylaxis ASA 81 mg bid 13. Anemia Most likely anemia of chronic disease Transfused 1 unit PRBC preop Discharge Exam - Head Exam Head Exam: ATRAUMATIC, NORMAL INSPECTION, NORMOCEPHALIC - Eye Exam Eye Exam: EOMI, Normal appearance, PERRL Pupil Exam: NORMAL ACCOMODATION - ENT Exam ENT Exam: Mucous Membranes Moist, Normal Exam - Neck Exam Neck exam: Full Rom, Normal Inspection - Respiratory Exam Respiratory Exam: Clear to PA & Lateral. absent: Rhonchi, Wheezes - Cardiovascular Exam Cardiovascular Exam: REGULAR RHYTHM, RRR, +S1, +S2. absent: JVD - GI/Abdominal Exam GI & Abdominal Exam: Normal Bowel Sounds, Soft. absent: Distended, Guarding, Rebound, Tenderness - Rectal Exam Rectal Exam: Deferred - Extremities Exam Extremities exam: normal inspection, pedal pulses present Additional comments: left hip surgical incision with dressing in place - Back Exam Back exam: NORMAL INSPECTION - Neurological Exam Neurological exam: Alert, CN II-XII Intact Additional comments: demented with poor cognition and memory - Psychiatric Exam Psychiatric exam: Flat Affect - Skin Skin Exam: Dry, Pallor, Warm Discharge Plan - Discharge Medications Prescriptions: Alpha Lipoic Acid 600 mg PO DAILY #60 capsule Ubidecarenone [Coq-10] 400 mg PO DAILY #120 capsule Memantine HCl [Namenda Xr] 14 mg PO DAILY #60 cap.spr.24 Azithromycin [Zithromax] 250 mg PO DAILY #4 tab - Follow Up Plan Condition: STABLE Disposition: HOME/ ROUTINE Patient education suggested?: No Additional Instructions: Partial weight bearing to LLE Referrals: Moses Ferreira MD [Primary Care Provider] - Ervin Jim III, MD [Staff Provider] -
[2016-06-17 16:02] VITALS: BP 115/71; PULSE 93; TEMP 98; O2SAT 94
== END 2016-06-17 16:40 | DRG 981 ==
LOC: H.ER 16:15 → H.ERHOLD 19:25 → H.ICU/CCU 21:23 → H.TEL 06-06 00:27
PROVIDERS: ADMIT Internal Medicine; ATTEND Internal Medicine
PROC: 5A09557 Assistance with Respiratory Ventilation, Greater than 96 Consecutive Hours, Continuous Positive Airway Pressure (ICD-10-PCS; principal; 2016-05-30)
PROC: 3E0234Z Introduction of Serum, Toxoid and Vaccine into Muscle, Percutaneous Approach (ICD-10-PCS; 2016-05-31)
PROC: 30233N1 Transfusion of Nonautologous Red Blood Cells into Peripheral Vein, Percutaneous Approach (ICD-10-PCS; 2016-06-12)
PROC: 0QS704Z Reposition Left Upper Femur with Internal Fixation Device, Open Approach (ICD-10-PCS; 2016-06-13)
DX: J96.02 Acute respiratory failure with hypercapnia (principal); A41.9 Sepsis, unspecified organism; R65.20 Severe sepsis without septic shock; G93.41 Metabolic encephalopathy; J90 Pleural effusion, not elsewhere classified; J15.7 Pneumonia due to Mycoplasma pneumoniae; E87.0 Hyperosmolality and hypernatremia; R64 Cachexia; S72.142A Displaced intertrochanteric fracture of left femur, initial encounter for closed fracture; J44.0 Chronic obstructive pulmonary disease with (acute) lower respiratory infection; J44.1 Chronic obstructive pulmonary disease with (acute) exacerbation; J98.11 Atelectasis; W06.XXXA Fall from bed, initial encounter; J96.01 Acute respiratory failure with hypoxia; I50.9 Heart failure, unspecified; Z99.81 Dependence on supplemental oxygen; E86.0 Dehydration; J45.909 Unspecified asthma, uncomplicated; F17.210 Nicotine dependence, cigarettes, uncomplicated; Y93.9 Activity, unspecified; Y92.9 Unspecified place or not applicable; Y99.9 Unspecified external cause status; E03.9 Hypothyroidism, unspecified; Z85.850 Personal history of malignant neoplasm of thyroid; M48.02 Spinal stenosis, cervical region; Z98.82 Breast implant status; X58.XXXA Exposure to other specified factors, initial encounter; D63.8 Anemia in other chronic diseases classified elsewhere; Y92.230 Patient room in hospital as the place of occurrence of the external cause; I27.2 Other secondary pulmonary hypertension; I27.81 Cor pulmonale (chronic); Z92.3 Personal history of irradiation; Z23 Encounter for immunization

== ENCOUNTER 2016-12-25 13:01 | Inpatient (IN) | payer MEDICARE, OTHER, BC ==
[2016-12-25 13:02] VITALS: BMI 15.6
[2016-12-25] MEDS ORDERED: Albuterol-Ipratrop 3 mg / 0.5 (3 ml) UD INH STA (13:26)
[2016-12-25] MEDS ORDERED: Albuterol-Ipratrop 3 mg / 0.5 (3 ml) UD IH STA ×2 (13:26→13:27)
--- NOTE | 2016-12-25 13:28 | ED PDOC ---
HPI: SOB/CHF/COPD Time Seen by Provider: 12/25/16 13:18 Chief Complaint (Nursing): Shortness Of Breath Chief Complaint (Provider): Dyspnea History Per: Patient History/Exam Limitations: no limitations Onset/Duration Of Symptoms: Days (Today) Current Symptoms Are (Timing): Still Present Additional Complaint(s): Dyspnea, cough, weakness all over, chest pain. No dizziness, headaches, abd pain, nausea, vomit. Has copd and suppose to use oxygen at home continuous but does not. Past Medical History Reviewed: Nursing Documentation, Vital Signs Vital Signs: Last Vital Signs Temp 100.0 F H 12/25/16 13:12 Pulse 110 H 12/25/16 14:24 Resp 26 H 12/25/16 14:42 BP 128/79 12/25/16 13:23 Pulse Ox 90 L 12/25/16 15:04 - Medical History PMH: Arthritis (Spinal), Asthma, Bronchitis, COPD, Dementia, Emphysema, Hypothyroidism, Pneumonia (multiple episodes) Denies: Depression, HIV, Chronic Kidney Disease, Schizophrenia - Surgical History Surgical History: Appendectomy, Cholecystectomy - Family History Family History: States: Unknown Family Hx - Social History Current smoker - smoking cessation education provided: No Alcohol: None Drugs: Denies - Immunization History Hx Tetanus Toxoid Vaccination: No Hx Influenza Vaccination: No Hx Pneumococcal Vaccination: No - Home Medications Home Medications: Ambulatory Orders Medication Instructions Recorded Tiotropium [place] [Spiriva] 1 puff INH DAILY #0 cap 01/11/15 Fluticasone/Salmeterol 500/50 1 puff INH DAILY 05/30/16 [Advair Diskus 500/50] Acetaminophen [Tylenol 325mg tab] 975 mg PO QID PRN #0 tab 06/17/16 Albuterol 0.083% [Albuterol 0.083% 2.5 mg INH RQ4 PRN #0 neb 06/17/16 Inhal Joi (2.5 mg/3 ml) UD] Alpha Lipoic Acid 600 mg PO DAILY #60 capsule 06/17/16 Aspirin [Ecotrin] 81 mg PO BID tabec 06/17/16 Azithromycin [Zithromax] 250 mg PO DAILY #4 tab 06/17/16 Levothyroxine [Synthroid] 100 mcg PO DAILY@0630 #0 tab 06/17/16 Memantine HCl [Namenda Xr] 14 mg PO DAILY #60 cap.spr.24 06/17/16 Multimineral/Multivitamin 1 tab PO DAILY tab 06/17/16 [Therapeutic-M Tab] Nicotine 21 mg/24 hr [Nicoderm Cq] 1 patch TD DAILY patch 06/17/16 Pantoprazole [Protonix EC Tab] 40 mg PO DAILY ect 06/17/16 Ubidecarenone [Coq-10] 400 mg PO DAILY #120 capsule 06/17/16 guaiFENesin [Mucinex LA] 600 mg PO Q12 tab 06/17/16 - Allergies Allergies/Adverse Reactions: Allergies Allergy/AdvReac Type Severity Reaction Status Date / Time corn AdvReac CONGESTION Verified 12/25/16 13:12 beef AdvReac CONGESTION Uncoded 12/25/16 13:12 Review of Systems ROS Statement: Except As Marked, All Systems Reviewed And Found Negative Constitutional: Positive for: Weakness Cardiovascular: Positive for: Chest Pain Respiratory: Positive for: Cough, Shortness of Breath, Wheezing Neurological: Positive for: Weakness Physical Exam - Reviewed Nursing Documentation Reviewed: Yes Vital Signs Reviewed: Yes - Physical Exam Appears: Positive for: Uncomfortable Head Exam: Positive for: ATRAUMATIC, NORMAL INSPECTION, NORMOCEPHALIC Skin: Positive for: Normal Color, Warm, DRY Eye Exam: Positive for: EOMI, Normal appearance, PERRL ENT: Positive for: Normal ENT Inspection Neck: Positive for: Normal, Painless ROM, Supple Cardiovascular/Chest: Positive for: Tachycardia. Negative for: Edema Respiratory: Positive for: Decreased Breath Sounds, Wheezing. Negative for: Accessory Muscle Use Gastrointestinal/Abdominal: Positive for: Normal Exam, Bowel Sounds, Soft. Negative for: Tenderness Back: Positive for: Normal Inspection. Negative for: L CVA Tenderness, R CVA Tenderness Extremity: Positive for: Normal ROM. Negative for: Tenderness, Pedal Edema Neurologic/Psych: Positive for: Alert, Oriented - Laboratory Results Result Diagrams: 12/25/16 14:20 12/25/16 14:20 Interpretation Of Abn Labs: 26.4 wbc - ECG ECG: Positive for: Interpreted By Me, Viewed By Me ECG Rhythm: Positive for: Sinus Tachycardia. Negative for: Normal QRS, Normal ST Segment O2 Sat by Pulse Oximetry: 90 Pulse Ox Interpretation: Abnormal - Radiology X-Ray: Interpreted by Me, Viewed By Me X-Ray Interpretation: Infiltrates (? patchy infiltrate B/L) - Progress ED Course And Treament: 1508: Stable. Will need admit for sepsis, copd, elevated wbc. AAOx3. Improved respiration. 1513: Spoke with Dr. Hill. Will admit tele. - Critical Care Total Time (In Min): 30 Documented Critical Care: Time excludes all time spent performint seperately billable procedures Disposition - Clinical Impression Clinical Impression: COPD exacerbation, Sepsis, Pneumonia - Patient ED Disposition Is Patient to be Admitted: Yes Counseled Patient/Family Regarding: Studies Performed, Diagnosis - Disposition Disposition Time: 15:13 Condition: FAIR - Pt Status Changed To: Hospital Disposition Of: Inpatient - Admit Certification Admit to Inpatient:: After my assessment, the patient will require hospitalization for at least two midnights. This is because of the severity of symptoms shown, intensity of services needed, and/or the medical risk in this patient being treated as an outpatient. - POA Present On Arrival: None Core Measure Indicators: Pneumonia
[2016-12-25] MEDS ORDERED: Sodium Chloride 0.9% 500 ML IV ONE (13:30)
[2016-12-25 13:49] LABS: ABG ALLEN TEST YES; ARTERIAL BLOOD GAS HCO3 29.8 mmol/L (21-28); ARTERIAL BLOOD GAS PH 7.44 (7.35-7.45); ARTERIAL BLOOD GAS PO2 64 mm/Hg (80-100)
[2016-12-25] MEDS ORDERED: Albuterol-Ipratrop 3 mg / 0.5 (3 ml) UD ONE (14:17)
[2016-12-25 14:36] LABS: BASO # 0.2 K/uL (0.0-0.2); BASO % 0.6 % (0.0-2.0); EOS % 0.1 % (0.0-4.0); LYMPH # 0.8 K/uL (1.0-4.3); LYMPH % 3.1 % (20.0-40.0); MEAN CELL VOLUME 90.3 fl (81.0-99.0); MEAN CORPUSCULAR HEMOGLOBIN 29.3 pg (27.0-31.0); MEAN CORPUSCULAR HGB CONC 32.5 g/dL (33.0-37.0); MEAN PLATELET VOLUME 7.6 fl (7.2-11.7); MONO # 2.1 K/uL (0.0-0.8); NEUT # 23.3 K/uL (1.8-7.0); NEUT % 88.2 % (50.0-75.0); PLATELET COUNT 411 K/uL (130-400); RED CELL DISTRIBUTION WIDTH 15.2 % (11.5-14.5); WHITE BLOOD COUNT 26.4 K/uL (4.8-10.8)
[2016-12-25 14:41] LABS: PARTIAL THROMBOPLASTIN TIME 30.6 Seconds (25.6-37.1)
[2016-12-25 14:44] LABS: ALB/GLOB RATIO 1.3 (1.0-2.1); ALKALINE PHOSPHATASE 87 U/L (38-126); ALT/SGPT 27 U/L (9-52); AST/SGOT 49 U/L (14-36); BILIRUBIN,TOTAL 0.8 mg/dl (0.2-1.3); BLOOD UREA NITROGEN 22 mg/dl (7-17); CALCIUM 8.9 mg/dL (8.4-10.2); CARBON DIOXIDE 27 mmol/L (22-30); CHLORIDE 97 mmol/L (98-107); GFR AFRICAN-AMERICAN > 60; GLUCOSE,RANDOM 106 mg/dL (65-105); PHOSPHOROUS 3.1 mg/dl (2.5-4.5); SODIUM 135 mmol/l (132-148); TOTAL PROTEIN 7.9 G/DL (6.3-8.2)
[2016-12-25 14:45] LABS: POTASSIUM 4.9 MMOL/L (3.6-5.0)
[2016-12-25 14:58] LABS: NEUTROPHIL 88 % (42-75); TOTAL CELLS COUNTED 100
[2016-12-25] MEDS ORDERED: cefTRIAXone (Rocephin) 1 gm Inj IV ONE (15:07)
[2016-12-25] MEDS ORDERED: cefTRIAXone IV 1 gm in Dextros 50 ML IVPB ONE ×2 (15:15→15:33)
[2016-12-25] MEDS ORDERED: Azithromycin 500 MG in Sodium Chloride 0.9% 250 ML IVPB ONE (15:15)
[2016-12-25] MEDS ORDERED: Azithromycin 500 MG IV IVPB ONE (15:34)
--- NOTE | 2016-12-25 15:47 | CP.PCM.HP ---
History of Present Illness - History of Present Illness History of Present Illness: 66 yo female with history of COPD, Dementia and Hypothyroidism post Iodine Ablation of Thyroid Cancer brought by after finding her disoriented on top of the stairs this morning. He noted her looking tired and weak but denied any complaint. He immediately put her on oxygen and brought her to the ER Present on Admission - Present on Admission Any Indicators Present on Admission: No History of DVT/PE: No History of Uncontrolled Diabetes: No Urinary Catheter: No Decubitus Ulcer Present: No Review of Systems - Review of Systems All systems: reviewed and no additional remarkable complaints except (aside from those mentioned above, 12 point system review were negative by me) Past Patient History - Tetanus Immunizations Tetanus Immunization: Unknown - Past Medical History & Family History Past Medical History?: Yes Pertinent Family History: Father had alzheimer's dementia Mother had "heart disease" - Past Social History Smoking Status: Current Some Days Smoker (tried to quit smoking 7 months ago from heavy smoking of at least 1PPD) Alcohol: None Drugs: Denies Home Situation {Lives}: Other (with ) - CARDIAC Hx Cardiac Disorders: No - PULMONARY Hx Asthma: Yes Hx Bronchitis: Yes Hx Chronic Obstructive Pulmonary Disease (COPD): Yes Hx Emphysema: Yes Hx Pneumonia: Yes (multiple episodes) - NEUROLOGICAL Hx Dementia: Yes - HEENT Hx HEENT Problems: No Hx Deafness: Yes - RENAL Hx Chronic Kidney Disease: No - ENDOCRINE/METABOLIC Hx Hypothyroidism: Yes (post radio iodine ablation of thyroid cancer) - HEMATOLOGICAL/ONCOLOGICAL Hx Cancer: Yes (Thyroid Cancer post Radio Iodine Ablation) Hx Human Immunodeficiency Virus (HIV): No - INTEGUMENTARY Hx Dermatological Problems: No - MUSCULOSKELETAL/RHEUMATOLOGICAL Hx Arthritis: Yes (Spinal) - GASTROINTESTINAL Hx Gastrointestinal Disorders: Yes Other/Comment: hepatic cysts - GENITOURINARY/GYNECOLOGICAL Hx Genitourinary Disorders: No - PSYCHIATRIC Hx Depression: No Hx Schizophrenia: No - SURGICAL HISTORY Hx Appendectomy: Yes Hx Cholecystectomy: Yes Other/Comment: breasts implant, chin implant, cervical spinal decompression/ fusion, hepatic cystectomy - ANESTHESIA Hx Anesthesia: Yes Hx Anesthesia Reactions: Yes (BP drops) Hx Malignant Hyperthermia: No Meds Allergies/Adverse Reactions: Allergies Allergy/AdvReac Type Severity Reaction Status Date / Time corn AdvReac CONGESTION Verified 12/25/16 13:12 beef AdvReac CONGESTION Uncoded 12/25/16 13:12 Physical Exam - Constitutional Appears: No Acute Distress - Head Exam Head Exam: ATRAUMATIC - Eye Exam Eye Exam: absent: Scleral icterus - ENT Exam ENT Exam: Mucous Membranes Moist - Neck Exam Neck exam: Negative for: Meningismus - Respiratory Exam Respiratory Exam: Decreased Breath Sounds. absent: Rhonchi, Wheezes, Respiratory Distress - Cardiovascular Exam Cardiovascular Exam: Tachycardia - GI/Abdominal Exam GI & Abdominal Exam: Soft. absent: Tenderness - Rectal Exam Rectal Exam: Deferred - Extremities Exam Extremities exam: Negative for: calf tenderness, pedal edema - Neurological Exam Neurological exam: Alert - Psychiatric Exam Psychiatric exam: Normal Affect - Skin Skin Exam: Dry, Intact Results - Vital Signs Recent Vital Signs: Last Vital Signs Temp 100.8 F H 12/25/16 15:41 Pulse 109 H 12/25/16 15:41 Resp 21 12/25/16 15:41 BP 111/65 12/25/16 15:41 Pulse Ox 95 12/25/16 15:41 - Labs Result Diagrams: 12/25/16 14:20 12/25/16 14:20 Labs: Laboratory Results - last 24 hr 12/25/16 12/25/16 12/25/16 13:32 14:20 14:20 WBC 26.4 H D RBC 4.43 Hgb 13.0 D Hct 40.0 MCV 90.3 D MCH 29.3 MCHC 32.5 L RDW 15.2 H Plt Count 411 H MPV 7.6 Neut % (Auto) 88.2 H Lymph % (Auto) 3.1 L [place] % (Auto) 8.0 Eos % (Auto) 0.1 Baso % (Auto) 0.6 Neut # 23.3 H Lymph # 0.8 L [place] # 2.1 H Eos # 0.0 Baso # 0.2 Neutrophils % (Manual) 88 H Lymphocytes % (Manual) 4 L Monocytes % (Manual) 8 Toxic Granulation Present Platelet Estimate Slightly increased H Anisocytosis (manual) Slight PT INR APTT pCO2 47 H pO2 64 L HCO3 29.8 H ABG pH 7.44 ABG Total CO2 33.3 H ABG O2 Saturation 98.1 H ABG Base Excess 6.6 H Lino Test Yes ABG Potassium 4.0 A-a O2 Difference 77.0 Sodium 131.0 L 135 Chloride 99.0 97 L Glucose 125 H Lactate 0.6 L FiO2 28.0 Potassium 4.9 Carbon Dioxide 27 Anion Gap 16 BUN 22 H Creatinine 0.6 L Est GFR ( Amer) > 60 Est GFR (Non-Af Amer) > 60 Random Glucose 106 H Calcium 8.9 Phosphorus 3.1 Magnesium 2.0 Total Bilirubin 0.8 AST 49 H ALT 27 Alkaline Phosphatase 87 Troponin I < 0.0120 NT-Pro-B Natriuret Pep 662 Total Protein 7.9 Albumin 4.4 Globulin 3.5 Albumin/Globulin Ratio 1.3 Arterial Blood Potassium 4.0 12/25/16 14:20 WBC RBC Hgb Hct MCV MCH MCHC RDW Plt Count MPV Neut % (Auto) Lymph % (Auto) [place] % (Auto) Eos % (Auto) Baso % (Auto) Neut # Lymph # [place] # Eos # Baso # Neutrophils % (Manual) Lymphocytes % (Manual) Monocytes % (Manual) Toxic Granulation Platelet Estimate Anisocytosis (manual) PT 12.4 INR 1.1 APTT 30.6 pCO2 pO2 HCO3 ABG pH ABG Total CO2 ABG O2 Saturation ABG Base Excess Lino Test ABG Potassium A-a O2 Difference Sodium Chloride Glucose Lactate FiO2 Potassium Carbon Dioxide Anion Gap BUN Creatinine Est GFR ( Amer) Est GFR (Non-Af Amer) Random Glucose Calcium Phosphorus Magnesium Total Bilirubin AST ALT Alkaline Phosphatase Troponin I NT-Pro-B Natriuret Pep Total Protein Albumin Globulin Albumin/Globulin Ratio Arterial Blood Potassium Assessment & Plan (1) Sepsis Status: Acute Priority: High Comment: blood culture x 2. urinalysis, urine culture. Zosyn 3.375gm IV q 6hrs. Clindamycin 900mg IV q 8hrs. IV hydration with NSS 100cc/hr. Procalcitonin level. ID consult with Dr Mcmillan (2) COPD (chronic obstructive pulmonary disease) Status: Acute Comment: continue home medication: Albuterol via nebulizer q 4hrs prn. Breo Ellipta 1 puff daily. Spiriva 18mcg inhalation daily. Pulmonary consult with Dr Ferreira (3) Hypothyroid Status: Chronic Priority: Medium Comment: TSH level in am. continue Levothyroxine 100mcg PO daily (4) Dementia Status: Acute Comment: Namenda 10mg PO q 12hrs (5) DVT prophylaxis Status: Acute Priority: Medium Comment: Lovenox 40mg SC daily
--- NOTE | 2016-12-25 16:21 | RAD ---
HISTORY: Sepsis Patient COMPARISON: 11/29/2016 FINDINGS: LUNGS: No active pulmonary disease. PLEURA: No significant pleural effusion identified, no pneumothorax apparent. CARDIOVASCULAR: Normal. OSSEOUS STRUCTURES: No significant abnormalities. VISUALIZED UPPER ABDOMEN: Normal. OTHER FINDINGS: None. IMPRESSION: No active disease. No significant interval change compared to the prior examination(s).
[2016-12-25] MEDS ORDERED: Albuterol HFA 90 mcg/actuation (8 g) IH PRN (16:51)
[2016-12-25] MEDS: Albuterol 0.083% Inhal Sol (2.5 mg/3 mL) UD IH SCH (19:16)
[2016-12-25] MEDS: Piperacillin/Tazobact 3.375 GM in Sodium Chloride 0.9% 100 ML IVPB SCH (21:14)
[2016-12-26] MEDS: Albuterol 0.083% Inhal Sol (2.5 mg/3 mL) UD IH SCH ×2 (01:00→07:27)
[2016-12-26] MEDS: Piperacillin/Tazobact 3.375 GM in Sodium Chloride 0.9% 100 ML IVPB SCH ×4 (04:53→21:52)
[2016-12-26 05:34] LABS: BASO # 0.1 K/uL (0.0-0.2); BASO % 0.4 % (0.0-2.0); HEMATOCRIT 35.8 % (34.0-47.0); LYMPH # 0.6 K/uL (1.0-4.3); LYMPH % 2.5 % (20.0-40.0); MEAN CELL VOLUME 90.9 fl (81.0-99.0); MEAN CORPUSCULAR HEMOGLOBIN 29.7 pg (27.0-31.0); MEAN CORPUSCULAR HGB CONC 32.7 g/dL (33.0-37.0); MEAN PLATELET VOLUME 7.8 fl (7.2-11.7); MONO # 1.1 K/uL (0.0-0.8); MONO % 4.7 % (0.0-10.0); NEUT # 22.1 K/uL (1.8-7.0); NEUT % 92.4 % (50.0-75.0); PLATELET COUNT 362 K/uL (130-400); RED CELL DISTRIBUTION WIDTH 15.3 % (11.5-14.5); WHITE BLOOD COUNT 23.9 K/uL (4.8-10.8)
[2016-12-26 05:41] LABS: BLOOD UREA NITROGEN 22 mg/dl (7-17); CALCIUM 8.6 mg/dL (8.4-10.2); CARBON DIOXIDE 28 mmol/L (22-30); CHLORIDE 98 mmol/L (98-107); GFR AFRICAN-AMERICAN > 60; GLUCOSE,RANDOM 129 mg/dL (65-105); POTASSIUM 3.8 MMOL/L (3.6-5.0); SODIUM 138 mmol/l (132-148)
[2016-12-26 06:10] LABS: THYROID STIMULATING HORMONE 2.83 mIU/ML (0.46-4.68)
[2016-12-26] MEDS: Levothyroxine 100 MCG TAB PO SCH (06:31)
[2016-12-26 06:36] LABS: NEUTROPHIL 93 % (42-75); TOTAL CELLS COUNTED 100
--- NOTE | 2016-12-26 07:34 | CARD ---
APPROVED REPORT EKG Measurement Heart [id number] HI [id number] [id number] <Conclusion> Sinus tachycardia with short HI Possible Left atrial enlargement Nonspecific ST and T wave abnormality Abnormal ECG
[2016-12-26] MEDS ORDERED: Influenza Vaccine(65YR UP)/PF 180 MCG/0.5 ML SYRINGE IM ONE (08:00)
[2016-12-26] MEDS ORDERED: Pneumococcal 23-Valent Vaccine IM ONE (08:00)
[2016-12-26] MEDS ORDERED: ASCORBIC ACID PO SCH (09:00)
[2016-12-26] MEDS ORDERED: COLLAGEN HYDR PO SCH (09:00)
[2016-12-26] MEDS: Fluticasone-Salmeterol 250-50mcg Diskus IH SCH ×2 (09:01→16:17)
[2016-12-26] MEDS: Pantoprazole 40 mg EC Tab PO SCH (09:01)
[2016-12-26] MEDS: Enoxaparin 40 mg Syringe SC SCH (09:01)
[2016-12-26] MEDS: Clindamycin 600 MG in Sodium Chloride 0.9% 100 ML IVPB SCH ×2 (09:02→16:17)
[2016-12-26] MEDS: Multivitamin With Minerals Tab PO SCH (09:03)
[2016-12-26] MEDS: Tiotropium 18 mcg Cap For Inhalation IH SCH (09:03)
--- NOTE | 2016-12-26 10:22 | CP.PCM.PN ---
Subjective - Date & Time of Evaluation Date of Evaluation: 12/26/16 Time of Evaluation: 10:00 - Subjective Subjective: Pt was walking around in her room when I came in She has no fever at present Had temp 100.8 on admission and WBC 26K Denies headache no N/V denies dysuria has cough with sl sputum however this is normal Pt is orientd to person and place denies abd pain Objective - Vital Signs/Intake and Output Vital Signs (last 24 hours): Temp Pulse Resp BP Pulse Ox 98.4 F 88 20 96/52 L 98 12/26/16 08:57 12/26/16 08:57 12/26/16 08:57 12/26/16 08:57 12/26/16 08:57 - Medications Medications: Current Medications Acetaminophen (Tylenol 325mg Tab) 650 mg PO Q6 PRN PRN Reason: Fever >100.4 F Albuterol (Ventolin Hfa 90 Mcg/Actuation (8 G)) 2 puff IH Q4H PRN PRN Reason: Shortness of Breath Albuterol Sulfate (Albuterol 0.083% Inhal Joi (2.5 Mg/3 Ml) Ud) 2.5 mg IH RQ6 [facility] Last Admin: 12/26/16 07:27 Dose: 2.5 mg Aspirin (Ecotrin) 81 mg PO DAILY [facility] Last Admin: 12/26/16 09:01 Dose: 81 mg Calcium Carbonate (Oscal) 500 mg PO BID [facility] Last Admin: 12/26/16 09:04 Dose: 500 mg Docusate Sodium (Colace) 100 mg PO BID PRN PRN Reason: Constipation Enoxaparin Sodium (Lovenox) 40 mg SC DAILY [facility] PRN Reason: Protocol Last Admin: 12/26/16 09:01 Dose: 40 mg Piperacillin Sod/Tazobactam (Sod 3.375 gm/ Sodium Chloride) 100 mls @ 100 mls/ hr IVPB Q6 [facility] PRN Reason: Protocol Last Admin: 12/26/16 09:28 Dose: 100 mls/hr Clindamycin Phosphate 600 mg/ (Sodium Chloride) 104 mls @ 104 mls/hr IVPB Q8 [facility] Last Admin: 12/26/16 09:02 Dose: 104 mls/hr Levothyroxine Sodium (Synthroid) 100 mcg PO DAILY@0630 [facility] Last Admin: 12/26/16 06:31 Dose: 100 mcg Memantine (Namenda) 10 mg PO Q12H [facility] Last Admin: 12/26/16 04:54 Dose: 10 mg Multivitamins/Minerals (Therapeutic-M Tab) 1 tab PO DAILY [facility] Last Admin: 12/26/16 09:03 Dose: 1 tab Pantoprazole Sodium (Protonix Ec Tab) 40 mg PO DAILY [facility] Last Admin: 12/26/16 09:01 Dose: 40 mg Fluticasone/Salmeterol (Advair Diskus 250/50) 1 puff IH BID [facility] Last Admin: 12/26/16 09:01 Dose: 1 puff Tiotropium [place] (Spiriva) 18 mcg IH DAILY [facility] Last Admin: 12/26/16 09:03 Dose: 18 mcg Tramadol HCl (Ultram) 50 mg PO Q6H PRN PRN Reason: Pain, severe (8-10) - Labs Labs: 12/26/16 04:50 12/26/16 04:50 PT 12.4 Seconds (9.8-13.1) 12/25/16 14:20 INR 1.1 (0.9-1.2) 12/25/16 14:20 APTT 30.6 Seconds (25.6-37.1) 12/25/16 14:20 - Constitutional Appears: Non-toxic, No Acute Distress - Head Exam Head Exam: NORMAL INSPECTION, NORMOCEPHALIC - Eye Exam Eye Exam: EOMI, Normal appearance, PERRL Pupil Exam: NORMAL ACCOMODATION - ENT Exam ENT Exam: Mucous Membranes Moist, Normal External Ear Exam - Neck Exam Neck Exam: Full ROM. absent: Meningismus - Respiratory Exam Respiratory Exam: Decreased Breath Sounds, Rhonchi, NORMAL BREATHING PATTERN. absent: Wheezes, Respiratory Distress - Cardiovascular Exam Cardiovascular Exam: REGULAR RHYTHM, +S1, +S2 - GI/Abdominal Exam GI & Abdominal Exam: Soft, Normal Bowel Sounds. absent: Tenderness - Extremities Exam Extremities Exam: Full ROM, Normal Capillary Refill. absent: Calf Tenderness, Pedal Edema - Back Exam Back Exam: Full ROM, NORMAL INSPECTION. absent: CVA tenderness (L), CVA tenderness (R), paraspinal tenderness, vertebral tenderness - Neurological Exam Neurological Exam: Alert, Awake, CN II-XII Intact Neuro motor strength exam: Left Upper Extremity: 5, Right Upper Extremity: 5, Left Lower Extremity: 5, Right Lower Extremity: 5 Additional comments: oriented to person and place - Psychiatric Exam Psychiatric exam: Normal Affect, Normal Mood - Skin Skin Exam: Dry, Normal Color, Warm Assessment and Plan (1) Sepsis Status: Acute (2) UTI (urinary tract infection) Status: Acute (3) Decompensated chronic obstructive pulmonary disease Status: Acute (4) Dementia Status: Chronic (5) DVT prophylaxis Status: Acute - Assessment and Plan (Free Text) Assessment: 66 y/o lady with hx of COPD, Dementia, Hypothyroidism, was brought in by her bec of AMS. Pt came in febrile, etiology to be determined, empirically started on IV Zosyn and Clinda. Pulm and ID consulted. (1) Sepsis etiology to be determined Status: Acute prob sec to UTI Pt was brought in with fever, WBC 26 K, AMS UA : some WBC and + Leuko est Urine c/s Blood c/s Influenza swab Pt empirically started on IV Zosyn and Clinda NO HUGHES, no nuchal rigidity AMS now resolved, back to baseline mental status (2) UTI (urinary tract infection) Status: Acute UA : + leukoest and some WBC Urine c/s Pt on IV Zosyn (3) Decompensated chronic obstructive pulmonary disease Status: Acute cont Advair, Spiriva aaaaand Duoneb tx Received 125mg Solumedrol IV in ED (4) Dementia Status: Chronic now at baseline cont namenda 5. Hypothyroidism TSH normal cont Levothyroxine (6) DVT prophylaxis Status: Acute Lovenox
--- NOTE | 2016-12-26 10:58 | CP.PCM.CON ---
History of Present Illness - History of Present Illness History of Present Illness: This 66-year-old female who suffers from severe pulmonary emphysema with prior episodes of hypoxemic/hypercapnic respiratory failure was in her usual state of health at home. She was found by her to appear confused and disoriented and was quickly brought to the hospital where she was hypoxemic and febrile on presentation. He did state that she appeared to be ill and fatigued for the past 2 or 3 days prior to this presentation but she offered no complaints. She denies any fever or chills at home. She does have chronic cough which is productive of the usual small quantity of light yellow sputum. There was no chest pain or hemoptysis. No unusual shortness of breath was noted by the patient. Chest x-ray on presentation did not reveal any discrete infiltrates in either lung and a pro-calcitonin blood level was unremarkable. She did have leukocytosis in excess of 26,000 on presentation. Arterial blood gas did show a PA CO2 of 47 and a PaO2 of 64 with a normal pH while on 28% nasal oxygen. Blood lactate was normal. She was immediately placed on the left about therapy in the form of Zosyn and clindamycin, and was continued on her aerosol therapies and supplemental oxygen. Past Patient History - Tetanus Immunizations Tetanus Immunization: Unknown - Past Medical History & Family History Past Medical History?: Yes - Past Social History Smoking Status: Former Smoker (recently discontinued about 3-4 weeks ago) Chewing Tobacco Use: No Cigar Use: No Alcohol: Social Drugs: Denies Home Situation {Lives}: With Family - CARDIAC Hx Cardiac Disorders: No - PULMONARY Hx Asthma: Yes Hx Bronchitis: Yes Hx Chronic Obstructive Pulmonary Disease (COPD): Yes Hx Emphysema: Yes Hx Pneumonia: Yes (multiple episodes) Other/Comment: hypoxemic/hypercapnic respiratory failure. - NEUROLOGICAL Hx Dementia: Yes - HEENT Hx HEENT Problems: No - RENAL Hx Chronic Kidney Disease: No - ENDOCRINE/METABOLIC Hx Hypothyroidism: Yes (post radio iodine ablation of thyroid cancer) - HEMATOLOGICAL/ONCOLOGICAL Hx AIDS: No Hx Cancer: Yes (Thyroid Cancer post Radio Iodine Ablation) Hx Human Immunodeficiency Virus (HIV): No - INTEGUMENTARY Hx Dermatological Problems: No - MUSCULOSKELETAL/RHEUMATOLOGICAL Hx Arthritis: Yes (Spinal) Hx Falls: Yes Hx Spinal Stenosis: Yes (cervical) - GASTROINTESTINAL Hx Gastrointestinal Disorders: Yes Other/Comment: hepatic cysts - GENITOURINARY/GYNECOLOGICAL Hx Genitourinary Disorders: No - PSYCHIATRIC Hx Psychophysiologic Disorder: No Hx Substance Use: No - SURGICAL HISTORY Hx Surgeries: Yes Hx Appendectomy: Yes Hx Cholecystectomy: Yes Other/Comment: breasts implant, chin implant, cervical spinal decompression/ fusion, hepatic cystectomy - ANESTHESIA Hx Anesthesia: Yes Hx Anesthesia Reactions: Yes (BP drops) Hx Malignant Hyperthermia: No Has any member of the family had a problem w/ anesthesia?: No Meds Allergies/Adverse Reactions: Allergies Allergy/AdvReac Type Severity Reaction Status Date / Time corn AdvReac CONGESTION Verified 12/25/16 13:12 beef AdvReac CONGESTION Uncoded 12/25/16 13:12 - Medications Medications: Current Medications Acetaminophen (Tylenol 325mg Tab) 650 mg PO Q6 PRN PRN Reason: Fever >100.4 F Albuterol (Ventolin Hfa 90 Mcg/Actuation (8 G)) 2 puff IH Q4H PRN PRN Reason: Shortness of Breath Albuterol Sulfate (Albuterol 0.083% Inhal Joi (2.5 Mg/3 Ml) Ud) 2.5 mg INH RQID [facility] Aspirin (Ecotrin) 81 mg PO DAILY [facility] Last Admin: 12/26/16 09:01 Dose: 81 mg Calcium Carbonate (Oscal) 500 mg PO BID [facility] Last Admin: 12/26/16 09:04 Dose: 500 mg Docusate Sodium (Colace) 100 mg PO BID PRN PRN Reason: Constipation Enoxaparin Sodium (Lovenox) 40 mg SC DAILY [facility] PRN Reason: Protocol Last Admin: 12/26/16 09:01 Dose: 40 mg Piperacillin Sod/Tazobactam (Sod 3.375 gm/ Sodium Chloride) 100 mls @ 100 mls/ hr IVPB Q6 [facility] PRN Reason: Protocol Last Admin: 12/26/16 09:28 Dose: 100 mls/hr Clindamycin Phosphate 600 mg/ (Sodium Chloride) 104 mls @ 104 mls/hr IVPB Q8 [facility] Last Admin: 12/26/16 09:02 Dose: 104 mls/hr Levothyroxine Sodium (Synthroid) 100 mcg PO DAILY@0630 [facility] Last Admin: 12/26/16 06:31 Dose: 100 mcg Memantine (Namenda) 10 mg PO Q12H [facility] Last Admin: 12/26/16 04:54 Dose: 10 mg Multivitamins/Minerals (Therapeutic-M Tab) 1 tab PO DAILY [facility] Last Admin: 12/26/16 09:03 Dose: 1 tab Pantoprazole Sodium (Protonix Ec Tab) 40 mg PO DAILY [facility] Last Admin: 12/26/16 09:01 Dose: 40 mg Fluticasone/Salmeterol (Advair Diskus 250/50) 1 puff IH BID [facility] Last Admin: 12/26/16 09:01 Dose: 1 puff Tiotropium [place] (Spiriva) 18 mcg IH DAILY [facility] Last Admin: 12/26/16 09:03 Dose: 18 mcg Tramadol HCl (Ultram) 50 mg PO Q6H PRN PRN Reason: Pain, severe (8-10) Physical Exam - Additional Findings Additional findings: Thin female who is well-nourished and well-developed and appears to be in no acute distress at the present time. She was initially encountered standing beside her bed. Patient is cooperative with the exam. She appears forgetful and commands often need to be repeated. The pharynx is pink and the mucous membranes are moist. No exudate. Nares are patent bilaterally. No bleeding or exudate. Conjunctivae are pink and there is no scleral icterus. Neck is supple and trachea is midline. No neck vein distention or carotid bruit. Hyperresonance to chest percussion with displacement of both hemidiaphragms caudally. Vocal tactile fremitus is intact. Breath sounds are markedly diminished bilaterally. Few dry rales are heard at the lower lobes bilaterally. No audible wheezing at the present time. No bronchial breathing or egophony. He is scattered sonorous rhonchi in the lower lobes bilaterally. No rub. Heart sounds are markedly distant and the rhythm is regular. No murmur. The abdomen is soft and nontender with normal bowel sounds. No dependent edema of the lower extremities. No cyanosis. No calf tenderness. Results - Vital Signs Recent Vital Signs: Last Vital Signs Temp 98.4 F 12/26/16 08:57 Pulse 88 12/26/16 08:57 Resp 20 12/26/16 08:57 BP 96/52 L 12/26/16 08:57 Pulse Ox 98 12/26/16 08:57 - Labs Result Diagrams: 12/26/16 04:50 10/19/17 04:50 Labs: Laboratory Results - last 24 hr 12/25/16 12/25/16 12/25/16 13:32 14:20 14:20 WBC 26.4 H D RBC 4.43 Hgb 13.0 D Hct 40.0 MCV 90.3 D MCH 29.3 MCHC 32.5 L RDW 15.2 H Plt Count 411 H MPV 7.6 Neut % (Auto) 88.2 H Lymph % (Auto) 3.1 L [place] % (Auto) 8.0 Eos % (Auto) 0.1 Baso % (Auto) 0.6 Neut # 23.3 H Lymph # 0.8 L [place] # 2.1 H Eos # 0.0 Baso # 0.2 Neutrophils % (Manual) 88 H Band Neutrophils % Lymphocytes % (Manual) 4 L Monocytes % (Manual) 8 Toxic Granulation Present Platelet Estimate Slightly increased H Anisocytosis (manual) Slight PT INR APTT pCO2 47 H pO2 64 L HCO3 29.8 H ABG pH 7.44 ABG Total CO2 33.3 H ABG O2 Saturation 98.1 H ABG Base Excess 6.6 H Lino Test Yes ABG Potassium 4.0 A-a O2 Difference 77.0 Sodium 131.0 L 135 Chloride 99.0 97 L Glucose 125 H Lactate 0.6 L FiO2 28.0 Potassium 4.9 Carbon Dioxide 27 Anion Gap 16 BUN 22 H Creatinine 0.6 L Est GFR ( Amer) > 60 Est GFR (Non-Af Amer) > 60 Random Glucose 106 H Calcium 8.9 Phosphorus 3.1 Magnesium 2.0 Total Bilirubin 0.8 AST 49 H ALT 27 Alkaline Phosphatase 87 Troponin I < 0.0120 NT-Pro-B Natriuret Pep 662 Total Protein 7.9 Albumin 4.4 Globulin 3.5 Albumin/Globulin Ratio 1.3 Procalcitonin TSH 3rd Generation Arterial Blood Potassium 4.0 12/25/16 12/25/16 12/26/16 14:20 17:20 04:50 WBC 23.9 H RBC 3.94 Hgb 11.7 L Hct 35.8 MCV 90.9 MCH 29.7 MCHC 32.7 L RDW 15.3 H Plt Count 362 MPV 7.8 Neut % (Auto) 92.4 H Lymph % (Auto) 2.5 L [place] % (Auto) 4.7 Eos % (Auto) 0.0 Baso % (Auto) 0.4 Neut # 22.1 H Lymph # 0.6 L [place] # 1.1 H Eos # 0.0 Baso # 0.1 Neutrophils % (Manual) 93 H Band Neutrophils % 2 Lymphocytes % (Manual) 2 L Monocytes % (Manual) 3 Toxic Granulation Platelet Estimate Slightly increased H Anisocytosis (manual) Slight PT 12.4 INR 1.1 APTT 30.6 pCO2 pO2 HCO3 ABG pH ABG Total CO2 ABG O2 Saturation ABG Base Excess Lino Test ABG Potassium A-a O2 Difference Sodium Chloride Glucose Lactate FiO2 Potassium Carbon Dioxide Anion Gap BUN Creatinine Est GFR ( Amer) Est GFR (Non-Af Amer) Random Glucose Calcium Phosphorus Magnesium Total Bilirubin AST ALT Alkaline Phosphatase Troponin I NT-Pro-B Natriuret Pep Total Protein Albumin Globulin Albumin/Globulin Ratio Procalcitonin 0.15 L TSH 3rd Generation Arterial Blood Potassium 12/26/16 04:50 WBC RBC Hgb Hct MCV MCH MCHC RDW Plt Count MPV Neut % (Auto) Lymph % (Auto) [place] % (Auto) Eos % (Auto) Baso % (Auto) Neut # Lymph # [place] # Eos # Baso # Neutrophils % (Manual) Band Neutrophils % Lymphocytes % (Manual) Monocytes % (Manual) Toxic Granulation Platelet Estimate Anisocytosis (manual) PT INR APTT pCO2 pO2 HCO3 ABG pH ABG Total CO2 ABG O2 Saturation ABG Base Excess Lino Test ABG Potassium A-a O2 Difference Sodium 138 Chloride 98 Glucose Lactate FiO2 Potassium 3.8 Carbon Dioxide 28 Anion Gap 15 BUN 22 H Creatinine 0.7 Est GFR ( Amer) > 60 Est GFR (Non-Af Amer) > 60 Random Glucose 129 H Calcium 8.6 Phosphorus Magnesium Total Bilirubin AST ALT Alkaline Phosphatase Troponin I NT-Pro-B Natriuret Pep Total Protein Albumin Globulin Albumin/Globulin Ratio Procalcitonin TSH 3rd Generation 2.83 Arterial Blood Potassium Assessment & Plan (1) Sepsis Status: Acute Priority: High Comment: Primary site of the infection somewhat obscure at this time. Most likely location would be in the chest, but the chest x-ray does not show any areas of consolidation. Bilateral breast implants impede a clear view of the lower lobes. Despite normal pro calcitonin the patient did clinically appear to be septic. Repeat chest x-ray PA and lateral will be requested. Agree with the current management with Zosyn/clindamycin and infectious disease consultation. The patient does not have any clinical signs of hypercapnic respiratory failure at the present time to otherwise account for her altered mental status. (2) Decompensated chronic obstructive pulmonary disease Status: Acute Priority: High (3) Dementia Status: Chronic Priority: High - Date & Time Date: 12/26/16 Time: 10:00
[2016-12-26] MEDS: Albuterol 0.083% Inhal Sol (2.5 mg/3 mL) UD INH SCH ×3 (13:10→19:49)
[2016-12-26 13:23] LABS: RBC URINE 3 /hpf (0-3); TRANSITIONAL EPITHIAL 1 /hpf (0-3); URINE BACTERIA RARE (<OCC); URINE BILIRUBIN NEGATIVE (NEGATIVE); URINE BLOOD NEGATIVE (NEGATIVE); URINE COLOR BLUE (YELLOW); URINE GLUCOSE (UA) NEG (Normal); URINE KETONE NEGATIVE (NEGATIVE); URINE LEUKOCYTE ESTERASE MOD Leu/uL (Negative); URINE PROTEIN 30 mg/dL (NEGATIVE); URINE UROBILINOGEN 0.2-1.0 mg/dL (0.2-1.0); WBC URINE 29 /hpf (0-5)
--- NOTE | 2016-12-26 14:43 | RAD ---
HISTORY: fever, SOB COMPARISON: Multiple serial examinations preceding the most recent study: December 25, 2016. TECHNIQUE: Chest PA and lateral FINDINGS: LUNGS: Hyperinflation, manifestations of COPD. No active pulmonary disease. PLEURA: No significant pleural effusion identified. No pneumothorax apparent. CARDIOVASCULAR: Normal. OSSEOUS STRUCTURES: No significant abnormalities. VISUALIZED UPPER ABDOMEN: Normal. OTHER FINDINGS: None. IMPRESSION: No active disease. No significant interval change compared to the prior examination(s).
--- NOTE | 2016-12-26 15:17 | PQF GENQUE ---
Dr. Holcomb, Pneumonia ruled in or Pneumonia ruled out? If ruled in: type if known OR: Other explanation of clinical finding ER MD: ER: Chief Complaint (Nursing); Shortness of Breath Chief Complaint (Provider): Dyspnea Has COPD and suppose to use O2 at home continuous but does not. ROS:Respiratory: Positive for: Cough, Shortness of Breath, Wheezing 1508: Stable. Will need admit for Sepsis, COPD, elevated WBC. Improved respiration Impression :COPD exacerbation, Sepsis, Pneumonia H and P: current diagnoses include: Sepsis and COPD Temp:100->100.8-.>100.8 Pulse:118->118->110->109 O2 sat:71->95->96---------90-> 95 Respirations:18->17->18->26 WBC:26.4-.23.9 CXR:Impression: No active disease. No significant interval change compared to the prior examination(s). Nebs x 3 ER and Albuterol IH Q6, IVAB's switched to Zosyn IV, O2 Nasal Cannula , telemetry, culture reports pending This form is a permanent part of the medical record Clarification of your documentation is requested to better reflect the severity of illness and intensity of treatment of your patient. Indicators present [] Specify: [] [] Specify: [] [] Specify: [] [] Specify: [] Location in the medical record that reflects the above clinical findings: [] Treatment Provided: [] PHYSICIAN'S RESPONSE Sepsis , Pneumonia not totally ruled out need further test rpt CXR Pulm consulted Based on your medical judgment of the clinical indicators outlined above please clarify the following: [] Practitioner response [] If unable to determine, please check the box, sign and date. Present On Admission (POA) Indicator: [] Present at the time of admission [] Not present at the time of admission [] Clinically Undetermined In responding to this query, please exercise your independent professional judgment. The fact that a question is asked does not imply that any particular answer is desired or expected. Thank you for your clarification on this documentation. If you have any questions please call. * Thank you, Brittanie Gasca RN ext. #[phone]: Elissa Kingston RN MTDD
--- NOTE | 2016-12-26 15:18 | PQF GENQUE ---
Dr. Holcomb, 2 (two) queries as follows: (1) In agreement with the BMI:18.0 ( 5ft 92 lb).: as listed in the EMR?; if in agreement please include the BMI in your progress note (2) Is there an associated diagnosis to go along with the BMI?; i.e.: Small Framed or Underweight etc. OR: Disagree OR: Unable to determine OR: Other explanation of clinical finding This form is a permanent part of the medical record Clarification of your documentation is requested to better reflect the severity of illness and intensity of treatment of your patient. Indicators present [] Specify: [] [] Specify: [] [] Specify: [] [] Specify: [] Location in the medical record that reflects the above clinical findings: [] Treatment Provided: [] PHYSICIAN'S RESPONSE BMI =18, Underweight Based on your medical judgment of the clinical indicators outlined above please clarify the following: [] Practitioner response [] If unable to determine, please check the box, sign and date. Present On Admission (POA) Indicator: [] Present at the time of admission [] Not present at the time of admission [] Clinically Undetermined In responding to this query, please exercise your independent professional judgment. The fact that a question is asked does not imply that any particular answer is desired or expected. Thank you for your clarification on this documentation. If you have any questions please call. * Thank you, Brittanie Gasca RN ext. #[phone]:Elissa Kingston RN MTDD
--- NOTE | 2016-12-26 15:25 | PQF GENQUE ---
Dr. Holcomb, Etiology of Sepsis? if known after work up is completed: OR:Unable to determine OR: Other explanation of clinical findings ER MD: Impression: COPD exacerbation, Sepsis, Pneumonia H and P: current diagnoses include: Sepsis and COPD Acute Pulmonary consult: Sepsis Status: Acute: Comment: Primary site of the infection somewhat obscure at this time. Most likely location would be in the chest, but the chest x-ray does not show any areas of consolidation. Bilateral breast implants impede a clear view of the lower lobes. Despite normal pro calcitonin the patient did clinically appear to be septic. Repeat chest x-ray PA and lateral will be requested. Agree with the current management with Zosyn/clindamycin and infectious disease consultation. The patient does not have any clinical signs of hypercapnic respiratory failure at the present time to otherwise account for her altered mental status. Temp:100->100.8-.100.8 Pulse:118->118->110->109 O2 sat:71->95->96---90-> 95 Respirations: 18->17-.18->26 O2 Nasal Cannula 12/25: CXR:Impression : No active disease. No significant interval change compared to the prior examination . culture reports pending This form is a permanent part of the medical record Clarification of your documentation is requested to better reflect the severity of illness and intensity of treatment of your patient. Indicators present [] Specify: [] [] Specify: [] [] Specify: [] [] Specify: [] Location in the medical record that reflects the above clinical findings: [] Treatment Provided: [] PHYSICIAN'S RESPONSE Sepsis etiology to be determined - prob UTI Based on your medical judgment of the clinical indicators outlined above please clarify the following: [] Practitioner response [] If unable to determine, please check the box, sign and date. Present On Admission (POA) Indicator: [] Present at the time of admission [] Not present at the time of admission [] Clinically Undetermined In responding to this query, please exercise your independent professional judgment. The fact that a question is asked does not imply that any particular answer is desired or expected. Thank you for your clarification on this documentation. If you have any questions please call. * Thank you, Brittanie Gasca RN ext. #[phone]: Elissa Kingston RN MTDD
[2016-12-26] MEDS ORDERED: Sodium Chloride 3% for Inhalation 4 ML VIAL.NEB IH PRN (16:08)
--- NOTE | 2016-12-26 19:34 | CP.PCM.PN ---
Subjective - Date & Time of Evaluation Date of Evaluation: 12/26/16 Time of Evaluation: 10:31 - Subjective Subjective: ID NOTE INFECTIO:ETIOLOGY :? DISCUSSED c HOSPITALIST ON 12/25/16 CONTIN[address] SANE RX Objective - Vital Signs/Intake and Output Vital Signs (last 24 hours): Temp Pulse Resp BP Pulse Ox 102.9 F H 109 H 22 127/78 92 L 12/26/16 16:41 12/26/16 16:41 12/26/16 16:41 12/26/16 16:41 12/26/16 16:41 Intake and Output: 12/26/16 12/27/16 18:59 06:59 Intake Total 1050 Balance 1050 - Medications Medications: Current Medications Acetaminophen (Tylenol 325mg Tab) 650 mg PO Q6 PRN PRN Reason: Fever >100.4 F Last Admin: 12/26/16 15:32 Dose: 650 mg Albuterol (Ventolin Hfa 90 Mcg/Actuation (8 G)) 2 puff IH Q4H PRN PRN Reason: Shortness of Breath Albuterol Sulfate (Albuterol 0.083% Inhal Joi (2.5 Mg/3 Ml) Ud) 2.5 mg INH RQID [facility] Last Admin: 12/26/16 15:54 Dose: 2.5 mg Aspirin (Ecotrin) 81 mg PO DAILY [facility] Last Admin: 12/26/16 09:01 Dose: 81 mg Calcium Carbonate (Oscal) 500 mg PO BID [facility] Last Admin: 12/26/16 16:18 Dose: 500 mg Docusate Sodium (Colace) 100 mg PO BID PRN PRN Reason: Constipation Enoxaparin Sodium (Lovenox) 40 mg SC DAILY [facility] PRN Reason: Protocol Last Admin: 12/26/16 09:01 Dose: 40 mg Piperacillin Sod/Tazobactam (Sod 3.375 gm/ Sodium Chloride) 100 mls @ 100 mls/ hr IVPB Q6 [facility] PRN Reason: Protocol Last Admin: 12/26/16 15:33 Dose: 100 mls/hr Clindamycin Phosphate 600 mg/ (Sodium Chloride) 104 mls @ 104 mls/hr IVPB Q8 [facility] Last Admin: 12/26/16 16:17 Dose: 104 mls/hr Levothyroxine Sodium (Synthroid) 100 mcg PO DAILY@0630 [facility] Last Admin: 12/26/16 06:31 Dose: 100 mcg Memantine (Namenda) 10 mg PO Q12H [facility] Last Admin: 12/26/16 16:17 Dose: 10 mg Multivitamins/Minerals (Therapeutic-M Tab) 1 tab PO DAILY [facility] Last Admin: 12/26/16 09:03 Dose: 1 tab Pantoprazole Sodium (Protonix Ec Tab) 40 mg PO DAILY [facility] Last Admin: 12/26/16 09:01 Dose: 40 mg Fluticasone/Salmeterol (Advair Diskus 250/50) 1 puff IH BID [facility] Last Admin: 12/26/16 16:17 Dose: 1 puff Tiotropium [place] (Spiriva) 18 mcg IH DAILY [facility] Last Admin: 12/26/16 09:03 Dose: 18 mcg Tramadol HCl (Ultram) 50 mg PO Q6H PRN PRN Reason: Pain, severe (8-10) - Labs Labs: 12/26/16 04:50 12/26/16 04:50 PT 12.4 Seconds (9.8-13.1) 12/25/16 14:20 INR 1.1 (0.9-1.2) 12/25/16 14:20 APTT 30.6 Seconds (25.6-37.1) 12/25/16 14:20
[2016-12-27] MEDS: Clindamycin 600 MG in Sodium Chloride 0.9% 100 ML IVPB SCH ×3 (00:05→16:28)
[2016-12-27] MEDS: Piperacillin/Tazobact 3.375 GM in Sodium Chloride 0.9% 100 ML IVPB SCH ×4 (04:13→21:31)
[2016-12-27 05:24] LABS: BASO % 0.3 % (0.0-2.0); EOS # 0.1 K/uL (0.0-0.7); EOS % 0.4 % (0.0-4.0); LYMPH # 1.1 K/uL (1.0-4.3); LYMPH % 7.1 % (20.0-40.0); MEAN CORPUSCULAR HEMOGLOBIN 29.2 pg (27.0-31.0); MEAN CORPUSCULAR HGB CONC 32.1 g/dL (33.0-37.0); MEAN PLATELET VOLUME 7.7 fl (7.2-11.7); MONO # 1.6 K/uL (0.0-0.8); MONO % 9.9 % (0.0-10.0); NEUT # 13.2 K/uL (1.8-7.0); NEUT % 82.3 % (50.0-75.0); RED CELL DISTRIBUTION WIDTH 15.2 % (11.5-14.5); WHITE BLOOD COUNT 16.1 K/uL (4.8-10.8)
[2016-12-27 05:34] LABS: BLOOD UREA NITROGEN 17 mg/dl (7-17); CALCIUM 7.5 mg/dL (8.4-10.2); CARBON DIOXIDE 29 mmol/L (22-30); CHLORIDE 99 mmol/L (98-107); GFR AFRICAN-AMERICAN > 60; GLUCOSE,RANDOM 102 mg/dL (65-105); POTASSIUM 3.9 MMOL/L (3.6-5.0); SODIUM 136 mmol/l (132-148)
[2016-12-27] MEDS: Levothyroxine 100 MCG TAB PO SCH (05:34)
[2016-12-27] MEDS: Albuterol 0.083% Inhal Sol (2.5 mg/3 mL) UD INH SCH ×2 (07:44→12:15)
[2016-12-27] MEDS: Multivitamin With Minerals Tab PO SCH (08:16)
[2016-12-27] MEDS: Pantoprazole 40 mg EC Tab PO SCH (08:16)
[2016-12-27] MEDS: Enoxaparin 40 mg Syringe SC SCH (08:17)
--- NOTE | 2016-12-27 09:12 | CP.PCM.PN ---
Subjective - Date & Time of Evaluation Date of Evaluation: 12/27/16 Time of Evaluation: 09:02 - Subjective Subjective: See by infectious disease yesterday, note appreciated. Leukocytosis is decreasing, but unexpected febrile pattern yesterday afternoon. UA with modest pyuria, but culture noted to be <1000 CFU (already on antibiotics for >24hrs). Had an episode of diarrhea this morning. No other complaints. Will request CT chest to rule out any infiltrates or effusion that is not seen on the CXR. Add probiotic to regimen, otherwise continue same. Objective - Vital Signs/Intake and Output Vital Signs (last 24 hours): Temp Pulse Resp BP Pulse Ox 99.7 F H 93 H 18 101/65 97 12/27/16 08:11 12/27/16 08:11 12/27/16 08:11 12/27/16 08:11 12/27/16 08:11 Intake and Output: 12/26/16 12/27/16 23:59 11:59 Intake Total 1050 Balance 1050 - Medications Medications: Current Medications Acetaminophen (Tylenol 325mg Tab) 650 mg PO Q6 PRN PRN Reason: Fever >100.4 F Last Admin: 12/27/16 00:02 Dose: 650 mg Albuterol (Ventolin Hfa 90 Mcg/Actuation (8 G)) 2 puff IH Q4H PRN PRN Reason: Shortness of Breath Albuterol Sulfate (Albuterol 0.083% Inhal Joi (2.5 Mg/3 Ml) Ud) 2.5 mg INH RQID [facility] Last Admin: 12/27/16 07:44 Dose: 2.5 mg Aspirin (Ecotrin) 81 mg PO DAILY [facility] Last Admin: 12/27/16 08:16 Dose: 81 mg Calcium Carbonate (Oscal) 500 mg PO BID [facility] Last Admin: 12/27/16 08:16 Dose: 500 mg Docusate Sodium (Colace) 100 mg PO BID PRN PRN Reason: Constipation Enoxaparin Sodium (Lovenox) 40 mg SC DAILY [facility] PRN Reason: Protocol Last Admin: 12/27/16 08:17 Dose: 40 mg Piperacillin Sod/Tazobactam (Sod 3.375 gm/ Sodium Chloride) 100 mls @ 100 mls/ hr IVPB Q6 [facility] PRN Reason: Protocol Last Admin: 12/27/16 04:13 Dose: 100 mls/hr Clindamycin Phosphate 600 mg/ (Sodium Chloride) 104 mls @ 104 mls/hr IVPB Q8 [facility] Last Admin: 12/27/16 08:14 Dose: 104 mls/hr Levothyroxine Sodium (Synthroid) 100 mcg PO DAILY@0630 [facility] Last Admin: 12/27/16 05:34 Dose: 100 mcg Memantine (Namenda) 10 mg PO Q12H [facility] Last Admin: 12/27/16 05:34 Dose: 10 mg Multivitamins/Minerals (Therapeutic-M Tab) 1 tab PO DAILY [facility] Last Admin: 12/27/16 08:16 Dose: 1 tab Pantoprazole Sodium (Protonix Ec Tab) 40 mg PO DAILY [facility] Last Admin: 12/27/16 08:16 Dose: 40 mg Fluticasone/Salmeterol (Advair Diskus 250/50) 1 puff IH BID [facility] Last Admin: 12/26/16 16:17 Dose: 1 puff Tiotropium [place] (Spiriva) 18 mcg IH DAILY [facility] Last Admin: 12/26/16 09:03 Dose: 18 mcg Tramadol HCl (Ultram) 50 mg PO Q6H PRN PRN Reason: Pain, severe (8-10) - Labs Labs: 12/27/16 04:20 12/27/16 04:20 PT 12.4 Seconds (9.8-13.1) 12/25/16 14:20 INR 1.1 (0.9-1.2) 12/25/16 14:20 APTT 30.6 Seconds (25.6-37.1) 12/25/16 14:20 Assessment and Plan (1) Sepsis Status: Acute (2) Decompensated chronic obstructive pulmonary disease Status: Acute (3) Dementia Status: Chronic
[2016-12-27] MEDS: Tiotropium 18 mcg Cap For Inhalation IH SCH (09:38)
[2016-12-27] MEDS: Fluticasone-Salmeterol 250-50mcg Diskus IH SCH (10:23)
[2016-12-27] MEDS: Saccharomyces Boulardi 250 mg Cap PO SCH ×2 (10:23→16:30)
--- NOTE | 2016-12-27 13:54 | CT ---
PROCEDURE: CT Chest without contrast HISTORY: fever COMPARISON: 06/10/2016 CT thorax TECHNIQUE: Contiguous axial images were obtained through the chest without intravenous contrast enhancement. Sagittal and coronal reconstructions were performed. Radiation dose (DLP): 226.10 mGy-cm. This CT exam was performed using one or more of the following dose reduction techniques: Automated exposure control, adjustment of the mA and/or kV according to patient size, and/or use of iterative reconstruction technique. FINDINGS: LUNGS: Faint infiltrate right upper lobe a finding not seen previously. Larger and partially cavitary infiltrates involving the anterior segment of the left upper lobe. Ill-defined infiltrate in the lingula. Irregular and spiculated mass posterior segment left upper lobe measures 15 mm. Bronchial wall thickening in the affected lobes and segments without mucous plugging. Underlying hyperinflation and manifestations of COPD. MEDIASTINUM: Unremarkable thoracic aorta. No aneurysm. Normal sized heart. Main pulmonary artery unremarkable. No vascular congestion. No lymphadenopathy. PLEURA: No pleural fluid. No pneumothorax. BONES: No fracture. No destructive lesion. Incompletely visualized findings related to ACDF. UPPER ABDOMEN: Grossly unremarkable. OTHER FINDINGS: Stable partially calcified silicone implants. IMPRESSION: Multifocal infiltrates bilaterally left more extensive than right all new compared to the prior study and therefore likely infectious/ inflammatory.
[2016-12-27] MEDS ORDERED: Albuterol 0.083% Inhal Sol (2.5 mg/3 mL) UD INH PRN (16:13)
[2016-12-27] MEDS ORDERED: Sodium Chloride 3% for Inhalation 4 ML VIAL.NEB IH PRN (16:17)
--- NOTE | 2016-12-27 17:26 | CP.PCM.PN ---
Subjective - Date & Time of Evaluation Date of Evaluation: 12/27/16 Time of Evaluation: 17:25 - Subjective Subjective: I D NOTE PER DISCUSSION,HAVE ADDED ADDITIONAL GRAM NEG COVERAGE c [place] Objective - Vital Signs/Intake and Output Vital Signs (last 24 hours): Temp Pulse Resp BP Pulse Ox 99.7 F H 101 H 14 107/62 100 12/27/16 16:30 12/27/16 16:30 12/27/16 16:30 12/27/16 16:30 12/27/16 16:30 - Medications Medications: Current Medications Acetaminophen (Tylenol 325mg Tab) 650 mg PO Q6 PRN PRN Reason: Fever >100.4 F Last Admin: 12/27/16 00:02 Dose: 650 mg Acetylcysteine (Acetylcysteine 20%) 2 ml INH RBID [facility] Albuterol Sulfate (Albuterol 0.083% Inhal Joi (2.5 Mg/3 Ml) Ud) 2.5 mg INH RQ4 PRN PRN Reason: Shortness of Breath Albuterol/Ipratropium (Duoneb 3 Mg/0.5 Mg (3 Ml) Ud) 3 ml INH RQID [facility] Aspirin (Ecotrin) 81 mg PO DAILY [facility] Last Admin: 12/27/16 08:16 Dose: 81 mg Calcium Carbonate (Oscal) 500 mg PO BID [facility] Last Admin: 12/27/16 16:30 Dose: 500 mg Docusate Sodium (Colace) 100 mg PO BID PRN PRN Reason: Constipation Enoxaparin Sodium (Lovenox) 40 mg SC DAILY [facility] PRN Reason: Protocol Last Admin: 12/27/16 08:17 Dose: 40 mg Guaifenesin (Mucinex La) 600 mg PO Q12 [facility] Piperacillin Sod/Tazobactam (Sod 3.375 gm/ Sodium Chloride) 100 mls @ 100 mls/ hr IVPB Q6 [facility] PRN Reason: Protocol Last Admin: 12/27/16 16:29 Dose: 100 mls/hr Clindamycin Phosphate 600 mg/ (Sodium Chloride) 104 mls @ 104 mls/hr IVPB Q8 [facility] Last Admin: 12/27/16 16:28 Dose: 104 mls/hr Meropenem 1 gm/ Sodium (Chloride) 100 mls @ 100 mls/hr IVPB Q12 [facility] PRN Reason: Protocol Levothyroxine Sodium (Synthroid) 100 mcg PO DAILY@0630 [facility] Last Admin: 12/27/16 05:34 Dose: 100 mcg Memantine (Namenda) 10 mg PO Q12H [facility] Last Admin: 12/27/16 05:34 Dose: 10 mg Multivitamins/Minerals (Therapeutic-M Tab) 1 tab PO DAILY [facility] Last Admin: 12/27/16 08:16 Dose: 1 tab Pantoprazole Sodium (Protonix Ec Tab) 40 mg PO DAILY [facility] Last Admin: 12/27/16 08:16 Dose: 40 mg Saccharomyces Boulardii (Florastor) 250 mg PO BID [facility] Last Admin: 12/27/16 16:30 Dose: 250 mg Tramadol HCl (Ultram) 50 mg PO Q6H PRN PRN Reason: Pain, severe (8-10) - Labs Labs: 12/27/16 04:20 12/27/16 04:20 PT 12.4 Seconds (9.8-13.1) 12/25/16 14:20 INR 1.1 (0.9-1.2) 12/25/16 14:20 APTT 30.6 Seconds (25.6-37.1) 12/25/16 14:20
--- NOTE | 2016-12-27 18:26 | CP.PCM.PN ---
Subjective - Date & Time of Evaluation Date of Evaluation: 12/27/16 Time of Evaluation: 10:30 - Subjective Subjective: Patient seen and examined bedside. apperas comfortable in no distress.l with episodes of cough with no sputum production. Denies any SOB, abdominal pain, duysuria. Tmax 102.9 lasty2 4 hours WBC trending down from 26K --- [address] chest showed ;Multifocal infiltrates bilaterally left more extensive than right all new compared to the prior study and therefore likely infectious/ inflammatory. Objective - Vital Signs/Intake and Output Vital Signs (last 24 hours): Temp Pulse Resp BP Pulse Ox 99.7 F H 101 H 14 107/62 100 12/27/16 16:30 12/27/16 16:30 12/27/16 16:30 12/27/16 16:30 12/27/16 16:30 Intake and Output: 12/27/16 12/27/16 06:59 18:59 Intake Total 1000 Balance 1000 - Medications Medications: Current Medications Acetaminophen (Tylenol 325mg Tab) 650 mg PO Q6 PRN PRN Reason: Fever >100.4 F Last Admin: 12/27/16 00:02 Dose: 650 mg Acetylcysteine (Acetylcysteine 20%) 2 ml INH RBID [facility] Albuterol Sulfate (Albuterol 0.083% Inhal Joi (2.5 Mg/3 Ml) Ud) 2.5 mg INH RQ4 PRN PRN Reason: Shortness of Breath Albuterol/Ipratropium (Duoneb 3 Mg/0.5 Mg (3 Ml) Ud) 3 ml INH RQID [facility] Aspirin (Ecotrin) 81 mg PO DAILY [facility] Last Admin: 12/27/16 08:16 Dose: 81 mg Calcium Carbonate (Oscal) 500 mg PO BID [facility] Last Admin: 12/27/16 16:30 Dose: 500 mg Docusate Sodium (Colace) 100 mg PO BID PRN PRN Reason: Constipation Enoxaparin Sodium (Lovenox) 40 mg SC DAILY [facility] PRN Reason: Protocol Last Admin: 12/27/16 08:17 Dose: 40 mg Guaifenesin (Mucinex [place]) 600 mg PO Q12 [facility] Piperacillin Sod/Tazobactam (Sod 3.375 gm/ Sodium Chloride) 100 mls @ 100 mls/ hr IVPB Q6 [facility] PRN Reason: Protocol Last Admin: 12/27/16 16:29 Dose: 100 mls/hr Clindamycin Phosphate 600 mg/ (Sodium Chloride) 104 mls @ 104 mls/hr IVPB Q8 [facility] Last Admin: 12/27/16 16:28 Dose: 104 mls/hr Meropen[place] 1 gm/ Sodium (Chloride) 100 mls @ 100 mls/hr IVPB Q12 [facility] PRN Reason: Protocol Levothyroxine Sodium (Synthroid) 100 mcg PO DAILY@0630 [facility] Last Admin: 12/27/16 05:34 Dose: 100 mcg Memantine (Namenda) 10 mg PO Q12H [facility] Last Admin: 12/27/16 05:34 Dose: 10 mg Multivitamins/Minerals (Therapeutic-M Tab) 1 tab PO DAILY [facility] Last Admin: 12/27/16 08:16 Dose: 1 tab Pantoprazole Sodium (Protonix Ec Tab) 40 mg PO DAILY [facility] Last Admin: 12/27/16 08:16 Dose: 40 mg Saccharomyces Boulardii (Florastor) 250 mg PO BID [facility] Last Admin: 12/27/16 16:30 Dose: 250 mg Tramadol HCl (Ultram) 50 mg PO Q6H PRN PRN Reason: Pain, severe (8-10) - Labs Labs: 12/27/16 04:20 12/27/16 04:20 PT 12.4 Seconds (9.8-13.1) 12/25/16 14:20 INR 1.1 (0.9-1.2) 12/25/16 14:20 APTT 30.6 Seconds (25.6-37.1) 12/25/16 14:20 - Constitutional Appears: Non-toxic, No Acute Distress, Cachectic - Head Exam Head Exam: ATRAUMATIC, NORMAL INSPECTION, NORMOCEPHALIC - Eye Exam Eye Exam: EOMI, Normal appearance, PERRL Pupil Exam: NORMAL ACCOMODATION - ENT Exam ENT Exam: Mucous Membranes Moist, Normal Exam - Neck Exam Neck Exam: Full ROM, Normal Inspection - Respiratory Exam Respiratory Exam: Rhonchi. absent: Rales, Wheezes, Respiratory Distress - Cardiovascular Exam Cardiovascular Exam: REGULAR RHYTHM, RRR, +S1, +S2. absent: JVD - GI/Abdominal Exam GI & Abdominal Exam: Soft, Normal Bowel Sounds. absent: Distended, Guarding, Rebound - Rectal Exam Rectal Exam: Deferred - Extremities Exam Extremities Exam: Full ROM, Normal Capillary Refill, Normal Inspection. absent : Calf Tenderness, Pedal Edema, Tenderness - Back Exam Back Exam: NORMAL INSPECTION - Neurological Exam Neurological Exam: Alert, Awake, CN II-XII Intact, Oriented x3 - Psychiatric Exam Psychiatric exam: Normal Affect - Skin Skin Exam: Dry, Pallor, Warm Assessment and Plan - Assessment and Plan (Free Text) Assessment: 66 y/o lady with hx of COPD, Dementia, Hypothyroidism, was brought in by her because of AMS. Patient was found to be with elevated WBC 26 K . She was started empirically on IV Zosyn and Clinda. Pulm and ID consulted. Ct chest today showed Multifocal infiltrates bilaterally left more extensive than right all new compared to the prior study and therefore likely infectious/ inflammatory. 1. Sepsis secondary to multifocal pneumonia Acute Ct chest showed multifocal pneumonia urine cultures with no growth -- ruling out UTI as etiology for sepsis blood cx with no growth so far WBC trending down from 26 k-- 16 K, Tmax 102.9 pulmonary and ID on consult empirically started on clinda and Zosyn IV . ID added meropenem AMS now resolved, back to baseline mental status 2. Altered mental status most likely secondary to sepsis back to her baseline now 3.UTI ruled out urine cx with no growth 4. Decompensated chronic obstructive pulmonary disease Acute cont Advair, Spiriva aaaaand Duoneb tx Received 125mg Solumedrol IV in pulmonary on consult 5. Dementia Chronic now at baseline cont namenda 6. Hypothyroidism TSH normal cont Levothyroxine 7. Cachetic BMI 18 8. Mild anemia dilutional ? 9. DVT prophylaxis Acute Lovenox
[2016-12-27] MEDS: Albuterol-Ipratrop 3 mg / 0.5 (3 ml) UD INH SCH (19:55)
[2016-12-27] MEDS: Acetylcysteine 20% Inhal Soln (4ml) INH SCH (19:56)
[2016-12-27] MEDS: Meropenem 1 GM in Sodium Chloride 0.9% 100 ML IVPB SCH (20:26)
[2016-12-27] MEDS: guaiFENesin 600 mg ER Tab PO SCH (20:27)
[2016-12-28] MEDS: Clindamycin 600 MG in Sodium Chloride 0.9% 100 ML IVPB SCH ×3 (00:27→17:26)
[2016-12-28] MEDS: Piperacillin/Tazobact 3.375 GM in Sodium Chloride 0.9% 100 ML IVPB SCH ×4 (04:49→21:20)
[2016-12-28] MEDS: Levothyroxine 100 MCG TAB PO SCH (06:49)
[2016-12-28 07:15] LABS: HEMATOCRIT 31.3 % (34.0-47.0); MEAN CELL VOLUME 91.8 fl (81.0-99.0); MEAN CORPUSCULAR HEMOGLOBIN 29.6 pg (27.0-31.0); MEAN CORPUSCULAR HGB CONC 32.2 g/dL (33.0-37.0); RED CELL DISTRIBUTION WIDTH 15.4 % (11.5-14.5); WHITE BLOOD COUNT 13.4 K/uL (4.8-10.8)
--- NOTE | 2016-12-28 07:22 | CP.PCM.PN ---
Subjective - Date & Time of Evaluation Date of Evaluation: 12/28/16 Time of Evaluation: 08:00 - Subjective Subjective: Patient seen and examined bedside.Feeling well. Forgetful, keep asking same questions . Febrile Tmax 101.2 last 24 hours. WBC trending down from 16 K -- 13 K With coughing spells and minimal sputum production. Denies any SOB Objective - Vital Signs/Intake and Output Vital Signs (last 24 hours): Temp Pulse Resp BP Pulse Ox 98.3 F 84 18 100/52 L 95 12/28/16 05:10 12/28/16 05:10 12/28/16 05:10 12/28/16 05:10 12/28/16 05:10 - Medications Medications: Current Medications Acetaminophen (Tylenol 325mg Tab) 650 mg PO Q6 PRN PRN Reason: Fever >100.4 F Last Admin: 12/28/16 00:07 Dose: 650 mg Acetylcysteine (Acetylcysteine 20%) 2 ml INH RBID [facility] Last Admin: 12/27/16 19:56 Dose: 2 ml Albuterol Sulfate (Albuterol 0.083% Inhal Joi (2.5 Mg/3 Ml) Ud) 2.5 mg INH RQ4 PRN PRN Reason: Shortness of Breath Albuterol/Ipratropium (Duoneb 3 Mg/0.5 Mg (3 Ml) Ud) 3 ml INH RQID [facility] Last Admin: 12/27/16 19:55 Dose: 3 ml Aspirin (Ecotrin) 81 mg PO DAILY [facility] Last Admin: 12/27/16 08:16 Dose: 81 mg Calcium Carbonate (Oscal) 500 mg PO BID [facility] Last Admin: 12/27/16 16:30 Dose: 500 mg Docusate Sodium (Colace) 100 mg PO BID PRN PRN Reason: Constipation Enoxaparin Sodium (Lovenox) 40 mg SC DAILY [facility] PRN Reason: Protocol Last Admin: 12/27/16 08:17 Dose: 40 mg Guaifenesin (Mucinex La) 600 mg PO Q12 [facility] Last Admin: 12/27/16 20:27 Dose: 600 mg Piperacillin Sod/Tazobactam (Sod 3.375 gm/ Sodium Chloride) 100 mls @ 100 mls/ hr IVPB Q6 [facility] PRN Reason: Protocol Last Admin: 12/28/16 04:49 Dose: 100 mls/hr Clindamycin Phosphate 600 mg/ (Sodium Chloride) 104 mls @ 104 mls/hr IVPB Q8 [facility] Last Admin: 12/28/16 00:27 Dose: 104 mls/hr Meropenem 1 gm/ Sodium (Chloride) 100 mls @ 100 mls/hr IVPB Q12 [facility] PRN Reason: Protocol Last Admin: 12/27/16 20:26 Dose: 100 mls/hr Levothyroxine Sodium (Synthroid) 100 mcg PO DAILY@0630 [facility] Last Admin: 12/28/16 06:49 Dose: 100 mcg Memantine (Namenda) 10 mg PO Q12H [facility] Last Admin: 12/28/16 06:55 Dose: 10 mg Multivitamins/Minerals (Therapeutic-M Tab) 1 tab PO DAILY [facility] Last Admin: 12/27/16 08:16 Dose: 1 tab Pantoprazole Sodium (Protonix Ec Tab) 40 mg PO DAILY [facility] Last Admin: 12/27/16 08:16 Dose: 40 mg Saccharomyces Boulardii (Florastor) 250 mg PO BID [facility] Last Admin: 12/27/16 16:30 Dose: 250 mg Tramadol HCl (Ultram) 50 mg PO Q6H PRN PRN Reason: Pain, severe (8-10) - Labs Labs: 12/28/16 06:00 12/27/16 04:20 PT 12.4 Seconds (9.8-13.1) 12/25/16 14:20 INR 1.1 (0.9-1.2) 12/25/16 14:20 APTT 30.6 Seconds (25.6-37.1) 12/25/16 14:20 - Constitutional Appears: No Acute Distress, Cachectic - Head Exam Head Exam: ATRAUMATIC, NORMAL INSPECTION, NORMOCEPHALIC - Eye Exam Eye Exam: EOMI, Normal appearance, PERRL Pupil Exam: NORMAL ACCOMODATION - ENT Exam ENT Exam: Mucous Membranes Moist, Normal Exam - Neck Exam Neck Exam: Full ROM, Normal Inspection - Respiratory Exam Respiratory Exam: Rhonchi, NORMAL BREATHING PATTERN. absent: Accessory Muscle Use, Wheezes, Respiratory Distress Additional comments: bilateral breast implants - Cardiovascular Exam Cardiovascular Exam: REGULAR RHYTHM, RRR, +S1, +S2. absent: JVD - GI/Abdominal Exam GI & Abdominal Exam: Soft, Normal Bowel Sounds. absent: Distended, Guarding, Tenderness, Rebound - Rectal Exam Rectal Exam: Deferred - Extremities Exam Extremities Exam: Full ROM, Normal Capillary Refill, Normal Inspection. absent : Pedal Edema - Back Exam Back Exam: NORMAL INSPECTION - Neurological Exam Neurological Exam: Alert, Awake, CN II-XII Intact, Oriented x3 Additional comments: forgetful - Psychiatric Exam Psychiatric exam: Normal Affect - Skin Skin Exam: Dry, Pallor, Warm Assessment and Plan - Assessment and Plan (Free Text) Assessment: 66 y/o lady with hx of COPD, Dementia, Hypothyroidism, was brought in by her because of AMS. Patient was found to be with elevated WBC 26 K . She was started empirically on IV Zosyn and Clinda. Pulm and ID consulted. Ct chest showed Multifocal infiltrates bilaterally left more extensive than right all new compared to the prior study and therefore likely infectious/ inflammatory. Started on Meropenem, Clinda and Zosyn as per ID 1. Sepsis secondary to multifocal pneumonia Acute Ct chest showed multifocal pneumonia urine cultures with no growth -- ruling out UTI as etiology for sepsis blood cx with no growth so far WBC trending down from 26 k-- 13 K, Tmax 101.2 last 24 hours pulmonary and ID on consult empirically was started on clinda and Zosyn IV . ID added meropenem AMS now resolved, back to baseline mental status 2. Altered mental status most likely secondary to sepsis back to her baseline now 3.UTI ruled out urine cx with no growth 4. Decompensated chronic obstructive pulmonary disease Acute cont Advair, Spiriva aaaaand Duoneb tx Received 125mg Solumedrol IV in pulmonary on consult CT chest showed left lobe questionable spiculated nodule. Discussed with pulmonary. patient may need bronchoscopy 5. Dementia Chronic now at baseline cont namenda forgetful 6. Hypothyroidism TSH normal cont Levothyroxine 7. Cachetic BMI 18 8. Mild anemia dilutional ? 9. DVT prophylaxis Acute Lovenox
[2016-12-28 07:28] LABS: BLOOD UREA NITROGEN 14 mg/dl (7-17); CALCIUM 7.8 mg/dL (8.4-10.2); CARBON DIOXIDE 30 mmol/L (22-30); CHLORIDE 102 mmol/L (98-107); GFR AFRICAN-AMERICAN > 60; GLUCOSE,RANDOM 100 mg/dL (65-105); POTASSIUM 3.1 MMOL/L (3.6-5.0); SODIUM 140 mmol/l (132-148)
[2016-12-28] MEDS: Acetylcysteine 20% Inhal Soln (4ml) INH SCH ×2 (07:59→19:36)
[2016-12-28] MEDS: Albuterol-Ipratrop 3 mg / 0.5 (3 ml) UD INH SCH ×4 (07:59→19:36)
[2016-12-28] MEDS ORDERED: Potassium Chloride 20 mEq/15 ml LIQ UD PO ONE (10:00)
[2016-12-28] MEDS: Saccharomyces Boulardi 250 mg Cap PO SCH ×2 (10:02→17:20)
[2016-12-28] MEDS: Pantoprazole 40 mg EC Tab PO SCH (10:02)
[2016-12-28] MEDS: guaiFENesin 600 mg ER Tab PO SCH ×2 (10:03→21:21)
[2016-12-28] MEDS: Multivitamin With Minerals Tab PO SCH (10:03)
[2016-12-28] MEDS: Enoxaparin 40 mg Syringe SC SCH (10:06)
[2016-12-28] MEDS: Meropenem 1 GM in Sodium Chloride 0.9% 100 ML IVPB SCH ×2 (10:06→21:19)
[2016-12-28 21:59] LABS: RBC URINE 4 /hpf (0-3); URINE BILIRUBIN NEGATIVE (NEGATIVE); URINE BLOOD NEGATIVE (NEGATIVE); URINE COLOR YELLOW (YELLOW); URINE GLUCOSE (UA) NEG (Normal); URINE KETONE NEGATIVE (NEGATIVE); URINE LEUKOCYTE ESTERASE NEG Leu/uL (Negative); URINE PROTEIN 100 mg/dL (NEGATIVE); URINE UROBILINOGEN 0.2-1.0 mg/dL (0.2-1.0); WBC URINE 3 /hpf (0-5)
[2016-12-29] MEDS: Clindamycin 600 MG in Sodium Chloride 0.9% 100 ML IVPB SCH ×3 (00:14→17:03)
[2016-12-29] MEDS: Piperacillin/Tazobact 3.375 GM in Sodium Chloride 0.9% 100 ML IVPB SCH ×4 (04:36→21:41)
[2016-12-29] MEDS: Levothyroxine 100 MCG TAB PO SCH (05:46)
[2016-12-29] MEDS: Albuterol-Ipratrop 3 mg / 0.5 (3 ml) UD INH SCH ×4 (07:15→19:10)
[2016-12-29] MEDS: Acetylcysteine 20% Inhal Soln (4ml) INH SCH ×2 (07:15→19:10)
[2016-12-29 07:28] LABS: HEMATOCRIT 31.6 % (34.0-47.0); MEAN CELL VOLUME 91.3 fl (81.0-99.0); MEAN CORPUSCULAR HEMOGLOBIN 30.4 pg (27.0-31.0); MEAN CORPUSCULAR HGB CONC 33.2 g/dL (33.0-37.0); RED CELL DISTRIBUTION WIDTH 15.3 % (11.5-14.5); WHITE BLOOD COUNT 10.9 K/uL (4.8-10.8)
[2016-12-29 07:37] LABS: BLOOD UREA NITROGEN 7 mg/dl (7-17); CALCIUM 8.4 mg/dL (8.4-10.2); CARBON DIOXIDE 30 mmol/L (22-30); CHLORIDE 100 mmol/L (98-107); GFR AFRICAN-AMERICAN > 60; GLUCOSE,RANDOM 95 mg/dL (65-105); POTASSIUM 3.8 MMOL/L (3.6-5.0); SODIUM 138 mmol/l (132-148)
--- NOTE | 2016-12-29 07:48 | CP.PCM.PN ---
Subjective - Date & Time of Evaluation Date of Evaluation: 12/29/16 Time of Evaluation: 11:30 - Subjective Subjective: Patient seen and examined bedside.Feeling well. Forgetful.With coughing spells at her baseline with yellowish sputum production. Afebrile last 24 hours. WBC trending down from 16 K -- 10 k Denies any SOB or CP Objective - Vital Signs/Intake and Output Vital Signs (last 24 hours): Temp Pulse Resp BP Pulse Ox 98.3 F 112 H 20 134/78 93 L 12/29/16 04:13 12/29/16 04:13 12/29/16 04:13 12/29/16 04:13 12/29/16 04:13 - Medications Medications: Current Medications Acetaminophen (Tylenol 325mg Tab) 650 mg PO Q6 PRN PRN Reason: Fever >100.4 F Last Admin: 12/28/16 00:07 Dose: 650 mg Acetylcysteine (Acetylcysteine 20%) 2 ml INH RBID [facility] Last Admin: 12/29/16 07:15 Dose: 2 ml Albuterol Sulfate (Albuterol 0.083% Inhal Joi (2.5 Mg/3 Ml) Ud) 2.5 mg INH RQ4 PRN PRN Reason: Shortness of Breath Albuterol/Ipratropium (Duoneb 3 Mg/0.5 Mg (3 Ml) Ud) 3 ml INH RQID [facility] Last Admin: 12/29/16 07:15 Dose: 3 ml Aspirin (Ecotrin) 81 mg PO DAILY [facility] Last Admin: 12/28/16 10:07 Dose: 81 mg Calcium Carbonate (Oscal) 500 mg PO BID [facility] Last Admin: 12/28/16 17:21 Dose: 500 mg Docusate Sodium (Colace) 100 mg PO BID PRN PRN Reason: Constipation Enoxaparin Sodium (Lovenox) 40 mg SC DAILY [facility] PRN Reason: Protocol Last Admin: 12/28/16 10:06 Dose: 40 mg Guaifenesin (Mucinex La) 600 mg PO Q12 [facility] Last Admin: 12/28/16 21:21 Dose: 600 mg Piperacillin Sod/Tazobactam (Sod 3.375 gm/ Sodium Chloride) 100 mls @ 100 mls/ hr IVPB Q6 [facility] PRN Reason: Protocol Last Admin: 12/29/16 04:36 Dose: 100 mls/hr Clindamycin Phosphate 600 mg/ (Sodium Chloride) 104 mls @ 104 mls/hr IVPB Q8 [facility] Last Admin: 12/29/16 00:14 Dose: 104 mls/hr Meropenem 1 gm/ Sodium (Chloride) 100 mls @ 100 mls/hr IVPB Q12 [facility] PRN Reason: Protocol Last Admin: 12/28/16 21:19 Dose: 100 mls/hr Levothyroxine Sodium (Synthroid) 100 mcg PO DAILY@0630 [facility] Last Admin: 12/29/16 05:46 Dose: 100 mcg Memantine (Namenda) 10 mg PO Q12H [facility] Last Admin: 12/29/16 04:37 Dose: 10 mg Multivitamins/Minerals (Therapeutic-M Tab) 1 tab PO DAILY [facility] Last Admin: 12/28/16 10:03 Dose: 1 tab Pantoprazole Sodium (Protonix Ec Tab) 40 mg PO DAILY [facility] Last Admin: 12/28/16 10:02 Dose: 40 mg Saccharomyces Boulardii (Florastor) 250 mg PO BID [facility] Last Admin: 12/28/16 17:20 Dose: 250 mg Tramadol HCl (Ultram) 50 mg PO Q6H PRN PRN Reason: Pain, severe (8-10) - Labs Labs: 12/28/16 06:00 12/29/16 06:00 PT 12.4 Seconds (9.8-13.1) 12/25/16 14:20 INR 1.1 (0.9-1.2) 12/25/16 14:20 APTT 30.6 Seconds (25.6-37.1) 12/25/16 14:20 - Constitutional Appears: Non-toxic, No Acute Distress, Cachectic - Head Exam Head Exam: ATRAUMATIC, NORMOCEPHALIC - Eye Exam Eye Exam: EOMI, PERRL Pupil Exam: NORMAL ACCOMODATION - ENT Exam ENT Exam: Mucous Membranes Moist, Normal Exam - Neck Exam Neck Exam: Full ROM, Normal Inspection - Respiratory Exam Respiratory Exam: Rhonchi. absent: Accessory Muscle Use, Prolonged Expiratory Phase, Wheezes, Respiratory Distress - Cardiovascular Exam Cardiovascular Exam: REGULAR RHYTHM, RRR, +S1, +S2. absent: JVD - GI/Abdominal Exam GI & Abdominal Exam: Soft, Normal Bowel Sounds. absent: Distended, Guarding, Tenderness, Rebound - Rectal Exam Rectal Exam: Deferred - Extremities Exam Extremities Exam: Full ROM, Normal Capillary Refill, Normal Inspection. absent : Calf Tenderness, Pedal Edema - Back Exam Back Exam: NORMAL INSPECTION - Neurological Exam Neurological Exam: Alert, Awake, CN II-XII Intact, Oriented x3 - Psychiatric Exam Additional comments: forgetful - Skin Skin Exam: Dry, Pallor, Warm Assessment and Plan - Assessment and Plan (Free Text) Assessment: 66 y/o lady with hx of COPD, Dementia, Hypothyroidism, was brought in by her because of AMS. Patient was found to be with elevated WBC 26 K . She was started empirically on IV Zosyn and Clinda. Pulm and ID consulted. Ct chest showed Multifocal infiltrates bilaterally left more extensive than right all new compared to the prior study and therefore likely infectious/ inflammatory. Started on Meropenem, Clinda and Zosyn as per ID 1. Sepsis secondary to multifocal pneumonia Acute Ct chest showed multifocal pneumonia urine cultures with no growth -- ruling out UTI as etiology for sepsis blood cx with no growth so far Sputum Cx positive for yeast WBC trending down from 26 k-- 10 K, afebrile last 24 hours pulmonary and ID on consult empirically was started on clinda and Zosyn IV . ID added meropenem AMS now resolved, back to baseline mental status 2. Altered mental status most likely secondary to sepsis back to her baseline now 3.UTI ruled out urine cx with no growth 4. Decompensated chronic obstructive pulmonary disease Acute cont Advair, Spiriva and Duoneb tx pulmonary on consult CT chest showed left lobe questionable spiculated nodule. Discussed with pulmonary. Patient may need bronchoscopy 5. Dementia Chronic now at baseline cont namenda forgetful 6. Hypothyroidism TSH normal cont Levothyroxine 7. Cachetic BMI 18 8. Mild anemia dilutional ? 9. DVT prophylaxis Acute Lovenox
[2016-12-29] MEDS: guaiFENesin 600 mg ER Tab PO SCH ×2 (09:55→21:41)
[2016-12-29] MEDS: Multivitamin With Minerals Tab PO SCH (09:55)
[2016-12-29] MEDS: Saccharomyces Boulardi 250 mg Cap PO SCH ×2 (09:56→16:59)
[2016-12-29] MEDS: Meropenem 1 GM in Sodium Chloride 0.9% 100 ML IVPB SCH ×2 (09:56→21:44)
[2016-12-29] MEDS: Enoxaparin 40 mg Syringe SC SCH (09:57)
[2016-12-29] MEDS: Pantoprazole 40 mg EC Tab PO SCH (09:57)
[2016-12-30] MEDS: Clindamycin 600 MG in Sodium Chloride 0.9% 100 ML IVPB SCH ×3 (00:54→17:49)
[2016-12-30] MEDS: Piperacillin/Tazobact 3.375 GM in Sodium Chloride 0.9% 100 ML IVPB SCH ×3 (03:34→17:49)
[2016-12-30] MEDS: Levothyroxine 100 MCG TAB PO SCH (05:19)
[2016-12-30 05:45] LABS: HEMATOCRIT 31.6 % (34.0-47.0); MEAN CORPUSCULAR HEMOGLOBIN 30.4 pg (27.0-31.0); MEAN CORPUSCULAR HGB CONC 33.4 g/dL (33.0-37.0); RED CELL DISTRIBUTION WIDTH 15.4 % (11.5-14.5); WHITE BLOOD COUNT 8.7 K/uL (4.8-10.8)
[2016-12-30 05:47] LABS: BLOOD UREA NITROGEN 5 mg/dl (7-17); CALCIUM 8.7 mg/dL (8.4-10.2); CARBON DIOXIDE 31 mmol/L (22-30); GFR AFRICAN-AMERICAN > 60; GLUCOSE,RANDOM 99 mg/dL (65-105)
[2016-12-30 05:53] LABS: CHLORIDE 103 mmol/L (98-107); POTASSIUM 3.8 MMOL/L (3.6-5.0); SODIUM 141 mmol/l (132-148)
[2016-12-30] MEDS: Acetylcysteine 20% Inhal Soln (4ml) INH SCH ×2 (08:58→19:30)
[2016-12-30] MEDS: Albuterol-Ipratrop 3 mg / 0.5 (3 ml) UD INH SCH ×3 (08:58→19:31)
--- NOTE | 2016-12-30 10:02 | CP.PCM.PN ---
Subjective - Date & Time of Evaluation Date of Evaluation: 12/30/16 Time of Evaluation: 09:59 - Subjective Subjective: Presently out of the room for repeat CXR. She has remained afebrile for the last 2 days, and VS have been stable. Leukocytosis has resolved and other labs have been stable, though the Hgb is down to 10.6 from 13. Sputum culture has been unrewarding thus far. Appears to have responded to the addition of a third antibiotic to the regimen. Will return to see her after CXR is done. Back from x-ray: Looks comfortable, oxygenation okay. Scattered ecchymoses from labs and IV's. When coached her cough is still congested, but non-productive. On exam there is an area of harsh breath sounds with expiratory wheezing heard in the left upper lobe anteriorly. This finding coincides with the abnormality seen on the chest x-ray. Objective - Vital Signs/Intake and Output Vital Signs (last 24 hours): Temp Pulse Resp BP Pulse Ox 98.4 F 95 H 20 132/77 94 L 12/30/16 08:26 12/30/16 08:26 12/30/16 08:26 12/30/16 08:26 12/30/16 08:26 - Medications Medications: Current Medications Acetaminophen (Tylenol 325mg Tab) 650 mg PO Q6 PRN PRN Reason: Fever >100.4 F Last Admin: 12/28/16 00:07 Dose: 650 mg Acetylcysteine (Acetylcysteine 20%) 2 ml INH RBID [facility] Last Admin: 12/30/16 08:58 Dose: 2 ml Albuterol Sulfate (Albuterol 0.083% Inhal Joi (2.5 Mg/3 Ml) Ud) 2.5 mg INH RQ4 PRN PRN Reason: Shortness of Breath Albuterol/Ipratropium (Duoneb 3 Mg/0.5 Mg (3 Ml) Ud) 3 ml INH RQID [facility] Last Admin: 12/30/16 08:58 Dose: 3 ml Aspirin (Ecotrin) 81 mg PO DAILY [facility] Last Admin: 12/29/16 09:56 Dose: 81 mg Calcium Carbonate (Oscal) 500 mg PO BID [facility] Last Admin: 12/29/16 16:59 Dose: 500 mg Docusate Sodium (Colace) 100 mg PO BID PRN PRN Reason: Constipation Enoxaparin Sodium (Lovenox) 40 mg SC DAILY [facility] PRN Reason: Protocol Last Admin: 12/29/16 09:57 Dose: 40 mg Guaifenesin (Mucinex La) 600 mg PO Q12 [facility] Last Admin: 12/29/16 21:41 Dose: 600 mg Piperacillin Sod/Tazobactam (Sod 3.375 gm/ Sodium Chloride) 100 mls @ 100 mls/ hr IVPB Q6 [facility] PRN Reason: Protocol Last Admin: 12/30/16 03:34 Dose: 100 mls/hr Clindamycin Phosphate 600 mg/ (Sodium Chloride) 104 mls @ 104 mls/hr IVPB Q8 [facility] Last Admin: 12/30/16 00:54 Dose: 104 mls/hr Meropenem 1 gm/ Sodium (Chloride) 100 mls @ 100 mls/hr IVPB Q12 [facility] PRN Reason: Protocol Last Admin: 12/29/16 21:44 Dose: 100 mls/hr Levothyroxine Sodium (Synthroid) 100 mcg PO DAILY@0630 [facility] Last Admin: 12/30/16 05:19 Dose: 100 mcg Memantine (Namenda) 10 mg PO Q12H [facility] Last Admin: 12/30/16 05:18 Dose: 10 mg Multivitamins/Minerals (Therapeutic-M Tab) 1 tab PO DAILY [facility] Last Admin: 12/29/16 09:55 Dose: 1 tab Pantoprazole Sodium (Protonix Ec Tab) 40 mg PO DAILY [facility] Last Admin: 12/29/16 09:57 Dose: 40 mg Saccharomyces Boulardii (Florastor) 250 mg PO BID [facility] Last Admin: 12/29/16 16:59 Dose: 250 mg Tramadol HCl (Ultram) 50 mg PO Q6H PRN PRN Reason: Pain, severe (8-10) - Labs Labs: 12/30/16 04:10 12/30/16 04:10 PT 12.4 Seconds (9.8-13.1) 12/25/16 14:20 INR 1.1 (0.9-1.2) 12/25/16 14:20 APTT 30.6 Seconds (25.6-37.1) 12/25/16 14:20 Assessment and Plan (1) Sepsis Status: Resolved (2) Decompensated chronic obstructive pulmonary disease Status: Resolved (3) Dementia Status: Chronic (4) Necrotizing pneumonia Assessment & Plan: Left upper lobe, anterior segment, necrotizing. A solitary nodule, spiculated, measuring approx 1.5 cm is also present in the MAMTA, distinct from the pneumonic infiltrate. These are poorly visualized on the chest x-rays, including today's exam, and will require another CT chest for follow up. If these do not resolve on followup exam a flexible bronchoscopy will be needed. For the present time we will continue with the current regimen and she can be transferred to [facility]. Status: Acute
[2016-12-30] MEDS: Meropenem 1 GM in Sodium Chloride 0.9% 100 ML IVPB SCH ×2 (10:45→20:37)
[2016-12-30] MEDS: Saccharomyces Boulardi 250 mg Cap PO SCH ×2 (10:46→17:50)
[2016-12-30] MEDS: Enoxaparin 40 mg Syringe SC SCH (10:47)
[2016-12-30] MEDS: guaiFENesin 600 mg ER Tab PO SCH ×2 (10:48→20:37)
[2016-12-30] MEDS: Pantoprazole 40 mg EC Tab PO SCH (10:48)
[2016-12-30] MEDS: Multivitamin With Minerals Tab PO SCH (10:48)
--- NOTE | 2016-12-30 11:03 | CP.PCM.DIS ---
<ZhangKettyclemencia Leo - Last Filed: 12/30/16 11:03> Provider - Provider Date of Admission: 12/25/16 15:14 Attending physician: Gunnar Hill MD Diagnosis - Discharge Diagnosis (1) Sepsis Status: Resolved Priority: High (2) UTI (urinary tract infection) Status: Acute (3) Decompensated chronic obstructive pulmonary disease Status: Resolved Priority: High (4) Dementia Status: Chronic Priority: High (5) DVT prophylaxis Status: Acute Priority: Medium Hospital Course - Lab Results Lab Results: Micro Results 12/25/16 14:00 Blood Blood Culture - Preliminary NO GROWTH AFTER 4 DAYS 12/25/16 14:15 Blood Blood Culture - Preliminary NO GROWTH AFTER 4 DAYS 12/26/16 22:30 Sputum Gram Stain - Final 12/26/16 22:30 Sputum Sputum Culture - Final Yeast Species 12/26/16 Unknown Urine Urine Culture - Final No Growth (<1,000 CFU/ML) Most Recent Lab Values WBC 8.7 K/uL (4.8-10.8) 12/30/16 04:10 RBC 3.47 Mil/uL (3.80-5.20) L 12/30/16 04:10 Hgb 10.6 g/dL (12.0-16.0) L 12/30/16 04:10 Hct 31.6 % (34.0-47.0) L 12/30/16 04:10 MCV 91.0 fl (81.0-99.0) 12/30/16 04:10 MCH 30.4 pg (27.0-31.0) 12/30/16 04:10 MCHC 33.4 g/dL (33.0-37.0) 12/30/16 04:10 RDW 15.4 % (11.5-14.5) H 12/30/16 04:10 Plt Count 398 K/uL (130-400) 12/30/16 04:10 MPV 7.7 fl (7.2-11.7) 12/27/16 04:20 Neut % (Auto) 82.3 % (50.0-75.0) H 12/27/16 04:20 Lymph % (Auto) 7.1 % (20.0-40.0) L 12/27/16 04:20 [place] % (Auto) 9.9 % (0.0-10.0) 12/27/16 04:20 Eos % (Auto) 0.4 % (0.0-4.0) 12/27/16 04:20 Baso % (Auto) 0.3 % (0.0-2.0) 12/27/16 04:20 Neut # 13.2 K/uL (1.8-7.0) H 12/27/16 04:20 Lymph # 1.1 K/uL (1.0-4.3) 12/27/16 04:20 [place] # 1.6 K/uL (0.0-0.8) H 12/27/16 04:20 Eos # 0.1 K/uL (0.0-0.7) 12/27/16 04:20 Baso # 0.0 K/uL (0.0-0.2) 12/27/16 04:20 Neutrophils % (Manual) 93 % (42-75) H 12/26/16 04:50 Band Neutrophils % 2 % (0-2) 12/26/16 04:50 Lymphocytes % (Manual) 2 % (20-50) L 12/26/16 04:50 Monocytes % (Manual) 3 % (0-10) 12/26/16 04:50 Toxic Granulation Present 12/25/16 14:20 Platelet Estimate Slightly increased (NORMAL) H 12/26/16 04:50 Anisocytosis (manual) Slight 12/26/16 04:50 PT 12.4 Seconds (9.8-13.1) 12/25/16 14:20 INR 1.1 (0.9-1.2) 12/25/16 14:20 APTT 30.6 Seconds (25.6-37.1) 12/25/16 14:20 pCO2 47 mm/Hg (35-45) H 12/25/16 13:32 pO2 64 mm/Hg (80-100) L 12/25/16 13:32 HCO3 29.8 mmol/L (21-28) H 12/25/16 13:32 ABG pH 7.44 (7.35-7.45) 12/25/16 13:32 ABG Total CO2 33.3 mmol/L (22-28) H 12/25/16 13:32 ABG O2 Saturation 98.1 % (95-98) H 12/25/16 13:32 ABG Base Excess 6.6 mmol/L (-2.0-3.0) H 12/25/16 13:32 Lino Test Yes 12/25/16 13:32 ABG Potassium 4.0 mmol/L (3.6-5.2) 12/25/16 13:32 A-a O2 Difference 77.0 mm/Hg 12/25/16 13:32 Sodium 131.0 mmol/L (132-148) L 12/25/16 13:32 Chloride 99.0 mmol/L (98-107) 12/25/16 13:32 Glucose 125 mg/dL (65-105) H 12/25/16 13:32 Lactate 0.6 mmol/L (0.7-2.1) L 12/25/16 13:32 FiO2 28.0 % 12/25/16 13:32 Sodium 141 mmol/l (132-148) 12/30/16 04:10 Potassium 3.8 MMOL/L (3.6-5.0) 12/30/16 04:10 Chloride 103 mmol/L (98-107) 12/30/16 04:10 Carbon Dioxide 31 mmol/L (22-30) H 12/30/16 04:10 Anion Gap 11 (10-20) 12/30/16 04:10 BUN 5 mg/dl (7-17) L 12/30/16 04:10 Creatinine 0.6 mg/dL (0.7-1.2) L 12/30/16 04:10 Est GFR ( Amer) > 60 12/30/16 04:10 Est GFR (Non-Af Amer) > 60 12/30/16 04:10 Random Glucose 99 mg/dL (65-105) 12/30/16 04:10 Calcium 8.7 mg/dL (8.4-10.2) 12/30/16 04:10 Phosphorus 3.1 mg/dl (2.5-4.5) 12/25/16 14:20 Magnesium 2.0 MG/DL (1.6-2.3) 12/25/16 14:20 Total Bilirubin 0.8 mg/dl (0.2-1.3) 12/25/16 14:20 AST 49 U/L (14-36) H 12/25/16 14:20 ALT 27 U/L (9-52) 12/25/16 14:20 Alkaline Phosphatase 87 U/L (38-126) 12/25/16 14:20 Troponin I < 0.0120 ng/mL (0.00-0.120) 12/25/16 14:20 NT-Pro-B Natriuret Pep 662 pg/ml (0-900) 12/25/16 14:20 Total Protein 7.9 G/DL (6.3-8.2) 12/25/16 14:20 Albumin 4.4 g/dL (3.5-5.0) 12/25/16 14:20 Globulin 3.5 gm/dL (2.2-3.9) 12/25/16 14:20 Albumin/Globulin Ratio 1.3 (1.0-2.1) 12/25/16 14:20 Procalcitonin 0.15 NG/ML (0.19-0.49) L 12/25/16 17:20 TSH 3rd Generation 2.83 mIU/ML (0.46-4.68) 12/26/16 04:50 Arterial Blood Potassium 4.0 mmol/L (3.6-5.2) 12/25/16 13:32 Urine Color Yellow (YELLOW) 12/28/16 21:39 Urine Clarity Slighty-cloudy (Clear) 12/28/16 21:39 Urine pH 5.0 (5.0-8.0) 12/28/16 21:39 Ur Specific [place] 1.028 (1.003-1.030) 12/28/16 21:39 Urine Protein 100 mg/dL (NEGATIVE) 12/28/16 21:39 Urine Glucose (UA) Neg mg/dL (Normal) 12/28/16 21:39 Urine Ketones Negative mg/dL (NEGATIVE) 12/28/16 21:39 Urine Blood Negative (NEGATIVE) 12/28/16 21:39 Urine Nitrate Negative (NEGATIVE) 12/28/16 21:39 Urine Bilirubin Negative (NEGATIVE) 12/28/16 21:39 Urine Urobilinogen 0.2-1.0 mg/dL (0.2-1.0) 12/28/16 21:39 Ur Leukocyte Esterase Neg Gerardo/uL (Negative) 12/28/16 21:39 Urine RBC (Auto) 4 /hpf (0-3) H 12/28/16 21:39 Urine Microscopic WBC 3 /hpf (0-5) 12/28/16 21:39 Ur Squamous Epith Cells 2 /hpf (0-5) 12/28/16 21:39 Ur Transition Epith Cell 1 /hpf (0-3) 12/26/16 Unknown Urine Bacteria Rare (<OCC) 12/26/16 Unknown Urine Opiates Screen Negative (NEGATIVE) 12/28/16 21:39 Urine Methadone Screen Negative (NEGATIVE) 12/28/16 21:39 Ur Barbiturates Screen Negative (NEGATIVE) 12/28/16 21:39 Ur Phencyclidine Scrn Negative (NEGATIVE) 12/28/16 21:39 Ur Amphetamines Screen Negative (NEGATIVE) 12/28/16 21:39 U Benzodiazepines Scrn Negative (NEGATIVE) 12/28/16 21:39 U Oth Cocaine Metabols Negative (NEGATIVE) 12/28/16 21:39 U Cannabinoids Screen Negative (NEGATIVE) 12/28/16 21:39 Influenza Typ A,B (EIA) Negative for flu a/b (NEGATIVE) 12/26/16 Unknown Discharge Exam - Head Exam Head Exam: ATRAUMATIC, NORMOCEPHALIC Discharge Plan - Discharge Medications Prescriptions: Clindamycin in 0.9 % Sod Chlor [Clindamycin 600 mg/50 ml-Ns] 600 mg IV Q8 #1 piggyback Meropenem [Premierpro Rx Meropenem] 1 gm IV Q12 #1 pds Piperacill/Tazo 3.375gm in Dex [Zosyn 3.375 Gm IV] 3.375 gm IVPB Q6 #1 bag - Follow Up Plan Condition: FAIR Disposition: TRANSF TO SNF Additional Instructions: d/c to TCU <Yvrose Singh - Last Filed: 12/30/16 19:58> Provider - Provider Date of Admission: 12/25/16 15:14 Attending physician: Gunnar Hill MD Hospital Course - Lab Results Lab Results: Micro Results 12/25/16 14:00 Blood Blood Culture - Final NO GROWTH AFTER 5 DAYS 12/25/16 14:00 Blood Gram Stain - Final TEST NOT PERFORMED 12/25/16 14:15 Blood Blood Culture - Final NO GROWTH AFTER 5 DAYS 12/25/16 14:15 Blood Gram Stain - Final TEST NOT PERFORMED 12/26/16 22:30 Sputum Gram Stain - Final 12/26/16 22:30 Sputum Sputum Culture - Final Yeast Species 12/26/16 Unknown Urine Urine Culture - Final No Growth (<1,000 CFU/ML) Most Recent Lab Values WBC 8.7 K/uL (4.8-10.8) 12/30/16 04:10 RBC 3.47 Mil/uL (3.80-5.20) L 12/30/16 04:10 Hgb 10.6 g/dL (12.0-16.0) L 12/30/16 04:10 Hct 31.6 % (34.0-47.0) L 12/30/16 04:10 MCV 91.0 fl (81.0-99.0) 12/30/16 04:10 MCH 30.4 pg (27.0-31.0) 12/30/16 04:10 MCHC 33.4 g/dL (33.0-37.0) 12/30/16 04:10 RDW 15.4 % (11.5-14.5) H 12/30/16 04:10 Plt Count 398 K/uL (130-400) 12/30/16 04:10 MPV 7.7 fl (7.2-11.7) 12/27/16 04:20 Neut % (Auto) 82.3 % (50.0-75.0) H 12/27/16 04:20 Lymph % (Auto) 7.1 % (20.0-40.0) L 12/27/16 04:20 [place] % (Auto) 9.9 % (0.0-10.0) 12/27/16 04:20 Eos % (Auto) 0.4 % (0.0-4.0) 12/27/16 04:20 Baso % (Auto) 0.3 % (0.0-2.0) 12/27/16 04:20 Neut # 13.2 K/uL (1.8-7.0) H 12/27/16 04:20 Lymph # 1.1 K/uL (1.0-4.3) 12/27/16 04:20 [place] # 1.6 K/uL (0.0-0.8) H 12/27/16 04:20 Eos # 0.1 K/uL (0.0-0.7) 12/27/16 04:20 Baso # 0.0 K/uL (0.0-0.2) 12/27/16 04:20 Neutrophils % (Manual) 93 % (42-75) H 12/26/16 04:50 Band Neutrophils % 2 % (0-2) 12/26/16 04:50 Lymphocytes % (Manual) 2 % (20-50) L 12/26/16 04:50 Monocytes % (Manual) 3 % (0-10) 12/26/16 04:50 Toxic Granulation Present 12/25/16 14:20 Platelet Estimate Slightly increased (NORMAL) H 12/26/16 04:50 Anisocytosis (manual) Slight 12/26/16 04:50 PT 12.4 Seconds (9.8-13.1) 12/25/16 14:20 INR 1.1 (0.9-1.2) 12/25/16 14:20 APTT 30.6 Seconds (25.6-37.1) 12/25/16 14:20 pCO2 47 mm/Hg (35-45) H 12/25/16 13:32 pO2 64 mm/Hg (80-100) L 12/25/16 13:32 HCO3 29.8 mmol/L (21-28) H 12/25/16 13:32 ABG pH 7.44 (7.35-7.45) 12/25/16 13:32 ABG Total CO2 33.3 mmol/L (22-28) H 12/25/16 13:32 ABG O2 Saturation 98.1 % (95-98) H 12/25/16 13:32 ABG Base Excess 6.6 mmol/L (-2.0-3.0) H 12/25/16 13:32 Lino Test Yes 12/25/16 13:32 ABG Potassium 4.0 mmol/L (3.6-5.2) 12/25/16 13:32 A-a O2 Difference 77.0 mm/Hg 12/25/16 13:32 Sodium 131.0 mmol/L (132-148) L 12/25/16 13:32 Chloride 99.0 mmol/L (98-107) 12/25/16 13:32 Glucose 125 mg/dL (65-105) H 12/25/16 13:32 Lactate 0.6 mmol/L (0.7-2.1) L 12/25/16 13:32 FiO2 28.0 % 12/25/16 13:32 Sodium 141 mmol/l (132-148) 12/30/16 04:10 Potassium 3.8 MMOL/L (3.6-5.0) 12/30/16 04:10 Chloride 103 mmol/L (98-107) 12/30/16 04:10 Carbon Dioxide 31 mmol/L (22-30) H 12/30/16 04:10 Anion Gap 11 (10-20) 12/30/16 04:10 BUN 5 mg/dl (7-17) L 12/30/16 04:10 Creatinine 0.6 mg/dL (0.7-1.2) L 12/30/16 04:10 Est GFR ( Amer) > 60 12/30/16 04:10 Est GFR (Non-Af Amer) > 60 12/30/16 04:10 Random Glucose 99 mg/dL (65-105) 12/30/16 04:10 Calcium 8.7 mg/dL (8.4-10.2) 12/30/16 04:10 Phosphorus 3.1 mg/dl (2.5-4.5) 12/25/16 14:20 Magnesium 2.0 MG/DL (1.6-2.3) 12/25/16 14:20 Total Bilirubin 0.8 mg/dl (0.2-1.3) 12/25/16 14:20 AST 49 U/L (14-36) H 12/25/16 14:20 ALT 27 U/L (9-52) 12/25/16 14:20 Alkaline Phosphatase 87 U/L (38-126) 12/25/16 14:20 Troponin I < 0.0120 ng/mL (0.00-0.120) 12/25/16 14:20 NT-Pro-B Natriuret Pep 662 pg/ml (0-900) 12/25/16 14:20 Total Protein 7.9 G/DL (6.3-8.2) 12/25/16 14:20 Albumin 4.4 g/dL (3.5-5.0) 12/25/16 14:20 Globulin 3.5 gm/dL (2.2-3.9) 12/25/16 14:20 Albumin/Globulin Ratio 1.3 (1.0-2.1) 12/25/16 14:20 Procalcitonin 0.15 NG/ML (0.19-0.49) L 12/25/16 17:20 TSH 3rd Generation 2.83 mIU/ML (0.46-4.68) 12/26/16 04:50 Arterial Blood Potassium 4.0 mmol/L (3.6-5.2) 12/25/16 13:32 Urine Color Yellow (YELLOW) 12/28/16 21:39 Urine Clarity Slighty-cloudy (Clear) 12/28/16 21:39 Urine pH 5.0 (5.0-8.0) 12/28/16 21:39 Ur Specific [place] 1.028 (1.003-1.030) 12/28/16 21:39 Urine Protein 100 mg/dL (NEGATIVE) 12/28/16 21:39 Urine Glucose (UA) Neg mg/dL (Normal) 12/28/16 21:39 Urine Ketones Negative mg/dL (NEGATIVE) 12/28/16 21:39 Urine Blood Negative (NEGATIVE) 12/28/16 21:39 Urine Nitrate Negative (NEGATIVE) 12/28/16 21:39 Urine Bilirubin Negative (NEGATIVE) 12/28/16 21:39 Urine Urobilinogen 0.2-1.0 mg/dL (0.2-1.0) 12/28/16 21:39 Ur Leukocyte Esterase Neg Gerardo/uL (Negative) 12/28/16 21:39 Urine RBC (Auto) 4 /hpf (0-3) H 12/28/16 21:39 Urine Microscopic WBC 3 /hpf (0-5) 12/28/16 21:39 Ur Squamous Epith Cells 2 /hpf (0-5) 12/28/16 21:39 Ur Transition Epith Cell 1 /hpf (0-3) 12/26/16 Unknown Urine Bacteria Rare (<OCC) 12/26/16 Unknown Urine Opiates Screen Negative (NEGATIVE) 12/28/16 21:39 Urine Methadone Screen Negative (NEGATIVE) 12/28/16 21:39 Ur Barbiturates Screen Negative (NEGATIVE) 12/28/16 21:39 Ur Phencyclidine Scrn Negative (NEGATIVE) 12/28/16 21:39 Ur Amphetamines Screen Negative (NEGATIVE) 12/28/16 21:39 U Benzodiazepines Scrn Negative (NEGATIVE) 12/28/16 21:39 U Oth Cocaine Metabols Negative (NEGATIVE) 12/28/16 21:39 U Cannabinoids Screen Negative (NEGATIVE) 12/28/16 21:39 Influenza Typ A,B (EIA) Negative for flu a/b (NEGATIVE) 12/26/16 Unknown
--- NOTE | 2016-12-30 13:28 | RAD ---
HISTORY: pneumonia COMPARISON: Chest radiographs 12/26/2016. TECHNIQUE: Chest PA and lateral FINDINGS: LUNGS: No active pulmonary disease. PLEURA: No significant pleural effusion identified. No pneumothorax apparent. CARDIOVASCULAR: Normal. OSSEOUS STRUCTURES: No significant abnormalities. VISUALIZED UPPER ABDOMEN: Normal. OTHER FINDINGS: Bilateral breast implants again identified. Incidental note is made of anterior inferior cervicothoracic spinal fusion inferiorly once again. IMPRESSION: Stable nonacute chest radiograph as discussed above.
[2016-12-30 20:00] VITALS: BP 146/77; PULSE 101; RESP 18; TEMP 99; O2SAT 93
--- NOTE | 2016-12-30 20:05 | CP.PCM.DIS ---
Provider - Provider Date of Admission: 12/25/16 15:14 Attending physician: Gunnar Hill MD Primary care physician: Dr. Ferreira Consults: Pulmonary consult ID consult Time Spent in preparation of Discharge (in minutes): 20 Hospital Course - Lab Results Lab Results: Micro Results 12/25/16 14:00 Blood Blood Culture - Final NO GROWTH AFTER 5 DAYS 12/25/16 14:00 Blood Gram Stain - Final TEST NOT PERFORMED 12/25/16 14:15 Blood Blood Culture - Final NO GROWTH AFTER 5 DAYS 12/25/16 14:15 Blood Gram Stain - Final TEST NOT PERFORMED 12/26/16 22:30 Sputum Gram Stain - Final 12/26/16 22:30 Sputum Sputum Culture - Final Yeast Species 12/26/16 Unknown Urine Urine Culture - Final No Growth (<1,000 CFU/ML) Most Recent Lab Values WBC 8.7 K/uL (4.8-10.8) 12/30/16 04:10 RBC 3.47 Mil/uL (3.80-5.20) L 12/30/16 04:10 Hgb 10.6 g/dL (12.0-16.0) L 12/30/16 04:10 Hct 31.6 % (34.0-47.0) L 12/30/16 04:10 MCV 91.0 fl (81.0-99.0) 12/30/16 04:10 MCH 30.4 pg (27.0-31.0) 12/30/16 04:10 MCHC 33.4 g/dL (33.0-37.0) 12/30/16 04:10 RDW 15.4 % (11.5-14.5) H 12/30/16 04:10 Plt Count 398 K/uL (130-400) 12/30/16 04:10 MPV 7.7 fl (7.2-11.7) 12/27/16 04:20 Neut % (Auto) 82.3 % (50.0-75.0) H 12/27/16 04:20 Lymph % (Auto) 7.1 % (20.0-40.0) L 12/27/16 04:20 [place] % (Auto) 9.9 % (0.0-10.0) 12/27/16 04:20 Eos % (Auto) 0.4 % (0.0-4.0) 12/27/16 04:20 Baso % (Auto) 0.3 % (0.0-2.0) 12/27/16 04:20 Neut # 13.2 K/uL (1.8-7.0) H 12/27/16 04:20 Lymph # 1.1 K/uL (1.0-4.3) 12/27/16 04:20 [place] # 1.6 K/uL (0.0-0.8) H 12/27/16 04:20 Eos # 0.1 K/uL (0.0-0.7) 12/27/16 04:20 Baso # 0.0 K/uL (0.0-0.2) 12/27/16 04:20 Neutrophils % (Manual) 93 % (42-75) H 12/26/16 04:50 Band Neutrophils % 2 % (0-2) 12/26/16 04:50 Lymphocytes % (Manual) 2 % (20-50) L 12/26/16 04:50 Monocytes % (Manual) 3 % (0-10) 12/26/16 04:50 Toxic Granulation Present 12/25/16 14:20 Platelet Estimate Slightly increased (NORMAL) H 12/26/16 04:50 Anisocytosis (manual) Slight 12/26/16 04:50 PT 12.4 Seconds (9.8-13.1) 12/25/16 14:20 INR 1.1 (0.9-1.2) 12/25/16 14:20 APTT 30.6 Seconds (25.6-37.1) 12/25/16 14:20 pCO2 47 mm/Hg (35-45) H 12/25/16 13:32 pO2 64 mm/Hg (80-100) L 12/25/16 13:32 HCO3 29.8 mmol/L (21-28) H 12/25/16 13:32 ABG pH 7.44 (7.35-7.45) 12/25/16 13:32 ABG Total CO2 33.3 mmol/L (22-28) H 12/25/16 13:32 ABG O2 Saturation 98.1 % (95-98) H 12/25/16 13:32 ABG Base Excess 6.6 mmol/L (-2.0-3.0) H 12/25/16 13:32 Lino Test Yes 12/25/16 13:32 ABG Potassium 4.0 mmol/L (3.6-5.2) 12/25/16 13:32 A-a O2 Difference 77.0 mm/Hg 12/25/16 13:32 Sodium 131.0 mmol/L (132-148) L 12/25/16 13:32 Chloride 99.0 mmol/L (98-107) 12/25/16 13:32 Glucose 125 mg/dL (65-105) H 12/25/16 13:32 Lactate 0.6 mmol/L (0.7-2.1) L 12/25/16 13:32 FiO2 28.0 % 12/25/16 13:32 Sodium 141 mmol/l (132-148) 12/30/16 04:10 Potassium 3.8 MMOL/L (3.6-5.0) 12/30/16 04:10 Chloride 103 mmol/L (98-107) 12/30/16 04:10 Carbon Dioxide 31 mmol/L (22-30) H 12/30/16 04:10 Anion Gap 11 (10-20) 12/30/16 04:10 BUN 5 mg/dl (7-17) L 12/30/16 04:10 Creatinine 0.6 mg/dL (0.7-1.2) L 12/30/16 04:10 Est GFR ( Amer) > 60 12/30/16 04:10 Est GFR (Non-Af Amer) > 60 12/30/16 04:10 Random Glucose 99 mg/dL (65-105) 12/30/16 04:10 Calcium 8.7 mg/dL (8.4-10.2) 12/30/16 04:10 Phosphorus 3.1 mg/dl (2.5-4.5) 12/25/16 14:20 Magnesium 2.0 MG/DL (1.6-2.3) 12/25/16 14:20 Total Bilirubin 0.8 mg/dl (0.2-1.3) 12/25/16 14:20 AST 49 U/L (14-36) H 12/25/16 14:20 ALT 27 U/L (9-52) 12/25/16 14:20 Alkaline Phosphatase 87 U/L (38-126) 12/25/16 14:20 Troponin I < 0.0120 ng/mL (0.00-0.120) 12/25/16 14:20 NT-Pro-B Natriuret Pep 662 pg/ml (0-900) 12/25/16 14:20 Total Protein 7.9 G/DL (6.3-8.2) 12/25/16 14:20 Albumin 4.4 g/dL (3.5-5.0) 12/25/16 14:20 Globulin 3.5 gm/dL (2.2-3.9) 12/25/16 14:20 Albumin/Globulin Ratio 1.3 (1.0-2.1) 12/25/16 14:20 Procalcitonin 0.15 NG/ML (0.19-0.49) L 12/25/16 17:20 TSH 3rd Generation 2.83 mIU/ML (0.46-4.68) 12/26/16 04:50 Arterial Blood Potassium 4.0 mmol/L (3.6-5.2) 12/25/16 13:32 Urine Color Yellow (YELLOW) 12/28/16 21:39 Urine Clarity Slighty-cloudy (Clear) 12/28/16 21:39 Urine pH 5.0 (5.0-8.0) 12/28/16 21:39 Ur Specific [place] 1.028 (1.003-1.030) 12/28/16 21:39 Urine Protein 100 mg/dL (NEGATIVE) 12/28/16 21:39 Urine Glucose (UA) Neg mg/dL (Normal) 12/28/16 21:39 Urine Ketones Negative mg/dL (NEGATIVE) 12/28/16 21:39 Urine Blood Negative (NEGATIVE) 12/28/16 21:39 Urine Nitrate Negative (NEGATIVE) 12/28/16 21:39 Urine Bilirubin Negative (NEGATIVE) 12/28/16 21:39 Urine Urobilinogen 0.2-1.0 mg/dL (0.2-1.0) 12/28/16 21:39 Ur Leukocyte Esterase Neg Gerardo/uL (Negative) 12/28/16 21:39 Urine RBC (Auto) 4 /hpf (0-3) H 10/21/17 21:39 Urine Microscopic WBC 3 /hpf (0-5) 12/28/16 21:39 Ur Squamous Epith Cells 2 /hpf (0-5) 12/28/16 21:39 Ur Transition Epith Cell 1 /hpf (0-3) 12/26/16 Unknown Urine Bacteria Rare (<OCC) 12/26/16 Unknown Urine Opiates Screen Negative (NEGATIVE) 12/28/16 21:39 Urine Methadone Screen Negative (NEGATIVE) 12/28/16 21:39 Ur Barbiturates Screen Negative (NEGATIVE) 12/28/16 21:39 Ur Phencyclidine Scrn Negative (NEGATIVE) 12/28/16 21:39 Ur Amphetamines Screen Negative (NEGATIVE) 12/28/16 21:39 U Benzodiazepines Scrn Negative (NEGATIVE) 12/28/16 21:39 U Oth Cocaine Metabols Negative (NEGATIVE) 12/28/16 21:39 U Cannabinoids Screen Negative (NEGATIVE) 12/28/16 21:39 Influenza Typ A,B (EIA) Negative for flu a/b (NEGATIVE) 12/26/16 Unknown - Hospital Course Hospital Course: 66 y/o lady with hx of COPD, Dementia, Hypothyroidism, was brought in by her because of AMS. Patient was found to have elevated WBC 26 K , febrile with Tmax 102 . She was started empirically on IV Zosyn and Clinda. Pulm and ID consulted. Ct chest showed Multifocal infiltrates bilaterally left more extensive than right all new compared to the prior study and therefore likely infectious/ inflammatory. Started on Meropenem, Clinda and Zosyn as per ID At present clinically improving , WBC trended down to normal and afebrile for > 24 hours Will transfer patient to TCU to continue IV antibiotics. Will repeat Ct chest at the end of treatment . if no improvemnet she might need bronchoscopy 1. Sepsis secondary to multifocal pneumonia Acute Ct chest showed multifocal pneumonia urine cultures with no growth -- ruling out UTI as etiology for sepsis blood cx with no growth so far Sputum Cx positive for yeast WBC trending down from 26 k-- 8.7 K, afebrile > 24 hours pulmonary and ID consulted empirically was started on clinda and Zosyn IV . ID added meropenem AMS now resolved, back to baseline mental status Will discharge patuient to TCU tpo continue IV antibiotics. Will repeat CT chest at the end of treatment 2. Altered mental status most likely secondary to sepsis back to her baseline now , very forgetful 3.UTI ruled out urine cx with no growth 4. Decompensated chronic obstructive pulmonary disease Acute cont Advair, Spiriva and Duoneb tx pulmonary on consult CT chest showed left lobe questionable spiculated nodule. Discussed with pulmonary. Patient may need bronchoscopy idf lesion still present at th eend of IV antibiotics 5. Dementia Chronic now at baseline cont namenda forgetful 6. Hypothyroidism TSH normal cont Levothyroxine 7. Cachetic BMI 18 8. Mild anemia dilutional ? 9. DVT prophylaxis Acute Lovenox Discharge Exam - Head Exam Head Exam: ATRAUMATIC, NORMOCEPHALIC Additional comments: forgetful, cachetic - Eye Exam Eye Exam: EOMI, Normal appearance, PERRL Pupil Exam: NORMAL ACCOMODATION - ENT Exam ENT Exam: Mucous Membranes Moist, Normal Exam - Neck Exam Neck exam: Full Rom, Normal Inspection - Respiratory Exam Respiratory Exam: Rhonchi (diffuse bilaterally ). absent: Prolonged Expiratory Phase, Wheezes, Respiratory Distress - Cardiovascular Exam Cardiovascular Exam: REGULAR RHYTHM, RRR, +S1, +S2. absent: JVD - GI/Abdominal Exam GI & Abdominal Exam: Normal Bowel Sounds, Soft. absent: Distended, Guarding, Rebound, Tenderness - Rectal Exam Rectal Exam: Deferred - Extremities Exam Extremities exam: normal capillary refill, normal inspection, pedal pulses present - Back Exam Back exam: NORMAL INSPECTION - Neurological Exam Neurological exam: Alert, CN II-XII Intact, Reflexes Normal - Psychiatric Exam Psychiatric exam: Normal Affect - Skin Skin Exam: Dry, Intact, Pallor, Warm Discharge Plan - Discharge Medications Prescriptions: Clindamycin in 0.9 % Sod Chlor [Clindamycin 600 mg/50 ml-Ns] 600 mg IV Q8 #1 piggyback Meropenem [Premierpro Rx Meropenem] 1 gm IV Q12 #1 pds Piperacill/Tazo 3.375gm in Dex [Zosyn 3.375 Gm IV] 3.375 gm IVPB Q6 #1 bag - Follow Up Plan Condition: STABLE Disposition: TRANSF TO SNF Patient education suggested?: Yes Additional Instructions: d/c to TCU Referrals: Moses Ferreira MD [Staff Provider] - Rodrigo Mcmillan MD [Medical Doctor] -
== END 2016-12-30 20:50 | DRG 871 ==
LOC: H.ER 13:01 → H.ERHOLD 15:14 → H.TEL 16:05
PROC: 3E0234Z Introduction of Serum, Toxoid and Vaccine into Muscle, Percutaneous Approach (ICD-10-PCS; principal; 2016-12-26)
DX: A41.9 Sepsis, unspecified organism (principal); J85.0 Gangrene and necrosis of lung; R64 Cachexia; F03.90 Unspecified dementia, unspecified severity, without behavioral disturbance, psychotic disturbance, mood disturbance, and anxiety; J44.1 Chronic obstructive pulmonary disease with (acute) exacerbation; J44.0 Chronic obstructive pulmonary disease with (acute) lower respiratory infection; Z68.1 Body mass index [BMI] 19.9 or less, adult; Z99.81 Dependence on supplemental oxygen; R63.6 Underweight; Z85.850 Personal history of malignant neoplasm of thyroid; Z98.82 Breast implant status; Z23 Encounter for immunization; Z91.018 Allergy to other foods; J45.909 Unspecified asthma, uncomplicated; R19.7 Diarrhea, unspecified; E89.0 Postprocedural hypothyroidism; D64.9 Anemia, unspecified

== ENCOUNTER 2016-12-30 22:40 | Inpatient (IN) | payer OTHER, BC ==
[2016-12-30 23:03] VITALS: BMI 19.8
[2016-12-31] MEDS ORDERED: Patient's Own Med (Clindamycin In 0.9 % Sod Chlor [Clindamycin 600 Mg/50 Ml-Ns] 600 MG) IV SCH (01:00)
[2016-12-31] MEDS ORDERED: Meropenem 1 GM/NS 100 ML IVPB SCH (01:00)
[2016-12-31] MEDS ORDERED: Clindamycin 600 MG in Sodium Chloride 0.9% 100 ML IVPB SCH (01:00)
[2016-12-31] MEDS: Albuterol-Ipratrop 3 mg / 0.5 (3 ml) UD INH SCH ×4 (07:44→19:49)
[2016-12-31] MEDS: Acetylcysteine 20% Inhal Soln (4ml) INH SCH ×2 (07:44→20:16)
[2016-12-31] MEDS: Levothyroxine 100 MCG TAB PO SCH (08:00)
[2016-12-31 08:45] VITALS: RESP 20
[2016-12-31] MEDS ORDERED: ASCORBIC ACID PO SCH (09:00)
[2016-12-31] MEDS ORDERED: Patient's Own Med (Calcium Carbonate [Caltrate] 1 TAB) PO SCH (09:00)
[2016-12-31] MEDS ORDERED: Patient's Own Med (Meropenem [Meropenem] 1 GM) IV SCH (09:00)
[2016-12-31] MEDS ORDERED: MULTIVIT PO SCH (09:00)
[2016-12-31] MEDS ORDERED: COLLAGEN HYDR PO SCH (09:00)
[2016-12-31] MEDS ORDERED: VIT K1 PO SCH (09:00)
[2016-12-31] MEDS ORDERED: FOLIC ACID PO SCH (09:00)
[2016-12-31] MEDS: Saccharomyces Boulardi 250 mg Cap PO SCH ×2 (09:09→16:41)
[2016-12-31] MEDS: Multivitamin With Minerals Tab PO SCH (09:10)
[2016-12-31] MEDS: guaiFENesin 600 mg ER Tab PO SCH ×2 (09:10→21:00)
[2016-12-31] MEDS: Enoxaparin 40 mg Syringe SC SCH (09:11)
[2016-12-31] MEDS: Pantoprazole 40 mg EC Tab PO SCH (09:13)
--- NOTE | 2016-12-31 09:38 | CP.PCM.CON ---
History of Present Illness - History of Present Illness History of Present Illness: This 66 year old female, a former cigarette smoker with COPD, was admitted to hospital via the emergency room where she presented with altered mental status, fever and marked leukocytosis (sepsis). Initial chest x-rays did not reveal any pneumonic infiltrates and she was place on dual antibiotic therapy empirically with Zosyn/clindamycin. She continued to have a febrile pattern and a CT chest was requested which showed a necrotizing pneumonic infiltrate in the left upper lobe as well as a small satellite nodule about 1.5cm in diameter which had spiculated margins raising the possibility of a second process. She had a third antibiotic added to her regimen in the form of meropenem, after which she has remained afebrile. Her leukocytosis has resolved and she feels relatively well, but requires continued antibiotic therapy and a repeat CT chest to document improvement. She may require flexible bronchoscopy if the CT does not show resolution of either density. She has severe COPD with pulmonary hypertension and dilated right ventricle c/w Cor Pulmonale. Past Patient History - Tetanus Immunizations Tetanus Immunization: Unknown - Past Medical History & Family History Past Medical History?: Yes Past Family History: Reviewed and not pertinent - Past Social History Smoking Status: Former Smoker (recently stopped) Chewing Tobacco Use: No Cigar Use: No Alcohol: Social Drugs: Denies Home Situation {Lives}: With Family - CARDIAC Hx Cardiac Disorders: No Other/Comment: Cor Pulmonale - PULMONARY Hx Asthma: Yes Hx Bronchitis: Yes Hx Chronic Obstructive Pulmonary Disease (COPD): Yes Hx Emphysema: Yes Hx Pneumonia: Yes (multiple episodes) Other/Comment: Hypoxemic/hypercapnic respiratory failure. Pulmonary hypertension. - NEUROLOGICAL Hx Dementia: Yes - HEENT Hx HEENT Problems: No - RENAL Hx Chronic Kidney Disease: No - ENDOCRINE/METABOLIC Hx Hypothyroidism: Yes (post radio iodine ablation of thyroid cancer) - HEMATOLOGICAL/ONCOLOGICAL Hx Cancer: Yes (Thyroid Cancer post Radio Iodine Ablation) Hx Human Immunodeficiency Virus (HIV): No - INTEGUMENTARY Hx Dermatological Problems: No - MUSCULOSKELETAL/RHEUMATOLOGICAL Hx Arthritis: Yes (Spinal) Hx Falls: Yes Hx Spinal Stenosis: Yes (cervical) - GASTROINTESTINAL Hx Gastrointestinal Disorders: Yes Other/Comment: hepatic cysts - GENITOURINARY/GYNECOLOGICAL Hx Genitourinary Disorders: No - PSYCHIATRIC Hx Psychophysiologic Disorder: No Hx Substance Use: No - SURGICAL HISTORY Hx Surgeries: Yes Hx Appendectomy: Yes Hx Cholecystectomy: Yes Other/Comment: Breast implants, chin implant, cervical spinal decompression/ fusion, hepatic cystectomy. - ANESTHESIA Hx Anesthesia: Yes Hx Anesthesia Reactions: Yes (hypotension) Hx Malignant Hyperthermia: No Meds Allergies/Adverse Reactions: Allergies Allergy/AdvReac Type Severity Reaction Status Date / Time corn AdvReac CONGESTION Verified 12/25/16 13:12 beef AdvReac CONGESTION Uncoded 12/25/16 13:12 - Medications Medications: Current Medications Acetaminophen (Tylenol 325mg Tab) 650 mg PO Q6 PRN PRN Reason: Fever >100.4 F Acetylcysteine (Acetylcysteine 20%) 2 ml INH RBID [facility] Last Admin: 12/31/16 07:44 Dose: 2 ml Albuterol/Ipratropium (Duoneb 3 Mg/0.5 Mg (3 Ml) Ud) 3 ml INH RQID [facility] Last Admin: 12/31/16 07:44 Dose: 3 ml Aspirin (Ecotrin) 81 mg PO DAILY [facility] Last Admin: 12/31/16 09:11 Dose: 81 mg Calcium Carbonate (Oscal) 500 mg PO BID [facility] Last Admin: 12/31/16 09:12 Dose: 500 mg Docusate Sodium (Colace) 100 mg PO BID PRN PRN Reason: Constipation Last Admin: 12/31/16 09:10 Dose: 100 mg Enoxaparin Sodium (Lovenox) 40 mg SC DAILY [facility] PRN Reason: Protocol Last Admin: 12/31/16 09:11 Dose: 40 mg Guaifenesin (Mucinex La) 600 mg PO Q12 [facility] Last Admin: 12/31/16 09:10 Dose: 600 mg Home Med (Ascorbic Acid/Collagen Hydr [Collagen Plus Vit C Capsule]) 1 cap PO DAILY [facility] Clindamycin Phosphate 600 mg/ (Sodium Chloride) 104 mls @ 104 mls/hr IVPB Q8@ 0500,1300,2100 [facility] Meropenem 1 gm/ Sodium (Chloride) 100 mls @ 100 mls/hr IVPB Q12@0500,1700 [facility] Levothyroxine Sodium (Synthroid) 100 mcg PO DAILY@0630 [facility] Memantine (Namenda) 10 mg PO Q12@0500,1700 [facility] Multivitamins/Minerals (Therapeutic-M Tab) 1 tab PO DAILY [facility] Last Admin: 10/24/17 09:10 Dose: 1 tab Pantoprazole Sodium (Protonix Ec Tab) 40 mg PO DAILY [facility] Last Admin: 12/31/16 09:13 Dose: 40 mg Saccharomyces Boulardii (Florastor) 250 mg PO BID [facility] Last Admin: 12/31/16 09:09 Dose: 250 mg Physical Exam - Additional Findings Additional findings: Thin female, alert ond oriented x 2, extremely forgetful. Neck is supple and trachea midline. No JVD or carotid bruit. Pharynx pink and moist w/o exudate. No palpable lymphadenopathy. No dullness on chest percussion, both hemidiaphragms displaced caudally. Breath sounds are markedly diminished bilaterally w/o audible wheezing. Harsh breath sounds are heard in the anterior upper left chest medially. Sonorous and sibilant rhonchi are heard in the same MAMTA area. Heart sounds are distant, rhythm is regular. No murmur heard. Abdomen is soft and non-tender with normal bowel sounds. No dependant edema, no cyanosis, no clubbing, no calf tenderness. Multiple small ecchymoses over both UE's. Results - Vital Signs Recent Vital Signs: Last Vital Signs Temp 98.1 F 12/31/16 08:44 Pulse 87 12/31/16 08:44 Resp 20 12/31/16 08:44 BP 124/75 12/31/16 08:44 Pulse Ox 95 12/31/16 08:44 Assessment & Plan (1) Necrotizing pneumonia Assessment and Plan: MAMTA, anterior segment density with evidence of breakdown as well as a suspected satellite density which needs to be followed by repeat CT chest. Continue dual antibiotics and CPT. Will attempt to collect another sputum specimen for culture. Status: Acute (2) COPD (chronic obstructive pulmonary disease) Status: Acute (3) Dementia Status: Chronic Priority: High (4) Pulmonary hypertension Status: Chronic Priority: High (5) Cor pulmonale (chronic) Status: Chronic Priority: High - Date & Time Date: 12/31/16 Time: 09:41
[2016-12-31] MEDS ORDERED: Sodium Chloride 3% for Inhalation 4 ML VIAL.NEB IH PRN (09:45)
[2016-12-31] MEDS: Clindamycin 600 MG in Sodium Chloride 0.9% 100 ML IVPB SCH ×2 (12:20→21:00)
--- NOTE | 2016-12-31 13:48 | CP.PCM.HP ---
History of Present Illness - History of Present Illness History of Present Illness: CC: shortness of breath This is a 66 year old female with a past medical history significant for COPD/ emphysema with pulmonary hypertension and dilated right ventricle with cor pulmonale, former tobacco smoker, also with history of dementia, and hypothyroidism, who was initially brought to [facility] on 12/25/2016 after being brought by her , with the complaint of alteration of mental status. In the Emergency Department, the patient was found to have Multifocal infiltrates bilaterally consistent with multifocal pneumonia on CT scan. The patient was started on IV Zosyn and Clindamycin empirically, and Dr. Ferreira was consulted for pulmonary and ID, Dr. Mcmillan, was consulted for infectious disease. Later Zosyn was switched to Meropenem by infectious disease. The patient improved during the course of her stay and WBC trended down from 26K to 8.7K. She was hemodynamically stable on 12/30 and AMS improved. She was subsequently discharged to TCU at that time. Today, on 12/31, the patient continues to feel better. She has no complaints today. History is limited given her baseline dementia. Patient denies chest pain, shortness of breath, fevers, chills, nausea , vomiting, diarrhea, headache. Rest of ROS as below. All of the patient's questions were answered at the bedside. Present on Admission - Present on Admission Any Indicators Present on Admission: No Review of Systems - Hematologic/Lymphatic Additional comments: GENERAL/CONSTITUTIONAL: The patient denies fever, fatigue, weakness, weight gain or weight loss. HEAD, EYES, EARS, NOSE AND THROAT: Eyes - The patient denies pain, redness, loss of vision, double or blurred vision, flashing lights or spots, dryness, Ears, nose, mouth and throat. The patient denies ringing in the ears, loss of hearing, nosebleeds, loss of sense of smell, dry sinuses, sinusitis, post nasal drip, CARDIOVASCULAR: The patient denies chest pain, chest pressure, or irregular heartbeats, RESPIRATORY: Occasional shortness of breath and cough + sputum production. The patient denies chronic dry cough, coughing up blood, or shortness of breath. GASTROINTESTINAL: The patient denies decreased appetite, nausea, vomiting, vomiting blood or coffee ground material, heartburn, regurgitation, diarrhea, constipation, gas, blood in the stools, black tarry stools. GENITOURINARY: The patient denies difficult urination, pain or burning with urination, blood in the urine, frequency, or urgency MUSCULOSKELETAL: The patient denies arm, buttock, thigh or calf cramps. No joint or muscle pain. No muscle weakness or tenderness. No joint swelling, neck pain, back pain. SKIN: The patient denies easy bruising, skin redness, skin rash, hives, sensitivity to sun exposure, tightness, nodules or bumps, hair loss, color changes in the hands or feet with cold. NEUROLOGIC: The patient denies headache, dizziness, fainting, muscle spasm, loss of consciousness, sensitivity or pain in the hands and feet or memory loss. PSYCHIATRIC: The patient denies anxiety, depression, or thoughts of suicide. ENDOCRINE: The patient denies intolerance to hot or cold temperature, flushing, fingernail changes, increased thirst, increased salt intake or decreased sexual desire. HEMATOLOGIC/LYMPHATIC: The patient denies anemia, bleeding tendency or clotting tendency. ALLERGIC/IMMUNOLOGIC: The patient denies rhinitis, asthma, skin sensitivity, latex allergies or sensitivity. Past Patient History - Tetanus Immunizations Tetanus Immunization: Unknown - Past Medical History & Family History Past Medical History?: Yes Past Family History: Reviewed and not pertinent - Past Social History Smoking Status: Former Smoker (recently stopped) Chewing Tobacco Use: No Cigar Use: No Alcohol: Social Drugs: Denies Home Situation {Lives}: With Family - CARDIAC Hx Cardiac Disorders: No Other/Comment: Cor Pulmonale - PULMONARY Hx Asthma: Yes Hx Bronchitis: Yes Hx Chronic Obstructive Pulmonary Disease (COPD): Yes Hx Emphysema: Yes Hx Pneumonia: Yes (multiple episodes) Other/Comment: Hypoxemic/hypercapnic respiratory failure. Pulmonary hypertension. - NEUROLOGICAL Hx Dementia: Yes - HEENT Hx HEENT Problems: No - RENAL Hx Chronic Kidney Disease: No - ENDOCRINE/METABOLIC Hx Hypothyroidism: Yes (post radio iodine ablation of thyroid cancer) - HEMATOLOGICAL/ONCOLOGICAL Hx Cancer: Yes (Thyroid Cancer post Radio Iodine Ablation) Hx Human Immunodeficiency Virus (HIV): No - INTEGUMENTARY Hx Dermatological Problems: No - MUSCULOSKELETAL/RHEUMATOLOGICAL Hx Arthritis: Yes (Spinal) Hx Falls: Yes Hx Spinal Stenosis: Yes (cervical) - GASTROINTESTINAL Hx Gastrointestinal Disorders: Yes Other/Comment: hepatic cysts - GENITOURINARY/GYNECOLOGICAL Hx Genitourinary Disorders: No - PSYCHIATRIC Hx Psychophysiologic Disorder: No Hx Substance Use: No - SURGICAL HISTORY Hx Surgeries: Yes Hx Appendectomy: Yes Hx Cholecystectomy: Yes Other/Comment: Breast implants, chin implant, cervical spinal decompression/ fusion, hepatic cystectomy. - ANESTHESIA Hx Anesthesia: Yes Hx Anesthesia Reactions: Yes (hypotension) Hx Malignant Hyperthermia: No Meds Allergies/Adverse Reactions: Allergies Allergy/AdvReac Type Severity Reaction Status Date / Time corn AdvReac CONGESTION Verified 12/25/16 13:12 beef AdvReac CONGESTION Uncoded 12/25/16 13:12 Physical Exam - Additional Findings Additional findings: Physical exam: Constitutional- cooperative, awake, alert. Head- NCAT, PERRL Eye- PERRL, normal accommodation ENT- normal exam, MMM. Neck- normal inspection, supple, no JVD Respiratory- CTAB, mild wheezes bilaterally, no rales rhonchi Cardiovascular- RRR, +S1, +S2 no MRG GI/Abdominal- normal bowel sounds, soft Skin- warm, dry Extremities Exam- normal capillary refill, normal inspection Neurological Exam- alert, stable gait Psych- normal mood, normal affect Results - Vital Signs Recent Vital Signs: Last Vital Signs Temp 98.1 F 12/31/16 08:44 Pulse 94 H 12/31/16 11:10 Resp 20 12/31/16 08:44 BP 124/75 12/31/16 08:44 Pulse Ox 97 12/31/16 11:10 Assessment & Plan - Assessment and Plan (Free Text) Plan: 1. Acute Multifocal pneumonia with left upper lobe necrotization; sepsis is resolved Ct chest showed multifocal pneumonia along with solitary spiculated nodule measring approximately 1.5 cm Patient may need flexible bronchoscopy if infiltrates are not improving on future repeat CT scan as per Dr. Ferreira urine cultures with no growth -- ruling out UTI as etiology for sepsis blood cx with no growth x 5 days Sputum Cx positive for yeast WBC trending down from 26 k-- 8.7 K, afebrile > 24 hours pulmonary and ID consulted empirically is continued on Clindamycin, Meropenem as per ID AMS now resolved, back to baseline mental status Will repeat CT chest at the end of treatment 2. Altered mental status most likely secondary to sepsis back to her baseline now , very forgetful 3.UTI ruled out urine cx with no growth 4. Decompensated chronic obstructive pulmonary disease Acute cont Advair, Spiriva and Duoneb tx pulmonary on consult CT chest showed left lobe questionable spiculated nodule. Discussed with pulmonary. Patient may need bronchoscopy idf lesion still present at th eend of IV antibiotics 5. Dementia Chronic now at baseline cont namenda forgetful 6. Hypothyroidism TSH normal cont Levothyroxine 7. Cachetic BMI 18 8. Mild anemia dilutional ? 9. DVT prophylaxis Acute
[2016-12-31] MEDS: Meropenem 1 GM/NS 100 ML IVPB SCH (16:40)
--- NOTE | 2016-12-31 17:56 | CP.PCM.PN ---
Subjective - Date & Time of Evaluation Date of Evaluation: 12/31/16 Time of Evaluation: 17:55 - Subjective Subjective: I D NOTE DISCUSSED c AT PRESENT CONTINUE CLINDAMYCIN /MEROPENEM WILL NEED F/U CT SCAN PER HIM Objective - Vital Signs/Intake and Output Vital Signs (last 24 hours): Temp Pulse Resp BP Pulse Ox 98.4 F 95 H 20 137/85 97 12/31/16 16:26 12/31/16 16:26 12/31/16 16:26 12/31/16 16:26 12/31/16 16:26 - Medications Medications: Current Medications Acetaminophen (Tylenol 325mg Tab) 650 mg PO Q6 PRN PRN Reason: Fever >100.4 F Acetylcysteine (Acetylcysteine 20%) 2 ml INH RBID [facility] Last Admin: 12/31/16 07:44 Dose: 2 ml Albuterol/Ipratropium (Duoneb 3 Mg/0.5 Mg (3 Ml) Ud) 3 ml INH RQID [facility] Last Admin: 12/31/16 15:18 Dose: 3 ml Aspirin (Ecotrin) 81 mg PO DAILY [facility] Last Admin: 12/31/16 09:11 Dose: 81 mg Calcium Carbonate (Oscal) 500 mg PO BID [facility] Last Admin: 12/31/16 16:41 Dose: 500 mg Docusate Sodium (Colace) 100 mg PO BID PRN PRN Reason: Constipation Last Admin: 12/31/16 09:10 Dose: 100 mg Enoxaparin Sodium (Lovenox) 40 mg SC DAILY [facility] PRN Reason: Protocol Last Admin: 12/31/16 09:11 Dose: 40 mg Guaifenesin (Mucinex La) 600 mg PO Q12 [facility] Last Admin: 12/31/16 09:10 Dose: 600 mg Clindamycin Phosphate 600 mg/ (Sodium Chloride) 104 mls @ 104 mls/hr IVPB Q8@ 0500,1300,2100 [facility] Last Admin: 12/31/16 12:20 Dose: 104 mls/hr Meropenem 1 gm/ Sodium (Chloride) 100 mls @ 100 mls/hr IVPB Q12@0500,1700 [facility] Last Admin: 12/31/16 16:40 Dose: 100 mls/hr Levothyroxine Sodium (Synthroid) 100 mcg PO DAILY@0630 [facility] Last Admin: 12/31/16 08:00 Dose: 100 mcg Memantine (Namenda) 10 mg PO Q12@0500,1700 [facility] Last Admin: 12/31/16 16:41 Dose: 10 mg Multivitamins/Minerals (Therapeutic-M Tab) 1 tab PO DAILY [facility] Last Admin: 12/31/16 09:10 Dose: 1 tab Pantoprazole Sodium (Protonix Ec Tab) 40 mg PO DAILY [facility] Last Admin: 12/31/16 09:13 Dose: 40 mg Saccharomyces Boulardii (Florastor) 250 mg PO BID [facility] Last Admin: 12/31/16 16:41 Dose: 250 mg
[2017-01-01] MEDS: Meropenem 1 GM/NS 100 ML IVPB SCH ×2 (04:59→16:56)
[2017-01-01] MEDS: Clindamycin 600 MG in Sodium Chloride 0.9% 100 ML IVPB SCH ×3 (05:00→21:29)
[2017-01-01] MEDS: Levothyroxine 100 MCG TAB PO SCH (05:31)
[2017-01-01] MEDS: Albuterol-Ipratrop 3 mg / 0.5 (3 ml) UD INH SCH ×4 (07:35→19:16)
[2017-01-01] MEDS: Acetylcysteine 20% Inhal Soln (4ml) INH SCH ×2 (07:35→19:16)
[2017-01-01] MEDS: Enoxaparin 40 mg Syringe SC SCH (08:32)
[2017-01-01] MEDS: Saccharomyces Boulardi 250 mg Cap PO SCH ×2 (08:32→16:39)
[2017-01-01] MEDS: Multivitamin With Minerals Tab PO SCH (08:32)
[2017-01-01] MEDS: Pantoprazole 40 mg EC Tab PO SCH (08:32)
[2017-01-01] MEDS: guaiFENesin 600 mg ER Tab PO SCH ×2 (08:33→21:30)
--- NOTE | 2017-01-01 09:42 | CP.PCM.PN ---
Subjective - Date & Time of Evaluation Date of Evaluation: 01/01/17 Time of Evaluation: 09:34 - Subjective Subjective: Appears to be doing well. Remains afebrile, occasional cough. Unable to obtain repeat sputum specimen. Calm and cooperative, but extremely forgetful. Scattered ecchymoses over both UE's and upper anterior chest wall. These may be starting to resolve. No new lesions. No dependant edema, no cyanosis. No dullness on chest percussion. Difficult auscultation anteriorly because of breast implants. There seems to be resolution of the harsh breath sounds in the anterior MAMTA. No audible wheezes, no bronchial breath sounds or egophony. Will repeat routine labs. Try to obtain urine and sputum specimens. Continue current antibiotic regimen. Plan for repeat CT chest Friday morning. If there is radiographic evidence of improvement, then discharge discussion can be had. Will obviously need CT followup until clear as outpatient. If needed FFB can be planned as outpatient as well. Objective - Vital Signs/Intake and Output Vital Signs (last 24 hours): Temp Pulse Resp BP Pulse Ox 97.7 F 86 20 115/78 99 01/01/17 08:39 01/01/17 08:39 01/01/17 08:39 01/01/17 08:39 01/01/17 08:39 - Medications Medications: Current Medications Acetaminophen (Tylenol 325mg Tab) 650 mg PO Q6 PRN PRN Reason: Fever >100.4 F Acetylcysteine (Acetylcysteine 20%) 2 ml INH RBID [facility] Last Admin: 01/01/17 07:35 Dose: 2 ml Albuterol/Ipratropium (Duoneb 3 Mg/0.5 Mg (3 Ml) Ud) 3 ml INH RQID [facility] Last Admin: 01/01/17 07:35 Dose: 3 ml Aspirin (Ecotrin) 81 mg PO DAILY [facility] Last Admin: 01/01/17 08:33 Dose: 81 mg Calcium Carbonate (Oscal) 500 mg PO BID [facility] Last Admin: 01/01/17 08:33 Dose: 500 mg Docusate Sodium (Colace) 100 mg PO BID PRN PRN Reason: Constipation Last Admin: 01/01/17 08:32 Dose: 100 mg Enoxaparin Sodium (Lovenox) 40 mg SC DAILY [facility] PRN Reason: Protocol Last Admin: 01/01/17 08:32 Dose: 40 mg Guaifenesin (Mucinex La) 600 mg PO Q12 [facility] Last Admin: 01/01/17 08:33 Dose: 600 mg Clindamycin Phosphate 600 mg/ (Sodium Chloride) 104 mls @ 104 mls/hr IVPB Q8@ 0500,1300,2100 [facility] Last Admin: 01/01/17 05:00 Dose: 104 mls/hr Meropenem 1 gm/ Sodium (Chloride) 100 mls @ 100 mls/hr IVPB Q12@0500,1700 [facility] Last Admin: 01/01/17 04:59 Dose: 100 mls/hr Levothyroxine Sodium (Synthroid) 100 mcg PO DAILY@0630 [facility] Last Admin: 01/01/17 05:31 Dose: 100 mcg Memantine (Namenda) 10 mg PO Q12@0500,1700 [facility] Last Admin: 01/01/17 05:04 Dose: 10 mg Multivitamins/Minerals (Therapeutic-M Tab) 1 tab PO DAILY [facility] Last Admin: 01/01/17 08:32 Dose: 1 tab Pantoprazole Sodium (Protonix Ec Tab) 40 mg PO DAILY [facility] Last Admin: 01/01/17 08:32 Dose: 40 mg Saccharomyces Boulardii (Florastor) 250 mg PO BID [facility] Last Admin: 01/01/17 08:32 Dose: 250 mg Assessment and Plan (1) Necrotizing pneumonia Status: Acute (2) COPD (chronic obstructive pulmonary disease) Status: Acute (3) Dementia Status: Chronic (4) Pulmonary hypertension Status: Chronic (5) Cor pulmonale (chronic) Status: Chronic
[2017-01-01 11:40] LABS: MEAN CELL VOLUME 88.2 fl (81.0-99.0); MEAN CORPUSCULAR HEMOGLOBIN 30.3 pg (27.0-31.0); MEAN CORPUSCULAR HGB CONC 34.4 g/dL (33.0-37.0); RED CELL DISTRIBUTION WIDTH 15.3 % (11.5-14.5); WHITE BLOOD COUNT 8.9 K/uL (4.8-10.8)
[2017-01-01 12:08] LABS: ALB/GLOB RATIO 1.2 (1.0-2.1); ALKALINE PHOSPHATASE 94 U/L (38-126); ALT/SGPT 20 U/L (9-52); AST/SGOT 35 U/L (14-36); BILIRUBIN,TOTAL 0.4 mg/dl (0.2-1.3); BLOOD UREA NITROGEN 10 mg/dl (7-17); CALCIUM 9.8 mg/dL (8.4-10.2); CARBON DIOXIDE 33 mmol/L (22-30); CHLORIDE 97 mmol/L (98-107); GFR AFRICAN-AMERICAN > 60; GLUCOSE,RANDOM 86 mg/dL (65-105); SODIUM 141 mmol/l (132-148); TOTAL PROTEIN 7.7 G/DL (6.3-8.2)
[2017-01-01 13:31] LABS: RBC URINE 1 /hpf (0-3); URINE BILIRUBIN NEGATIVE (NEGATIVE); URINE BLOOD NEGATIVE (NEGATIVE); URINE COLOR BLUE (YELLOW); URINE GLUCOSE (UA) NEG (Normal); URINE KETONE NEGATIVE (NEGATIVE); URINE LEUKOCYTE ESTERASE NEG Leu/uL (Negative); URINE PROTEIN NEGATIVE (NEGATIVE); URINE UROBILINOGEN 0.2-1.0 mg/dL (0.2-1.0); WBC URINE 1 /hpf (0-5)
[2017-01-02] MEDS: Meropenem 1 GM/NS 100 ML IVPB SCH ×2 (05:20→16:04)
[2017-01-02] MEDS: Clindamycin 600 MG in Sodium Chloride 0.9% 100 ML IVPB SCH ×3 (05:20→22:21)
[2017-01-02] MEDS: Levothyroxine 100 MCG TAB PO SCH (05:29)
[2017-01-02] MEDS: Acetylcysteine 20% Inhal Soln (4ml) INH SCH ×2 (07:31→19:32)
[2017-01-02] MEDS: Albuterol-Ipratrop 3 mg / 0.5 (3 ml) UD INH SCH ×4 (07:32→19:32)
[2017-01-02] MEDS: Saccharomyces Boulardi 250 mg Cap PO SCH ×2 (09:16→16:05)
[2017-01-02] MEDS: Pantoprazole 40 mg EC Tab PO SCH (09:16)
[2017-01-02] MEDS: guaiFENesin 600 mg ER Tab PO SCH ×2 (09:16→22:22)
[2017-01-02] MEDS: Multivitamin With Minerals Tab PO SCH (09:16)
[2017-01-02] MEDS: Enoxaparin 40 mg Syringe SC SCH (09:16)
--- NOTE | 2017-01-02 14:08 | CP.PCM.PN ---
Subjective - Date & Time of Evaluation Date of Evaluation: 01/02/17 Time of Evaluation: 14:05 - Subjective Subjective: pt seen and examined bedisde for multifocal pneumonia HD stable no complaints at this time states she is feeling better and stronger. Objective - Vital Signs/Intake and Output Vital Signs (last 24 hours): Temp Pulse Resp BP Pulse Ox 97.0 F L 89 20 124/79 98 01/02/17 08:04 01/02/17 08:04 01/02/17 08:04 01/02/17 08:04 01/02/17 08:04 Constitutional- cooperative, awake, alert. Head- NCAT, PERRL Eye- PERRL, normal accommodation ENT- normal exam, MMM. Neck- normal inspection, supple, no JVD Respiratory- CTAB, mild wheezes bilaterally, no rales rhonchi Cardiovascular- RRR, +S1, +S2 no MRG GI/Abdominal- normal bowel sounds, soft Skin- warm, dry Extremities Exam- normal capillary refill, normal inspection Neurological Exam- alert, stable gait Psych- normal mood, normal affect - Medications Medications: Current Medications Acetaminophen (Tylenol 325mg Tab) 650 mg PO Q6 PRN PRN Reason: Fever >100.4 F Acetylcysteine (Acetylcysteine 20%) 2 ml INH RBID [facility] Last Admin: 01/02/17 07:31 Dose: 2 ml Albuterol/Ipratropium (Duoneb 3 Mg/0.5 Mg (3 Ml) Ud) 3 ml INH RQID [facility] Last Admin: 01/02/17 12:09 Dose: 3 ml Aspirin (Ecotrin) 81 mg PO DAILY [facility] Last Admin: 01/02/17 09:17 Dose: 81 mg Calcium Carbonate (Oscal) 500 mg PO BID [facility] Last Admin: 01/02/17 09:15 Dose: 500 mg Docusate Sodium (Colace) 100 mg PO BID PRN PRN Reason: Constipation Last Admin: 01/02/17 09:17 Dose: 100 mg Enoxaparin Sodium (Lovenox) 40 mg SC DAILY [facility] PRN Reason: Protocol Last Admin: 01/02/17 09:16 Dose: 40 mg Guaifenesin (Mucinex La) 600 mg PO Q12 [facility] Last Admin: 01/02/17 09:16 Dose: 600 mg Clindamycin Phosphate 600 mg/ (Sodium Chloride) 104 mls @ 104 mls/hr IVPB Q8@ 0500,1300,2100 [facility] Last Admin: 01/02/17 12:57 Dose: 104 mls/hr Meropenem 1 gm/ Sodium (Chloride) 100 mls @ 100 mls/hr IVPB Q12@0500,1700 [facility] Last Admin: 01/02/17 05:20 Dose: 100 mls/hr Levothyroxine Sodium (Synthroid) 100 mcg PO DAILY@0630 [facility] Last Admin: 01/02/17 05:29 Dose: 100 mcg Memantine (Namenda) 10 mg PO Q12H [facility] Last Admin: 01/02/17 09:15 Dose: 10 mg Multivitamins/Minerals (Therapeutic-M Tab) 1 tab PO DAILY [facility] Last Admin: 01/02/17 09:16 Dose: 1 tab Pantoprazole Sodium (Protonix Ec Tab) 40 mg PO DAILY [facility] Last Admin: 01/02/17 09:16 Dose: 40 mg Saccharomyces Boulardii (Florastor) 250 mg PO BID [facility] Last Admin: 01/02/17 09:16 Dose: 250 mg - Labs Labs: 01/01/17 11:00 01/01/17 11:00 Assessment and Plan - Assessment and Plan (Free Text) Plan: 66 year old female with a past medical history significant for COPD/emphysema with pulmonary hypertension and dilated right ventricle with cor pulmonale, former tobacco smoker, also with history of dementia, and hypothyroidism, who was initially brought to [facility] on 12/25/2016 after being brought by her , with the complaint of alteration of mental status. In the Emergency Department, the patient was found to have Multifocal infiltrates bilaterally consistent with multifocal pneumonia on CT scan. The patient was started on IV Zosyn and Clindamycin empirically, and Dr. Ferreira was consulted for pulmonary and ID, Dr. Mcmillan, was consulted for infectious disease. Later Zosyn was switched to Meropenem by infectious disease. The patient improved during the course of her stay and WBC trended down from 26K to 8.7K. She was hemodynamically stable on and AMS improved. She was subsequently discharged to TCU at that time. Today , on 12/31, the patient continues to feel better. She has no complaints today. History is limited given her baseline dementia. 1. Acute Multifocal pneumonia with left upper lobe necrotization; sepsis is resolved Ct chest showed multifocal pneumonia along with solitary spiculated nodule measring approximately 1.[address] scan as per Dr. Ferreira urine cultures with no growth -- ruling out UTI as etiology for sepsis blood cx with no growth x 5 days Sputum Cx positive for yeast WBC trending down from 26 k-- 8.7 K, afebrile > 24 hours pulmonary and ID consulted empirically is continued on Clindamycin, Meropenem as per ID 2. Altered mental status most likely secondary to sepsis back to her baseline now, very forgetful 3.UTI ruled out urine cx with no growth 4. Decompensated chronic obstructive pulmonary disease cont Advair, Spiriva and Duoneb tx pulmonary on consult CT chest showed left lobe questionable spiculated nodule. Discussed with pulmonary. Patient may need bronchoscopy if lesion still present at the end of IV antibiotics 5. Dementia Chronic now at baseline cont namenda forgetful 6. Hypothyroidism TSH normal cont Levothyroxine 7. Cachetic BMI 18 8. Mild anemia dilutional 9. DVT prophylaxis Acute
[2017-01-03] MEDS: Clindamycin 600 MG in Sodium Chloride 0.9% 100 ML IVPB SCH ×3 (05:26→23:45)
[2017-01-03] MEDS: Levothyroxine 100 MCG TAB PO SCH (06:34)
[2017-01-03] MEDS: Meropenem 1 GM/NS 100 ML IVPB SCH ×2 (06:34→17:19)
[2017-01-03] MEDS: Albuterol-Ipratrop 3 mg / 0.5 (3 ml) UD INH SCH ×4 (08:15→19:59)
[2017-01-03] MEDS: Acetylcysteine 20% Inhal Soln (4ml) INH SCH ×2 (08:15→19:59)
[2017-01-03] MEDS: guaiFENesin 600 mg ER Tab PO SCH ×2 (08:43→23:46)
[2017-01-03] MEDS: Saccharomyces Boulardi 250 mg Cap PO SCH ×2 (08:43→17:18)
[2017-01-03] MEDS: Enoxaparin 40 mg Syringe SC SCH (08:43)
[2017-01-03] MEDS: Pantoprazole 40 mg EC Tab PO SCH (08:43)
[2017-01-03] MEDS: Multivitamin With Minerals Tab PO SCH (08:44)
--- NOTE | 2017-01-03 11:49 | CP.PCM.PN ---
Subjective - Date & Time of Evaluation Date of Evaluation: 01/03/17 Time of Evaluation: 11:47 - Subjective Subjective: Follow up CT chest, unofficially, shows significant improvement in the MAMTA infiltrate. There is still significant disease present, and the satellite nodule (?) is a little smaller. These will require a followup CT chest as an outpatient in about two to three more weeks. For the present time I would continue her antibiotic regimen with meropenem to complete 10 days minimum (today is #7). I will discuss this with Infectious Disease. Objective - Vital Signs/Intake and Output Vital Signs (last 24 hours): Temp Pulse Resp BP Pulse Ox 97.9 F 88 20 125/75 90 L 01/03/17 08:39 01/03/17 08:39 01/03/17 08:39 01/03/17 08:39 01/03/17 08:39 - Medications Medications: Current Medications Acetaminophen (Tylenol 325mg Tab) 650 mg PO Q6 PRN PRN Reason: Fever >100.4 F Acetylcysteine (Acetylcysteine 20%) 2 ml INH RBID [facility] Last Admin: 01/03/17 08:15 Dose: 2 ml Albuterol/Ipratropium (Duoneb 3 Mg/0.5 Mg (3 Ml) Ud) 3 ml INH RQID [facility] Last Admin: 01/03/17 11:45 Dose: 3 ml Aspirin (Ecotrin) 81 mg PO DAILY [facility] Last Admin: 01/03/17 08:44 Dose: 81 mg Calcium Carbonate (Oscal) 500 mg PO BID [facility] Last Admin: 01/03/17 08:43 Dose: 500 mg Docusate Sodium (Colace) 100 mg PO BID PRN PRN Reason: Constipation Last Admin: 01/02/17 09:17 Dose: 100 mg Guaifenesin (Mucinex La) 600 mg PO Q12 [facility] Last Admin: 01/03/17 08:43 Dose: 600 mg Clindamycin Phosphate 600 mg/ (Sodium Chloride) 104 mls @ 104 mls/hr IVPB Q8@ 0500,1300,2100 [facility] Last Admin: 01/03/17 05:26 Dose: 104 mls/hr Meropenem 1 gm/ Sodium (Chloride) 100 mls @ 100 mls/hr IVPB Q12@0500,1700 [facility] Last Admin: 01/03/17 06:34 Dose: 100 mls/hr Levothyroxine Sodium (Synthroid) 100 mcg PO DAILY@0630 [facility] Last Admin: 01/03/17 06:34 Dose: 100 mcg Memantine (Namenda) 10 mg PO Q12H [facility] Last Admin: 01/03/17 08:43 Dose: 10 mg Multivitamins/Minerals (Therapeutic-M Tab) 1 tab PO DAILY [facility] Last Admin: 01/03/17 08:44 Dose: 1 tab Pantoprazole Sodium (Protonix Ec Tab) 40 mg PO DAILY [facility] Last Admin: 01/03/17 08:43 Dose: 40 mg Saccharomyces Boulardii (Florastor) 250 mg PO BID [facility] Last Admin: 01/03/17 08:43 Dose: 250 mg - Labs Labs: 01/01/17 11:00 01/01/17 11:00 Assessment and Plan (1) Necrotizing pneumonia Status: Acute (2) COPD (chronic obstructive pulmonary disease) Status: Acute (3) Dementia Status: Chronic (4) Pulmonary hypertension Status: Chronic (5) Cor pulmonale (chronic) Status: Chronic
--- NOTE | 2017-01-03 12:25 | CT ---
PROCEDURE: CT Chest without contrast HISTORY: J85.0 COMPARISON: 12/27/2016 TECHNIQUE: Contiguous axial images were obtained through the chest without intravenous contrast enhancement. Sagittal and coronal reconstructions were performed. Radiation dose (DLP): 178.89 mGy-cm. This CT exam was performed using one or more of the following dose reduction techniques: Automated exposure control, adjustment of the mA and/or kV according to patient size, and/or use of iterative reconstruction technique. FINDINGS: LUNGS: Centrilobular pulmonary emphysema. Improving left upper lobe anterior segment consolidation. Followup to clearing to exclude underlying neoplasm. Spiculated mass or rounded infiltrate in the left upper lobe, apical posterior segment, measuring 1.4 x 1.0 x 8.7 cm. Previously 1.8 x 1.2 x 1.3 cm. Followup to clearing to exclude underlying neoplasm. Mass in medial aspect superior segment right upper lobe, 6 mm. Previously, 10 mm. Followup to clearing. Vague patchy infiltrate in right lower lobe. Right lower lobe subsegmental atelectasis at lung base. No interval change from previous except for slight increase in extent of linear atelectasis at base. MEDIASTINUM: Unremarkable thoracic aorta. No aneurysm. Normal sized heart. Main pulmonary artery unremarkable. No vascular congestion. No lymphadenopathy. PLEURA: No pleural fluid. No pneumothorax. BONES: No fracture. Anterior fixation lower cervical spine. Degenerative disc disease at several levels of the mid thoracic spine. UPPER ABDOMEN: Two rounded low-attenuation masses in the liver, 1 9 mm at the dome of the right lobe and another 7 mm in the caudate lobe. These are unchanged compared to CT angio chest examination of 01/06/2015. OTHER FINDINGS: Bilateral breast augmentation prostheses. Shotty bilateral axillary lymph nodes. IMPRESSION: Improving dense left upper lobe consolidation. Patchy right lower lobe infiltrate unchanged. Right lower lobe linear subsegmental atelectasis. Decreasing size of apical posterior segment left upper lobe mass and of medial right apical mass compared to 12/27/2016. Possible rounded infiltrate. Followup to clearing to exclude underlying neoplasm.
[2017-01-04] MEDS: Clindamycin 600 MG in Sodium Chloride 0.9% 100 ML IVPB SCH ×3 (05:43→20:13)
[2017-01-04] MEDS: Levothyroxine 100 MCG TAB PO SCH (05:48)
[2017-01-04] MEDS: Meropenem 1 GM/NS 100 ML IVPB SCH ×2 (06:55→17:09)
[2017-01-04] MEDS: Acetylcysteine 20% Inhal Soln (4ml) INH SCH ×2 (07:36→19:49)
[2017-01-04] MEDS: Albuterol-Ipratrop 3 mg / 0.5 (3 ml) UD INH SCH ×4 (07:36→19:49)
[2017-01-04] MEDS: guaiFENesin 600 mg ER Tab PO SCH ×2 (08:17→20:13)
[2017-01-04] MEDS: Pantoprazole 40 mg EC Tab PO SCH (08:17)
[2017-01-04] MEDS: Multivitamin With Minerals Tab PO SCH (08:17)
[2017-01-04] MEDS: Saccharomyces Boulardi 250 mg Cap PO SCH ×2 (08:17→17:10)
[2017-01-04] MEDS ORDERED: Sodium Chloride 3% for Inhalation 4 ML VIAL.NEB IH PRN (18:05)
[2017-01-05] MEDS: Levothyroxine 100 MCG TAB PO SCH (05:43)
[2017-01-05] MEDS: Meropenem 1 GM/NS 100 ML IVPB SCH ×2 (05:44→16:48)
[2017-01-05] MEDS: Clindamycin 600 MG in Sodium Chloride 0.9% 100 ML IVPB SCH ×3 (06:00→21:22)
[2017-01-05] MEDS: Albuterol-Ipratrop 3 mg / 0.5 (3 ml) UD INH SCH ×4 (07:48→19:40)
[2017-01-05] MEDS: Acetylcysteine 20% Inhal Soln (4ml) INH SCH ×2 (07:48→19:40)
[2017-01-05] MEDS: Multivitamin With Minerals Tab PO SCH (08:45)
[2017-01-05] MEDS: Saccharomyces Boulardi 250 mg Cap PO SCH ×2 (08:45→16:49)
[2017-01-05] MEDS: guaiFENesin 600 mg ER Tab PO SCH ×2 (08:45→21:21)
[2017-01-05] MEDS: Pantoprazole 40 mg EC Tab PO SCH (08:45)
--- NOTE | 2017-01-05 17:00 | CP.PCM.PN ---
Subjective - Date & Time of Evaluation Date of Evaluation: 01/05/17 Time of Evaluation: 17:02 - Subjective Subjective: I D NOTE CT REVIEWED AND SHOWS IMPROVEMENT WILL HAVE TO MAKE DECISION ORAL THERAPY IS LIKELY A RELATIVELY RESISTANT GRAM NEGATIVE BACTERIA POSSIBLY MAY USE CEFTIN Objective - Vital Signs/Intake and Output Vital Signs (last 24 hours): Temp Pulse Resp BP Pulse Ox 100.9 F H 92 H 20 120/79 96 01/05/17 15:48 01/05/17 15:48 01/05/17 15:48 01/05/17 15:48 01/05/17 15:48 - Medications Medications: Current Medications Acetaminophen (Tylenol 325mg Tab) 650 mg PO Q6 PRN PRN Reason: Fever >100.4 F Acetylcysteine (Acetylcysteine 20%) 2 ml INH RBID [facility] Last Admin: 01/05/17 07:48 Dose: 2 ml Albuterol/Ipratropium (Duoneb 3 Mg/0.5 Mg (3 Ml) Ud) 3 ml INH RQID [facility] Last Admin: 01/05/17 15:27 Dose: 3 ml Aspirin (Ecotrin) 81 mg PO DAILY [facility] Last Admin: 01/05/17 08:46 Dose: 81 mg Calcium Carbonate (Oscal) 500 mg PO BID [facility] Last Admin: 01/05/17 16:50 Dose: 500 mg Docusate Sodium (Colace) 100 mg PO BID PRN PRN Reason: Constipation Last Admin: 01/02/17 09:17 Dose: 100 mg Guaifenesin (Mucinex La) 600 mg PO Q12 [facility] Last Admin: 01/05/17 08:45 Dose: 600 mg Clindamycin Phosphate 600 mg/ (Sodium Chloride) 104 mls @ 104 mls/hr IVPB Q8@ 0500,1300,2100 [facility] Last Admin: 01/05/17 13:09 Dose: 104 mls/hr Meropenem 1 gm/ Sodium (Chloride) 100 mls @ 100 mls/hr IVPB Q12@0500,1700 [facility] Last Admin: 01/05/17 16:48 Dose: 100 mls/hr Levothyroxine Sodium (Synthroid) 100 mcg PO DAILY@0630 [facility] Last Admin: 01/05/17 05:43 Dose: 100 mcg Memantine (Namenda) 10 mg PO Q12H [facility] Last Admin: 01/05/17 08:45 Dose: 10 mg Multivitamins/Minerals (Therapeutic-M Tab) 1 tab PO DAILY [facility] Last Admin: 01/05/17 08:45 Dose: 1 tab Pantoprazole Sodium (Protonix Ec Tab) 40 mg PO DAILY [facility] Last Admin: 01/05/17 08:45 Dose: 40 mg Saccharomyces Boulardii (Florastor) 250 mg PO BID [facility] Last Admin: 01/05/17 16:49 Dose: 250 mg - Labs Labs: 01/01/17 11:00 01/01/17 11:00
[2017-01-06] MEDS: Clindamycin 600 MG in Sodium Chloride 0.9% 100 ML IVPB SCH ×3 (04:05→20:31)
[2017-01-06] MEDS: Meropenem 1 GM/NS 100 ML IVPB SCH ×2 (04:05→17:15)
[2017-01-06] MEDS: Levothyroxine 100 MCG TAB PO SCH (05:42)
[2017-01-06] MEDS: Multivitamin With Minerals Tab PO SCH (08:26)
[2017-01-06] MEDS: Saccharomyces Boulardi 250 mg Cap PO SCH ×2 (08:26→17:16)
[2017-01-06] MEDS: guaiFENesin 600 mg ER Tab PO SCH ×2 (08:26→20:32)
[2017-01-06] MEDS: Pantoprazole 40 mg EC Tab PO SCH (08:26)
[2017-01-06] MEDS: Albuterol-Ipratrop 3 mg / 0.5 (3 ml) UD INH SCH ×4 (08:31→19:17)
[2017-01-06] MEDS: Acetylcysteine 20% Inhal Soln (4ml) INH SCH ×2 (08:31→19:17)
--- NOTE | 2017-01-06 11:39 | CP.PCM.PN ---
Subjective - Date & Time of Evaluation Date of Evaluation: 01/06/17 Time of Evaluation: 11:35 - Subjective Subjective: Will be completing 10 days of meropenem by Friday. ID note reviewed. Will plan for PO rx at home with Ceftin ?500MG BID. Objective - Vital Signs/Intake and Output Vital Signs (last 24 hours): Temp Pulse Resp BP Pulse Ox 97.9 F 89 20 122/72 100 01/06/17 08:05 01/06/17 08:05 01/06/17 08:05 01/06/17 08:05 01/06/17 08:05 - Medications Medications: Current Medications Acetaminophen (Tylenol 325mg Tab) 650 mg PO Q6 PRN PRN Reason: Fever >100.4 F Acetylcysteine (Acetylcysteine 20%) 2 ml INH RBID [facility] Last Admin: 01/06/17 08:31 Dose: 2 ml Albuterol/Ipratropium (Duoneb 3 Mg/0.5 Mg (3 Ml) Ud) 3 ml INH RQID [facility] Last Admin: 01/06/17 08:31 Dose: 3 ml Aspirin (Ecotrin) 81 mg PO DAILY [facility] Last Admin: 01/06/17 08:26 Dose: 81 mg Calcium Carbonate (Oscal) 500 mg PO BID [facility] Last Admin: 01/06/17 08:26 Dose: 500 mg Docusate Sodium (Colace) 100 mg PO BID PRN PRN Reason: Constipation Last Admin: 01/02/17 09:17 Dose: 100 mg Guaifenesin (Mucinex La) 600 mg PO Q12 [facility] Last Admin: 01/06/17 08:26 Dose: 600 mg Clindamycin Phosphate 600 mg/ (Sodium Chloride) 104 mls @ 104 mls/hr IVPB Q8@ 0500,1300,2100 [facility] Stop: 01/07/17 06:00 Last Admin: 01/06/17 04:05 Dose: 104 mls/hr Meropenem 1 gm/ Sodium (Chloride) 100 mls @ 100 mls/hr IVPB Q12@0500,1700 [facility] Stop: 01/08/17 06:00 Last Admin: 01/06/17 04:05 Dose: 100 mls/hr Levothyroxine Sodium (Synthroid) 100 mcg PO DAILY@0630 [facility] Last Admin: 01/06/17 05:42 Dose: 100 mcg Memantine (Namenda) 10 mg PO Q12H [facility] Last Admin: 01/06/17 08:26 Dose: 10 mg Multivitamins/Minerals (Therapeutic-M Tab) 1 tab PO DAILY [facility] Last Admin: 01/06/17 08:26 Dose: 1 tab Pantoprazole Sodium (Protonix Ec Tab) 40 mg PO DAILY [facility] Last Admin: 01/06/17 08:26 Dose: 40 mg Saccharomyces Boulardii (Florastor) 250 mg PO BID [facility] Last Admin: 01/06/17 08:26 Dose: 250 mg - Labs Labs: 01/01/17 11:00 01/01/17 11:00 Assessment and Plan (1) Necrotizing pneumonia Status: Acute (2) COPD (chronic obstructive pulmonary disease) Status: Acute (3) Dementia Status: Chronic (4) Pulmonary hypertension Status: Chronic (5) Cor pulmonale (chronic) Status: Chronic
[2017-01-07] MEDS: Clindamycin 600 MG in Sodium Chloride 0.9% 100 ML IVPB SCH (04:38)
[2017-01-07] MEDS: Levothyroxine 100 MCG TAB PO SCH (05:52)
[2017-01-07] MEDS: Meropenem 1 GM/NS 100 ML IVPB SCH ×2 (05:53→16:30)
[2017-01-07 06:18] LABS: BLOOD UREA NITROGEN 17 mg/dl (7-17); CALCIUM 8.6 mg/dL (8.4-10.2); CARBON DIOXIDE 29 mmol/L (22-30); CHLORIDE 100 mmol/L (98-107); GFR AFRICAN-AMERICAN > 60; GLUCOSE,RANDOM 106 mg/dL (65-105); POTASSIUM 4.6 MMOL/L (3.6-5.0); SODIUM 137 mmol/l (132-148)
[2017-01-07 06:20] LABS: BASO # 0.1 K/uL (0.0-0.2); EOS # 0.4 K/uL (0.0-0.7); EOS % 3.6 % (0.0-4.0); HEMATOCRIT 35.3 % (34.0-47.0); LYMPH # 1.6 K/uL (1.0-4.3); MEAN CELL VOLUME 89.6 fl (81.0-99.0); MEAN CORPUSCULAR HEMOGLOBIN 29.9 pg (27.0-31.0); MEAN CORPUSCULAR HGB CONC 33.4 g/dL (33.0-37.0); MONO % 9.4 % (0.0-10.0); NEUT # 7.4 K/uL (1.8-7.0); RED CELL DISTRIBUTION WIDTH 15.7 % (11.5-14.5); WHITE BLOOD COUNT 10.5 K/uL (4.8-10.8)
[2017-01-07] MEDS: Acetylcysteine 20% Inhal Soln (4ml) INH SCH ×2 (08:02→19:10)
[2017-01-07] MEDS: Albuterol-Ipratrop 3 mg / 0.5 (3 ml) UD INH SCH ×4 (08:02→19:10)
--- NOTE | 2017-01-07 08:50 | CP.PCM.PN ---
Subjective - Date & Time of Evaluation Date of Evaluation: 01/07/17 Time of Evaluation: 08:34 - Subjective Subjective: Has remained afebrile since one spike the day before yesterday. Claims to feel well. Only occasional cough. No SOB at rest. Remains at baseline mental state, very confused at times. Today's labs look okay. Clindamycin has been discontinued. Meropenem will be discontinued after tomorrow morning's dose. Patient will be discharged to continue PO antibiotic (cefuroxime 500MG BID). All other usual home medications will continue as before. Will add acetylcysteine 20% to usual nebulizer regimen BID. Plan for discharge to home tomorrow AM. Objective - Vital Signs/Intake and Output Vital Signs (last 24 hours): Temp Pulse Resp BP Pulse Ox 99.5 F 100 H 20 119/70 91 L 01/07/17 08:17 01/07/17 08:17 01/07/17 08:17 01/07/17 08:17 01/07/17 08:17 - Medications Medications: Current Medications Acetaminophen (Tylenol 325mg Tab) 650 mg PO Q6 PRN PRN Reason: Fever >100.4 F Acetylcysteine (Acetylcysteine 20%) 2 ml INH RBID [facility] Last Admin: 01/07/17 08:02 Dose: 2 ml Albuterol/Ipratropium (Duoneb 3 Mg/0.5 Mg (3 Ml) Ud) 3 ml INH RQID [facility] Last Admin: 01/07/17 08:02 Dose: 3 ml Aspirin (Ecotrin) 81 mg PO DAILY [facility] Last Admin: 01/06/17 08:26 Dose: 81 mg Calcium Carbonate (Oscal) 500 mg PO BID [facility] Last Admin: 01/06/17 17:16 Dose: 500 mg Docusate Sodium (Colace) 100 mg PO BID PRN PRN Reason: Constipation Last Admin: 01/02/17 09:17 Dose: 100 mg Guaifenesin (Mucinex La) 600 mg PO Q12 [facility] Last Admin: 01/06/17 20:32 Dose: 600 mg Meropenem 1 gm/ Sodium (Chloride) 100 mls @ 100 mls/hr IVPB Q12@0500,1700 [facility] Stop: 01/08/17 06:00 Last Admin: 01/07/17 05:53 Dose: 100 mls/hr Levothyroxine Sodium (Synthroid) 100 mcg PO DAILY@0630 [facility] Last Admin: 01/07/17 05:52 Dose: 100 mcg Memantine (Namenda) 10 mg PO Q12H [facility] Last Admin: 01/06/17 20:32 Dose: 10 mg Multivitamins/Minerals (Therapeutic-M Tab) 1 tab PO DAILY [facility] Last Admin: 01/06/17 08:26 Dose: 1 tab Pantoprazole Sodium (Protonix Ec Tab) 40 mg PO DAILY [facility] Last Admin: 01/06/17 08:26 Dose: 40 mg Saccharomyces Boulardii (Florastor) 250 mg PO BID [facility] Last Admin: 01/06/17 17:16 Dose: 250 mg - Labs Labs: 01/07/17 05:40 01/07/17 05:40 Assessment and Plan (1) Necrotizing pneumonia Status: Acute (2) COPD (chronic obstructive pulmonary disease) Status: Acute (3) Dementia Status: Chronic (4) Pulmonary hypertension Status: Chronic (5) Cor pulmonale (chronic) Status: Chronic
[2017-01-07] MEDS: Saccharomyces Boulardi 250 mg Cap PO SCH ×2 (08:54→16:31)
[2017-01-07] MEDS: Pantoprazole 40 mg EC Tab PO SCH (08:55)
[2017-01-07] MEDS: guaiFENesin 600 mg ER Tab PO SCH ×2 (08:55→21:17)
[2017-01-07] MEDS: Multivitamin With Minerals Tab PO SCH (08:55)
--- NOTE | 2017-01-07 14:10 | CP.PCM.PN ---
Subjective - Date & Time of Evaluation Date of Evaluation: 01/07/17 Time of Evaluation: 10:00 - Subjective Subjective: Patient seen and examined at bedside. She states that she is feeling better. She continues to be very confused at times. She denies any fevers or chills. Denies headache. Patient ambulatory. Today's labs reviewed and look ok. Continues to have occasional dry cough. No events overnight as per nursing staff. Plan is for discharge to home tomorrow AM. Objective - Vital Signs/Intake and Output Vital Signs (last 24 hours): Temp Pulse Resp BP Pulse Ox 99.5 F 100 H 20 119/70 91 L 01/07/17 08:17 01/07/17 08:17 01/07/17 08:17 01/07/17 08:17 01/07/17 08:17 - Medications Medications: Current Medications Acetaminophen (Tylenol 325mg Tab) 650 mg PO Q6 PRN PRN Reason: Fever >100.4 F Acetylcysteine (Acetylcysteine 20%) 2 ml INH RBID [facility] Last Admin: 01/07/17 08:02 Dose: 2 ml Albuterol/Ipratropium (Duoneb 3 Mg/0.5 Mg (3 Ml) Ud) 3 ml INH RQID [facility] Last Admin: 01/07/17 12:16 Dose: Not Given Aspirin (Ecotrin) 81 mg PO DAILY [facility] Last Admin: 01/07/17 08:54 Dose: 81 mg Calcium Carbonate (Oscal) 500 mg PO BID [facility] Last Admin: 01/07/17 08:55 Dose: 500 mg Docusate Sodium (Colace) 100 mg PO BID PRN PRN Reason: Constipation Last Admin: 01/02/17 09:17 Dose: 100 mg Guaifenesin (Mucinex La) 600 mg PO Q12 [facility] Last Admin: 01/07/17 08:55 Dose: 600 mg Meropenem 1 gm/ Sodium (Chloride) 100 mls @ 100 mls/hr IVPB Q12@0500,1700 [facility] Stop: 01/08/17 06:00 Last Admin: 01/07/17 05:53 Dose: 100 mls/hr Levothyroxine Sodium (Synthroid) 100 mcg PO DAILY@0630 [facility] Last Admin: 01/07/17 05:52 Dose: 100 mcg Memantine (Namenda) 10 mg PO Q12H [facility] Last Admin: 01/07/17 08:55 Dose: 10 mg Multivitamins/Minerals (Therapeutic-M Tab) 1 tab PO DAILY [facility] Last Admin: 01/07/17 08:55 Dose: 1 tab Pantoprazole Sodium (Protonix Ec Tab) 40 mg PO DAILY [facility] Last Admin: 01/07/17 08:55 Dose: 40 mg Saccharomyces Boulardii (Florastor) 250 mg PO BID [facility] Last Admin: 01/07/17 08:54 Dose: 250 mg - Labs Labs: 01/07/17 05:40 01/07/17 05:40 - Additional Findings Additional findings: Physical exam: Constitutional- cooperative, awake, alert. Forgetful Head- NCAT, PERRL Eye- PERRL, normal accommodation ENT- normal exam, MMM. Neck- normal inspection, supple, no JVD Respiratory- CTAB, no wheezes today, no rales rhonchi Cardiovascular- RRR, +S1, +S2 no MRG GI/Abdominal- normal bowel sounds, soft Skin- warm, dry Extremities Exam- normal capillary refill, normal inspection Neurological Exam- alert, stable gait Psych- normal mood, normal affect Assessment and Plan - Assessment and Plan (Free Text) Plan: Plan: 66 year old female with a past medical history significant for COPD/emphysema with pulmonary hypertension and dilated right ventricle with cor pulmonale, former tobacco smoker, also with history of dementia, and hypothyroidism, who was initially brought to [facility] on 12/25/2016 after being brought by her , with the complaint of alteration of mental status. In the Emergency Department, the patient was found to have Multifocal infiltrates bilaterally consistent with multifocal pneumonia on CT scan. The patient was started on IV Zosyn and Clindamycin empirically, and Dr. Ferreira was consulted for pulmonary and ID, Dr. Mcmillan, was consulted for infectious disease. Later Zosyn was switched to Meropenem by infectious disease. The patient improved during the course of her stay and WBC trended down from 26K to 8.7K. She was hemodynamically stable on and AMS improved. She was subsequently discharged to TCU at that time. Patient improved today, plan is for discharge 01/08/2017 after last course of IV antibiotics. 1. Acute Multifocal pneumonia with left upper lobe necrotization; sepsis is resolved Ct chest showed multifocal pneumonia along with solitary spiculated nodule measring approximately 1.5 cm blood cx with no growth x 5 days Sputum Cx positive for yeast WBC WNL, 10.5 No new fever overnight pulmonary and ID consulted Clindamycin discontinued Continue Merrem for 1 more day as per ID, last dose before discharge. Patient to take Ceftin 500 mg po BID at home. 2. Altered mental status most likely secondary to sepsis back to her baseline now, very forgetful 3.UTI ruled out urine cx with no growth 4. Decompensated chronic obstructive pulmonary disease cont Advair, Spiriva and Duoneb tx pulmonary on consult CT chest showed left lobe questionable spiculated nodule. Discussed with pulmonary. 5. Dementia Chronic now at baseline continue namenda forgetful 6. Hypothyroidism TSH normal cont Levothyroxine 7. Cachetic BMI 18 8. Mild anemia dilutional
[2017-01-08] MEDS: Levothyroxine 100 MCG TAB PO SCH (05:46)
[2017-01-08] MEDS: Meropenem 1 GM/NS 100 ML IVPB SCH (05:48)
[2017-01-08] MEDS: Acetylcysteine 20% Inhal Soln (4ml) INH SCH (07:32)
[2017-01-08] MEDS: Albuterol-Ipratrop 3 mg / 0.5 (3 ml) UD INH SCH ×2 (07:32→11:39)
[2017-01-08 08:01] VITALS: BP 126/67; PULSE 98; TEMP 98.1; O2SAT 91
[2017-01-08] MEDS: Saccharomyces Boulardi 250 mg Cap PO SCH (08:47)
[2017-01-08] MEDS: Pantoprazole 40 mg EC Tab PO SCH (08:48)
[2017-01-08] MEDS: guaiFENesin 600 mg ER Tab PO SCH (08:48)
[2017-01-08] MEDS: Multivitamin With Minerals Tab PO SCH (08:48)
--- NOTE | 2017-01-08 09:52 | CP.PCM.PN ---
Subjective - Date & Time of Evaluation Date of Evaluation: 01/08/17 Time of Evaluation: 09:50 - Subjective Subjective: Clinically stable. Has remained afebrile. No cough or SOB. For discharge to home today on cefuroxime 500MG PO BID Advised to call my office Friday. Objective - Vital Signs/Intake and Output Vital Signs (last 24 hours): Temp Pulse Resp BP Pulse Ox 98.1 F 98 H 20 126/67 91 L 01/08/17 08:00 01/08/17 08:00 01/08/17 08:00 01/08/17 08:00 01/08/17 08:00 - Medications Medications: Current Medications Acetaminophen (Tylenol 325mg Tab) 650 mg PO Q6 PRN PRN Reason: Fever >100.4 F Acetylcysteine (Acetylcysteine 20%) 2 ml INH RBID [facility] Last Admin: 01/08/17 07:32 Dose: 2 ml Albuterol/Ipratropium (Duoneb 3 Mg/0.5 Mg (3 Ml) Ud) 3 ml INH RQID [facility] Last Admin: 01/08/17 07:32 Dose: 3 ml Aspirin (Ecotrin) 81 mg PO DAILY [facility] Last Admin: 01/08/17 08:47 Dose: 81 mg Calcium Carbonate (Oscal) 500 mg PO BID [facility] Last Admin: 01/08/17 08:48 Dose: 500 mg Docusate Sodium (Colace) 100 mg PO BID PRN PRN Reason: Constipation Last Admin: 01/08/17 08:47 Dose: 100 mg Guaifenesin (Mucinex La) 600 mg PO Q12 [facility] Last Admin: 01/08/17 08:48 Dose: 600 mg Levothyroxine Sodium (Synthroid) 100 mcg PO DAILY@0630 [facility] Last Admin: 01/08/17 05:46 Dose: 100 mcg Memantine (Namenda) 10 mg PO Q12H [facility] Last Admin: 01/08/17 08:48 Dose: 10 mg Multivitamins/Minerals (Therapeutic-M Tab) 1 tab PO DAILY [facility] Last Admin: 01/08/17 08:48 Dose: 1 tab Pantoprazole Sodium (Protonix Ec Tab) 40 mg PO DAILY [facility] Last Admin: 01/08/17 08:48 Dose: 40 mg Saccharomyces Boulardii (Florastor) 250 mg PO BID [facility] Last Admin: 01/08/17 08:47 Dose: 250 mg - Labs Labs: 01/07/17 05:40 01/07/17 05:40 Assessment and Plan (1) Necrotizing pneumonia Status: Acute (2) COPD (chronic obstructive pulmonary disease) Status: Acute (3) Dementia Status: Chronic (4) Pulmonary hypertension Status: Chronic (5) Cor pulmonale (chronic) Status: Chronic
--- NOTE | 2017-01-08 10:03 | CP.PCM.DIS ---
Provider - Provider Date of Admission: 12/30/16 23:03 Attending physician: Gunnar Hill MD Time Spent in preparation of Discharge (in minutes): 30 Diagnosis - Discharge Diagnosis (1) Pulmonary hypertension Status: Chronic Priority: High (2) CHF (congestive heart failure) Status: Acute (3) COPD (chronic obstructive pulmonary disease) Status: Acute (4) Necrotizing pneumonia Status: Acute (5) Hypothyroid Status: Chronic Priority: Medium Hospital Course - Lab Results Lab Results: Micro Results 01/04/17 20:59 Sputum Gram Stain - Final 01/04/17 20:59 Sputum Sputum Culture - Final Yeast Species 12/31/16 23:27 Sputum Gram Stain - Final 12/31/16 23:27 Sputum Sputum Culture - Final Most Recent Lab Values WBC 10.5 K/uL (4.8-10.8) 01/07/17 05:40 RBC 3.94 Mil/uL (3.80-5.20) 01/07/17 05:40 Hgb 11.8 g/dL (12.0-16.0) L 01/07/17 05:40 Hct 35.3 % (34.0-47.0) 01/07/17 05:40 MCV 89.6 fl (81.0-99.0) 01/07/17 05:40 MCH 29.9 pg (27.0-31.0) 01/07/17 05:40 MCHC 33.4 g/dL (33.0-37.0) 01/07/17 05:40 RDW 15.7 % (11.5-14.5) H 01/07/17 05:40 Plt Count 706 K/uL (130-400) H D 01/07/17 05:40 MPV 7.0 fl (7.2-11.7) L 01/07/17 05:40 Neut % (Auto) 71.0 % (50.0-75.0) 01/07/17 05:40 Lymph % (Auto) 15.0 % (20.0-40.0) L 01/07/17 05:40 [place] % (Auto) 9.4 % (0.0-10.0) 01/07/17 05:40 Eos % (Auto) 3.6 % (0.0-4.0) 01/07/17 05:40 Baso % (Auto) 1.0 % (0.0-2.0) 01/07/17 05:40 Neut # 7.4 K/uL (1.8-7.0) H 01/07/17 05:40 Lymph # 1.6 K/uL (1.0-4.3) 01/07/17 05:40 [place] # 1.0 K/uL (0.0-0.8) H 01/07/17 05:40 Eos # 0.4 K/uL (0.0-0.7) 01/07/17 05:40 Baso # 0.1 K/uL (0.0-0.2) 01/07/17 05:40 Sodium 137 mmol/l (132-148) 01/07/17 05:40 Potassium 4.6 MMOL/L (3.6-5.0) 01/07/17 05:40 Chloride 100 mmol/L (98-107) 01/07/17 05:40 Carbon Dioxide 29 mmol/L (22-30) 01/07/17 05:40 Anion Gap 12 (10-20) 01/07/17 05:40 BUN 17 mg/dl (7-17) 01/07/17 05:40 Creatinine 0.7 mg/dL (0.7-1.2) 01/07/17 05:40 Est GFR ( Amer) > 60 01/07/17 05:40 Est GFR (Non-Af Amer) > 60 01/07/17 05:40 Random Glucose 106 mg/dL (65-105) H 01/07/17 05:40 Calcium 8.6 mg/dL (8.4-10.2) 01/07/17 05:40 Total Bilirubin 0.4 mg/dl (0.2-1.3) 01/01/17 11:00 AST 35 U/L (14-36) 01/01/17 11:00 ALT 20 U/L (9-52) 01/01/17 11:00 Alkaline Phosphatase 94 U/L (38-126) 01/01/17 11:00 Total Protein 7.7 G/DL (6.3-8.2) 01/01/17 11:00 Albumin 4.2 g/dL (3.5-5.0) 01/01/17 11:00 Globulin 3.6 gm/dL (2.2-3.9) 01/01/17 11:00 Albumin/Globulin Ratio 1.2 (1.0-2.1) 01/01/17 11:00 Urine Color Blue (YELLOW) 01/01/17 13:25 Urine Clarity Slighty-cloudy (Clear) 01/01/17 13:25 Urine pH 6.0 (5.0-8.0) 01/01/17 13:25 Ur Specific [place] 1.017 (1.003-1.030) 01/01/17 13:25 Urine Protein Negative mg/dL (NEGATIVE) 01/01/17 13:25 Urine Glucose (UA) Neg mg/dL (Normal) 01/01/17 13:25 Urine Ketones Negative mg/dL (NEGATIVE) 01/01/17 13:25 Urine Blood Negative (NEGATIVE) 01/01/17 13:25 Urine Nitrate Negative (NEGATIVE) 01/01/17 13:25 Urine Bilirubin Negative (NEGATIVE) 01/01/17 13:25 Urine Urobilinogen 0.2-1.0 mg/dL (0.2-1.0) 01/01/17 13:25 Ur Leukocyte Esterase Neg Gerardo/uL (Negative) 01/01/17 13:25 Urine RBC (Auto) 1 /hpf (0-3) 01/01/17 13:25 Urine Microscopic WBC 1 /hpf (0-5) 01/01/17 13:25 Ur Squamous Epith Cells 1 /hpf (0-5) 01/01/17 13:25 Ur L.pneumophila Ag Negative (NEGATIVE) 01/01/17 19:25 Ur Strep pneumoniae Ag Not detected 01/01/17 19:25 - Hospital Course Hospital Course: 66 year old female with a past medical history significant for COPD/emphysema with pulmonary hypertension and dilated right ventricle with cor pulmonale, former tobacco smoker, also with history of dementia, and hypothyroidism, who was initially brought to [facility] on 12/25/2016 after being brought by her , with the complaint of alteration of mental status. In the Emergency Department, the patient was found to have Multifocal infiltrates bilaterally consistent with multifocal pneumonia on CT scan. The patient was started on IV Zosyn and Clindamycin empirically, and Dr. Ferreira was consulted for pulmonary and ID, Dr. Mcmillan, was consulted for infectious disease. Later Zosyn was switched to Meropenem by infectious disease. The patient improved during the course of her stay and WBC trended down from 26K to 8.7K. She was hemodynamically stable on and AMS improved. She was subsequently discharged to TCU at that time. Stable for discharge today 01/08/2017 aftercompleting course of antibiotic. Patient to follow-up with primary care physician in about a week. Patient's take Ceftin 500 mg by mouth twice a day. 1. Acute Multifocal pneumonia with left upper lobe necrotization; sepsis is resolved Ct chest showed multifocal pneumonia along with solitary spiculated nodule measring approximately 1.5 cm blood cx with no growth x 5 days Sputum Cx positive for yeast WBC WNL, 10.5 No new fever overnight pulmonary and ID consulted Clindamycin discontinued Continue Merrem for 1 more day as per ID, last dose before discharge. Patient to take Ceftin 500 mg po BID at home. 2. Altered mental status most likely secondary to sepsis back to her baseline now, very forgetful 3.UTI ruled out urine cx with no growth 4. Decompensated chronic obstructive pulmonary disease cont Advair, Spiriva and Duoneb tx pulmonary on consult CT chest showed left lobe questionable spiculated nodule. Discussed with pulmonary. 5. Dementia Chronic now at baseline continue namenda forgetful 6. Hypothyroidism TSH normal cont Levothyroxine 7. Cachetic BMI 18 8. Mild anemia dilutional Discharge Exam - Head Exam Additional comments: Physical exam: Constitutional- cooperative, awake, alert. Head- NCAT, PERRL Eye- PERRL, normal accommodation ENT- normal exam, MMM. Neck- normal inspection, supple, no JVD Respiratory- CTAB, no wheezes rales rhonchi Cardiovascular- RRR, +S1, +S2 no MRG GI/Abdominal- normal bowel sounds, soft, no mass, no hsm Skin- warm, dry Extremities Exam- normal capillary refill, normal inspection Neurological Exam- alert, stable gait Psych- normal mood, normal affect Discharge Plan - Discharge Medications Prescriptions: Albuterol 0.083% [Albuterol 0.083% Inhal Joi (2.5 mg/3 ml) UD] 2.5 mg INH RQ4 PRN #30 neb PRN Reason: Shortness Of Breath Calcium Carbonate [Oscal] 500 mg PO BID #60 tab Cefuroxime Axetil [Ceftin] 500 mg PO BID #200 susp.recon Docusate [Colace] 100 mg PO BID PRN #60 cap PRN Reason: Constipation Levothyroxine [Synthroid] 100 mcg PO DAILY #30 tab Memantine [Namenda] 10 mg PO Q12H #60 tab Pantoprazole [Protonix EC Tab] 40 mg PO DAILY #30 ect Saccharomyces Boulardi [Florastor] 250 mg PO BID #60 cap Tiotropium [Spiriva] 18 mcg IH DAILY #30 cap traMADol [Ultram] 50 mg PO Q6H PRN #20 tab PRN Reason: Pain, Severe (8-10) - Follow Up Plan Condition: GOOD Disposition: HOME/ ROUTINE
== END 2017-01-08 12:30 | disposition home or self-care (01) | DRG 178 ==
LOC: H.TCU 23:03
PROC: 5A0955Z Assistance with Respiratory Ventilation, Greater than 96 Consecutive Hours (ICD-10-PCS; principal; 2016-12-30)
DX: J85.0 Gangrene and necrosis of lung (principal); J44.0 Chronic obstructive pulmonary disease with (acute) lower respiratory infection; R64 Cachexia; I27.29 Other secondary pulmonary hypertension; F03.90 Unspecified dementia, unspecified severity, without behavioral disturbance, psychotic disturbance, mood disturbance, and anxiety; Z68.1 Body mass index [BMI] 19.9 or less, adult; J44.1 Chronic obstructive pulmonary disease with (acute) exacerbation; Z87.891 Personal history of nicotine dependence; Z91.018 Allergy to other foods; E03.9 Hypothyroidism, unspecified; D64.9 Anemia, unspecified

== ENCOUNTER 2018-04-20 12:05 | Emergency (ER) | payer MEDICARE, OTHER, BC ==
[2018-04-20 12:06] VITALS: BMI 19.8
[2018-04-20 12:14] VITALS: RESP 18; TEMP 98.1
--- NOTE | 2018-04-20 12:55 | ED PDOC ---
HPI: Nose Bleed Time Seen by Provider: 04/20/18 12:41 Chief Complaint (Nursing): ENT Problem Chief Complaint (Provider): Nose bleed History Per: Patient, Family History/Exam Limitations: no limitations (hx mostly as per as patient has dementia) Location Of Bleeding: Both Nares Anticoagulant/Antiplatlet Use?: Yes (ASA) Recent Aspirin Use: Yes (Last Taken) (this morning) Additional Complaint(s): 68 y/o F with hx of COPD and dementia who presents after nose bleed this morning. Patient's states that she began spontaneously having a nose bleed this morning at around 6am. It was controlled and the recurred about 3 - 4 times. states that there was a lot of blood loss so they decided to come in for further evaluation. Denies hx of HTN, DM, HL, CAD. Patient deneis C/P, palpitations, dizziness or HUGHES. Past Medical History Reviewed: Historical Data, Nursing Documentation, Vital Signs Vital Signs: Last Vital Signs Temp 98.1 F 04/20/18 12:12 Pulse 102 H 04/20/18 12:12 Resp 18 04/20/18 12:12 BP 115/52 L 04/20/18 12:12 Pulse Ox 99 04/20/18 12:12 - Medical History PMH: Arthritis (Spinal), Asthma, Bronchitis, COPD, Dementia, Emphysema, Hypothyroidism (post radio iodine ablation of thyroid cancer), Pneumonia (multiple episodes) Denies: Depression, HIV, Chronic Kidney Disease, Schizophrenia - Surgical History Surgical History: Appendectomy, Cholecystectomy - Family History Family History: States: Unknown Family Hx - Immunization History Hx Tetanus Toxoid Vaccination: No Hx Influenza Vaccination: No Hx Pneumococcal Vaccination: No - Home Medications Home Medications: Ambulatory Orders Medication Instructions Recorded Ascorbic Acid/Collagen Hydr 1 cap PO DAILY 12/25/16 [Collagen Plus Vit C Capsule] Aspirin [Ecotrin] 81 mg PO DAILY 12/25/16 Calcium Carbonate [Caltrate] 1 tab PO BID 12/25/16 Multivit/Folic Acid/Vit K1 1 tab PO DAILY 12/25/16 [One-A-Day Women's 50 Plus Tab] Acetaminophen [Tylenol 325mg tab] 650 mg PO Q6 PRN tab 12/30/16 Albuterol/Ipratropium [Duoneb 3 3 ml INH RQID neb 10/23/17 mg/0.5 mg (3 ml) UD] guaiFENesin [Mucinex LA] 600 mg PO Q12 tab 12/30/16 Albuterol 0.083% [Albuterol 0.083% 2.5 mg INH RQ4 PRN #30 neb 01/08/17 Inhal Joi (2.5 mg/3 ml) UD] Calcium Carbonate [Oscal] 500 mg PO BID #60 tab 01/08/17 Cefuroxime Axetil [Ceftin] 500 mg PO BID #200 susp.recon 01/08/17 Docusate [Colace] 100 mg PO BID PRN #60 cap 01/08/17 Levothyroxine [Synthroid] 100 mcg PO DAILY #30 tab 01/08/17 Memantine [Namenda] 10 mg PO Q12H #60 tab 01/08/17 Pantoprazole [Protonix EC Tab] 40 mg PO DAILY #30 ect 01/08/17 Saccharomyces Boulardi [Florastor] 250 mg PO BID #60 cap 01/08/17 Tiotropium [Spiriva] 18 mcg IH DAILY #30 cap 01/08/17 traMADol [Ultram] 50 mg PO Q6H PRN #20 tab 01/08/17 - Allergies Allergies/Adverse Reactions: Allergies Allergy/AdvReac Type Severity Reaction Status Date / Time corn AdvReac CONGESTION Verified 12/25/16 13:12 beef AdvReac CONGESTION Uncoded 12/25/16 13:12 Review of Systems Cardiovascular: Negative for: Chest Pain, Palpitations Respiratory: Negative for: Shortness of Breath Neurological: Negative for: Weakness, Dizziness Physical Exam - Reviewed Nursing Documentation Reviewed: Yes Vital Signs Reviewed: Yes - Physical Exam Appears: Positive for: Well Head Exam: Positive for: ATRAUMATIC Skin: Positive for: Normal Color ENT: Positive for: Sinus Pain/Drainage (dry blood noted in B/L nares ), Other (no blood noted in pharynx). Negative for: Pharyngeal Erythema, Tonsillar Exudate Neck: Positive for: Normal Cardiovascular/Chest: Positive for: Regular Rate, Rhythm Respiratory: Positive for: Normal Breath Sounds Neurologic/Psych: Positive for: Alert, Oriented - ECG O2 Sat by Pulse Oximetry: 99 Medical Decision Making Medical Decision Making: Patient reassured that bleeding has already been controlled so no further intervention required. Advised against nose blowing or picking to allow solid clot to form. She and demonstrated understanding. Disposition - Clinical Impression Clinical Impression: Nosebleed, symptom - Patient ED Disposition Is Patient to be Admitted: No Counseled Patient/Family Regarding: Diagnosis - Disposition Disposition: Routine/Home
[2018-04-20 13:47] VITALS: BP 113/73; PULSE 96; O2SAT 100
== END 2018-04-20 13:00 | disposition home or self-care (01) ==
LOC: H.ER 12:05
DX: R04.0 Epistaxis (principal)